=== PATIENT | female | born 2005 | race Caucasian/White ===

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

== ENCOUNTER 2023-07-31 21:03 | Emergency (ER) | payer OTHER, SELFPAY ==
--- OUTSIDE RECORDS SUMMARY | 2023-07-31 21:11 | XMS REPORT | Continuity of Care Document ---
Author Name Unknown Address [address] [facility]. [address] [place] [address] [facility] thconnect Address [address] [facility] [address] [place] [address] Care Team Providers Care Fender Finisher Name Role Phone Aury Rich PA-C Primary Care Physician + LORE CASTILLO Attending Clinician Unavailable LORE CASTILLO Attending Clinician Unavailable Doctor Unassigned, [place] Attending Clinician U navailable Aury Rich PA-C Attending Clinician [phone] HEMA GONZALEZ Attending Clinician Unavailable Pgy2 Attending Clinician Unavailable Hema Gonzalez MD Attending Clinician [phone] Nilo Angel MD Attending Clinician [phone] NILO ANGEL Attending Clinician Unavailable AURY RICH Attending Clinician Unavailab PACHECO Álvarez Attending Clinician Unavail able Terry Renee MD Attending Clinician [phone] TERRY RENEE Attending Clinician Unavailable OSCAR CHAVEZ Attending Clinician UnaArchana Valente Attending Clinician + ARCHANA MICHAELS Attending Clinician Unavail able Joyce Workman Attending Clinician [phone] JOYCE GALLARDO Attending Clinician UnavailRaymond Devi DO Attending Clinician Hubert Caldwell Attending Clinician [phone] HUBERT BETANCOURT Attending Clinician Unavail able NILO ANGEL Admitting Clinician Unavailable AURY RICH Admitting Clinician Unavailab le Payers Payer Name Policy Type Policy Number Effective Date Expirati on Date Source [place] [employer] [id number] 2022 00:00:00 Problems Condition Name Condition Details Condition Category Status Onset Date Resolution Date Last Treatment Date Treating Clinician Comments Source Boil of buttock Boil of buttock Disease Active 19 00:00: 00 [facility] Nexplanon removal Nexplanon removal Disease Active 02-24 00:00: 00 [facility] Heart murmur Heart murmur Disease Active 09-02 00:00: 00 [facility] Asthma Asthma Disease Active 09-02 00:00: 00 [facility] Defiant behavior Defiant behavior Disease Active 09-02 00:00: 00 [facility] Seasonal allergies Seasonal allergies Disease Active 09-02 00:00: 00 [facility] Allergic rhinitis Allergic rhinitis Disease Active 09-02 00:00: 00 [facility] Bipolar affective disorder Bipolar affective disorder Disease Active 608 00:00: 00 [facility] Other mixed anxiety disorders Other mixed anxiety disorders Disease Active 2016-02 0-14 00:00: 00 [facility] ADHD (attention deficit hyperactiv ity disorder) ADHD (attention deficit hyperactiv ity disorder) Disease Active 214 00:00: 00 [facility] Sleep apnea Sleep apnea Disease Active [facility] Allergies, Adverse Reactions, Alerts Allergy Name Allergy Type Status Severity Reaction(s) Onset Date Inactive Date Treating Clinician Comments Source NO KNOWN ALLERGIE S Drug Class Active [facility] Social History Social Habit Start Date Stop Date Quantity Comments [facility] Alcohol intake 2022-11-22 00:00:00 2022-11-22 00:00:00 Current non-drinker of alcohol (finding) [facility] Exposure to SARS-CoV-2 (event) 2022-04-26 00:00:00 2022-05-06 13:52:00 Not sure [facility] Tobacco use and exposure 2022-05-06 00:00:00 2022-05-06 00:00:00 User of smokeless tobacco [facility] History of Social function 2022-03-30 00:00:00 2022-03-30 00:00:00 [facility] Sex Assigned At 2005 00:00:00 2005 00:00:00 [facility] Smoking Status Start Date Stop Date Source Never smoked tobacco [facility] Medications Ordered Medication Name Filled Medication Name Start Date Stop Date Current Medication? Ordering Clinician Indication Dosage Frequency Signature (SIG) Comments Components Source CETIRIZINE 10 mg tablet 10-25 00:00: 00 Yes [id number] 10mg TAKE ONE (1) TABLET BY MOUTH AT BEDTIME. [facility] mometasone 50 mcg/actuati on nasal spray 03-30 00:00: 00 Yes 1{spray } Use 1 [place] in each nostril in the morning and 1 [place] in the evening. [facility] cetirizine 10 mg tablet 03-30 00:00: 00 10-25 00:00 :00 No [id number] 10mg Take 1 tablet by mouth at bedtime. [facility] multivit-mi n/ferrous fumarate (MULTI VITAMIN ORAL) 03-15 10:17: 40 Yes Take by mouth. [facility] clindamycin 300 mg capsule 03-15 00:00: 00 03-26 05:59 :00 No [id number] 300mg Take 1 capsule by mouth 4 (four) times daily for 10 days. [facility] sulfamethox azole-trime thoprim (BACTRIM DS) 800-160 mg per tablet 03-15 00:00: 00 03-26 05:59 :00 No [id number] 1{tbl} Take 1 tablet by mouth in the morning and 1 tablet in the evening. Do all this for 10 days. [facility] benzoyl peroxide 5 % gel 1-10 00:00: 00 03-30 00:00 :00 No [id number] Apply to area(s) daily. [facility] clindamycin 1 % gel 1-10 00:00: 00 03-30 00:00 :00 No [id number] Apply to area(s) daily. [facility] amoxicillin -clavulanat e (AUGMENTIN) 875-125 mg per tablet 1-06 00:00: 00 03-09 05:59 :00 No [id number] 1{tbl} Take 1 tablet by mouth in the morning and 1 tablet in the evening. Do all this for 10 days. [facility] clindamycin -benzoyl peroxide (BENZACLIN) gel - 00:00: 00 03-02 00:00 :00 No [id number] Apply to area(s) at bedtime. [facility] polymyxin B sulf-trimet hoprim 10,000 unit- 1 mg/mL ophthalmic drops 1-04 00:00: 00 03-30 00:00 :00 No INSTILL ONE (1) DROP IN AFFECTED EYE EVERY SIX HOURS FOR 7 DAYS. [facility] busPIRone 5 mg tablet 1-03 00:00: 00 03-30 00:00 :00 No [facility] CETIRIZINE 10 mg tablet 2-14 00:00: 00 03-30 00:00 :00 No [id number] TAKE ONE (1) TABLET(S) BY MOUTH ONCE A DAY AT BEDTIME. [facility] Nitrofurant oin&Nit. Macrocryst (MACROBID) 100 mg capsule 1-19 00:00: 00 03-15 00:00 :00 No [id number] 100mg Take 1 capsule by mouth 2 (two) times daily. [facility] multivit-mi n/ferrous fumarate (MULTI VITAMIN ORAL) 2020-02 2-21 15:38: 09 Yes Take by mouth. [facility] LATUDA 60 mg Tab 2020-02 0- 00:00: 00 Yes 1{tbl} Take 1 tablet by mouth daily. [facility] cetirizine 10 mg tablet 09-29 00:00: 00 Yes [id number] 10mg Take 1 tablet by mouth at bedtime. [facility] mometasone 50 mcg/actuati on nasal spray 09-29 00:00: 00 03-30 00:00 :00 No [id number] 1{spray } Use 1 [place] in each nostril 2 (two) times daily. [facility] Immunizations Ordered Immunization Name Filled Immunization Name Date Status Comments Source Influenza Virus Vaccine Quad .5 mL IM 6+ MO 2020-01-30 00:00:00 Completed [facility] Meningococcal Polysaccharide (groups A, C, Y and W-135) conjugate vaccine (MCV4P) 2020-01-30 00:00:00 Completed [facility] Meningococcal B, OMV 2020-01-30 00:00:00 Completed [facility] Influenza Virus Vaccine Quad .5 mL IM 6+ MO 2020-01-30 00:00:00 Completed [facility] Meningococcal Polysaccharide (groups A, C, Y and W-135) conjugate vaccine (MCV4P) 2020-01-30 00:00:00 Completed [facility] Meningococcal B, OMV 2020-01-30 00:00:00 Completed [facility] Influenza Virus Vaccine Quad .5 mL IM 6+ MO 2020-01-30 00:00:00 Completed [facility] Meningococcal Polysaccharide (groups A, C, Y and W-135) conjugate vaccine (MCV4P) 2020-01-30 00:00:00 Completed [facility] Meningococcal B, OMV 2020-01-30 00:00:00 Completed [facility] Influenza Virus Vaccine Quad .5 mL IM 6+ MO 2020-01-30 00:00:00 Completed [facility] Meningococcal Polysaccharide (groups A, C, Y and W-135) conjugate vaccine (MCV4P) 2020-01-30 00:00:00 Completed [facility] Meningococcal B, OMV 2020-01-30 00:00:00 Completed [facility] Influenza Virus Vaccine Quad .5 mL IM 6+ MO 2020-01-30 00:00:00 Completed [facility] Meningococcal Polysaccharide (groups A, C, Y and W-135) conjugate vaccine (MCV4P) 2020-01-30 00:00:00 Completed [facility] Meningococcal B, OMV 2020-01-30 00:00:00 Completed [facility] Influenza Virus Vaccine Quad .5 mL IM 6+ MO 2020-01-30 00:00:00 Completed [facility] Meningococcal Polysaccharide (groups A, C, Y and W-135) conjugate vaccine (MCV4P) 2020-01-30 00:00:00 Completed [facility] Meningococcal B, OMV 2020-01-30 00:00:00 Completed [facility] Influenza Virus Vaccine Quad .5 mL IM 6+ MO 2020-01-30 00:00:00 Completed [facility] Meningococcal Polysaccharide (groups A, C, Y and W-135) conjugate vaccine (MCV4P) 2020-01-30 00:00:00 Completed [facility] Meningococcal B, OMV 2020-01-30 00:00:00 Completed [facility] Influenza Virus Vaccine Quad .5 mL IM 6+ MO 2020-01-30 00:00:00 Completed [facility] Meningococcal Polysaccharide (groups A, C, Y and W-135) conjugate vaccine (MCV4P) 2020-01-30 00:00:00 Completed [facility] Meningococcal B, OMV 2020-01-30 00:00:00 Completed [facility] Influenza Virus Vaccine Quad .5 mL IM 6+ MO 2020-01-30 00:00:00 Completed [facility] Meningococcal Polysaccharide (groups A, C, Y and W-135) conjugate vaccine (MCV4P) 2020-01-30 00:00:00 Completed [facility] Meningococcal B, OMV 2020-01-30 00:00:00 Completed [facility] Influenza Virus Vaccine Quad .5 mL IM 6+ MO 2020-01-30 00:00:00 Completed [facility] Meningococcal Polysaccharide (groups A, C, Y and W-135) conjugate vaccine (MCV4P) 2020-01-30 00:00:00 Completed [facility] Meningococcal B, OMV 2020-01-30 00:00:00 Completed [facility] Influenza Virus Vaccine Quad .5 mL IM 6+ MO 2020-01-30 00:00:00 Completed [facility] Meningococcal Polysaccharide (groups A, C, Y and W-135) conjugate vaccine (MCV4P) 2020-01-30 00:00:00 Completed [facility] Meningococcal B, OMV 2020-01-30 00:00:00 Completed [facility] Influenza Virus Vaccine Quad .5 mL IM 6+ MO 2020-01-30 00:00:00 Completed [facility] Meningococcal Polysaccharide (groups A, C, Y and W-135) conjugate vaccine (MCV4P) 2020-01-30 00:00:00 Completed [facility] Meningococcal B, OMV 2020-01-30 00:00:00 Completed [facility] Influenza Virus Vaccine Quad .5 mL IM 6+ MO 2020-01-30 00:00:00 Completed [facility] Meningococcal Polysaccharide (groups A, C, Y and W-135) conjugate vaccine (MCV4P) 2020-01-30 00:00:00 Completed [facility] Meningococcal B, OMV 2020-01-30 00:00:00 Completed [facility] Influenza Virus Vaccine Quad .5 mL IM 6+ MO (FLUZONE/FLULAVAL/FL UARIX) 2020-01-30 00:00:00 Completed [facility] Meningococcal Polysaccharide (groups A, C, Y and W-135) conjugate vaccine (MCV4P) 2020-01-30 00:00:00 Completed [facility] Meningococcal B, OMV 2020-01-30 00:00:00 Completed [facility] Influenza Virus Vaccine Quad .5 mL IM 6+ MO 2020-01-30 00:00:00 Completed [facility] Meningococcal Polysaccharide (groups A, C, Y and W-135) conjugate vaccine (MCV4P) 2020-01-30 00:00:00 Completed [facility] Meningococcal B, OMV 2020-01-30 00:00:00 Completed [facility] Influenza Virus Vaccine Quad .5 mL IM 6+ MO 2020-01-30 00:00:00 Completed [facility] Meningococcal Polysaccharide (groups A, C, Y and W-135) conjugate vaccine (MCV4P) 2020-01-30 00:00:00 Completed [facility] Meningococcal B, OMV 2020-01-30 00:00:00 Completed [facility] Influenza Virus Vaccine Quad .5 mL IM 6+ MO 2020-01-30 00:00:00 Completed [facility] Meningococcal Polysaccharide (groups A, C, Y and W-135) conjugate vaccine (MCV4P) 2020-01-30 00:00:00 Completed [facility] Meningococcal B, OMV 2020-01-30 00:00:00 Completed [facility] Influenza Virus Vaccine Quad .5 mL IM 6+ MO 2020-01-30 00:00:00 Completed [facility] Meningococcal Polysaccharide (groups A, C, Y and W-135) conjugate vaccine (MCV4P) 2020-01-30 00:00:00 Completed [facility] Meningococcal B, OMV 2020-01-30 00:00:00 Completed [facility] Influenza Virus Vaccine Quad .5 mL IM 6+ MO 2020-01-30 00:00:00 Completed [facility] Meningococcal Polysaccharide (groups A, C, Y and W-135) conjugate vaccine (MCV4P) 2020-01-30 00:00:00 Completed [facility] Meningococcal B, OMV 2020-01-30 00:00:00 Completed [facility] Influenza Virus Vaccine Quad .5 mL IM 6+ MO 2020-01-30 00:00:00 Completed [facility] Meningococcal Polysaccharide (groups A, C, Y and W-135) conjugate vaccine (MCV4P) 2020-01-30 00:00:00 Completed [facility] Meningococcal B, OMV 2020-01-30 00:00:00 Completed [facility] Influenza Virus Vaccine Quad .5 mL IM 6+ MO 2020-01-30 00:00:00 Completed [facility] Meningococcal Polysaccharide (groups A, C, Y and W-135) conjugate vaccine (MCV4P) 2020-01-30 00:00:00 Completed [facility] Meningococcal B, OMV 2020-01-30 00:00:00 Completed [facility] Influenza Virus Vaccine Quad .5 mL IM 6+ MO 2020-01-30 00:00:00 Completed [facility] Meningococcal Polysaccharide (groups A, C, Y and W-135) conjugate vaccine (MCV4P) 2020-01-30 00:00:00 Completed [facility] Meningococcal B, OMV 2020-01-30 00:00:00 Completed [facility] Influenza Virus Vaccine Quad .5 mL IM 6+ MO 2020-01-30 00:00:00 Completed [facility] Meningococcal Polysaccharide (groups A, C, Y and W-135) conjugate vaccine (MCV4P) 2020-01-30 00:00:00 Completed [facility] Meningococcal B, OMV 2020-01-30 00:00:00 Completed [facility] Influenza Virus Vaccine Quad .5 mL IM 6+ MO 2020-01-30 00:00:00 Completed [facility] Meningococcal Polysaccharide (groups A, C, Y and W-135) conjugate vaccine (MCV4P) 2020-01-30 00:00:00 Completed [facility] Meningococcal B, OMV 2020-01-30 00:00:00 Completed [facility] Influenza Virus Vaccine Quad IM 3+ YRS 2018-12-21 00:00:00 Completed [facility] Influenza Virus Vaccine 2018-12-21 00:00:00 Completed [facility] Influenza Virus Vaccine Quad IM 3+ YRS 2018-12-21 00:00:00 Completed [facility] Influenza Virus Vaccine 2018-12-21 00:00:00 Completed [facility] Influenza Virus Vaccine Quad IM 3+ YRS 2018-12-21 00:00:00 Completed [facility] Influenza Virus Vaccine 2018-12-21 00:00:00 Completed [facility] Influenza Virus Vaccine Quad IM 3+ YRS 2018-12-21 00:00:00 Completed [facility] Influenza Virus Vaccine 2018-12-21 00:00:00 Completed [facility] Influenza Virus Vaccine Quad IM 3+ YRS 2018-12-21 00:00:00 Completed [facility] Influenza Virus Vaccine 2018-12-21 00:00:00 Completed [facility] Influenza Virus Vaccine Quad IM 3+ YRS 2018-12-21 00:00:00 Completed [facility] Influenza Virus Vaccine 2018-12-21 00:00:00 Completed [facility] Influenza Virus Vaccine Quad IM 3+ YRS 2018-12-21 00:00:00 Completed [facility] Influenza Virus Vaccine 2018-12-21 00:00:00 Completed [facility] Influenza Virus Vaccine Quad IM 3+ YRS 2018-12-21 00:00:00 Completed [facility] Influenza Virus Vaccine 2018-12-21 00:00:00 Completed [facility] Influenza Virus Vaccine Quad IM 3+ YRS 2018-12-21 00:00:00 Completed [facility] Influenza Virus Vaccine 2018-12-21 00:00:00 Completed [facility] Influenza Virus Vaccine Quad IM 3+ YRS 2018-12-21 00:00:00 Completed [facility] Influenza Virus Vaccine 2018-12-21 00:00:00 Completed [facility] Influenza Virus Vaccine Quad IM 3+ YRS 2018-12-21 00:00:00 Completed [facility] Influenza Virus Vaccine 2018-12-21 00:00:00 Completed [facility] Influenza Virus Vaccine Quad IM 3+ YRS 2018-12-21 00:00:00 Completed [facility] Influenza Virus Vaccine 2018-12-21 00:00:00 Completed [facility] Influenza Virus Vaccine Quad IM 3+ YRS 2018-12-21 00:00:00 Completed [facility] Influenza Virus Vaccine 2018-12-21 00:00:00 Completed [facility] Influenza Virus Vaccine Quad IM 3+ YRS 2018-12-21 00:00:00 Completed [facility] Influenza Virus Vaccine 2018-12-21 00:00:00 Completed [facility] Influenza Virus Vaccine Quad IM 3+ YRS 2018-12-21 00:00:00 Completed [facility] Influenza Virus Vaccine 2018-12-21 00:00:00 Completed [facility] Influenza Virus Vaccine Quad IM 3+ YRS 2018-12-21 00:00:00 Completed [facility] Influenza Virus Vaccine 2018-12-21 00:00:00 Completed [facility] Influenza Virus Vaccine Quad IM 3+ YRS 2018-12-21 00:00:00 Completed [facility] Influenza Virus Vaccine 2018-12-21 00:00:00 Completed [facility] Influenza Virus Vaccine Quad IM 3+ YRS 2018-12-21 00:00:00 Completed [facility] Influenza Virus Vaccine 2018-12-21 00:00:00 Completed [facility] Influenza Virus Vaccine Quad IM 3+ YRS 2018-12-21 00:00:00 Completed [facility] Influenza Virus Vaccine 2018-12-21 00:00:00 Completed [facility] Influenza Virus Vaccine Quad IM 3+ YRS 2018-12-21 00:00:00 Completed [facility] Influenza Virus Vaccine 2018-12-21 00:00:00 Completed [facility] Influenza Virus Vaccine Quad IM 3+ YRS 2018-12-21 00:00:00 Completed [facility] Influenza Virus Vaccine 2018-12-21 00:00:00 Completed [facility] Influenza Virus Vaccine Quad IM 3+ YRS 2018-12-21 00:00:00 Completed [facility] Influenza Virus Vaccine 2018-12-21 00:00:00 Completed [facility] Influenza Virus Vaccine Quad IM 3+ YRS 2018-12-21 00:00:00 Completed [facility] Influenza Virus Vaccine 2018-12-21 00:00:00 Completed [facility] Influenza Virus Vaccine Quad IM 3+ YRS 2018-12-21 00:00:00 Completed [facility] Influenza Virus Vaccine 2018-12-21 00:00:00 Completed [facility] Influenza Virus Vaccine Quad IM 3+ YRS 2017-12-13 00:00:00 Completed [facility] Influenza Virus Vaccine 2017-12-13 00:00:00 Completed [facility] Influenza Virus Vaccine Quad IM 3+ YRS 2017-12-13 00:00:00 Completed [facility] Influenza Virus Vaccine 2017-12-13 00:00:00 Completed [facility] Influenza Virus Vaccine Quad IM 3+ YRS 2017-12-13 00:00:00 Completed [facility] Influenza Virus Vaccine 2017-12-13 00:00:00 Completed [facility] Influenza Virus Vaccine Quad IM 3+ YRS 2017-12-13 00:00:00 Completed [facility] Influenza Virus Vaccine 2017-12-13 00:00:00 Completed [facility] Influenza Virus Vaccine Quad IM 3+ YRS 2017-12-13 00:00:00 Completed [facility] Influenza Virus Vaccine 2017-12-13 00:00:00 Completed [facility] Influenza Virus Vaccine Quad IM 3+ YRS 2017-12-13 00:00:00 Completed [facility] Influenza Virus Vaccine 2017-12-13 00:00:00 Completed [facility] Influenza Virus Vaccine Quad IM 3+ YRS 2017-12-13 00:00:00 Completed [facility] Influenza Virus Vaccine 2017-12-13 00:00:00 Completed [facility] Influenza Virus Vaccine Quad IM 3+ YRS 2017-12-13 00:00:00 Completed [facility] Influenza Virus Vaccine 2017-12-13 00:00:00 Completed [facility] Influenza Virus Vaccine Quad IM 3+ YRS 2017-12-13 00:00:00 Completed [facility] Influenza Virus Vaccine 2017-12-13 00:00:00 Completed [facility] Influenza Virus Vaccine Quad IM 3+ YRS 2017-12-13 00:00:00 Completed [facility] Influenza Virus Vaccine 2017-12-13 00:00:00 Completed [facility] Influenza Virus Vaccine Quad IM 3+ YRS 2017-12-13 00:00:00 Completed [facility] Influenza Virus Vaccine 2017-12-13 00:00:00 Completed [facility] Influenza Virus Vaccine Quad IM 3+ YRS 2017-12-13 00:00:00 Completed [facility] Influenza Virus Vaccine 2017-12-13 00:00:00 Completed [facility] Influenza Virus Vaccine Quad IM 3+ YRS 2017-12-13 00:00:00 Completed [facility] Influenza Virus Vaccine 2017-12-13 00:00:00 Completed [facility] Influenza Virus Vaccine Quad IM 3+ YRS 2017-12-13 00:00:00 Completed [facility] Influenza Virus Vaccine 2017-12-13 00:00:00 Completed [facility] Influenza Virus Vaccine Quad IM 3+ YRS 2017-12-13 00:00:00 Completed [facility] Influenza Virus Vaccine 2017-12-13 00:00:00 Completed [facility] Influenza Virus Vaccine Quad IM 3+ YRS 2017-12-13 00:00:00 Completed [facility] Influenza Virus Vaccine 2017-12-13 00:00:00 Completed [facility] Influenza Virus Vaccine Quad IM 3+ YRS 2017-12-13 00:00:00 Completed [facility] Influenza Virus Vaccine 2017-12-13 00:00:00 Completed [facility] Influenza Virus Vaccine Quad IM 3+ YRS 2017-12-13 00:00:00 Completed [facility] Influenza Virus Vaccine 2017-12-13 00:00:00 Completed [facility] Influenza Virus Vaccine Quad IM 3+ YRS 2017-12-13 00:00:00 Completed [facility] Influenza Virus Vaccine 2017-12-13 00:00:00 Completed [facility] Influenza Virus Vaccine Quad IM 3+ YRS 2017-12-13 00:00:00 Completed [facility] Influenza Virus Vaccine 2017-12-13 00:00:00 Completed [facility] Influenza Virus Vaccine Quad IM 3+ YRS 2017-12-13 00:00:00 Completed [facility] Influenza Virus Vaccine 2017-12-13 00:00:00 Completed [facility] Influenza Virus Vaccine Quad IM 3+ YRS 2017-12-13 00:00:00 Completed [facility] Influenza Virus Vaccine 2017-12-13 00:00:00 Completed [facility] Influenza Virus Vaccine Quad IM 3+ YRS 2017-12-13 00:00:00 Completed [facility] Influenza Virus Vaccine 2017-12-13 00:00:00 Completed [facility] Influenza Virus Vaccine Quad IM 3+ YRS 2017-12-13 00:00:00 Completed [facility] Influenza Virus Vaccine 2017-12-13 00:00:00 Completed [facility] Influenza Virus Vaccine Quad IM 3+ YRS 2016-11-11 00:00:00 Completed [facility] Influenza Virus Vaccine Quad IM 3+ YRS 2016-11-11 00:00:00 Completed [facility] Influenza Virus Vaccine Quad IM 3+ YRS 2016-11-11 00:00:00 Completed [facility] Influenza Virus Vaccine Quad IM 3+ YRS 2016-11-11 00:00:00 Completed [facility] Influenza Virus Vaccine Quad IM 3+ YRS 2016-11-11 00:00:00 Completed [facility] Influenza Virus Vaccine Quad IM 3+ YRS 2016-11-11 00:00:00 Completed [facility] Influenza Virus Vaccine Quad IM 3+ YRS 2016-11-11 00:00:00 Completed [facility] Influenza Virus Vaccine Quad IM 3+ YRS 2016-11-11 00:00:00 Completed [facility] Influenza Virus Vaccine Quad IM 3+ YRS 2016-11-11 00:00:00 Completed [facility] Influenza Virus Vaccine Quad IM 3+ YRS 2016-11-11 00:00:00 Completed [facility] Influenza Virus Vaccine Quad IM 3+ YRS 2016-11-11 00:00:00 Completed [facility] Influenza Virus Vaccine Quad IM 3+ YRS 2016-11-11 00:00:00 Completed [facility] Influenza Virus Vaccine Quad IM 3+ YRS 2016-11-11 00:00:00 Completed [facility] Influenza Virus Vaccine Quad IM 3+ YRS 2016-11-11 00:00:00 Completed [facility] Influenza Virus Vaccine Quad IM 3+ YRS 2016-11-11 00:00:00 Completed [facility] Influenza Virus Vaccine Quad IM 3+ YRS 2016-11-11 00:00:00 Completed [facility] Influenza Virus Vaccine Quad IM 3+ YRS 2016-11-11 00:00:00 Completed [facility] Influenza Virus Vaccine Quad IM 3+ YRS 2016-11-11 00:00:00 Completed [facility] Influenza Virus Vaccine Quad IM 3+ YRS 2016-11-11 00:00:00 Completed [facility] Influenza Virus Vaccine Quad IM 3+ YRS 2016-11-11 00:00:00 Completed [facility] Influenza Virus Vaccine Quad IM 3+ YRS 2016-11-11 00:00:00 Completed [facility] Influenza Virus Vaccine Quad IM 3+ YRS 2016-11-11 00:00:00 Completed [facility] Influenza Virus Vaccine Quad IM 3+ YRS 2016-11-11 00:00:00 Completed [facility] Influenza Virus Vaccine Quad IM 3+ YRS 2016-11-11 00:00:00 Completed [facility] HPV9 2016-02-25 00:00:00 Completed [facility] HPV9 2016-02-25 00:00:00 Completed [facility] HPV9 2016-02-25 00:00:00 Completed [facility] HPV9 2016-02-25 00:00:00 Completed [facility] HPV9 2016-02-25 00:00:00 Completed [facility] HPV9 2016-02-25 00:00:00 Completed [facility] HPV9 2016-02-25 00:00:00 Completed [facility] HPV9 2016-02-25 00:00:00 Completed [facility] HPV9 2016-02-25 00:00:00 Completed [facility] HPV9 2016-02-25 00:00:00 Completed [facility] HPV9 2016-02-25 00:00:00 Completed [facility] HPV9 2016-02-25 00:00:00 Completed [facility] HPV9 2015-09-17 00:00:00 Completed [facility] HPV9 2015-09-17 00:00:00 Completed [facility] HPV9 2015-09-17 00:00:00 Completed [facility] HPV9 2015-09-17 00:00:00 Completed [facility] HPV9 2015-09-17 00:00:00 Completed [facility] HPV9 2015-09-17 00:00:00 Completed [facility] HPV9 2015-09-17 00:00:00 Completed [facility] HPV9 2015-09-17 00:00:00 Completed [facility] HPV9 2015-09-17 00:00:00 Completed [facility] HPV9 2015-09-17 00:00:00 Completed [facility] HPV9 2015-09-17 00:00:00 Completed [facility] HPV9 2015-09-17 00:00:00 Completed [facility] HPV9 2015-07-07 00:00:00 Completed [facility] Meningococcal Polysaccharide (groups A, C, Y and W-135) conjugate vaccine (MCV4P) 2015-07-07 00:00:00 Completed [facility] TDAP 2015-07-07 00:00:00 Completed [facility] HPV9 2015-07-07 00:00:00 Completed [facility] Meningococcal Polysaccharide (groups A, C, Y and W-135) conjugate vaccine (MCV4P) 2015-07-07 00:00:00 Completed [facility] TDAP 2015-07-07 00:00:00 Completed [facility] HPV9 2015-07-07 00:00:00 Completed [facility] Meningococcal Polysaccharide (groups A, C, Y and W-135) conjugate vaccine (MCV4P) 2015-07-07 00:00:00 Completed [facility] TDAP 2015-07-07 00:00:00 Completed [facility] HPV9 2015-07-07 00:00:00 Completed [facility] Meningococcal Polysaccharide (groups A, C, Y and W-135) conjugate vaccine (MCV4P) 2015-07-07 00:00:00 Completed [facility] TDAP 2015-07-07 00:00:00 Completed [facility] HPV9 2015-07-07 00:00:00 Completed [facility] Meningococcal Polysaccharide (groups A, C, Y and W-135) conjugate vaccine (MCV4P) 2015-07-07 00:00:00 Completed [facility] TDAP 2015-07-07 00:00:00 Completed [facility] HPV9 2015-07-07 00:00:00 Completed [facility] Meningococcal Polysaccharide (groups A, C, Y and W-135) conjugate vaccine (MCV4P) 2015-07-07 00:00:00 Completed [facility] TDAP 2015-07-07 00:00:00 Completed [facility] HPV9 2015-07-07 00:00:00 Completed [facility] Meningococcal Polysaccharide (groups A, C, Y and W-135) conjugate vaccine (MCV4P) 2015-07-07 00:00:00 Completed [facility] TDAP 2015-07-07 00:00:00 Completed [facility] HPV9 2015-07-07 00:00:00 Completed [facility] Meningococcal Polysaccharide (groups A, C, Y and W-135) conjugate vaccine (MCV4P) 2015-07-07 00:00:00 Completed [facility] TDAP 2015-07-07 00:00:00 Completed [facility] HPV9 2015-07-07 00:00:00 Completed [facility] Meningococcal Polysaccharide (groups A, C, Y and W-135) conjugate vaccine (MCV4P) 2015-07-07 00:00:00 Completed [facility] TDAP 2015-07-07 00:00:00 Completed [facility] HPV9 2015-07-07 00:00:00 Completed [facility] Meningococcal Polysaccharide (groups A, C, Y and W-135) conjugate vaccine (MCV4P) 2015-07-07 00:00:00 Completed [facility] TDAP 2015-07-07 00:00:00 Completed [facility] HPV9 2015-07-07 00:00:00 Completed [facility] Meningococcal Polysaccharide (groups A, C, Y and W-135) conjugate vaccine (MCV4P) 2015-07-07 00:00:00 Completed [facility] TDAP 2015-07-07 00:00:00 Completed [facility] HPV9 2015-07-07 00:00:00 Completed [facility] Meningococcal Polysaccharide (groups A, C, Y and W-135) conjugate vaccine (MCV4P) 2015-07-07 00:00:00 Completed [facility] TDAP 2015-07-07 00:00:00 Completed [facility] Influenza Virus Vaccine - Whole 2010-11-23 00:00:00 Completed [facility] Influenza Virus Vaccine - Whole 2010-11-23 00:00:00 Completed [facility] Influenza Virus Vaccine - Whole 2010-11-23 00:00:00 Completed [facility] Influenza Virus Vaccine - Whole 2010-11-23 00:00:00 Completed [facility] Influenza Virus Vaccine - Whole 2010-11-23 00:00:00 Completed [facility] Influenza Virus Vaccine - Whole 2010-11-23 00:00:00 Completed [facility] Influenza Virus Vaccine - Whole 2010-11-23 00:00:00 Completed [facility] Influenza Virus Vaccine - Whole 2010-11-23 00:00:00 Completed [facility] Influenza Virus Vaccine - Whole 2010-11-23 00:00:00 Completed [facility] Influenza Virus Vaccine - Whole 2010-11-23 00:00:00 Completed [facility] Influenza Virus Vaccine - Whole 2010-11-23 00:00:00 Completed [facility] Influenza Virus Vaccine - Whole 2010-11-23 00:00:00 Completed [facility] DTaP, Unspecified Formulation 2007-10-12 00:00:00 Completed [facility] MMR 2007-10-12 00:00:00 Completed [facility] IPV 2007-10-12 00:00:00 Completed [facility] Varicella (varivax)(chicken pox) 2007-10-12 00:00:00 Completed [facility] DTaP, Unspecified Formulation 2007-10-12 00:00:00 Completed [facility] MMR 2007-10-12 00:00:00 Completed [facility] IPV 2007-10-12 00:00:00 Completed [facility] Varicella (varivax)(chicken pox) 2007-10-12 00:00:00 Completed [facility] DTaP, Unspecified Formulation 2007-10-12 00:00:00 Completed [facility] MMR 2007-10-12 00:00:00 Completed [facility] IPV 2007-10-12 00:00:00 Completed [facility] Varicella (varivax)(chicken pox) 2007-10-12 00:00:00 Completed [facility] DTaP, Unspecified Formulation 2007-10-12 00:00:00 Completed [facility] MMR 2007-10-12 00:00:00 Completed [facility] IPV 2007-10-12 00:00:00 Completed [facility] Varicella (varivax)(chicken pox) 2007-10-12 00:00:00 Completed [facility] DTaP, Unspecified Formulation 2007-10-12 00:00:00 Completed [facility] MMR 2007-10-12 00:00:00 Completed [facility] IPV 2007-10-12 00:00:00 Completed [facility] Varicella (varivax)(chicken pox) 2007-10-12 00:00:00 Completed [facility] DTaP, Unspecified Formulation 2007-10-12 00:00:00 Completed [facility] MMR 2007-10-12 00:00:00 Completed [facility] IPV 2007-10-12 00:00:00 Completed [facility] Varicella (varivax)(chicken pox) 2007-10-12 00:00:00 Completed [facility] DTaP, Unspecified Formulation 2007-10-12 00:00:00 Completed [facility] MMR 2007-10-12 00:00:00 Completed [facility] IPV 2007-10-12 00:00:00 Completed [facility] Varicella (varivax)(chicken pox) 2007-10-12 00:00:00 Completed [facility] DTaP, Unspecified Formulation 2007-10-12 00:00:00 Completed [facility] MMR 2007-10-12 00:00:00 Completed [facility] IPV 2007-10-12 00:00:00 Completed [facility] Varicella (varivax)(chicken pox) 2007-10-12 00:00:00 Completed [facility] DTaP, Unspecified Formulation 2007-10-12 00:00:00 Completed [facility] MMR 2007-10-12 00:00:00 Completed [facility] IPV 2007-10-12 00:00:00 Completed [facility] Varicella (varivax)(chicken pox) 2007-10-12 00:00:00 Completed [facility] DTaP, Unspecified Formulation 2007-10-12 00:00:00 Completed [facility] MMR 2007-10-12 00:00:00 Completed [facility] IPV 2007-10-12 00:00:00 Completed [facility] Varicella (varivax)(chicken pox) 2007-10-12 00:00:00 Completed [facility] DTaP, Unspecified Formulation 2007-10-12 00:00:00 Completed [facility] MMR 2007-10-12 00:00:00 Completed [facility] IPV 2007-10-12 00:00:00 Completed [facility] Varicella (varivax)(chicken pox) 2007-10-12 00:00:00 Completed [facility] DTaP, Unspecified Formulation 2007-10-12 00:00:00 Completed [facility] MMR 2007-10-12 00:00:00 Completed [facility] IPV 2007-10-12 00:00:00 Completed [facility] Varicella (varivax)(chicken pox) 2007-10-12 00:00:00 Completed [facility] HEPATITIS A 2006-01-25 00:00:00 Completed [facility] HEPATITIS A 2006-01-25 00:00:00 Completed [facility] HEPATITIS A 2006-01-25 00:00:00 Completed [facility] HEPATITIS A 2006-01-25 00:00:00 Completed [facility] HEPATITIS A 2006-01-25 00:00:00 Completed [facility] HEPATITIS A 2006-01-25 00:00:00 Completed [facility] HEPATITIS A 2006-01-25 00:00:00 Completed [facility] HEPATITIS A 2006-01-25 00:00:00 Completed [facility] HEPATITIS A 2006-01-25 00:00:00 Completed [facility] HEPATITIS A 2006-01-25 00:00:00 Completed [facility] HEPATITIS A 2006-01-25 00:00:00 Completed [facility] HEPATITIS A 2006-01-25 00:00:00 Completed [facility] HEPATITIS A 2005-05-04 00:00:00 Completed [facility] HEPATITIS A 2005-05-04 00:00:00 Completed [facility] HEPATITIS A 2005-05-04 00:00:00 Completed [facility] HEPATITIS A 2005-05-04 00:00:00 Completed [facility] HEPATITIS A 2005-05-04 00:00:00 Completed [facility] HEPATITIS A 2005-05-04 00:00:00 Completed [facility] HEPATITIS A 2005-05-04 00:00:00 Completed [facility] HEPATITIS A 2005-05-04 00:00:00 Completed [facility] HEPATITIS A 2005-05-04 00:00:00 Completed [facility] HEPATITIS A 2005-05-04 00:00:00 Completed [facility] HEPATITIS A 2005-05-04 00:00:00 Completed [facility] HEPATITIS A 2005-05-04 00:00:00 Completed [facility] DTaP, Unspecified Formulation 2004-09-22 00:00:00 Completed [facility] DTaP, Unspecified Formulation 2004-09-22 00:00:00 Completed [facility] DTaP, Unspecified Formulation 2004-09-22 00:00:00 Completed [facility] DTaP, Unspecified Formulation 2004-09-22 00:00:00 Completed [facility] DTaP, Unspecified Formulation 2004-09-22 00:00:00 Completed [facility] DTaP, Unspecified Formulation 2004-09-22 00:00:00 Completed [facility] DTaP, Unspecified Formulation 2004-09-22 00:00:00 Completed [facility] DTaP, Unspecified Formulation 2004-09-22 00:00:00 Completed [facility] DTaP, Unspecified Formulation 2004-09-22 00:00:00 Completed [facility] DTaP, Unspecified Formulation 2004-09-22 00:00:00 Completed [facility] DTaP, Unspecified Formulation 2004-09-22 00:00:00 Completed [facility] DTaP, Unspecified Formulation 2004-09-22 00:00:00 Completed [facility] HIB 4 Dose Schedule 2004-04-29 00:00:00 Completed [facility] MMR 2004-04-29 00:00:00 Completed [facility] Pneumococcal 7 Conjugate, PCV7 (Prevnar7) 2004-04-29 00:00:00 Completed [facility] Varicella (varivax)(chicken pox) 2004-04-29 00:00:00 Completed [facility] HIB 4 Dose Schedule 2004-04-29 00:00:00 Completed [facility] MMR 2004-04-29 00:00:00 Completed [facility] Pneumococcal 7 Conjugate, PCV7 (Prevnar7) 2004-04-29 00:00:00 Completed [facility] Varicella (varivax)(chicken pox) 2004-04-29 00:00:00 Completed [facility] HIB 4 Dose Schedule 2004-04-29 00:00:00 Completed [facility] MMR 2004-04-29 00:00:00 Completed [facility] Pneumococcal 7 Conjugate, PCV7 (Prevnar7) 2004-04-29 00:00:00 Completed [facility] Varicella (varivax)(chicken pox) 2004-04-29 00:00:00 Completed [facility] HIB 4 Dose Schedule 2004-04-29 00:00:00 Completed [facility] MMR 2004-04-29 00:00:00 Completed [facility] Pneumococcal 7 Conjugate, PCV7 (Prevnar7) 2004-04-29 00:00:00 Completed [facility] Varicella (varivax)(chicken pox) 2004-04-29 00:00:00 Completed [facility] HIB 4 Dose Schedule 2004-04-29 00:00:00 Completed [facility] MMR 2004-04-29 00:00:00 Completed [facility] Pneumococcal 7 Conjugate, PCV7 (Prevnar7) 2004-04-29 00:00:00 Completed [facility] Varicella (varivax)(chicken pox) 2004-04-29 00:00:00 Completed [facility] HIB 4 Dose Schedule 2004-04-29 00:00:00 Completed [facility] MMR 2004-04-29 00:00:00 Completed [facility] Pneumococcal 7 Conjugate, PCV7 (Prevnar7) 2004-04-29 00:00:00 Completed [facility] Varicella (varivax)(chicken pox) 2004-04-29 00:00:00 Completed [facility] HIB 4 Dose Schedule 2004-04-29 00:00:00 Completed [facility] MMR 2004-04-29 00:00:00 Completed [facility] Pneumococcal 7 Conjugate, PCV7 (Prevnar7) 2004-04-29 00:00:00 Completed [facility] Varicella (varivax)(chicken pox) 2004-04-29 00:00:00 [facility] [facility] 4 Dose Schedule 2004-04-29 00:00:00 Completed [facility] MMR 2004-04-29 00:00:00 Completed [facility] Pneumococcal 7 Conjugate, PCV7 (Prevnar7) 2004-04-29 00:00:00 Completed [facility] Varicella (varivax)(chicken pox) 2004-04-29 00:00:00 Completed [facility] HIB 4 Dose Schedule 2004-04-29 00:00:00 Completed [facility] MMR 2004-04-29 00:00:00 Completed [facility] Pneumococcal 7 Conjugate, PCV7 (Prevnar7) 2004-04-29 00:00:00 Completed [facility] Varicella (varivax)(chicken pox) 2004-04-29 00:00:00 Completed [facility] HIB 4 Dose Schedule 2004-04-29 00:00:00 Completed [facility] MMR 2004-04-29 00:00:00 Completed [facility] Pneumococcal 7 Conjugate, PCV7 (Prevnar7) 2004-04-29 00:00:00 Completed [facility] Varicella (varivax)(chicken pox) 2004-04-29 00:00:00 Completed [facility] HIB 4 Dose Schedule 2004-04-29 00:00:00 Completed [facility] MMR 2004-04-29 00:00:00 Completed [facility] Pneumococcal 7 Conjugate, PCV7 (Prevnar7) 2004-04-29 00:00:00 Completed [facility] Varicella (varivax)(chicken pox) 2004-04-29 00:00:00 Completed [facility] HIB 4 Dose Schedule 2004-04-29 00:00:00 Completed [facility] MMR 2004-04-29 00:00:00 Completed [facility] Pneumococcal 7 Conjugate, PCV7 (Prevnar7) 2004-04-29 00:00:00 Completed [facility] Varicella (varivax)(chicken pox) 2004-04-29 00:00:00 Completed [facility] Pediarix (dtap/hep B/ipv) 2004-02-05 00:00:00 Completed [facility] Flu Trivalent 2004-02-05 00:00:00 Completed [facility] HIB 4 Dose Schedule 2004-02-05 00:00:00 Completed [facility] Pneumococcal 7 Conjugate, PCV7 (Prevnar7) 2004-02-05 00:00:00 Completed [facility] Pediarix (dtap/hep B/ipv) 2004-02-05 00:00:00 Completed [facility] Flu Trivalent 2004-02-05 00:00:00 Completed [facility] HIB 4 Dose Schedule 2004-02-05 00:00:00 Completed [facility] Pneumococcal 7 Conjugate, PCV7 (Prevnar7) 2004-02-05 00:00:00 Completed [facility] Pediarix (dtap/hep B/ipv) 2004-02-05 00:00:00 Completed [facility] Flu Trivalent 2004-02-05 00:00:00 Completed [facility] HIB 4 Dose Schedule 2004-02-05 00:00:00 Completed [facility] Pneumococcal 7 Conjugate, PCV7 (Prevnar7) 2004-02-05 00:00:00 Completed [facility] Pediarix (dtap/hep B/ipv) 2004-02-05 00:00:00 Completed [facility] Flu Trivalent 2004-02-05 00:00:00 Completed [facility] HIB 4 Dose Schedule 2004-02-05 00:00:00 Completed [facility] Pneumococcal 7 Conjugate, PCV7 (Prevnar7) 2004-02-05 00:00:00 Completed [facility] Pediarix (dtap/hep B/ipv) 2004-02-05 00:00:00 Completed [facility] Flu Trivalent 2004-02-05 00:00:00 Completed [facility] HIB 4 Dose Schedule 2004-02-05 00:00:00 Completed [facility] Pneumococcal 7 Conjugate, PCV7 (Prevnar7) 2004-02-05 00:00:00 Completed [facility] Pediarix (dtap/hep B/ipv) 2004-02-05 00:00:00 Completed [facility] Flu Trivalent 2004-02-05 00:00:00 Completed [facility] HIB 4 Dose Schedule 2004-02-05 00:00:00 Completed [facility] Pneumococcal 7 Conjugate, PCV7 (Prevnar7) 2004-02-05 00:00:00 Completed [facility] Pediarix (dtap/hep B/ipv) 2004-02-05 00:00:00 Completed [facility] Flu Trivalent 2004-02-05 00:00:00 Completed [facility] HIB 4 Dose Schedule 2004-02-05 00:00:00 Completed [facility] Pneumococcal 7 Conjugate, PCV7 (Prevnar7) 2004-02-05 00:00:00 Completed [facility] Pediarix (dtap/hep B/ipv) 2004-02-05 00:00:00 Completed [facility] Flu Trivalent 2004-02-05 00:00:00 Completed [facility] HIB 4 Dose Schedule 2004-02-05 00:00:00 Completed [facility] Pneumococcal 7 Conjugate, PCV7 (Prevnar7) 2004-02-05 00:00:00 Completed [facility] Pediarix (dtap/hep B/ipv) 2004-02-05 00:00:00 Completed [facility] Flu Trivalent 2004-02-05 00:00:00 Completed [facility] HIB 4 Dose Schedule 2004-02-05 00:00:00 Completed [facility] Pneumococcal 7 Conjugate, PCV7 (Prevnar7) 2004-02-05 00:00:00 Completed [facility] Pediarix (dtap/hep B/ipv) 2004-02-05 00:00:00 Completed [facility] Flu Trivalent 2004-02-05 00:00:00 Completed [facility] HIB 4 Dose Schedule 2004-02-05 00:00:00 Completed [facility] Pneumococcal 7 Conjugate, PCV7 (Prevnar7) 2004-02-05 00:00:00 Completed [facility] Pediarix (dtap/hep B/ipv) 2004-02-05 00:00:00 Completed [facility] Flu Trivalent 2004-02-05 00:00:00 Completed [facility] HIB 4 Dose Schedule 2004-02-05 00:00:00 Completed [facility] Pneumococcal 7 Conjugate, PCV7 (Prevnar7) 2004-02-05 00:00:00 Completed [facility] Pediarix (dtap/hep B/ipv) 2004-02-05 00:00:00 Completed [facility] Flu Trivalent 2004-02-05 00:00:00 Completed [facility] HIB 4 Dose Schedule 2004-02-05 00:00:00 Completed [facility] Pneumococcal 7 Conjugate, PCV7 (Prevnar7) 2004-02-05 00:00:00 Completed [facility] Pediarix (dtap/hep B/ipv) 2003 00:00:00 Completed [facility] HIB 4 Dose Schedule 2003 00:00:00 Completed [facility] Pneumococcal 7 Conjugate, PCV7 (Prevnar7) 2003 00:00:00 Completed [facility] Pediarix (dtap/hep B/ipv) 2003 00:00:00 Completed [facility] HIB 4 Dose Schedule 2003 00:00:00 Completed [facility] Pneumococcal 7 Conjugate, PCV7 (Prevnar7) 2003 00:00:00 Completed [facility] Pediarix (dtap/hep B/ipv) 2003 00:00:00 Completed [facility] HIB 4 Dose Schedule 2003 00:00:00 Completed [facility] Pneumococcal 7 Conjugate, PCV7 (Prevnar7) 2003 00:00:00 Completed [facility] Pediarix (dtap/hep B/ipv) 2003 00:00:00 Completed [facility] HIB 4 Dose Schedule 2003 00:00:00 Completed [facility] Pneumococcal 7 Conjugate, PCV7 (Prevnar7) 2003 00:00:00 Completed [facility] Pediarix (dtap/hep B/ipv) 2003 00:00:00 Completed [facility] HIB 4 Dose Schedule 2003 00:00:00 Completed [facility] Pneumococcal 7 Conjugate, PCV7 (Prevnar7) 2003 00:00:00 Completed [facility] Pediarix (dtap/hep B/ipv) 2003 00:00:00 Completed [facility] HIB 4 Dose Schedule 2003 00:00:00 Completed [facility] Pneumococcal 7 Conjugate, PCV7 (Prevnar7) 2003 00:00:00 Completed [facility] Pediarix (dtap/hep B/ipv) 2003 00:00:00 Completed [facility] HIB 4 Dose Schedule 2003 00:00:00 Completed [facility] Pneumococcal 7 Conjugate, PCV7 (Prevnar7) 2003 00:00:00 Completed [facility] Pediarix (dtap/hep B/ipv) 2003 00:00:00 Completed [facility] HIB 4 Dose Schedule 2003 00:00:00 Completed [facility] Pneumococcal 7 Conjugate, PCV7 (Prevnar7) 2003 00:00:00 Completed [facility] Pediarix (dtap/hep B/ipv) 2003 00:00:00 Completed [facility] HIB 4 Dose Schedule 2003 00:00:00 Completed [facility] Pneumococcal 7 Conjugate, PCV7 (Prevnar7) 2003 00:00:00 Completed [facility] Pediarix (dtap/hep B/ipv) 2003 00:00:00 Completed [facility] HIB 4 Dose Schedule 2003 00:00:00 Completed [facility] Pneumococcal 7 Conjugate, PCV7 (Prevnar7) 2003 00:00:00 Completed [facility] Pediarix (dtap/hep B/ipv) 2003 00:00:00 Completed [facility] HIB 4 Dose Schedule 2003 00:00:00 Completed [facility] Pneumococcal 7 Conjugate, PCV7 (Prevnar7) 2003 00:00:00 Completed [facility] Pediarix (dtap/hep B/ipv) 2003 00:00:00 Completed [facility] HIB 4 Dose Schedule 2003 00:00:00 Completed [facility] Pneumococcal 7 Conjugate, PCV7 (Prevnar7) 2003 00:00:00 Completed [facility] DTaP, Unspecified Formulation 2003 00:00:00 Completed [facility] Hep B, Adol or Pedi Dosage 2003 00:00:00 Completed [facility] HIB 4 Dose Schedule 2003 00:00:00 Completed [facility] Pneumococcal 7 Conjugate, PCV7 (Prevnar7) 2003 00:00:00 Completed [facility] IPV 2003 00:00:00 Completed [facility] DTaP, Unspecified Formulation 2003 00:00:00 Completed [facility] Hep B, Adol or Pedi Dosage 2003 00:00:00 Completed [facility] HIB 4 Dose Schedule 2003 00:00:00 Completed [facility] Pneumococcal 7 Conjugate, PCV7 (Prevnar7) 2003 00:00:00 Completed [facility] IPV 2003 00:00:00 Completed [facility] DTaP, Unspecified Formulation 2003 00:00:00 Completed [facility] Hep B, Adol or Pedi Dosage 2003 00:00:00 Completed [facility] HIB 4 Dose Schedule 2003 00:00:00 Completed [facility] Pneumococcal 7 Conjugate, PCV7 (Prevnar7) 2003 00:00:00 Completed [facility] IPV 2003 00:00:00 Completed [facility] DTaP, Unspecified Formulation 2003 00:00:00 Completed [facility] Hep B, Adol or Pedi Dosage 2003 00:00:00 Completed [facility] HIB 4 Dose Schedule 2003 00:00:00 Completed [facility] Pneumococcal 7 Conjugate, PCV7 (Prevnar7) 2003 00:00:00 Completed [facility] IPV 2003 00:00:00 Completed [facility] DTaP, Unspecified Formulation 2003 00:00:00 Completed [facility] Hep B, Adol or Pedi Dosage 2003 00:00:00 Completed [facility] HIB 4 Dose Schedule 2003 00:00:00 Completed [facility] Pneumococcal 7 Conjugate, PCV7 (Prevnar7) 2003 00:00:00 Completed [facility] IPV 2003 00:00:00 Completed [facility] DTaP, Unspecified Formulation 2003 00:00:00 Completed [facility] Hep B, Adol or Pedi Dosage 2003 00:00:00 Completed [facility] HIB 4 Dose Schedule 2003 00:00:00 Completed [facility] Pneumococcal 7 Conjugate, PCV7 (Prevnar7) 2003 00:00:00 Completed [facility] IPV 2003 00:00:00 Completed [facility] DTaP, Unspecified Formulation 2003 00:00:00 Completed [facility] Hep B, Adol or Pedi Dosage 2003 00:00:00 Completed [facility] HIB 4 Dose Schedule 2003 00:00:00 Completed [facility] Pneumococcal 7 Conjugate, PCV7 (Prevnar7) 2003 00:00:00 Completed [facility] IPV 2003 00:00:00 Completed [facility] DTaP, Unspecified Formulation 2003 00:00:00 Completed [facility] Hep B, Adol or Pedi Dosage 2003 00:00:00 Completed [facility] HIB 4 Dose Schedule 2003 00:00:00 Completed [facility] Pneumococcal 7 Conjugate, PCV7 (Prevnar7) 2003 00:00:00 Completed [facility] IPV 2003 00:00:00 Completed [facility] DTaP, Unspecified Formulation 2003 00:00:00 Completed [facility] Hep B, Adol or Pedi Dosage 2003 00:00:00 Completed [facility] HIB 4 Dose Schedule 2003 00:00:00 Completed [facility] Pneumococcal 7 Conjugate, PCV7 (Prevnar7) 2003 00:00:00 Completed [facility] IPV 2003 00:00:00 Completed [facility] DTaP, Unspecified Formulation 2003 00:00:00 Completed [facility] Hep B, Adol or Pedi Dosage 2003 00:00:00 Completed [facility] HIB 4 Dose Schedule 2003 00:00:00 Completed [facility] Pneumococcal 7 Conjugate, PCV7 (Prevnar7) 2003 00:00:00 Completed [facility] IPV 2003 00:00:00 Completed [facility] DTaP, Unspecified Formulation 2003 00:00:00 Completed [facility] Hep B, Adol or Pedi Dosage 2003 00:00:00 Completed [facility] HIB 4 Dose Schedule 2003 00:00:00 Completed [facility] Pneumococcal 7 Conjugate, PCV7 (Prevnar7) 2003 00:00:00 Completed [facility] IPV 2003 00:00:00 Completed [facility] DTaP, Unspecified Formulation 2003 00:00:00 Completed [facility] Hep B, Adol or Pedi Dosage 2003 00:00:00 Completed [facility] HIB 4 Dose Schedule 2003 00:00:00 Completed [facility] Pneumococcal 7 Conjugate, PCV7 (Prevnar7) 2003 00:00:00 Completed [facility] IPV 2003 00:00:00 Completed [facility] Hep B, Adol or Pedi Dosage 2003 00:00:00 Completed [facility] Hep B, Adol or Pedi Dosage 2003 00:00:00 Completed [facility] Hep B, Adol or Pedi Dosage 2003 00:00:00 Completed [facility] Hep B, Adol or Pedi Dosage 2003 00:00:00 Completed [facility] Hep B, Adol or Pedi Dosage 2003 00:00:00 Completed [facility] Hep B, Adol or Pedi Dosage 2003 00:00:00 Completed [facility] Hep B, Adol or Pedi Dosage 2003 00:00:00 Completed [facility] Hep B, Adol or Pedi Dosage 2003 00:00:00 Completed [facility] Hep B, Adol or Pedi Dosage 2003 00:00:00 Completed [facility] Hep B, Adol or Pedi Dosage 2003 00:00:00 Completed [facility] Hep B, Adol or Pedi Dosage 2003 00:00:00 Completed [facility] Hep B, Adol or Pedi Dosage 2003 00:00:00 Completed [facility] Influenza Virus Vaccine Quad .5 mL IM 6+ MO (FLUZONE/FLULAVAL/FL UARIX) Unknown Completed [facility] Meningococcal Polysaccharide (groups A, C, Y and W-135) conjugate vaccine (MCV4P) Unknown Completed [facility] Meningococcal B, OMV Unknown Completed [facility] Influenza Virus Vaccine Quad IM 3+ YRS Unknown Completed [facility] Influenza Virus Vaccine Quad IM 3+ YRS Unknown Completed [facility] Influenza Virus Vaccine Quad IM 3+ YRS Unknown Completed [facility] Influenza Virus Vaccine Unknown Completed [facility] Influenza Virus Vaccine Unknown Completed [facility] DTaP, Unspecified Formulation Unknown Completed [facility] DTaP, Unspecified Formulation Unknown Completed [facility] DTaP, Unspecified Formulation Unknown Completed [facility] Pediarix (dtap/hep B/ipv) Unknown Completed [facility] Pediarix (dtap/hep B/ipv) Unknown Completed [facility] Flu Trivalent Unknown Completed [facility] Influenza Virus Vaccine - Whole Unknown Completed [facility] HEPATITIS A Unknown Completed [facility] HEPATITIS A Unknown Completed [facility] Hep B, Adol or Pedi Dosage Unknown Completed [facility] Hep B, Adol or Pedi Dosage Unknown Completed [facility] HIB 4 Dose Schedule Unknown Completed [facility] HIB 4 Dose Schedule Unknown Completed [facility] HIB 4 Dose Schedule Unknown Completed [facility] HIB 4 Dose Schedule Unknown Completed [facility] HPV9 Unknown Completed [facility] HPV9 Unknown Completed [facility] HPV9 Unknown Completed [facility] Meningococcal Polysaccharide (groups A, C, Y and W-135) conjugate vaccine (MCV4P) Unknown Completed [facility] MMR Unknown Completed [facility] MMR Unknown Completed [facility] Pneumococcal 7 Conjugate, PCV7 (Prevnar7) Unknown Completed [facility] Pneumococcal 7 Conjugate, PCV7 (Prevnar7) Unknown Completed [facility] Pneumococcal 7 Conjugate, PCV7 (Prevnar7) Unknown Completed [facility] Pneumococcal 7 Conjugate, PCV7 (Prevnar7) Unknown Completed [facility] IPV Unknown Completed [facility] IPV Unknown Completed [facility] TDAP Unknown Completed [facility] Varicella (varivax)(chicken pox) Unknown Completed [facility] Varicella (varivax)(chicken pox) Unknown Completed [facility] Influenza Virus Vaccine Quad .5 mL IM 6+ MO (FLUZONE/FLULAVAL/FL UARIX) Unknown Completed [facility] Meningococcal Polysaccharide (groups A, C, Y and W-135) conjugate vaccine (MCV4P) Unknown Completed [facility] Meningococcal B, OMV Unknown Completed [facility] Influenza Virus Vaccine Quad IM 3+ YRS Unknown Completed [facility] Influenza Virus Vaccine Quad IM 3+ YRS Unknown Completed [facility] Influenza Virus Vaccine Quad IM 3+ YRS Unknown Completed [facility] Influenza Virus Vaccine Unknown Completed [facility] Influenza Virus Vaccine Unknown Completed [facility] DTaP, Unspecified Formulation Unknown Completed [facility] DTaP, Unspecified Formulation Unknown Completed [facility] DTaP, Unspecified Formulation Unknown Completed [facility] Pediarix (dtap/hep B/ipv) Unknown Completed [facility] Pediarix (dtap/hep B/ipv) Unknown Completed [facility] Flu Trivalent Unknown Completed [facility] Influenza Virus Vaccine - Whole Unknown Completed [facility] HEPATITIS A Unknown Completed [facility] HEPATITIS A Unknown Completed [facility] Hep B, Adol or Pedi Dosage Unknown Completed [facility] Hep B, Adol or Pedi Dosage Unknown Completed [facility] HIB 4 Dose Schedule Unknown Completed [facility] HIB 4 Dose Schedule Unknown Completed [facility] HIB 4 Dose Schedule Unknown Completed [facility] HIB 4 Dose Schedule Unknown Completed [facility] HPV9 Unknown Completed [facility] HPV9 Unknown Completed [facility] HPV9 Unknown Completed [facility] Meningococcal Polysaccharide (groups A, C, Y and W-135) conjugate vaccine (MCV4P) Unknown Completed [facility] MMR Unknown Completed [facility] MMR Unknown Completed [facility] Pneumococcal 7 Conjugate, PCV7 (Prevnar7) Unknown [facility] [facility] Pneumococcal 7 Conjugate, PCV7 (Prevnar7) Unknown Completed [facility] Pneumococcal 7 Conjugate, PCV7 (Prevnar7) Unknown Completed [facility] Pneumococcal 7 Conjugate, PCV7 (Prevnar7) Unknown Completed [facility] IPV Unknown Completed [facility] IPV Unknown Completed [facility] TDAP Unknown Completed [facility] Varicella (varivax)(chicken pox) Unknown Completed [facility] Varicella (varivax)(chicken pox) Unknown Completed [facility] Influenza Virus Vaccine Quad .5 mL IM 6+ MO (FLUZONE/FLULAVAL/FL UARIX) Unknown Completed [facility] Meningococcal Polysaccharide (groups A, C, Y and W-135) conjugate vaccine (MCV4P) Unknown Completed [facility] Meningococcal B, OMV Unknown Completed [facility] Influenza Virus Vaccine Quad IM 3+ YRS Unknown Completed [facility] Influenza Virus Vaccine Quad IM 3+ YRS Unknown Completed [facility] Influenza Virus Vaccine Quad IM 3+ YRS Unknown Completed [facility] Influenza Virus Vaccine Unknown Completed [facility] Influenza Virus Vaccine Unknown Completed [facility] DTaP, Unspecified Formulation Unknown Completed [facility] DTaP, Unspecified Formulation Unknown Completed [facility] DTaP, Unspecified Formulation Unknown Completed [facility] Pediarix (dtap/hep B/ipv) Unknown Completed [facility] Pediarix (dtap/hep B/ipv) Unknown Completed [facility] Flu Trivalent Unknown Completed [facility] Influenza Virus Vaccine - Whole Unknown Completed [facility] HEPATITIS A Unknown Completed [facility] HEPATITIS A Unknown Completed [facility] Hep B, Adol or Pedi Dosage Unknown Completed [facility] Hep B, Adol or Pedi Dosage Unknown Completed [facility] HIB 4 Dose Schedule Unknown Completed [facility] HIB 4 Dose Schedule Unknown Completed [facility] HIB 4 Dose Schedule Unknown Completed [facility] HIB 4 Dose Schedule Unknown Completed [facility] HPV9 Unknown Completed [facility] HPV9 Unknown Completed [facility] HPV9 Unknown Completed [facility] Meningococcal Polysaccharide (groups A, C, Y and W-135) conjugate vaccine (MCV4P) Unknown Completed [facility] MMR Unknown Completed [facility] MMR Unknown Completed [facility] Pneumococcal 7 Conjugate, PCV7 (Prevnar7) Unknown Completed [facility] Pneumococcal 7 Conjugate, PCV7 (Prevnar7) Unknown Completed [facility] Pneumococcal 7 Conjugate, PCV7 (Prevnar7) Unknown Completed [facility] Pneumococcal 7 Conjugate, PCV7 (Prevnar7) Unknown Completed [facility] IPV Unknown Completed [facility] IPV Unknown Completed [facility] TDAP Unknown Completed [facility] Varicella (varivax)(chicken pox) Unknown Completed [facility] Varicella (varivax)(chicken pox) Unknown Completed [facility] Vital Signs Vital Name Observation Time Observation Value Comments Cyndy ansari Systolic blood pressure 2022-11-22 20:57:00 118 mm[Hg] [facility] Diastolic blood pressure 2022-11-22 20:57:00 75 mm[Hg] [facility] Heart rate 2022-11-22 20:57:00 87 /min Un[facility] Body temperature 2022-11-22 20:57:00 36.78 April [facility] Respiratory rate 2022-11-22 20:57:00 18 /min [facility] Body height 2022-11-22 20:57:00 165.1 cm [facility] Body weight 2022-11-22 20:57:00 84.006 kg [facility] BMI 2022-11-22 20:57:00 30.82 kg/m2 [facility] Systolic blood pressure 2022-09-17 14:42:00 109 mm[Hg] [facility] Diastolic blood pressure 2022-09-17 14:42:00 73 mm[Hg] [facility] Heart rate 2022-09-17 14:42:00 83 /min Unive [facility] Body temperature 2022-09-17 14:42:00 35.89 April [facility] Respiratory rate 2022-09-17 14:42:00 16 /min [facility] Body height 2022-09-17 14:42:00 167.6 cm [facility] Body weight 2022-09-17 14:42:00 85.821 kg [facility] BMI 2022-09-17 14:42:00 30.54 kg/m2 [facility] Systolic blood pressure 2022-05-06 19:10:00 119 mm[Hg] [facility] Diastolic blood pressure 2022-05-06 19:10:00 72 mm[Hg] [facility] Heart rate 2022-05-06 19:10:00 89 /min Unive [facility] Body height 2022-05-06 19:10:00 167.6 cm [facility] Body weight 2022-05-06 19:10:00 84.324 kg [facility] BMI 2022-05-06 19:10:00 30.01 kg/m2 [facility] Oxygen saturation in Arterial blood by Pulse oximetry 2022-05-06 19:10:00 98 /min [facility] Systolic blood pressure 2022-03-30 20:15:00 121 mm[Hg] [facility] Diastolic blood pressure 2022-03-30 20:15:00 81 mm[Hg] [facility] Heart rate 2022-03-30 20:15:00 93 /min Unive [facility] Body temperature 2022-03-30 20:15:00 37 April [facility] Respiratory rate 2022-03-30 20:15:00 16 /min [facility] Body weight 2022-03-30 20:15:00 82.237 kg [facility] Systolic blood pressure 2022-03-15 16:16:00 113 mm[Hg] [facility] Diastolic blood pressure 2022-03-15 16:16:00 72 mm[Hg] [facility] Heart rate 2022-03-15 16:16:00 111 /min [facility] Body temperature 2022-03-15 16:16:00 36.22 April [facility] Respiratory rate 2022-03-15 16:16:00 16 /min [facility] Body weight 2022-03-15 16:16:00 83.28 kg [facility] Systolic blood pressure 2022-02-26 19:22:00 111 mm[Hg] [facility] Diastolic blood pressure 2022-02-26 19:22:00 72 mm[Hg] [facility] Heart rate 2022-02-26 19:22:00 96 /min [facility] Body temperature 2022-02-26 19:22:00 36.56 April [facility] Body height 2022-02-26 19:22:00 170.2 cm [facility] Body weight 2022-02-26 19:22:00 83.462 kg [facility] BMI 2022-02-26 19:22:00 28.82 kg/m2 [facility] Body mass index (BMI) [Percentile] Per age and sex 2022-02-26 19:22:00 92.24 % [facility] Oxygen saturation in Arterial blood by Pulse oximetry 2022-02-26 19:22:00 98 /min [facility] Procedures Procedure Date / Time Performed Performing Clinician Source PATIENT QUESTIONNAIRE 2022-11-22 05:01:00 Doctor Unassigned, [employer] [facility] POCT URINALYSIS W/O SPECIFIC GRAVITY 2022-11-22 00:00:00 Lore Castillo [facility] GC & CHLAMYDIA AMPLIFIED ASSAY 2022-09-17 15:16:00 Lisa Jean [facility] GALV ONLY - VAGINAL PATHOGENS BY NUCLEIC ACID TESTING 2022-09-17 15:16:00 Lisa Jean [facility] POCT TEST 2022-09-17 15:01:00 Lisa Jean [facility] URINALYSIS 2022-09-17 15:01:00 Mesfin Jean [facility] URINE CULTURE 2022-09-17 15:01:00 [facility] CONSENT/REFUSAL FOR DIAGNOSIS AND TREATMENT 2022-05-12 15:55:21 Doctor Unassigned, [employer] [facility] ASSIGNMENT OF BENEFITS 2022-05-12 15:55:04 Docto r Unassigned, [employer] [facility] PATIENT FINANCIAL POLICY 2022-05-06 18:53:51 Doctor Unassigned, [employer] [facility] US HEAD NECK 2022-03-16 17:37:22 [facility] 2022-03-15 16:53:00 Aury Rich [facility] ASSIGNMENT OF BENEFITS 2022-02-26 19:15:42 Docto r Unassigned, [employer] [facility] Encounters Start Date/Time End Date/Time Encounter Type Admission Type Attending Clinicians Care Facility Care Department Encounter ID Source 2022-12-31 14:42:00 2022-12-31 14:42:00 Outpatient [facility] [id number] Greyson Maloney 2022-11-22 15:30:00 2022-11-22 16:19:28 Outpatient LORE JORDAN LORE CASTILLO [facility] [id number] [facility] 2022-11-22 15:30:00 2022-11-22 16:19:28 Office Visit Lore Castillo [facility] 1..840.114 350.1.13.10 4.2.7.2.686 [id number] [facility] 2022-11-22 00:00:00 2022-11-22 00:00:00 Orders Only Doctor Unassigned, [employer] [facility] 1..840.114 350.1.13.10 4.2.7.2.686 [id number] [facility] 2022-11-08 15:30:00 2022-11-08 15:30:00 Outpatient LORE JORDAN LORE CASTILLO [facility] [id number] [facility] 2022-10-25 00:00:00 2022-10-25 00:00:00 Aury Boyd [facility] 1..840.114 350.1.13.10 4.2.7.2.686 [id number] [facility] 2022-10-19 14:13:42 2022-10-19 14:13:42 Outpatient [facility] [id number] Greyson Maloney 2022-10-13 09:23:21 2022-10-13 09:23:21 Outpatient [facility] [id number] Greyson Maloney 2022-09-21 14:01:31 2022-09-21 14:01:31 Outpatient [facility] [id number] Greyson Saleh Haider 2022-09-17 09:30:00 2022-09-17 10:23:34 Outpatient R HEMA GONZALEZ [facility] [id number] [facility] 2022-09-17 09:30:00 2022-09-17 10:23:34 Office Visit Pgy2 Hema Gonzalez [facility] 1.2.840.114 350.1.13.10 4.2.7.2.686 [id number] [facility] 2022-08-26 13:10:30 2022-08-26 13:10:30 Outpatient [facility] [id number] Greyson Maloney 2022-05-25 00:00:00 2022-05-25 00:00:00 Telephone [facility] 1.2.840.114 350.1.13.10 4.2.7.2.686 [id number] [facility] 2022-05-12 10:56:07 2022-05-12 23:59:00 Outpatient R ROD [facility] [id number] [facility] 2022-05-12 10:56:07 2022-05-12 23:59:00 [facility] 1.2.840.114 350.1.13.10 4.2.7.2.686 [id number] [facility] 2022-05-06 14:00:00 2022-05-06 14:15:00 [facility] 1.2.840.114 350.1.13.10 4.2.7.2.686 [id number] [facility] 2022-05-06 14:00:00 2022-05-06 14:00:00 Outpatient R [facility] [id number] [facility] 2022-05-06 00:00:00 2022-05-06 00:00:00 Orders Only Doctor Unassigned, [employer] [facility] 1.2.840.114 350.1.13.10 4.2.7.2.686 [id number] [facility] 2022-03-30 14:30:00 2022-03-30 15:01:59 Outpatient R AURY RICH [facility] [id number] [facility] 2022-03-30 14:30:00 2022-03-30 15:01:59 Office Visit Aury Rich [facility] 1.2.840.114 350.1.13.10 4.2.7.2.686 [id number] [facility] 2022-03-29 09:45:00 2022-03-29 09:45:00 Outpatient R PACHECO BALL [facility] [id number] [facility] 2022 00:00:00 2022 00:00:00 Telephone Aury Rich [facility] 1.2.840.114 350.1.13.10 4.2.7.2.686 [id number] [facility] 2022-03-16 10:57:16 2022-03-16 23:59:00 Outpatient R AURY RICH [facility] [id number] [facility] 2022-03-16 10:57:16 2022-03-16 23:59:00 Hospital Encounter Aury Rich [facility] 1.2.840.114 350.1.13.10 4.2.7.2.686 [id number] [facility] 2022-03-15 10:30:00 2022-03-15 11:27:38 Outpatient R AURY RICH [facility] [id number] [facility] 2022-03-15 10:30:00 2022-03-15 11:27:38 Office Visit Aury Rich [facility] 1.2.840.114 350.1.13.10 4.2.7.2.686 [id number] [facility] 2022-03-01 00:00:00 2022-03-01 00:00:00 Telephone Terry Renee [facility] 1.2.840.114 350.1.13.10 4.2.7.2.686 [id number] [facility] 2022-02-26 13:20:00 2022-02-26 13:59:40 Outpatient R TERRY RENEE [facility] [id number] [facility] 2022-02-26 13:20:00 2022-02-26 13:59:40 Office Visit VíctorTerry gonzalez [facility] 1.2.840.114 350.1.13.10 4.2.7.2.686 [id number] [facility] 2022-02-26 00:00:00 2022-02-26 00:00:00 Orders Only Doctor Unassigned, [employer] [facility] 1.2.840.114 350.1.13.10 4.2.7.2.686 [id number] [facility] 2022-02-22 09:00:00 2022-02-22 09:00:00 Outpatient OSCAR LESLIE [facility] [id number] [facility] 2021-10-13 00:00:00 2021-10-13 00:00:00 RefAury Orona [facility] 1.2.840.114 350.1.13.10 4.2.7.2.686 [id number] [facility] 2021-04-06 00:00:00 2021-04-06 00:00:00 Aury Boyd [facility] 1.2.840.114 350.1.13.10 4.2.7.2.686 [id number] [facility] 2021-03-16 00:00:00 2021-03-16 00:00:00 Telephone Archana Michaels [facility] [employer] [employer] [facility] 1.0.114 350.1.13.10 4.2.7.2.686 [id number] [facility] 2021-03-11 13:00:00 2021-03-11 13:34:00 Office Visit Archana Michaels [facility] [employer] [facility] .84.114 350.1.13.10 4.2.7.2.686 [id number] [facility] 2021-03-11 13:00:00 2021-03-11 13:34:00 Outpatient R ARCHANA MICHAELS [facility] [id number] [facility] 2021-03-11 13:00:00 2021-03-11 13:00:00 Outpatient R ARCHANA MICHAELS [facility] [id number] [facility] 2021-03-11 13:00:00 2021-03-11 13:00:00 Outpatient R ARCHANA MICHAELS [facility] [id number] [facility] 2021-02-24 13:30:00 2021-02-24 14:32:53 Outpatient R ARCHANA MICHAELS [facility] [id number] [facility] 2021-02-24 13:30:00 2021-02-24 14:32:53 Office Visit Archana [facility]els [facility] .84.114 350.1.13.10 4.2.7.2.686 [id number] [facility] 2021-02-24 13:30:00 2021-02-24 13:30:00 Outpatient R ARCHANA MICHAELS [facility] [id number] [facility] 2021-02-24 00:00:00 2021-02-24 00:00:00 Orders Only Doctor Unassigned, [employer] [facility] 1..840.114 350.1.13.10 4.2.7.2.686 [id number] [facility] 2021-02-10 15:15:00 2021-02-10 15:57:55 Office Visit Joyce Gallardo [facility] [employer] [facility] 1..840.114 350.1.13.10 4.2.7.2.686 [id number] [facility] 2021-02-10 15:15:00 2021-02-10 15:57:55 Outpatient R JOYCE GALLARDO [facility] [id number] [facility] 2021-02-10 15:15:00 2021-02-10 15:15:00 Outpatient R JOYCE GALLARDO [facility] [id number] [facility] 2021-02-10 15:15:00 2021-02-10 15:15:00 Outpatient R JOYCE GALLARDO [facility] [id number] [facility] 2020-12-24 08:15:00 2020-12-24 08:58:54 Office Visit Joyce Gallardo [facility] [employer] 1..840.114 350.1.13.10 4.2.7.2.686 [id number] [facility] 2020-12-24 08:00:00 2020-12-24 08:58:54 Outpatient R JOYCE GALLARDO [facility] [id number] [facility] 2020-12-24 08:00:00 2020-12-24 08:00:00 Outpatient R JOYCE GALLARDO [facility] [id number] [facility] 2020-12-24 00:00:00 2020-12-24 00:00:00 Orders Only Doctor Unassigned, [employer] [facility] 1.2.840.114 350.1.13.10 4.2.7.2.686 [id number] [facility] 2020-11-24 00:00:00 2020-11-24 00:00:00 Aury Boyd [facility] 1.2.840.114 350.1.13.10 4.2.7.2.686 [id number] [facility] 2020-11-04 00:00:00 2020-11-04 00:00:00 Telephone Aury Rich [facility] 1.2.840.114 350.1.13.10 4.2.7.2.686 [id number] [facility] 2020-10-21 00:00:00 2020-10-21 00:00:00 Telephone Aury Rich [facility] 1.2.840.114 350.1.13.10 4.2.7.2.686 [id number] [facility] 2020-10-15 00:00:00 2020-10-15 00:00:00 Aury Boyd [facility] 1.2.840.114 350.1.13.10 4.2.7.2.686 [id number] [facility] 2020-10-03 00:00:00 2020-10-03 00:00:00 Telephone Aury Rich [facility] 1.2.840.114 350.1.13.10 4.2.7.2.686 [id number] [facility] 2020-09-29 15:30:00 2020-09-29 15:30:00 Outpatient R AURY RICH [facility] [id number] [facility] 2020-09-29 15:05:29 2020-09-29 15:19:40 Office Visit Aury Rich [facility] 1.2.840.114 350.1.13.10 4.2.7.2.686 [id number] [facility] 2020-06-24 09:42:32 2020-06-24 10:34:40 Office Visit Aury Rich [facility] 1.2.840.114 350.1.13.10 4.2.7.2.686 [id number] [facility] 2020-06-24 09:50:00 2020-06-24 09:50:00 Outpatient AURY MATOS [facility] [id number] [facility] 2020-06-24 00:00:00 2020-06-24 00:00:00 Letter (Out) Aury Rich [facility] 1.2.840.114 350.1.13.10 4.2.7.2.686 [id number] [facility] 2020-05-13 00:00:00 2020-05-13 00:00:00 Patient Outreach Raymond Nick [facility] 1.2.840.114 350.1.13.10 4.2.7.2.686 [id number] [facility] 2020-02-26 08:12:57 2020-02-26 08:56:52 Office Visit Terry Renee [facility] 1.2.840.114 350.1.13.10 4.2.7.2.686 [id number] [facility] 2020-02-26 08:20:00 2020-02-26 08:20:00 Outpatient R TERRY RENEE [facility] [id number] [facility] 2020-01-30 15:32:25 2020-01-30 16:13:42 Office Visit Betancourt Hubert [facility] 1.2.840.114 350.1.13.10 4.2.7.2.686 [id number] [facility] 2020-01-30 15:40:00 2020-01-30 15:40:00 Outpatient R BETANCOURT HUBERT [facility] [id number] [facility] 2020-01-30 00:00:00 2020-01-30 00:00:00 Orders Only Doctor Unassigned, [employer] [facility] 1.2.840.114 350.1.13.10 4.2.7.2.686 [id number] [facility] 2019-07-21 00:00:00 2019-07-21 00:00:00 Orders Only Doctor Unassigned, [employer] [facility] 1.2.840.114 350.1.13.10 4.2.7.2.686 [id number] [facility] 2019-07-19 00:00:00 2019-07-19 00:00:00 [facility] 1.2.840.114 350.1.13.10 4.2.7.2.686 [id number] [facility] 2019-05-24 00:00:00 2019-05-24 00:00:00 Refill Víctor [facility] 1.2.840.114 350.1.13.10 4.2.7.2.686 [id number] [facility] 2019-04-13 00:00:00 2019-04-13 00:00:00 [facility] 1.2.840.114 350.1.13.10 4.2.7.2.686 [id number] [facility] 2019-03-13 00:00:00 2019-03-13 00:00:[address] Terry Field [facility] 1.2.840.114 350.1.13.10 4.2.7.2.686 [id number] [facility] 2018-11-08 00:00:00 2018-11-08 00:00:00 Telephone ViloniaMinnie Aury [facility] 1.2.840.114 350.1.13.10 4.2.7.2.686 [id number] [facility] Results Test Description Test Time Test Comments Results Result Co mments Source VITAMIN D, 25 [id number] 05:46:47* Test Item Value Reference Range Interpretation Comme [facility] VITAMIN D, 25 OH (test code = 4958) 31 NG/ML SEE BELOW EFFECTIVE 10/2022, PLEASE NOTE NEW METHODOLOGY IS ELECTROCHEMILUMINESCENCE BINDING ASSAY. NOTE: 25-HYDROXYVITAMIN D ASSAY INCLUDES 25-HYDROXYVITAMIN D2 AND D3. INTERPRETIVE RANGES PEDIATRIC (<17 YEARS) . . . . . . . . . . . NG/ML 20-100ADULT: INSUFFICIENT . . . . . . . . . . . . . . NG/ML <20 SUBOPTIMAL . . . . . . . . . . . . . . . NG/ML 20-29 OPTIMAL . . . . . . . . . . . . . . . . . NG/ML 30-100 LIPID [id number] 05:42:47* Test Item Value Reference Range Interpretation Comme nts CHOLESTEROL (test code = 2210) 131 MG/DL <200 TRIGLYCERIDES (test code = 2232) 70 MG/DL <150 HDL CHOLESTEROL (test code = 2220) 39 MG/DL >39 L CALC LDL CHOL (test code = 2237) 77 MG/DL <100 NOTE: CALCULATED LDL IS BASED ON ABHAY-JONES METHOD WHICHINCLUDES ADJUSTABLE TRIGLYCERIDE:VLDL CHOLESTEROL RATIO.THIS FACTOR VARIES BY MEASURED TRIGLYCERIDE AND NON-HDLCHOLESTEROL CONCENTRATIONS WITH INCREASED CALCULATED LDL SEENIN HIGHER TRIGLYCERIDE OR LOWER NON-HDL SPECIMENS. FOR MOREINFORMATION, SEE CLIENT ANNOUNCEMENT AT [email or web address] RATIO LDL/HDL (test code = 2237) 1.97 RATIO <3.22 COMPREHENSIVE METABOLIC [id number] 05:42:47* Test Item Value Reference Range Interpretation Comme nts GLUCOSE (test code = 2216) 82 MG/DL 70-99 BUN (test code = 2207) 13 MG/DL 6-20 CREATININE (test code = 2213) 0.85 MG/DL 0.50-1.10 eGFR (2020 CKD-EPI) (test code = ) 101 ML/MIN/1.73 >60 CALC BUN/CREAT (test code = 2234) 15 RATIO 6-28 SODIUM (test code = 2230) 139 MEQ/L 133-146 POTASSIUM (test code = 2227) 3.9 MEQ/L 3.5-5.4 CHLORIDE (test code = 2214) 105 MEQ/L 95-107 CARBON DIOXIDE (test code = 2205) 26 MEQ/L 19-31 CALCIUM (test code = 2208) 9.4 MG/DL 8.5-10.5 PROTEIN, TOTAL (test code = 2228) 6.7 G/DL 6.1-8.3 ALBUMIN (test code = 2200) 4.6 G/DL 3.5-5.2 CALC GLOBULIN (test code = 2240) 2.1 G/DL 2.1-3.7 CALC A/G RATIO (test code = 2233) 2.2 RATIO 1.0-2.6 BILIRUBIN, TOTAL (test code = 2206) 0.6 MG/DL <=1.2 ALKALINE PHOSPHATASE (test code = 2203) 75 U/L 41-120 AST (test code = 2217) 16 U/L 9-40 ALT (test code = 2219) 14 U/L 5-40 CBC W/AUTO DIFF WITH [id number] 04:51:12* Test Item Value Reference Range Interpretation Comme nts WBC (test code = 1001) 11.2 K/UL 3.5-11.0 H RBC (test code = 1002) 4.52 M/UL 3.80-5.40 HEMOGLOBIN (test code = 1003) 14.1 G/DL 11.5-15.5 HEMATOCRIT (test code = 1004) 41.4 % 34.0-45.0 MCV (test code = 1005) 91.6 fL 80.0-99.0 MCH (test code = 1006) 31.2 PG 25.0-33.0 MCHC (test code = 1007) 34.1 G/DL 31.0-36.0 RDW (test code = 1038) 13.0 % 11.5-15.0 NEUTROPHILS (test code = 1008) 64.9 % LYMPHOCYTES (test code = 1010) 25.2 % MONOCYTES (test code = 1011) 7.0 % EOSINOPHILS (test code = 1012) 1.9 % BASOPHILS (test code = 1013) 0.6 % IMMATURE GRANULOCYTES (test code = 1036) 0.4 % NUCLEATED RBCS (test code = 1065) 0.0 /100 WBC'S See_Comment [Automated [employer] ge] The system which generated this result transmitted reference range: 0.0. The reference range was not used to interpret this result as normal/abnormal. PLATELET COUNT (test code = 1015) 306 K/UL 130-400 ABSOLUTE NEUTROPHILS (test code = 1066) 7.29 K/UL 1.50-7.50 ABSOLUTE LYMPHOCYTES (test code = 1067) 2.82 K/UL 1.00-4.00 ABSOLUTE MONOCYTES (test code = 1068) 0.78 K/UL 0.20-1.00 ABSOLUTE EOSINOPHILS (test code = 1040) 0.21 K/UL 0.00-0.50 ABSOLUTE BASOPHILS (test code = 1069) 0.07 K/UL 0.00-0.20 ABS IMMATURE GRANULOCYTES (test code = 1020) 0.04 K/UL 0.00-0.10 ABS NUCLEATED RBCS (test code = 35369) 0.00 K/UL 0.00-0.11 HEMOGLOBIN [id number] 03:02:32* Test Item Value Reference Range Interpretation Comme nts HEMOGLOBIN A1c (test code = 66750) 5.1 % 4.2-5.6 POCT URINALYSIS W/O SPECIFIC [id number] 21:00:00* Test Item Value Reference Range Interpretation Comme nts POCT PH U (test code = 3254) 7 mg/dl 5-8 POCT U LEUK EST (test code = 3263) Negative Negative - Negative POCT U NIT (test code = 3262) Negtive Negative - Negati ve POCT U PROT (test code = 3259) Negative Negative - Negat hannah POCT U GLU (test code = 3256) Normal Negative - Negati ve POCT U KETONE (test code = 3258) Negative Negative - Neg ative POCT U BLD (test code = 3257) Negative Negative - Negati ve [facility]CIFIC [id number] 21:00:00* Test Item Value Reference Range Interpretation Comme nts POCT PH U (test code = 3254) 7 mg/dl 5-8 POCT U LEUK EST (test code = 3263) Negative Negative - Negative POCT U NIT (test code = 3262) Negtive Negative - Negati ve POCT U PROT (test code = 3259) Negative Negative - Negat hannah POCT U GLU (test code = 3256) Normal Negative - Negati ve POCT U KETONE (test code = 3258) Negative Negative - Neg ative POCT U BLD (test code = 3257) Negative Negative - Negati ve [facility] (TU,T4,FTI,TSH)2022-10-14 05:52:53* Test Item Value Reference Range Interpretation Comme nts T-UPTAKE (test code = 2817) 33.1 % 24.3-39.0 THYROX. BIND. CAPAC. (test code = 59817) 1.0 0.8-1.3 T4 (THYROXINE) (test code = 2819) 9.5 UG/DL 4.5-10.5 CORRECTED T4 (FTI) (test code = 2820) 9.5 UG/DL 4.2-11.6 TSH, THIRD GENERATION (test code = 2821) 0.449 UIU/ML 0.400-4.100 UNLESS OTHERWISE INDICATED, ALL TESTING PERFORMED AT [facility] [address] [place] [id number] [employer]: KETTY AKERS M.D. CLIA NUMBER [id number] [facility] [place]. [id number] COMPREHENSIVE METABOLIC [id number] 03:01:46* Test Item Value Reference Range Interpretation Comme nts GLUCOSE (test code = 2217) 95 MG/DL 70-99 BUN (test code = 2208) 13 MG/DL 6-20 CREATININE (test code = 2214) 0.89 MG/DL 0.50-1.10 eGFR (2020 CKD-EPI) (test code = 18062) 96 ML/MIN/1.73 >60 CALC BUN/CREAT (test code = 2234) 15 RATIO 6-28 SODIUM (test code = 2230) 143 MEQ/L 133-146 POTASSIUM (test code = 2227) 5.0 MEQ/L 3.5-5.4 CHLORIDE (test code = 2214) 107 MEQ/L 95-107 CARBON DIOXIDE (test code = 2205) 26 MEQ/L 19-31 CALCIUM (test code = 2208) 9.7 MG/DL 8.5-10.5 PROTEIN, TOTAL (test code = 2228) 7.0 G/DL 6.1-8.3 ALBUMIN (test code = 2200) 4.5 G/DL 3.5-5.2 CALC GLOBULIN (test code = 2239) 2.5 G/DL 2.1-3.7 CALC A/G RATIO (test code = 2233) 1.8 RATIO 1.0-2.6 BILIRUBIN, TOTAL (test code = 2206) 0.2 MG/DL See_Comment [Automated [employer]] The system which generated this result transmitted reference range: <=1.2. The reference range was not used to interpret this result as normal/abnormal. ALKALINE PHOSPHATASE (test code = 2203) 80 U/L 41-120 AST (test code = 2217) 15 U/L 9-40 ALT (test code = 2218) 16 U/L 5-40 HEPATIC FUNCTION [id number] 03:01:46* Test Item Value Reference Range Interpretation Comme nts PROTEIN, TOTAL (test code = 2228) 7.0 G/DL 6.1-8.3 ALBUMIN (test code = 2200) 4.5 G/DL 3.5-5.2 BILIRUBIN, TOTAL (test code = 2206) 0.2 MG/DL See_Comment [Automated [employer]] The system which generated this result transmitted reference range: <=1.2. The reference range was not used to interpret this result as normal/abnormal. BILIRUBIN, DIRECT (test code = 2021) 0.1 MG/DL 0.0-0.3 ALKALINE PHOSPHATASE (test code = 2203) 80 U/L 41-120 AST (test code = 8) 15 U/L 9-40 ALT (test code = 2219) 16 U/L 5-40 HEMOGLOBIN [id number] 02:43:44* Test Item Value Reference Range Interpretation Comme nts HEMOGLOBIN A1c (test code = 58934) 5.1 % 4.2-5.6 CBC W/AUTO DIFF WITH [id number] 01:58:08* Test Item Value Reference Range Interpretation Comme nts WBC (test code = 1001) 8.8 K/UL 3.5-11.0 RBC (test code = 1002) 4.79 M/UL 3.80-5.40 HEMOGLOBIN (test code = 1003) 14.3 G/DL 11.5-15.5 HEMATOCRIT (test code = 1004) 43.3 % 34.0-45.0 MCV (test code = 1005) 90.4 fL 80.0-99.0 MCH (test code = 1006) 29.9 PG 25.0-33.0 MCHC (test code = 1007) 33.0 G/DL 31.0-36.0 RDW (test code = 1038) 13.2 % 11.5-15.0 NEUTROPHILS (test code = 1008) 61.2 % LYMPHOCYTES (test code = 1010) 26.7 % MONOCYTES (test code = 1011) 7.4 % EOSINOPHILS (test code = 1012) 3.4 % BASOPHILS (test code = 1013) 1.0 % IMMATURE GRANULOCYTES (test code = 1036) 0.3 % NUCLEATED RBCS (test code = 1065) 0.0 /100 WBC'S See_Comment [Automated messa ge] The system which generated this result transmitted reference range: 0.0. The reference range was not used to interpret this result as normal/abnormal. PLATELET COUNT (test code = 1015) 347 K/UL 130-400 ABSOLUTE NEUTROPHILS (test code = 1066) 5.35 K/UL 1.50-7.50 ABSOLUTE LYMPHOCYTES (test code = 1067) 2.34 K/UL 1.00-4.00 ABSOLUTE MONOCYTES (test code = 1068) 0.65 K/UL 0.20-1.00 ABSOLUTE EOSINOPHILS (test code = 1040) 0.30 K/UL 0.00-0.50 ABSOLUTE BASOPHILS (test code = 1069) 0.09 K/UL 0.00-0.20 ABS IMMATURE GRANULOCYTES (test code = 1020) 0.03 K/UL 0.00-0.10 ABS NUCLEATED RBCS (test code = 88258) 0.00 K/UL 0.00-0.11 POCT [id number] 15:02:00* Test Item Value Reference Range Interpretation Comme nts POCT PREG (test code = 1605) Negative On board controls acceptable with C Line (test code = 3574) Yes POCT PREG LOT # (test code = 3575) POCT PREG TEST DATE ( test code = 3576) Lab Interpretation (test cod e = 55609-5) [facility] [id number] 15:02:00* Test Item Value Reference Range Interpretation Comme nts POCT PREG (test code = 1605) Negative On board controls acceptable with C Line (test code = 3574) Yes POCT PREG LOT # (test code = 3575) POCT PREG TEST DATE ( test code = 3576) Lab Interpretation (test cod e = 63823-9) [facility] [id number] 15:02:00* Test Item Value Reference Range Interpretation Comme nts POCT PREG (test code = 1605) Negative On board controls acceptable with C Line (test code = 3574) Yes POCT PREG LOT # (test code = 3575) POCT PREG TEST DATE ( test code = 3576) Lab Interpretation (test cod e = 85641-8) [facility] MOLECULAR [id number] 17:01:07* Test Item Value Reference Range Interpretation Comme nts POCT Molecular Strep (test c ode = 36724-6) Negative Negative Lab Interpretation (test cod e = 54410-6) [facility] MOLECULAR [id number] 17:01:07* Test Item Value Reference Range Interpretation Comme nts POCT Molecular Strep (test c ode = 25506-5) Negative Negative Lab Interpretation (test cod e = 76908-5) [facility] MOLECULAR [id number] 17:01:07* Test Item Value Reference Range Interpretation Comme nts POCT Molecular Strep (test c ode = 93467-1) Negative Negative Lab Interpretation (test cod e = 97062-8) Normal [facility]
[2023-07-31 22:16] LABS: Specific Gravity 1.022 (1.005-1.030)
[2023-07-31 22:17] LABS: Absolute Basophils 0.1 K/uL (0-0.5); Absolute Eosinophils 0.3 K/uL (0-0.5); Absolute Lymphocytes (CBC) 2.8 K/uL (0.7-4.9); Absolute Monocytes 0.7 K/uL (0.1-1.3); Absolute Neutrophil 5.9 K/uL (1.8-8.0); Basophils % 0.8 % (0-1.3); Eosinophils % 2.8 % (0-4.4); Hematocrit 39.1 % (36.0-45.0); Hemoglobin 13.3 g/dL (12.0-15.0); Lymphocytes % 29.3 % (15.3-44.8); MCH 30.5 pg (27.0-35.0); MCHC 34.1 g/dL (32.0-36.0); MCV 89.4 fL (80-100); MPV 9.5 fL (7.6-11.3); Monocytes % 6.8 % (3.3-12.3); Neutrophils % 60.3 % (41.7-73.7); Platelets 300 thou/uL (152-406); RBC Red Blood Cell Count 4.38 M/uL (3.86-4.86); Red Cell Distribution Width 14.2 % (12.1-15.2)
[2023-07-31 22:19] LABS: Specific Gravity 1.022 (1.005-1.030); Sqamous Epithelial None Seen /HPF (None Seen); Urine Bacteria None Seen /HPF (<20); Urine Bilirubin NEGATIVE (Negative); Urine Blood Negative (Negative); Urine Clarity Extremely Turbid (Clear); Urine Color Light-Yellow (Yellow); Urine Culture Reflex Order NOT NEEDED; Urine Glucose NEGATIVE (Negative); Urine Ketones NEGATIVE (Negative); Urine Microscopic Reflex YN ORDER UMIC; Urine Nitrite NEGATIVE (Negative); Urine Protein NEGATIVE (Negative); Urine RBC None Seen /HPF (None Seen); Urine Urobilinogen Normal (Normal); Urine WBC None Seen /HPF (<5); Urine pH 7.5 (5.0-7.0)
[2023-07-31 22:36] LABS: ALT/SGPT 19 U/L (13-56); AST/SGOT 12 U/L (15-37); Albumin 3.8 g/dL (3.4-5.0); Albumin/Globulin Ratio 1.3 (1.1-1.8); Alkaline Phosphatase 59 U/L (45-117); Anion Gap 6.6 mEq/L (5.0-15.0); BUN Blood Urea Nitrogen 17 mg/dL (7-18); Bicarbonate 26 mEq/L (21-32); Bilirubin Total 0.7 mg/dL (0.2-1.0); Glomerular Filtration Rate 111 ml/min (=/>90); Glucose Level 76 mg/dL (74-106); Lipase 19 U/L (13-75); Potassium 3.6 mEq/L (3.5-5.1); Protein, Total 6.8 g/dL (6.4-8.2); Sodium Level 141 mEq/L (136-145)
[2023-07-31 22:43] LABS: Troponin High Sensitivity < 3.0 pg/mL (<58.9)
--- NOTE | 2023-07-31 23:39 | EDPHYS ---
Physician Documentation [facility] Name: Pau Werner Age: 18 yrs Sex: Female : 2005 Arrival Date: 07/31/2023 Time: 21:03 Bed 16 Private MD: ED Physician Sunil Gray HPI: 07/30 21:11 This 18 yrs old Female presents to ER via Unassigned with complaints of Abdominal Pain. 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 Denies n/v/d, fever. Denies alleviating or aggravating factors. . Historical: - Allergies: 21:27 No Known Allergies; jb4 - PMHx: 21:27 ADD/ADHD; affective disorder; Anxiety; Bipolar disorder; Depression; Sinus Tachycardia; jb4 VSD as a child; - PSHx: :27 Tonsillectomy; jb4 - Immunization history:: Adult Immunizations up to date. - Infectious Disease History:: Denies. - Social history:: Smoking status: Reported history of juuling and/or vaping. Patient uses alcohol, occasionally. street drugs, marijuana. ROS: 21:14 Constitutional: As per HPI kb Exam: 21:27 Constitutional: This is a well developed, well nourished patient who is awake, alert, kb and in no acute distress. Head/Face: Normocephalic, atraumatic. ENT: Moist Mucous membranes Cardiovascular: Regular rate Respiratory: Respirations even and unlabored. No increased work of breathing. Talking in full sentences Skin: Warm, dry with normal turgor. Normal color. MS/ Extremity: Pulses equal, no cyanosis. Neurovascular intact. Full, normal range of motion. Neuro: Awake and alert, GCS 15, oriented to person, place, time, and situation. Moves all extremities. Normal gait. 21:27 Abdomen/GI: Inspection: abdomen appears normal, Bowel sounds: normal, Palpation: soft, in all quadrants, mild abdominal tenderness, in the left upper quadrant, 21:55 ECG was reviewed by the Attending Physician. kb Vital Signs: 21:25 BP 139 / 98; Pulse 83; Resp 16; Temp 98.7(O); Pulse Ox 100% on R/A; Weight 76.66 kg jb4 (R); Height 5 ft. 5 in. ; Pain 7/10; 21:25 Body Mass Index 28.12 (76.66 kg, 165.1 cm) jb4 21:25 Pain Scale: Adult jb4 MDM: 21:08 Patient medically screened. kb 23:29 Differential diagnosis: gastritis, gastroesophageal reflux disease, abnormal ekg, PE. kb Data reviewed: vital signs, nurses notes. 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 23:38 Test considered but Not performed: CT: ct considered but d-dimer negative. kb 07/30 21:15 Order name: CBC with Diff; Complete Time: 22:22 kb 07/30 21:15 Order name: CMP; Complete Time: 22:45 kb 07/30 21:15 Order name: Lipase; Complete Time: 22:45 kb 07/30 21:15 Order name: Test, Urine; Complete Time: 22:22 kb 07/30 21:15 Order name: Urinalysis w/ reflexes; Complete Time: 22:22 kb 07/30 21:15 Order name: D-Dimer; Complete Time: 22:45 kb 07/30 21:15 Order name: Troponin HS; Complete Time: 22:45 kb 07/30 21:15 Order name: XRAY Chest (1 view) kb 07/30 21:15 Order name: IV Saline Lock; Complete Time: 22:01 kb 07/30 21:15 Order name: Labs collected and sent; Complete Time: 22:01 kb 07/30 21:15 Order name: Cardiac monitoring; Complete Time: 22:01 kb 07/30 21:15 Order name: EKG - Nurse/Tech; Complete Time: 22:01 kb 07/30 21:15 Order name: O2 Per Protocol; Complete Time: 22:01 kb 07/30 21:15 Order name: O2 Sat Monitoring; Complete Time: 22:01 kb EC:55 Rate is 62 beats/min. Rhythm is regular. QRS [place] is Normal. HI interval is shortened kb at 110 msec. QRS interval is normal at 108 msec. QT interval is normal at 418 msec. Administered Medications: 23:40 Drug: Ketorolac IVP 15 mg IVP once Route: IVP; Site: left antecubital; jb4 07/31 00:03 Follow up: Response: No adverse reaction; Marked relief of symptoms jb4 Disposition: 00:33 Co-signature as Attending Physician, Sunil Gray MD I reviewed the patient's care rn provided by the Advanced Practice Provider and agree with the diagnosis and treatment plan. Disposition Summary: 07/31/23 23:38 Discharge Ordered Notes: Location: Home kb Condition: Stable kb Diagnosis - Upper abdominal pain, unspecified kb - Dyspnea kb Followup: kb - With: Emergency Department - When: As needed - Reason: Worsening of condition Followup: kb - With: Private Physician - When: 2 - 3 days - Reason: Recheck today's complaints, Continuance of care, Re-evaluation by your physician Discharge Instructions: - Discharge Summary Sheet kb - Shortness of Breath, Adult, Lace-yt-Uhof kb - Abdominal Pain, Adult, Dedq-hx-Hnbc kb Forms: - Medication Reconciliation Form kb - Antibiotic Education kb - Prescription Opioid Use kb - Patient Portal Instructions kb - Leadership Thank You Letter kb Signatures: Dispatcher [employer] EDChristine Melendrez, TWAN-C GLASS BLOCK BENDER-Koltonb Sunil Gray MD MD rn Bryson, James, RN RN jb4 Corrections: (The following items were deleted from the chart) 07/30 21:16 21:16 CBC+H.LAB.BRZ ordered. EDAK EDMS 21:16 21:16 COMPREHENSIVE METABOLIC PANEL+C.LAB.BRZ ordered. EDAK EDMS 21:16 21:16 LIPASE+C.LAB.BRZ ordered. EDAK EDMS 21:16 21:16 Test, Urine+UC.LAB.BRZ ordered. EDAK EDMS 21:16 21:16 Urinalysis+U.LAB.BRZ ordered. EDAK EDMS 21:16 21:16 D-DIMER+COAG.LAB.BRZ ordered. EDAK EDMS 21:16 21:16 Troponin High Sensitivity+C.LAB.BRZ ordered. EDAK EDMS 21:16 21:16 Chest Single View+RAD.RAD.BRZ ordered. EDMS EDMS
--- NOTE | 2023-07-31 23:39 | ER ---
Nurse's Notes [facility] Name: Pau Werner Age: 18 yrs Sex: Female : 2005 Arrival Date: 07/31/2023 Time: 21:03 Bed 16 Private MD: Diagnosis: Upper abdominal pain, unspecified;Dyspnea Presentation: 07/30 21:25 Chief complaint: Patient states: I am having SOB that started 45 minutes ago. I am also jb4 having mid to left sided abdominal pain. Coronavirus screen: At this time, the client does not indicate any symptoms associated with coronavirus-19. Ebola Screen: No symptoms or risks identified at this time. Initial Sepsis Screen: Does the patient meet any 2 criteria? No. Patient's initial sepsis screen is negative. Does the patient have a suspected source of infection? No. Patient's initial sepsis screen is negative. Risk Assessment: Do you want to hurt yourself or someone else? Patient reports no desire to harm self or others. Onset of symptoms was July 31, 2023. Transition of care: patient was not received from another setting of care. 21:25 Method Of Arrival: Ambulatory jb4 21:25 Acuity: MIKEY 3 jb4 Triage Assessment: 21:27 General: Appears in no apparent distress. uncomfortable, Behavior is calm, cooperative, jb4 appropriate for age. Pain: Complains of pain in epigastric area, umbilical area, left upper quadrant and left lower quadrant Pain does not radiate. Pain currently is 7 out of 10 on a pain scale. EENT: No signs and/or symptoms were reported regarding the EENT system. Neuro: Level of Consciousness is awake, alert, obeys commands, Oriented to person, place, time, situation. Cardiovascular: Patient's skin is warm and dry. Respiratory: Airway is patent Respiratory effort is even, unlabored, Respiratory pattern is regular, symmetrical. GI: Abdomen is flat, non-distended. : No signs and/or symptoms were reported regarding the genitourinary system. Derm: No signs and/or symptoms reported regarding the dermatologic system. Musculoskeletal: Circulation, motion, and sensation intact. Range of motion: intact in all extremities. Historical: - Allergies: 21:27 No Known Allergies; jb4 - PMHx: 21:27 ADD/ADHD; affective disorder; Anxiety; Bipolar disorder; Depression; Sinus Tachycardia; jb4 VSD as a child; - PSHx: 21:27 Tonsillectomy; jb4 - Immunization history:: Adult Immunizations up to date. - Infectious Disease History:: Denies. - Social history:: Smoking status: Reported history of juuling and/or vaping. Patient uses alcohol, occasionally. street drugs, marijuana. Screenin:28 [facility] ED Fall Risk Assessment (Adult) History of falling in the last 3 months, jb4 including since admission No falls in past 3 months (0 pts) Confusion or Disorientation No (0 pts) Intoxicated or Sedated No (0 pts) Impaired Gait No (0 pts) Mobility Assist Device Used No (0 pt) Altered Elimination No (0 pt) Score/Fall Risk Level 0 - 2 = Low Risk Oriented to surroundings, Maintained a safe environment. Abuse screen: Denies threats or abuse. Nutritional screening: No deficits noted. Tuberculosis screening: No symptoms or risk factors identified. Assessment: 21:28 Reassessment: see triage note. jb4 23:00 Reassessment: Patient appears in no apparent distress at this time. Patient and/or jb4 family updated on plan of care and expected duration. Pain level reassessed. Patient is alert, oriented x 3, equal unlabored respirations, skin warm/dry/pink. 07/31 00:00 Reassessment: Patient appears in no apparent distress at this time. Patient and/or jb4 family updated on plan of care and expected duration. Pain level reassessed. Patient is alert, oriented x 3, equal unlabored respirations, skin warm/dry/pink. Vital Signs: 07/30 21:25 BP 139 / 98; Pulse 83; Resp 16; Temp 98.7(O); Pulse Ox 100% on R/A; Weight 76.66 kg jb4 (R); Height 5 ft. 5 in. ; Pain 7/10; 21:25 Body Mass Index 28.12 (76.66 kg, 165.1 cm) jb4 21:25 Pain Scale: Adult jb4 ED Course: 21:08 Patient arrived in ED. gm2 21:08 Christine Castillo FNP-C [facility] kb 21:08 Sunil Gray MD is Attending Physician. kb 21:27 Triage completed. jb4 21:27 Arm band placed on right wrist. jb4 21:28 Patient has correct armband on for positive identification. Bed in low position. Call jb4 light in reach. Side rails up X 1. Provided Education on: plan of care, smoking cessation.. 22:00 Inserted saline lock: 18 gauge in left antecubital area, using aseptic technique. Blood jb4 collected. 22:01 Dimitri Escoto, RN is Primary Nurse. jb4 22:01 CBC with Diff Sent. jb4 22:01 CMP Sent. jb4 22:01 Lipase Sent. jb4 22:01 Test, Urine Sent. jb4 22:02 Urinalysis w/ reflexes Sent. jb4 22:02 Troponin HS Sent. jb4 22:02 D-Dimer Sent. jb4 22:45 XRAY Chest (1 view) In Process Unspecified. EDLA 07/31 00:00 No provider procedures requiring assistance completed. Patient did not have IV access jb4 during this emergency room visit. Administered Medications: 07/30 23:40 Drug: Ketorolac IVP 15 mg IVP once Route: IVP; Site: left antecubital; jb4 07/31 00:03 Follow up: Response: No adverse reaction; Marked relief of symptoms jb4 Medication: 07/30 21:28 VIS not applicable for this client. jb4 Outcome: 23:38 Discharge ordered by . tima 07/31 00:00 Discharged to home ambulatory, with family, jb4 Condition: stable Discharge instructions given to patient, Instructed on discharge instructions, follow up and referral plans. Demonstrated understanding of instructions, follow-up care, 00:08 Patient left the ED. jb4 Signatures: Dispatcher [employer] EDLA Christine Castillo, BOAT BUFFER [employer]-C BOAT BUFFER [employer]-Dimitri Arreola, RN RN jb4 Julisa Preciado 2
[2023-07-31] MEDS ORDERED: KETOROLAC 30 MG/ML INJ ONE (23:40)
[2023-08-01 00:40] VITALS: BP 139/98; TEMP 98.7; O2SAT 100
--- NOTE | 2023-08-01 12:03 | EKG ---
Test Date: 2023-07-31 Test Time: 21:47:41 Clip Wrapper: JUSTO MEASUREMENT RESULTS: Intervals: Rate: 62 RI: 110 QRSD: 108 QT: 412 QTc: 418 [place]: P: 50 RI: 110 QRS: 55 T: 56 INTERPRETIVE STATEMENTS: Sinus rhythm with sinus arrhythmia with short RI Otherwise normal ECG Compared to ECG 12/14/2022 01:41:40 No significant changes Electronically Signed On 08-01-23 12:02:23 CDT by Marco Antonio San
--- NOTE | 2023-08-01 13:40 | RAD REPORT ---
EXAM DESCRIPTION: XR Chest, 1 View CLINICAL HISTORY: CHEST PAIN TECHNIQUE: Frontal view of the chest. COMPARISON: No relevant prior studies available. FINDINGS: Lungs: Unremarkable. No consolidation. Pleural space: Unremarkable. No pneumothorax. Heart: Unremarkable. No cardiomegaly. Mediastinum: Unremarkable. Normal mediastinal contour. Bones/joints: Unremarkable. No acute fracture. IMPRESSION: No acute disease. Electronically signed by: Robert Kebede MD 07/31/2023 11:30 PM CDT RP Due to temporary technical issues with the PACS/Fluency reporting system, reports are being signed by the in house radiologist without review as a courtesy to ensure prompt reporting. The interpreting r adiologist is fully responsible for the content of the report.
== END 2023-08-01 00:08 | disposition home or self-care (01) ==
LOC: ER 21:03
DX: R10.10 Upper abdominal pain, unspecified (principal); R06.00 Dyspnea, unspecified
CPT/HCPCS: 36415; 71045; 80053; 81001; 81025; 83690; 84484; 85025; 85379; 93005; 96374; 99284

== ENCOUNTER 2023-10-25 20:30 | Emergency (ER) | payer OTHER ==
--- OUTSIDE RECORDS SUMMARY | 2023-10-25 20:35 | XMS REPORT | Continuity of Care Document ---
Author Name Unknown Address [address] [facility]. [address] [place] [address] [facility] thconnect Address [address] [facility] [address] [place] [address] Care Team Providers Care Varnisher Plasticoater Name Role Phone Pcp, Patient Does Not Have A Primary Care Physic ryan Ifeoma MCCARTHY Attending Clinician Unavailable Ifeoma Matson Attending Clinician [phone] LORE CASTILLO Attending Clinician Unavailable LORE CASTILLO Attending Clinician Unavailable Doctor Unassigned, [place] Attending Clinician U Aury Ambriz PA-C Attending Clinician [phone] HEMA GONZALEZ Attending Clinician Unavailable Pgy2 Attending Clinician Unavailable Hema Gonzalez MD Attending Clinician [phone] Nilo Angel MD Attending Clinician [phone] NILO ANGEL Attending Clinician Unavailable AURY RICH Attending Clinician Unavailab PACHECO Álvarez Attending Clinician Unavail able Terry Renee MD Attending Clinician [phone] TERRY RENEE Attending Clinician Unavailable OSCAR CHAVEZ Attending Clinician UnaArchana Valente Attending Clinician + ARCHANA MICHAELS Attending Clinician Unavail able Joyce Workman Attending Clinician [phone] JOYCE GALLARDO Attending Clinician UnavailRaymond Devi DO Attending Clinician Hubert Caldwell Attending Clinician [phone] HUBERT BETANCOURT Attending Clinician Unavail able NILO ANGEL Admitting Clinician Unavailable AURY RICH Admitting Clinician Unavailab le Payers Payer Name Policy Type Policy Number Effective Date Expirati on Date Source [place] [employer] [id number] 2022 00:00:00 Problems Condition Name Condition Details Condition Category Status Onset Date Resolution Date Last Treatment Date Treating Clinician Comments Source Boil of buttock Boil of buttock Disease Active 03-11 00:00: 00 [facility] Nexplanon removal Nexplanon removal Disease Active 02-24 00:00: 00 [facility] Heart murmur Heart murmur Disease Active 09-02 00:00: 00 [facility] Asthma Asthma Disease Active 09-02 00:00: 00 [facility] Defiant behavior Defiant behavior Disease Active 09-02 00:00: 00 [facility] Seasonal allergies Seasonal allergies Disease Active 09-02 00:00: 00 [facility] Allergic rhinitis Allergic rhinitis Disease Active 09-02 00:00: 00 [facility] Bipolar affective disorder Bipolar affective disorder Disease Active 6 00:00: 00 [facility] Other mixed anxiety disorders Other mixed anxiety disorders Disease Active 2016-02 0-14 00:00: 00 [facility] ADHD (attention deficit hyperactiv ity disorder) ADHD (attention deficit hyperactiv ity disorder) Disease Active 214 00:00: 00 [facility] Sleep apnea Sleep apnea Disease Active [facility] Allergies, Adverse Reactions, Alerts Allergy Name Allergy Type Status Severity Reaction(s) Onset Date Inactive Date Treating Clinician Comments Source NO KNOWN ALLERGIE S Drug Class Active [facility] Social History Social Habit Start Date Stop Date Quantity Comments Source Gender identity [facility] Alcoholic beverage intake 2023-08-14 00:00:00 2023-08-14 00:00:00 Current non-drinker of alcohol (finding) [facility] Alcohol intake 2022-11-22 00:00:00 2022-11-22 00:00:00 Current non-drinker of alcohol (finding) [facility] Exposure to SARS-CoV-2 (event) 2022-04-26 00:00:00 2022-05-06 13:52:00 Not sure [facility] Tobacco use and exposure 2022-05-06 00:00:00 2022-05-06 00:00:00 User of smokeless tobacco [facility] History of Social function 2022-03-30 00:00:00 2022-03-30 00:00:00 [facility] Sex assigned at 2005 00:00:00 2005 00:00:00 [facility] Smoking Status Start Date Stop Date Source Never smoked tobacco [facility] Medications Ordered Medication Name Filled Medication Name Start Date Stop Date Current Medication? Ordering Clinician Indication Dosage Frequency Signature (SIG) Comments Components Source NaCl 0.9% (NS) bolus infusion 1,000 mL 08-13 07:30: 00 08-13 07:58 :00 No 1000mL at 999 mL/hr, 1,000 mL, IV Infusion, ONCE, 1 dose, On 08/14/23 at 0230, STAT [facility] dicyclomine (BENTYL) tablet 20 mg 08-13 07:30: 00 08-13 06:46 :00 No 20mg 20 mg, Oral, ONCE, 1 dose, On 08/14/23 at 0230, Routine [facility] dicyclomine 20 mg tablet 08-13 00:00: 00 Yes [id number] 20mg Take 1 tablet by mouth 4 (four) times daily. [facility] CETIRIZINE 10 mg tablet 904 00:00: 00 Yes [id number] 10mg TAKE ONE (1) TABLET BY MOUTH AT BEDTIME. [facility] mometasone 50 mcg/actuati on nasal spray 03-30 00:00: 00 Yes 1{spray } Use 1 [place] in each nostril in the morning and 1 [place] in the evening. [facility] cetirizine 10 mg tablet 03-30 00:00: 00 10-25 00:00 :00 No [id number] 10mg Take 1 tablet by mouth at bedtime. [facility] multivit-mi n/ferrous fumarate (MULTI VITAMIN ORAL) 03-15 10:17: 40 Yes Take by mouth. [facility] clindamycin 300 mg capsule 03-15 00:00: 00 03-26 05:59 :00 No [id number] 300mg Take 1 capsule by mouth 4 (four) times daily for 10 days. [facility] sulfamethox azole-trime thoprim (BACTRIM DS) 800-160 mg per tablet 03-15 00:00: 00 03-26 05:59 :00 No [id number] 1{tbl} Take 1 tablet by mouth in the morning and 1 tablet in the evening. Do all this for 10 days. [facility] benzoyl peroxide 5 % gel 03-02 00:00: 00 03-30 00:00 :00 No [id number] Apply to area(s) daily. [facility] clindamycin 1 % gel 03-02 00:00: 00 03-30 00:00 :00 No [id number] Apply to area(s) daily. [facility] amoxicillin -clavulanat e (AUGMENTIN) 875-125 mg per tablet 02-26 00:00: 00 03-09 05:59 :00 No [id number] 1{tbl} Take 1 tablet by mouth in the morning and 1 tablet in the evening. Do all this for 10 days. [facility] clindamycin -benzoyl peroxide (BENZACLIN) gel 02-26 00:00: 00 03-02 00:00 :00 No [id number] Apply to area(s) at bedtime. [facility] polymyxin B sulf-trimet hoprim 10,000 unit- 1 mg/mL ophthalmic drops 1-04 00:00: 00 03-30 00:00 :00 No INSTILL ONE (1) DROP IN AFFECTED EYE EVERY SIX HOURS FOR 7 DAYS. [facility] busPIRone 5 mg tablet 1-03 00:00: 00 03-30 00:00 :00 No [facility] CETIRIZINE 10 mg tablet 2-14 00:00: 00 03-30 00:00 :00 No [id number] TAKE ONE (1) TABLET(S) BY MOUTH ONCE A DAY AT BEDTIME. [facility] Nitrofurant oin&Nit. Macrocryst (MACROBID) 100 mg capsule 1- 00:00: 00 03-15 00:00 :00 No [id number] 100mg Take 1 capsule by mouth 2 (two) times daily. [facility] multivit-mi n/ferrous fumarate (MULTI VITAMIN ORAL) 2020-02 2- 15:38: 09 Yes Take by mouth. [facility] LATUDA 60 mg Tab 2020-02 0- 00:00: 00 Yes 1{tbl} Take 1 tablet by mouth daily. [facility] cetirizine 10 mg tablet 09-29 00:00: 00 Yes [id number] 10mg Take 1 tablet by mouth at bedtime. [facility] mometasone 50 mcg/actuati on nasal spray 09-29 00:00: 00 03-30 00:00 :00 No [id number] 1{spray } Use 1 [place] in each nostril 2 (two) times daily. [facility] Immunizations Ordered Immunization Name Filled Immunization Name Date Status Comments Source Influenza Virus Vaccine Quad .5 mL IM 6+ MO 2020-01-30 00:00:00 Completed [facility] Meningococcal Polysaccharide (groups A, C, Y and W-135) conjugate vaccine (MCV4P) 2020-01-30 00:00:00 Completed [facility] Meningococcal B, OMV 2020-01-30 00:00:00 Completed [facility] Influenza Virus Vaccine Quad .5 mL IM 6+ MO 2020-01-30 00:00:00 Completed [facility] Meningococcal Polysaccharide (groups A, C, Y and W-135) conjugate vaccine (MCV4P) 2020-01-30 00:00:00 Completed [facility] Meningococcal B, OMV 2020-01-30 00:00:00 Completed [facility] Influenza Virus Vaccine Quad .5 mL IM 6+ MO 2020-01-30 00:00:00 Completed [facility] Meningococcal Polysaccharide (groups A, C, Y and W-135) conjugate vaccine (MCV4P) 2020-01-30 00:00:00 Completed [facility] Meningococcal B, OMV 2020-01-30 00:00:00 Completed [facility] Influenza Virus Vaccine Quad .5 mL IM 6+ MO 2020-01-30 00:00:00 Completed [facility] Meningococcal Polysaccharide (groups A, C, Y and W-135) conjugate vaccine (MCV4P) 2020-01-30 00:00:00 Completed [facility] Meningococcal B, OMV 2020-01-30 00:00:00 Completed [facility] Influenza Virus Vaccine Quad .5 mL IM 6+ MO 2020-01-30 00:00:00 Completed [facility] Meningococcal Polysaccharide (groups A, C, Y and W-135) conjugate vaccine (MCV4P) 2020-01-30 00:00:00 Completed [facility] Meningococcal B, OMV 2020-01-30 00:00:00 Completed [facility] Influenza Virus Vaccine Quad .5 mL IM 6+ MO 2020-01-30 00:00:00 Completed [facility] Meningococcal Polysaccharide (groups A, C, Y and W-135) conjugate vaccine (MCV4P) 2020-01-30 00:00:00 Completed [facility] Meningococcal B, OMV 2020-01-30 00:00:00 Completed [facility] Influenza Virus Vaccine Quad .5 mL IM 6+ MO 2020-01-30 00:00:00 Completed [facility] Meningococcal Polysaccharide (groups A, C, Y and W-135) conjugate vaccine (MCV4P) 2020-01-30 00:00:00 Completed [facility] Meningococcal B, OMV 2020-01-30 00:00:00 Completed [facility] Influenza Virus Vaccine Quad .5 mL IM 6+ MO 2020-01-30 00:00:00 Completed [facility] Meningococcal Polysaccharide (groups A, C, Y and W-135) conjugate vaccine (MCV4P) 2020-01-30 00:00:00 Completed [facility] Meningococcal B, OMV 2020-01-30 00:00:00 Completed [facility] Influenza Virus Vaccine Quad .5 mL IM 6+ MO 2020-01-30 00:00:00 Completed [facility] Meningococcal Polysaccharide (groups A, C, Y and W-135) conjugate vaccine (MCV4P) 2020-01-30 00:00:00 Completed [facility] Meningococcal B, OMV 2020-01-30 00:00:00 Completed [facility] Influenza Virus Vaccine Quad .5 mL IM 6+ MO 2020-01-30 00:00:00 Completed [facility] Meningococcal Polysaccharide (groups A, C, Y and W-135) conjugate vaccine (MCV4P) 2020-01-30 00:00:00 Completed [facility] Meningococcal B, OMV 2020-01-30 00:00:00 Completed [facility] Influenza Virus Vaccine Quad .5 mL IM 6+ MO 2020-01-30 00:00:00 Completed [facility] Meningococcal Polysaccharide (groups A, C, Y and W-135) conjugate vaccine (MCV4P) 2020-01-30 00:00:00 Completed [facility] Meningococcal B, OMV 2020-01-30 00:00:00 Completed [facility] Influenza Virus Vaccine Quad .5 mL IM 6+ MO 2020-01-30 00:00:00 Completed [facility] Meningococcal Polysaccharide (groups A, C, Y and W-135) conjugate vaccine (MCV4P) 2020-01-30 00:00:00 Completed [facility] Meningococcal B, OMV 2020-01-30 00:00:00 Completed [facility] Influenza Virus Vaccine Quad .5 mL IM 6+ MO 2020-01-30 00:00:00 Completed [facility] Meningococcal Polysaccharide (groups A, C, Y and W-135) conjugate vaccine (MCV4P) 2020-01-30 00:00:00 Completed [facility] Meningococcal B, OMV 2020-01-30 00:00:00 Completed [facility] Influenza Virus Vaccine Quad .5 mL IM 6+ MO (FLUZONE/FLULAVAL/FL UARIX) 2020-01-30 00:00:00 Completed [facility] Meningococcal Polysaccharide (groups A, C, Y and W-135) conjugate vaccine (MCV4P) 2020-01-30 00:00:00 Completed [facility] Meningococcal B, OMV 2020-01-30 00:00:00 Completed [facility] Influenza Virus Vaccine Quad .5 mL IM 6+ MO 2020-01-30 00:00:00 Completed [facility] Meningococcal Polysaccharide (groups A, C, Y and W-135) conjugate vaccine (MCV4P) 2020-01-30 00:00:00 Completed [facility] Meningococcal B, OMV 2020-01-30 00:00:00 Completed [facility] Influenza Virus Vaccine Quad .5 mL IM 6+ MO 2020-01-30 00:00:00 Completed [facility] Meningococcal Polysaccharide (groups A, C, Y and W-135) conjugate vaccine (MCV4P) 2020-01-30 00:00:00 Completed [facility] Meningococcal B, OMV 2020-01-30 00:00:00 Completed [facility] Influenza Virus Vaccine Quad .5 mL IM 6+ MO 2020-01-30 00:00:00 Completed [facility] Meningococcal Polysaccharide (groups A, C, Y and W-135) conjugate vaccine (MCV4P) 2020-01-30 00:00:00 Completed [facility] Meningococcal B, OMV 2020-01-30 00:00:00 Completed [facility] Influenza Virus Vaccine Quad .5 mL IM 6+ MO 2020-01-30 00:00:00 Completed [facility] Meningococcal Polysaccharide (groups A, C, Y and W-135) conjugate vaccine (MCV4P) 2020-01-30 00:00:00 Completed [facility] Meningococcal B, OMV 2020-01-30 00:00:00 Completed [facility] Influenza Virus Vaccine Quad .5 mL IM 6+ MO 2020-01-30 00:00:00 Completed [facility] Meningococcal Polysaccharide (groups A, C, Y and W-135) conjugate vaccine (MCV4P) 2020-01-30 00:00:00 Completed [facility] Meningococcal B, OMV 2020-01-30 00:00:00 Completed [facility] Influenza Virus Vaccine Quad .5 mL IM 6+ MO 2020-01-30 00:00:00 Completed [facility] Meningococcal Polysaccharide (groups A, C, Y and W-135) conjugate vaccine (MCV4P) 2020-01-30 00:00:00 Completed [facility] Meningococcal B, OMV 2020-01-30 00:00:00 Completed [facility] Influenza Virus Vaccine Quad .5 mL IM 6+ MO 2020-01-30 00:00:00 Completed [facility] Meningococcal Polysaccharide (groups A, C, Y and W-135) conjugate vaccine (MCV4P) 2020-01-30 00:00:00 Completed [facility] Meningococcal B, OMV 2020-01-30 00:00:00 Completed [facility] Influenza Virus Vaccine Quad .5 mL IM 6+ MO 2020-01-30 00:00:00 Completed [facility] Meningococcal Polysaccharide (groups A, C, Y and W-135) conjugate vaccine (MCV4P) 2020-01-30 00:00:00 Completed [facility] Meningococcal B, OMV 2020-01-30 00:00:00 Completed [facility] Influenza Virus Vaccine Quad .5 mL IM 6+ MO 2020-01-30 00:00:00 Completed [facility] Meningococcal Polysaccharide (groups A, C, Y and W-135) conjugate vaccine (MCV4P) 2020-01-30 00:00:00 Completed [facility] Meningococcal B, OMV 2020-01-30 00:00:00 Completed [facility] Influenza Virus Vaccine Quad .5 mL IM 6+ MO 2020-01-30 00:00:00 Completed [facility] Meningococcal Polysaccharide (groups A, C, Y and W-135) conjugate vaccine (MCV4P) 2020-01-30 00:00:00 Completed [facility] Meningococcal B, OMV 2020-01-30 00:00:00 Completed [facility] Influenza Virus Vaccine Quad IM 3+ YRS 2018-12-21 00:00:00 Completed [facility] Influenza Virus Vaccine 2018-12-21 00:00:00 Completed [facility] Influenza Virus Vaccine Quad IM 3+ YRS 2018-12-21 00:00:00 Completed [facility] Influenza Virus Vaccine 2018-12-21 00:00:00 Completed [facility] Influenza Virus Vaccine Quad IM 3+ YRS 2018-12-21 00:00:00 Completed [facility] Influenza Virus Vaccine 2018-12-21 00:00:00 Completed [facility] Influenza Virus Vaccine Quad IM 3+ YRS 2018-12-21 00:00:00 Completed [facility] Influenza Virus Vaccine 2018-12-21 00:00:00 Completed [facility] Influenza Virus Vaccine Quad IM 3+ YRS 2018-12-21 00:00:00 Completed [facility] Influenza Virus Vaccine 2018-12-21 00:00:00 Completed [facility] Influenza Virus Vaccine Quad IM 3+ YRS 2018-12-21 00:00:00 Completed [facility] Influenza Virus Vaccine 2018-12-21 00:00:00 Completed [facility] Influenza Virus Vaccine Quad IM 3+ YRS 2018-12-21 00:00:00 Completed [facility] Influenza Virus Vaccine 2018-12-21 00:00:00 Completed [facility] Influenza Virus Vaccine Quad IM 3+ YRS 2018-12-21 00:00:00 Completed [facility] Influenza Virus Vaccine 2018-12-21 00:00:00 Completed [facility] Influenza Virus Vaccine Quad IM 3+ YRS 2018-12-21 00:00:00 Completed [facility] Influenza Virus Vaccine 2018-12-21 00:00:00 Completed [facility] Influenza Virus Vaccine Quad IM 3+ YRS 2018-12-21 00:00:00 Completed [facility] Influenza Virus Vaccine 2018-12-21 00:00:00 Completed [facility] Influenza Virus Vaccine Quad IM 3+ YRS 2018-12-21 00:00:00 Completed [facility] Influenza Virus Vaccine 2018-12-21 00:00:00 Completed [facility] Influenza Virus Vaccine Quad IM 3+ YRS 2018-12-21 00:00:00 Completed [facility] Influenza Virus Vaccine 2018-12-21 00:00:00 Completed [facility] Influenza Virus Vaccine Quad IM 3+ YRS 2018-12-21 00:00:00 Completed [facility] Influenza Virus Vaccine 2018-12-21 00:00:00 Completed [facility] Influenza Virus Vaccine Quad IM 3+ YRS 2018-12-21 00:00:00 Completed [facility] Influenza Virus Vaccine 2018-12-21 00:00:00 Completed [facility] Influenza Virus Vaccine Quad IM 3+ YRS 2018-12-21 00:00:00 Completed [facility] Influenza Virus Vaccine 2018-12-21 00:00:00 Completed [facility] Influenza Virus Vaccine Quad IM 3+ YRS 2018-12-21 00:00:00 Completed [facility] Influenza Virus Vaccine 2018-12-21 00:00:00 Completed [facility] Influenza Virus Vaccine Quad IM 3+ YRS 2018-12-21 00:00:00 Completed [facility] Influenza Virus Vaccine 2018-12-21 00:00:00 Completed [facility] Influenza Virus Vaccine Quad IM 3+ YRS 2018-12-21 00:00:00 Completed [facility] Influenza Virus Vaccine 2018-12-21 00:00:00 Completed [facility] Influenza Virus Vaccine Quad IM 3+ YRS 2018-12-21 00:00:00 Completed [facility] Influenza Virus Vaccine 2018-12-21 00:00:00 Completed [facility] Influenza Virus Vaccine Quad IM 3+ YRS 2018-12-21 00:00:00 Completed [facility] Influenza Virus Vaccine 2018-12-21 00:00:00 Completed [facility] Influenza Virus Vaccine Quad IM 3+ YRS 2018-12-21 00:00:00 Completed [facility] Influenza Virus Vaccine 2018-12-21 00:00:00 Completed [facility] Influenza Virus Vaccine Quad IM 3+ YRS 2018-12-21 00:00:00 Completed [facility] Influenza Virus Vaccine 2018-12-21 00:00:00 Completed [facility] Influenza Virus Vaccine Quad IM 3+ YRS 2018-12-21 00:00:00 Completed [facility] Influenza Virus Vaccine 2018-12-21 00:00:00 Completed [facility] Influenza Virus Vaccine Quad IM 3+ YRS 2018-12-21 00:00:00 Completed [facility] Influenza Virus Vaccine 2018-12-21 00:00:00 Completed [facility] Influenza Virus Vaccine Quad IM 3+ YRS 2017-12-13 00:00:00 Completed [facility] Influenza Virus Vaccine 2017-12-13 00:00:00 Completed [facility] Influenza Virus Vaccine Quad IM 3+ YRS 2017-12-13 00:00:00 Completed [facility] Influenza Virus Vaccine 2017-12-13 00:00:00 Completed [facility] Influenza Virus Vaccine Quad IM 3+ YRS 2017-12-13 00:00:00 Completed [facility] Influenza Virus Vaccine 2017-12-13 00:00:00 Completed [facility] Influenza Virus Vaccine Quad IM 3+ YRS 2017-12-13 00:00:00 Completed [facility] Influenza Virus Vaccine 2017-12-13 00:00:00 Completed [facility] Influenza Virus Vaccine Quad IM 3+ YRS 2017-12-13 00:00:00 Completed [facility] Influenza Virus Vaccine 2017-12-13 00:00:00 Completed [facility] Influenza Virus Vaccine Quad IM 3+ YRS 2017-12-13 00:00:00 Completed [facility] Influenza Virus Vaccine 2017-12-13 00:00:00 Completed [facility] Influenza Virus Vaccine Quad IM 3+ YRS 2017-12-13 00:00:00 Completed [facility] Influenza Virus Vaccine 2017-12-13 00:00:00 Completed [facility] Influenza Virus Vaccine Quad IM 3+ YRS 2017-12-13 00:00:00 Completed [facility] Influenza Virus Vaccine 2017-12-13 00:00:00 Completed [facility] Influenza Virus Vaccine Quad IM 3+ YRS 2017-12-13 00:00:00 Completed [facility] Influenza Virus Vaccine 2017-12-13 00:00:00 Completed [facility] Influenza Virus Vaccine Quad IM 3+ YRS 2017-12-13 00:00:00 Completed [facility] Influenza Virus Vaccine 2017-12-13 00:00:00 Completed [facility] Influenza Virus Vaccine Quad IM 3+ YRS 2017-12-13 00:00:00 Completed [facility] Influenza Virus Vaccine 2017-12-13 00:00:00 Completed [facility] Influenza Virus Vaccine Quad IM 3+ YRS 2017-12-13 00:00:00 Completed [facility] Influenza Virus Vaccine 2017-12-13 00:00:00 Completed [facility] Influenza Virus Vaccine Quad IM 3+ YRS 2017-12-13 00:00:00 Completed [facility] Influenza Virus Vaccine 2017-12-13 00:00:00 Completed [facility] Influenza Virus Vaccine Quad IM 3+ YRS 2017-12-13 00:00:00 Completed [facility] Influenza Virus Vaccine 2017-12-13 00:00:00 Completed [facility] Influenza Virus Vaccine Quad IM 3+ YRS 2017-12-13 00:00:00 Completed [facility] Influenza Virus Vaccine 2017-12-13 00:00:00 Completed [facility] Influenza Virus Vaccine Quad IM 3+ YRS 2017-12-13 00:00:00 Completed [facility] Influenza Virus Vaccine 2017-12-13 00:00:00 Completed [facility] Influenza Virus Vaccine Quad IM 3+ YRS 2017-12-13 00:00:00 Completed [facility] Influenza Virus Vaccine 2017-12-13 00:00:00 Completed [facility] Influenza Virus Vaccine Quad IM 3+ YRS 2017-12-13 00:00:00 Completed [facility] Influenza Virus Vaccine 2017-12-13 00:00:00 Completed [facility] Influenza Virus Vaccine Quad IM 3+ YRS 2017-12-13 00:00:00 Completed [facility] Influenza Virus Vaccine 2017-12-13 00:00:00 Completed [facility] Influenza Virus Vaccine Quad IM 3+ YRS 2017-12-13 00:00:00 Completed [facility] Influenza Virus Vaccine 2017-12-13 00:00:00 Completed [facility] Influenza Virus Vaccine Quad IM 3+ YRS 2017-12-13 00:00:00 Completed [facility] Influenza Virus Vaccine 2017-12-13 00:00:00 Completed [facility] Influenza Virus Vaccine Quad IM 3+ YRS 2017-12-13 00:00:00 Completed [facility] Influenza Virus Vaccine 2017-12-13 00:00:00 Completed [facility] Influenza Virus Vaccine Quad IM 3+ YRS 2017-12-13 00:00:00 Completed [facility] Influenza Virus Vaccine 2017-12-13 00:00:00 Completed [facility] Influenza Virus Vaccine Quad IM 3+ YRS 2017-12-13 00:00:00 Completed [facility] Influenza Virus Vaccine 2017-12-13 00:00:00 Completed [facility] Influenza Virus Vaccine Quad IM 3+ YRS 2016-11-11 00:00:00 Completed [facility] Influenza Virus Vaccine Quad IM 3+ YRS 2016-11-11 00:00:00 Completed [facility] Influenza Virus Vaccine Quad IM 3+ YRS 2016-11-11 00:00:00 Completed [facility] Influenza Virus Vaccine Quad IM 3+ YRS 2016-11-11 00:00:00 Completed [facility] Influenza Virus Vaccine Quad IM 3+ YRS 2016-11-11 00:00:00 Completed [facility] Influenza Virus Vaccine Quad IM 3+ YRS 2016-11-11 00:00:00 Completed [facility] Influenza Virus Vaccine Quad IM 3+ YRS 2016-11-11 00:00:00 Completed [facility] Influenza Virus Vaccine Quad IM 3+ YRS 2016-11-11 00:00:00 Completed [facility] Influenza Virus Vaccine Quad IM 3+ YRS 2016-11-11 00:00:00 Completed [facility] Influenza Virus Vaccine Quad IM 3+ YRS 2016-11-11 00:00:00 Completed [facility] Influenza Virus Vaccine Quad IM 3+ YRS 2016-11-11 00:00:00 Completed [facility] Influenza Virus Vaccine Quad IM 3+ YRS 2016-11-11 00:00:00 Completed [facility] Influenza Virus Vaccine Quad IM 3+ YRS 2016-11-11 00:00:00 Completed [facility] Influenza Virus Vaccine Quad IM 3+ YRS 2016-11-11 00:00:00 Completed [facility] Influenza Virus Vaccine Quad IM 3+ YRS 2016-11-11 00:00:00 Completed [facility] Influenza Virus Vaccine Quad IM 3+ YRS 2016-11-11 00:00:00 Completed [facility] Influenza Virus Vaccine Quad IM 3+ YRS 2016-11-11 00:00:00 Completed [facility] Influenza Virus Vaccine Quad IM 3+ YRS 2016-11-11 00:00:00 Completed [facility] Influenza Virus Vaccine Quad IM 3+ YRS 2016-11-11 00:00:00 Completed [facility] Influenza Virus Vaccine Quad IM 3+ YRS 2016-11-11 00:00:00 Completed [facility] Influenza Virus Vaccine Quad IM 3+ YRS 2016-11-11 00:00:00 Completed [facility] Influenza Virus Vaccine Quad IM 3+ YRS 2016-11-11 00:00:00 Completed [facility] Influenza Virus Vaccine Quad IM 3+ YRS 2016-11-11 00:00:00 Completed [facility] Influenza Virus Vaccine Quad IM 3+ YRS 2016-11-11 00:00:00 Completed [facility] HPV9 2016-02-25 00:00:00 Completed [facility] HPV9 2016-02-25 00:00:00 Completed [facility] HPV9 2016-02-25 00:00:00 Completed [facility] HPV9 2016-02-25 00:00:00 Completed [facility] HPV9 2016-02-25 00:00:00 Completed [facility] HPV9 2016-02-25 00:00:00 Completed [facility] HPV9 2016-02-25 00:00:00 Completed [facility] HPV9 2016-02-25 00:00:00 Completed [facility] HPV9 2016-02-25 00:00:00 Completed [facility] HPV9 2016-02-25 00:00:00 Completed [facility] HPV9 2016-02-25 00:00:00 Completed [facility] HPV9 2016-02-25 00:00:00 Completed [facility] HPV9 2015-09-17 00:00:00 Completed [facility] HPV9 2015-09-17 00:00:00 Completed [facility] HPV9 2015-09-17 00:00:00 Completed [facility] HPV9 2015-09-17 00:00:00 Completed [facility] HPV9 2015-09-17 00:00:00 Completed [facility] HPV9 2015-09-17 00:00:00 Completed [facility] HPV9 2015-09-17 00:00:00 Completed [facility] HPV9 2015-09-17 00:00:00 Completed [facility] HPV9 2015-09-17 00:00:00 Completed [facility] HPV9 2015-09-17 00:00:00 Completed [facility] HPV9 2015-09-17 00:00:00 Completed [facility] HPV9 2015-09-17 00:00:00 Completed [facility] 2015-07-07 00:00:00 Completed [facility] Meningococcal Polysaccharide (groups A, C, Y and W-135) conjugate vaccine (MCV4P) 2015-07-07 00:00:00 Completed [facility] TDAP 2015-07-07 00:00:00 Completed [facility] HPV9 2015-07-07 00:00:00 Completed [facility] Meningococcal Polysaccharide (groups A, C, Y and W-135) conjugate vaccine (MCV4P) 2015-07-07 00:00:00 Completed [facility] TDAP 2015-07-07 00:00:00 Completed [facility] HPV9 2015-07-07 00:00:00 Completed [facility] Meningococcal Polysaccharide (groups A, C, Y and W-135) conjugate vaccine (MCV4P) 2015-07-07 00:00:00 Completed [facility] TDAP 2015-07-07 00:00:00 Completed [facility] HPV9 2015-07-07 00:00:00 Completed [facility] Meningococcal Polysaccharide (groups A, C, Y and W-135) conjugate vaccine (MCV4P) 2015-07-07 00:00:00 Completed [facility] TDAP 2015-07-07 00:00:00 Completed [facility] HPV9 2015-07-07 00:00:00 Completed [facility] Meningococcal Polysaccharide (groups A, C, Y and W-135) conjugate vaccine (MCV4P) 2015-07-07 00:00:00 Completed [facility] TDAP 2015-07-07 00:00:00 Completed [facility] HPV9 2015-07-07 00:00:00 Completed [facility] Meningococcal Polysaccharide (groups A, C, Y and W-135) conjugate vaccine (MCV4P) 2015-07-07 00:00:00 Completed [facility] TDAP 2015-07-07 00:00:00 Completed [facility] HPV9 2015-07-07 00:00:00 Completed [facility] Meningococcal Polysaccharide (groups A, C, Y and W-135) conjugate vaccine (MCV4P) 2015-07-07 00:00:00 Completed [facility] TDAP 2015-07-07 00:00:00 Completed [facility] HPV9 2015-07-07 00:00:00 Completed [facility] Meningococcal Polysaccharide (groups A, C, Y and W-135) conjugate vaccine (MCV4P) 2015-07-07 00:00:00 Completed [facility] TDAP 2015-07-07 00:00:00 Completed [facility] HPV9 2015-07-07 00:00:00 Completed [facility] Meningococcal Polysaccharide (groups A, C, Y and W-135) conjugate vaccine (MCV4P) 2015-07-07 00:00:00 Completed [facility] TDAP 2015-07-07 00:00:00 Completed [facility] HPV9 2015-07-07 00:00:00 Completed [facility] Meningococcal Polysaccharide (groups A, C, Y and W-135) conjugate vaccine (MCV4P) 2015-07-07 00:00:00 Completed [facility] TDAP 2015-07-07 00:00:00 Completed [facility] HPV9 2015-07-07 00:00:00 Completed [facility] Meningococcal Polysaccharide (groups A, C, Y and W-135) conjugate vaccine (MCV4P) 2015-07-07 00:00:00 Completed [facility] TDAP 2015-07-07 00:00:00 Completed [facility] HPV9 2015-07-07 00:00:00 Completed [facility] Meningococcal Polysaccharide (groups A, C, Y and W-135) conjugate vaccine (MCV4P) 2015-07-07 00:00:00 Completed [facility] TDAP 2015-07-07 00:00:00 Completed [facility] Influenza Virus Vaccine - Whole 2010-11-23 00:00:00 Completed [facility] Influenza Virus Vaccine - Whole 2010-11-23 00:00:00 Completed [facility] Influenza Virus Vaccine - Whole 2010-11-23 00:00:00 Completed [facility] Influenza Virus Vaccine - Whole 2010-11-23 00:00:00 Completed [facility] Influenza Virus Vaccine - Whole 2010-11-23 00:00:00 Completed [facility] Influenza Virus Vaccine - Whole 2010-11-23 00:00:00 Completed [facility] Influenza Virus Vaccine - Whole 2010-11-23 00:00:00 Completed [facility] Influenza Virus Vaccine - Whole 2010-11-23 00:00:00 Completed [facility] Influenza Virus Vaccine - Whole 2010-11-23 00:00:00 Completed [facility] Influenza Virus Vaccine - Whole 2010-11-23 00:00:00 Completed [facility] Influenza Virus Vaccine - Whole 2010-11-23 00:00:00 Completed [facility] Influenza Virus Vaccine - Whole 2010-11-23 00:00:00 Completed [facility] DTaP, Unspecified Formulation 2007-10-12 00:00:00 Completed [facility] MMR 2007-10-12 00:00:00 Completed [facility] IPV 2007-10-12 00:00:00 Completed [facility] Varicella (varivax)(chicken pox) 2007-10-12 00:00:00 Completed [facility] DTaP, Unspecified Formulation 2007-10-12 00:00:00 Completed [facility] MMR 2007-10-12 00:00:00 Completed [facility] IPV 2007-10-12 00:00:00 Completed [facility] Varicella (varivax)(chicken pox) 2007-10-12 00:00:00 Completed [facility] DTaP, Unspecified Formulation 2007-10-12 00:00:00 Completed [facility] MMR 2007-10-12 00:00:00 Completed [facility] IPV 2007-10-12 00:00:00 Completed [facility] Varicella (varivax)(chicken pox) 2007-10-12 00:00:00 Completed [facility] DTaP, Unspecified Formulation 2007-10-12 00:00:00 Completed [facility] MMR 2007-10-12 00:00:00 Completed [facility] IPV 2007-10-12 00:00:00 Completed [facility] Varicella (varivax)(chicken pox) 2007-10-12 00:00:00 Completed [facility] DTaP, Unspecified Formulation 2007-10-12 00:00:00 Completed [facility] MMR 2007-10-12 00:00:00 Completed [facility] IPV 2007-10-12 00:00:00 Completed [facility] Varicella (varivax)(chicken pox) 2007-10-12 00:00:00 Completed [facility] DTaP, Unspecified Formulation 2007-10-12 00:00:00 Completed [facility] MMR 2007-10-12 00:00:00 Completed [facility] IPV 2007-10-12 00:00:00 Completed [facility] Varicella (varivax)(chicken pox) 2007-10-12 00:00:00 Completed [facility] DTaP, Unspecified Formulation 2007-10-12 00:00:00 Completed [facility] MMR 2007-10-12 00:00:00 Completed [facility] IPV 2007-10-12 00:00:00 Completed [facility] Varicella (varivax)(chicken pox) 2007-10-12 00:00:00 Completed [facility] DTaP, Unspecified Formulation 2007-10-12 00:00:00 Completed [facility] MMR 2007-10-12 00:00:00 Completed [facility] IPV 2007-10-12 00:00:00 Completed [facility] Varicella (varivax)(chicken pox) 2007-10-12 00:00:00 Completed [facility] DTaP, Unspecified Formulation 2007-10-12 00:00:00 Completed [facility] MMR 2007-10-12 00:00:00 Completed [facility] IPV 2007-10-12 00:00:00 Completed [facility] Varicella (varivax)(chicken pox) 2007-10-12 00:00:00 Completed [facility] DTaP, Unspecified Formulation 2007-10-12 00:00:00 Completed [facility] MMR 2007-10-12 00:00:00 Completed [facility] IPV 2007-10-12 00:00:00 Completed [facility] Varicella (varivax)(chicken pox) 2007-10-12 00:00:00 Completed [facility] DTaP, Unspecified Formulation 2007-10-12 00:00:00 Completed [facility] MMR 2007-10-12 00:00:00 Completed [facility] IPV 2007-10-12 00:00:00 Completed [facility] Varicella (varivax)(chicken pox) 2007-10-12 00:00:00 Completed [facility] DTaP, Unspecified Formulation 2007-10-12 00:00:00 Completed [facility] MMR 2007-10-12 00:00:00 Completed [facility] IPV 2007-10-12 00:00:00 Completed [facility] Varicella (varivax)(chicken pox) 2007-10-12 00:00:00 Completed [facility] HEPATITIS A 2006-01-25 00:00:00 Completed [facility] HEPATITIS A 2006-01-25 00:00:00 Completed [facility] HEPATITIS A 2006-01-25 00:00:00 Completed [facility] HEPATITIS A 2006-01-25 00:00:00 Completed [facility] HEPATITIS A 2006-01-25 00:00:00 Completed [facility] HEPATITIS A 2006-01-25 00:00:00 Completed [facility] HEPATITIS A 2006-01-25 00:00:00 Completed [facility] HEPATITIS A 2006-01-25 00:00:00 Completed [facility] HEPATITIS A 2006-01-25 00:00:00 Completed [facility] HEPATITIS A 2006-01-25 00:00:00 Completed [facility] HEPATITIS A 2006-01-25 00:00:00 Completed [facility] HEPATITIS A 2006-01-25 00:00:00 Completed [facility] HEPATITIS A 2005-05-04 00:00:00 Completed [facility] HEPATITIS A 2005-05-04 00:00:00 Completed [facility] HEPATITIS A 2005-05-04 00:00:00 Completed [facility] HEPATITIS A 2005-05-04 00:00:00 Completed [facility] HEPATITIS A 2005-05-04 00:00:00 Completed [facility] HEPATITIS A 2005-05-04 00:00:00 Completed [facility] HEPATITIS A 2005-05-04 00:00:00 Completed [facility] HEPATITIS A 2005-05-04 00:00:00 Completed [facility] HEPATITIS A 2005-05-04 00:00:00 Completed [facility] HEPATITIS A 2005-05-04 00:00:00 Completed [facility] HEPATITIS A 2005-05-04 00:00:00 Completed [facility] HEPATITIS A 2005-05-04 00:00:00 Completed [facility] DTaP, Unspecified Formulation 2004-09-22 00:00:00 Completed [facility] DTaP, Unspecified Formulation 2004-09-22 00:00:00 Completed [facility] DTaP, Unspecified Formulation 2004-09-22 00:00:00 Completed [facility] DTaP, Unspecified Formulation 2004-09-22 00:00:00 Completed [facility] DTaP, Unspecified Formulation 2004-09-22 00:00:00 Completed [facility] DTaP, Unspecified Formulation 2004-09-22 00:00:00 Completed [facility] DTaP, Unspecified Formulation 2004-09-22 00:00:00 Completed [facility] DTaP, Unspecified Formulation 2004-09-22 00:00:00 Completed [facility] DTaP, Unspecified Formulation 2004-09-22 00:00:00 Completed [facility] DTaP, Unspecified Formulation 2004-09-22 00:00:00 Completed [facility] DTaP, Unspecified Formulation 2004-09-22 00:00:00 Completed [facility] DTaP, Unspecified Formulation 2004-09-22 00:00:00 Completed [facility] HIB 4 Dose Schedule 2004-04-29 00:00:00 Completed [facility] MMR 2004-04-29 00:00:00 Completed [facility] Pneumococcal 7 Conjugate, PCV7 (Prevnar7) 2004-04-29 00:00:00 Completed [facility] Varicella (varivax)(chicken pox) 2004-04-29 00:00:00 Completed [facility] HIB 4 Dose Schedule 2004-04-29 00:00:00 Completed [facility] MMR 2004-04-29 00:00:00 Completed [facility] Pneumococcal 7 Conjugate, PCV7 (Prevnar7) 2004-04-29 00:00:00 Completed [facility] Varicella (varivax)(chicken pox) 2004-04-29 00:00:00 Completed [facility] HIB 4 Dose Schedule 2004-04-29 00:00:00 Completed [facility] MMR 2004-04-29 00:00:00 Completed [facility] Pneumococcal 7 Conjugate, PCV7 (Prevnar7) 2004-04-29 00:00:00 Completed [facility] Varicella (varivax)(chicken pox) 2004-04-29 00:00:00 Completed [facility] HIB 4 Dose Schedule 2004-04-29 00:00:00 Completed [facility] MMR 2004-04-29 00:00:00 Completed [facility] Pneumococcal 7 Conjugate, PCV7 (Prevnar7) 2004-04-29 00:00:00 Completed [facility] Varicella (varivax)(chicken pox) 2004-04-29 00:00:00 Completed [facility] HIB 4 Dose Schedule 2004-04-29 00:00:00 Completed [facility] MMR 2004-04-29 00:00:00 Completed [facility] Pneumococcal 7 Conjugate, PCV7 (Prevnar7) 2004-04-29 00:00:00 Completed [facility] Varicella (varivax)(chicken pox) 2004-04-29 00:00:00 Completed [facility] HIB 4 Dose Schedule 2004-04-29 00:00:00 Completed [facility] MMR 2004-04-29 00:00:00 Completed [facility] Pneumococcal 7 Conjugate, PCV7 (Prevnar7) 2004-04-29 00:00:00 Completed [facility] Varicella (varivax)(chicken pox) 2004-04-29 00:00:00 Completed [facility] HIB 4 Dose Schedule 2004-04-29 00:00:00 Completed [facility] MMR 2004-04-29 00:00:00 Completed [facility] Pneumococcal 7 Conjugate, PCV7 (Prevnar7) 2004-04-29 00:00:00 Completed [facility] Varicella (varivax)(chicken pox) 2004-04-29 00:00:00 Completed [facility] HIB 4 Dose Schedule 2004-04-29 00:00:00 Completed [facility] MMR 2004-04-29 00:00:00 Completed [facility] Pneumococcal 7 Conjugate, PCV7 (Prevnar7) 2004-04-29 00:00:00 Completed [facility] Varicella (varivax)(chicken pox) 2004-04-29 00:00:00 Completed [facility] HIB 4 Dose Schedule 2004-04-29 00:00:00 Completed [facility] MMR 2004-04-29 00:00:00 Completed [facility] Pneumococcal 7 Conjugate, PCV7 (Prevnar7) 2004-04-29 00:00:00 Completed [facility] Varicella (varivax)(chicken pox) 2004-04-29 00:00:00 Completed [facility] HIB 4 Dose Schedule 2004-04-29 00:00:00 Completed [facility] MMR 2004-04-29 00:00:00 Completed [facility] Pneumococcal 7 Conjugate, PCV7 (Prevnar7) 2004-04-29 00:00:00 Completed [facility] Varicella (varivax)(chicken pox) 2004-04-29 00:00:00 Completed [facility] HIB 4 Dose Schedule 2004-04-29 00:00:00 Completed [facility] MMR 2004-04-29 00:00:00 Completed [facility] Pneumococcal 7 Conjugate, PCV7 (Prevnar7) 2004-04-29 00:00:00 Completed [facility] Varicella (varivax)(chicken pox) 2004-04-29 00:00:00 Completed [facility] HIB 4 Dose Schedule 2004-04-29 00:00:00 Completed [facility] MMR 2004-04-29 00:00:00 Completed [facility] Pneumococcal 7 Conjugate, PCV7 (Prevnar7) 2004-04-29 00:00:00 Completed [facility] Varicella (varivax)(chicken pox) 2004-04-29 00:00:00 Completed [facility] Pediarix (dtap/hep B/ipv) 2004-02-05 00:00:00 Completed [facility] Flu Trivalent 2004-02-05 00:00:00 Completed [facility] HIB 4 Dose Schedule 2004-02-05 00:00:00 Completed [facility] Pneumococcal 7 Conjugate, PCV7 (Prevnar7) 2004-02-05 00:00:00 Completed [facility] Pediarix (dtap/hep B/ipv) 2004-02-05 00:00:00 Completed [facility] Flu Trivalent 2004-02-05 00:00:00 Completed [facility] HIB 4 Dose Schedule 2004-02-05 00:00:00 Completed [facility] Pneumococcal 7 Conjugate, PCV7 (Prevnar7) 2004-02-05 00:00:00 Completed [facility] Pediarix (dtap/hep B/ipv) 2004-02-05 00:00:00 Completed [facility] Flu Trivalent 2004-02-05 00:00:00 Completed [facility] HIB 4 Dose Schedule 2004-02-05 00:00:00 Completed [facility] Pneumococcal 7 Conjugate, PCV7 (Prevnar7) 2004-02-05 00:00:00 Completed [facility] Pediarix (dtap/hep B/ipv) 2004-02-05 00:00:00 Completed [facility] Flu Trivalent 2004-02-05 00:00:00 Completed [facility] HIB 4 Dose Schedule 2004-02-05 00:00:00 Completed [facility] Pneumococcal 7 Conjugate, PCV7 (Prevnar7) 2004-02-05 00:00:00 Completed [facility] Pediarix (dtap/hep B/ipv) 2004-02-05 00:00:00 Completed [facility] Flu Trivalent 2004-02-05 00:00:00 Completed [facility] HIB 4 Dose Schedule 2004-02-05 00:00:00 Completed [facility] Pneumococcal 7 Conjugate, PCV7 (Prevnar7) 2004-02-05 00:00:00 Completed [facility] Pediarix (dtap/hep B/ipv) 2004-02-05 00:00:00 Completed [facility] Flu Trivalent 2004-02-05 00:00:00 Completed [facility] HIB 4 Dose Schedule 2004-02-05 00:00:00 Completed [facility] Pneumococcal 7 Conjugate, PCV7 (Prevnar7) 2004-02-05 00:00:00 Completed [facility] Pediarix (dtap/hep B/ipv) 2004-02-05 00:00:00 Completed [facility] Flu Trivalent 2004-02-05 00:00:00 Completed [facility] HIB 4 Dose Schedule 2004-02-05 00:00:00 Completed [facility] Pneumococcal 7 Conjugate, PCV7 (Prevnar7) 2004-02-05 00:00:00 Completed [facility] Pediarix (dtap/hep B/ipv) 2004-02-05 00:00:00 Completed [facility] Flu Trivalent 2004-02-05 00:00:00 Completed [facility] HIB 4 Dose Schedule 2004-02-05 00:00:00 Completed [facility] Pneumococcal 7 Conjugate, PCV7 (Prevnar7) 2004-02-05 00:00:00 Completed [facility] Pediarix (dtap/hep B/ipv) 2004-02-05 00:00:00 Completed [facility] Flu Trivalent 2004-02-05 00:00:00 Completed [facility] HIB 4 Dose Schedule 2004-02-05 00:00:00 Completed [facility] Pneumococcal 7 Conjugate, PCV7 (Prevnar7) 2004-02-05 00:00:00 Completed [facility] Pediarix (dtap/hep B/ipv) 2004-02-05 00:00:00 Completed [facility] Flu Trivalent 2004-02-05 00:00:00 Completed [facility] HIB 4 Dose Schedule 2004-02-05 00:00:00 Completed [facility] Pneumococcal 7 Conjugate, PCV7 (Prevnar7) 2004-02-05 00:00:00 Completed [facility] Pediarix (dtap/hep B/ipv) 2004-02-05 00:00:00 Completed [facility] Flu Trivalent 2004-02-05 00:00:00 Completed [facility] HIB 4 Dose Schedule 2004-02-05 00:00:00 Completed [facility] Pneumococcal 7 Conjugate, PCV7 (Prevnar7) 2004-02-05 00:00:00 Completed [facility] Pediarix (dtap/hep B/ipv) 2004-02-05 00:00:00 Completed [facility] Flu Trivalent 2004-02-05 00:00:00 Completed [facility] HIB 4 Dose Schedule 2004-02-05 00:00:00 Completed [facility] Pneumococcal 7 Conjugate, PCV7 (Prevnar7) 2004-02-05 00:00:00 Completed [facility] Pediarix (dtap/hep B/ipv) 2003 00:00:00 Completed [facility] HIB 4 Dose Schedule 2003 00:00:00 Completed [facility] Pneumococcal 7 Conjugate, PCV7 (Prevnar7) 2003 00:00:00 Completed [facility] Pediarix (dtap/hep B/ipv) 2003 00:00:00 Completed [facility] HIB 4 Dose Schedule 2003 00:00:00 Completed [facility] Pneumococcal 7 Conjugate, PCV7 (Prevnar7) 2003 00:00:00 Completed [facility] Pediarix (dtap/hep B/ipv) 2003 00:00:00 Completed [facility] HIB 4 Dose Schedule 2003 00:00:00 Completed [facility] Pneumococcal 7 Conjugate, PCV7 (Prevnar7) 2003 00:00:00 Completed [facility] Pediarix (dtap/hep B/ipv) 2003 00:00:00 Completed [facility] HIB 4 Dose Schedule 2003 00:00:00 Completed [facility] Pneumococcal 7 Conjugate, PCV7 (Prevnar7) 2003 00:00:00 Completed [facility] Pediarix (dtap/hep B/ipv) 2003 00:00:00 Completed [facility] HIB 4 Dose Schedule 2003 00:00:00 Completed [facility] Pneumococcal 7 Conjugate, PCV7 (Prevnar7) 2003 00:00:00 Completed [facility] Pediarix (dtap/hep B/ipv) 2003 00:00:00 Completed [facility] HIB 4 Dose Schedule 2003 00:00:00 Completed [facility] Pneumococcal 7 Conjugate, PCV7 (Prevnar7) 2003 00:00:00 Completed [facility] Pediarix (dtap/hep B/ipv) 2003 00:00:00 Completed [facility] HIB 4 Dose Schedule 2003 00:00:00 Completed [facility] Pneumococcal 7 Conjugate, PCV7 (Prevnar7) 2003 00:00:00 Completed [facility] Pediarix (dtap/hep B/ipv) 2003 00:00:00 Completed [facility] HIB 4 Dose Schedule 2003 00:00:00 Completed [facility] Pneumococcal 7 Conjugate, PCV7 (Prevnar7) 2003 00:00:00 Completed [facility] Pediarix (dtap/hep B/ipv) 2003 00:00:00 Completed [facility] HIB 4 Dose Schedule 2003 00:00:00 Completed [facility] Pneumococcal 7 Conjugate, PCV7 (Prevnar7) 2003 00:00:00 Completed [facility] Pediarix (dtap/hep B/ipv) 2003 00:00:00 Completed [facility] HIB 4 Dose Schedule 2003 00:00:00 Completed [facility] Pneumococcal 7 Conjugate, PCV7 (Prevnar7) 2003 00:00:00 Completed [facility] Pediarix (dtap/hep B/ipv) 2003 00:00:00 Completed [facility] HIB 4 Dose Schedule 2003 00:00:00 Completed [facility] Pneumococcal 7 Conjugate, PCV7 (Prevnar7) 2003 00:00:00 Completed [facility] Pediarix (dtap/hep B/ipv) 2003 00:00:00 Completed [facility] HIB 4 Dose Schedule 2003 00:00:00 Completed [facility] Pneumococcal 7 Conjugate, PCV7 (Prevnar7) 2003 00:00:00 Completed [facility] DTaP, Unspecified Formulation 2003 00:00:00 Completed [facility] Hep B, Adol or Pedi Dosage 2003 00:00:00 Completed [facility] HIB 4 Dose Schedule 2003 00:00:00 Completed [facility] Pneumococcal 7 Conjugate, PCV7 (Prevnar7) 2003 00:00:00 Completed [facility] IPV 2003 00:00:00 Completed [facility] DTaP, Unspecified Formulation 2003 00:00:00 Completed [facility] Hep B, Adol or Pedi Dosage 2003 00:00:00 Completed [facility] HIB 4 Dose Schedule 2003 00:00:00 Completed [facility] Pneumococcal 7 Conjugate, PCV7 (Prevnar7) 2003 00:00:00 Completed [facility] IPV 2003 00:00:00 Completed [facility] DTaP, Unspecified Formulation 2003 00:00:00 Completed [facility] Hep B, Adol or Pedi Dosage 2003 00:00:00 Completed [facility] HIB 4 Dose Schedule 2003 00:00:00 Completed [facility] Pneumococcal 7 Conjugate, PCV7 (Prevnar7) 2003 00:00:00 Completed [facility] IPV 2003 00:00:00 Completed [facility] DTaP, Unspecified Formulation 2003 00:00:00 Completed [facility] Hep B, Adol or Pedi Dosage 2003 00:00:00 Completed [facility] HIB 4 Dose Schedule 2003 00:00:00 Completed [facility] Pneumococcal 7 Conjugate, PCV7 (Prevnar7) 2003 00:00:00 Completed [facility] IPV 2003 00:00:00 Completed [facility] DTaP, Unspecified Formulation 2003 00:00:00 Completed [facility] Hep B, Adol or Pedi Dosage 2003 00:00:00 Completed [facility] HIB 4 Dose Schedule 2003 00:00:00 Completed [facility] Pneumococcal 7 Conjugate, PCV7 (Prevnar7) 2003 00:00:00 Completed [facility] IPV 2003 00:00:00 Completed [facility] DTaP, Unspecified Formulation 2003 00:00:00 Completed [facility] Hep B, Adol or Pedi Dosage 2003 00:00:00 Completed [facility] HIB 4 Dose Schedule 2003 00:00:00 Completed [facility] Pneumococcal 7 Conjugate, PCV7 (Prevnar7) 2003 00:00:00 Completed [facility] IPV 2003 00:00:00 Completed [facility] DTaP, Unspecified Formulation 2003 00:00:00 Completed [facility] Hep B, Adol or Pedi Dosage 2003 00:00:00 Completed [facility] HIB 4 Dose Schedule 2003 00:00:00 Completed [facility] Pneumococcal 7 Conjugate, PCV7 (Prevnar7) 2003 00:00:00 Completed [facility] IPV 2003 00:00:00 Completed [facility] DTaP, Unspecified Formulation 2003 00:00:00 Completed [facility] Hep B, Adol or Pedi Dosage 2003 00:00:00 Completed [facility] HIB 4 Dose Schedule 2003 00:00:00 Completed [facility] Pneumococcal 7 Conjugate, PCV7 (Prevnar7) 2003 00:00:00 Completed [facility] IPV 2003 00:00:00 Completed [facility] DTaP, Unspecified Formulation 2003 00:00:00 Completed [facility] Hep B, Adol or Pedi Dosage 2003 00:00:00 Completed [facility] HIB 4 Dose Schedule 2003 00:00:00 Completed [facility] Pneumococcal 7 Conjugate, PCV7 (Prevnar7) 2003 00:00:00 Completed [facility] IPV 2003 00:00:00 Completed [facility] DTaP, Unspecified Formulation 2003 00:00:00 Completed [facility] Hep B, Adol or Pedi Dosage 2003 00:00:00 Completed [facility] HIB 4 Dose Schedule 2003 00:00:00 Completed [facility] Pneumococcal 7 Conjugate, PCV7 (Prevnar7) 2003 00:00:00 Completed [facility] IPV 2003 00:00:00 Completed [facility] DTaP, Unspecified Formulation 2003 00:00:00 Completed [facility] Hep B, Adol or Pedi Dosage 2003 00:00:00 Completed [facility] HIB 4 Dose Schedule 2003 00:00:00 Completed [facility] Pneumococcal 7 Conjugate, PCV7 (Prevnar7) 2003 00:00:00 Completed [facility] IPV 2003 00:00:00 Completed [facility] DTaP, Unspecified Formulation 2003 00:00:00 Completed [facility] Hep B, Adol or Pedi Dosage 2003 00:00:00 Completed [facility] HIB 4 Dose Schedule 2003 00:00:00 Completed [facility] Pneumococcal 7 Conjugate, PCV7 (Prevnar7) 2003 00:00:00 Completed [facility] IPV 2003 00:00:00 Completed [facility] Hep B, Adol or Pedi Dosage 2003 00:00:00 Completed [facility] Hep B, Adol or Pedi Dosage 2003 00:00:00 Completed [facility] Hep B, Adol or Pedi Dosage 2003 00:00:00 Completed [facility] Hep B, Adol or Pedi Dosage 2003 00:00:00 Completed [facility] Hep B, Adol or Pedi Dosage 2003 00:00:00 Completed [facility] Hep B, Adol or Pedi Dosage 2003 00:00:00 Completed [facility] Hep B, Adol or Pedi Dosage 2003 00:00:00 Completed [facility] Hep B, Adol or Pedi Dosage 2003 00:00:00 Completed [facility] Hep B, Adol or Pedi Dosage 2003 00:00:00 Completed [facility] Hep B, Adol or Pedi Dosage 2003 00:00:00 Completed [facility] Hep B, Adol or Pedi Dosage 2003 00:00:00 Completed [facility] Hep B, Adol or Pedi Dosage 2003 00:00:00 Completed [facility] DTaP, Unspecified Formulation Unknown Completed [facility] DTaP, Unspecified Formulation Unknown Completed [facility] Pediarix (dtap/hep B/ipv) Unknown Completed [facility] Pediarix (dtap/hep B/ipv) Unknown Completed [facility] Flu Trivalent Unknown Completed [facility] Influenza Virus Vaccine - Whole Unknown Completed [facility] HEPATITIS A Unknown Completed [facility] HEPATITIS A Unknown Completed [facility] Hep B, Adol or Pedi Dosage Unknown Completed [facility] Hep B, Adol or Pedi Dosage Unknown Completed [facility] HIB 4 Dose Schedule Unknown Completed [facility] HIB 4 Dose Schedule Unknown Completed [facility] HIB 4 Dose Schedule Unknown Completed [facility] HIB 4 Dose Schedule Unknown Completed [facility] HPV9 Unknown Completed [facility] HPV9 Unknown Completed [facility] HPV9 Unknown Completed [facility] Meningococcal Polysaccharide (groups A, C, Y and W-135) conjugate vaccine (MCV4P) Unknown Completed [facility] MMR Unknown Completed [facility] MMR Unknown Completed [facility] Pneumococcal 7 Conjugate, PCV7 (Prevnar7) Unknown Completed [facility] Pneumococcal 7 Conjugate, PCV7 (Prevnar7) Unknown Completed [facility] Pneumococcal 7 Conjugate, PCV7 (Prevnar7) Unknown Completed [facility] Pneumococcal 7 Conjugate, PCV7 (Prevnar7) Unknown Completed [facility] IPV Unknown Completed [facility] IPV Unknown Completed [facility] TDAP Unknown Completed [facility] Varicella (varivax)(chicken pox) Unknown Completed [facility] Varicella (varivax)(chicken pox) Unknown Completed [facility] Influenza Virus Vaccine Quad .5 mL IM 6+ MO (FLUZONE/FLULAVAL/FL UARIX) Unknown Completed [facility] Meningococcal Polysaccharide (groups A, C, Y and W-135) conjugate vaccine (MCV4P) Unknown Completed [facility] Meningococcal B, OMV Unknown Completed [facility] Influenza Virus Vaccine Quad IM 3+ YRS Unknown Completed [facility] Influenza Virus Vaccine Quad IM 3+ YRS Unknown Completed [facility] Influenza Virus Vaccine Quad IM 3+ YRS Unknown Completed [facility] Influenza Virus Vaccine Unknown Completed [facility] Influenza Virus Vaccine Unknown Completed [facility] DTaP, Unspecified Formulation Unknown Completed [facility] DTaP, Unspecified Formulation Unknown Completed [facility] DTaP, Unspecified Formulation Unknown Completed [facility] Pediarix (dtap/hep B/ipv) Unknown Completed [facility] Pediarix (dtap/hep B/ipv) Unknown Completed [facility] Flu Trivalent Unknown Completed [facility] Influenza Virus Vaccine - Whole Unknown Completed [facility] HEPATITIS A Unknown Completed [facility] HEPATITIS A Unknown Completed [facility] Hep B, Adol or Pedi Dosage Unknown Completed [facility] Hep B, Adol or Pedi Dosage Unknown Completed [facility] HIB 4 Dose Schedule Unknown Completed [facility] HIB 4 Dose Schedule Unknown Completed [facility] HIB 4 Dose Schedule Unknown Completed [facility] HIB 4 Dose Schedule Unknown Completed [facility] HPV9 Unknown Completed [facility] HPV9 Unknown Completed [facility] HPV9 Unknown Completed [facility] Meningococcal Polysaccharide (groups A, C, Y and W-135) conjugate vaccine (MCV4P) Unknown Completed [facility] MMR Unknown Completed [facility] MMR Unknown Completed [facility] Pneumococcal 7 Conjugate, PCV7 (Prevnar7) Unknown Completed [facility] Pneumococcal 7 Conjugate, PCV7 (Prevnar7) Unknown Completed [facility] Pneumococcal 7 Conjugate, PCV7 (Prevnar7) Unknown Completed [facility] Pneumococcal 7 Conjugate, PCV7 (Prevnar7) Unknown Completed [facility] IPV Unknown Completed [facility] IPV Unknown Completed [facility] TDAP Unknown Completed [facility] Varicella (varivax)(chicken pox) Unknown Completed [facility] Varicella (varivax)(chicken pox) Unknown Completed [facility] Influenza Virus Vaccine Quad .5 mL IM 6+ MO (FLUZONE/FLULAVAL/FL UARIX) Unknown Completed [facility] Meningococcal Polysaccharide (groups A, C, Y and W-135) conjugate vaccine (MCV4P) Unknown Completed [facility] Meningococcal B, OMV Unknown Completed [facility] Influenza Virus Vaccine Quad IM 3+ YRS Unknown Completed [facility] Influenza Virus Vaccine Quad IM 3+ YRS Unknown Completed [facility] Influenza Virus Vaccine Quad IM 3+ YRS Unknown Completed [facility] Influenza Virus Vaccine Unknown Completed [facility] Influenza Virus Vaccine Unknown Completed [facility] DTaP, Unspecified Formulation Unknown Completed [facility] DTaP, Unspecified Formulation Unknown Completed [facility] DTaP, Unspecified Formulation Unknown Completed [facility] Pediarix (dtap/hep B/ipv) Unknown Completed [facility] Pediarix (dtap/hep B/ipv) Unknown Completed [facility] Flu Trivalent Unknown Completed [facility] Influenza Virus Vaccine - Whole Unknown Completed [facility] HEPATITIS A Unknown Completed [facility] HEPATITIS A Unknown Completed [facility] Hep B, Adol or Pedi Dosage Unknown Completed [facility] Hep B, Adol or Pedi Dosage Unknown Completed [facility] HIB 4 Dose Schedule Unknown Completed [facility] HIB 4 Dose Schedule Unknown Completed [facility] HIB 4 Dose Schedule Unknown Completed [facility] HIB 4 Dose Schedule Unknown Completed [facility] HPV9 Unknown Completed [facility] HPV9 Unknown Completed [facility] HPV9 Unknown Completed [facility] Meningococcal Polysaccharide (groups A, C, Y and W-135) conjugate vaccine (MCV4P) Unknown Completed [facility] MMR Unknown Completed [facility] MMR Unknown Completed [facility] Pneumococcal 7 Conjugate, PCV7 (Prevnar7) Unknown Completed [facility] Pneumococcal 7 Conjugate, PCV7 (Prevnar7) Unknown Completed [facility] Pneumococcal 7 Conjugate, PCV7 (Prevnar7) Unknown Completed [facility] Pneumococcal 7 Conjugate, PCV7 (Prevnar7) Unknown Completed [facility] IPV Unknown Completed [facility] IPV Unknown Completed [facility] TDAP Unknown Completed [facility] Varicella (varivax)(chicken pox) Unknown Completed [facility] Varicella (varivax)(chicken pox) Unknown Completed [facility] Influenza Virus Vaccine Quad .5 mL IM 6+ MO (FLUZONE/FLULAVAL/FL UARIX) Unknown Completed [facility] Meningococcal Polysaccharide (groups A, C, Y and W-135) conjugate vaccine (MCV4P) Unknown Completed [facility] Meningococcal B, OMV Unknown Completed [facility] Influenza Virus Vaccine Quad IM 3+ YRS Unknown Completed [facility] Influenza Virus Vaccine Quad IM 3+ YRS Unknown Completed [facility] Influenza Virus Vaccine Quad IM 3+ YRS Unknown Completed [facility] Influenza Virus Vaccine Unknown Completed [facility] Influenza Virus Vaccine Unknown Completed [facility] DTaP, Unspecified Formulation Unknown Completed [facility] DTaP, Unspecified Formulation Unknown Completed [facility] DTaP, Unspecified Formulation Unknown Completed [facility] Pediarix (dtap/hep B/ipv) Unknown Completed [facility] Pediarix (dtap/hep B/ipv) Unknown Completed [facility] Flu Trivalent Unknown Completed [facility] Influenza Virus Vaccine - Whole Unknown Completed [facility] HEPATITIS A Unknown Completed [facility] HEPATITIS A Unknown Completed [facility] Hep B, Adol or Pedi Dosage Unknown Completed [facility] Hep B, Adol or Pedi Dosage Unknown Completed [facility] HIB 4 Dose Schedule Unknown Completed [facility] HIB 4 Dose Schedule Unknown Completed [facility] HIB 4 Dose Schedule Unknown Completed [facility] HIB 4 Dose Schedule Unknown Completed [facility] HPV9 Unknown Completed [facility] HPV9 Unknown Completed [facility] HPV9 Unknown Completed [facility] Meningococcal Polysaccharide (groups A, C, Y and W-135) conjugate vaccine (MCV4P) Unknown Completed [facility] MMR Unknown Completed [facility] MMR Unknown Completed [facility] Pneumococcal 7 Conjugate, PCV7 (Prevnar7) Unknown Completed [facility] Pneumococcal 7 Conjugate, PCV7 (Prevnar7) Unknown Completed [facility] Pneumococcal 7 Conjugate, PCV7 (Prevnar7) Unknown Completed [facility] Pneumococcal 7 Conjugate, PCV7 (Prevnar7) Unknown Completed [facility] IPV Unknown Completed [facility] IPV Unknown Completed [facility] TDAP Unknown Completed [facility] Varicella (varivax)(chicken pox) Unknown Completed [facility] Varicella (varivax)(chicken pox) Unknown Completed [facility] Influenza Virus Vaccine Quad .5 mL IM 6+ MO (FLUZONE/FLULAVAL/FL UARIX) Unknown Completed [facility] Meningococcal Polysaccharide (groups A, C, Y and W-135) conjugate vaccine (MCV4P) Unknown Completed [facility] Meningococcal B, OMV Unknown Completed [facility] Influenza Virus Vaccine Quad IM 3+ YRS Unknown Completed [facility] Influenza Virus Vaccine Quad IM 3+ YRS Unknown Completed [facility] Influenza Virus Vaccine Quad IM 3+ YRS Unknown Completed [facility] Influenza Virus Vaccine Unknown Completed [facility] Influenza Virus Vaccine Unknown Completed [facility] DTaP, Unspecified Formulation Unknown Completed [facility] Vital Signs Vital Name Observation Time Observation Value Comments S ource Systolic blood pressure 2023-08-14 08:00:00 108 mm[Hg] [facility] Diastolic blood pressure 2023-08-14 08:00:00 61 mm[Hg] [facility] Heart rate 2023-08-14 08:00:00 58 /min [facility] Body temperature 2023-08-14 08:00:00 36.67 April [facility] Respiratory rate 2023-08-14 08:00:00 18 /min [facility] Oxygen saturation in Arterial blood by Pulse oximetry 2023-08-14 08:00:00 98 /min [facility] Body height 2023-08-14 05:41:00 165.1 cm [facility] Body weight 2023-08-14 05:41:00 73.936 kg [facility] BMI 2023-08-14 05:41:00 27.12 kg/m2 [facility] Systolic blood pressure 2022-11-22 20:57:00 118 mm[Hg] [facility] Diastolic blood pressure 2022-11-22 20:57:00 75 mm[Hg] [facility] Heart rate 2022-11-22 20:57:00 87 /min [facility] Body temperature 2022-11-22 20:57:00 36.78 April [facility] Respiratory rate 2022-11-22 20:57:00 18 /min [facility] Body height 2022-11-22 20:57:00 165.1 cm [facility] Body weight 2022-11-22 20:57:00 84.006 kg [facility] BMI 2022-11-22 20:57:00 30.82 kg/m2 [facility] Systolic blood pressure 2022-09-17 14:42:00 109 mm[Hg] [facility] Diastolic blood pressure 2022-09-17 14:42:00 73 mm[Hg] [facility] Heart rate 2022-09-17 14:42:00 83 /min [facility] Body temperature 2022-09-17 14:42:00 35.89 April [facility] Respiratory rate 2022-09-17 14:42:00 16 /min [facility] Body height 2022-09-17 14:42:00 167.6 cm [facility] Body weight 2022-09-17 14:42:00 85.821 kg [facility] BMI 2022-09-17 14:42:00 30.54 kg/m2 [facility] Systolic blood pressure 2022-05-06 19:10:00 119 mm[Hg] [facility] Diastolic blood pressure 2022-05-06 19:10:00 72 mm[Hg] [facility] Heart rate 2022-05-06 19:10:00 89 /min [facility] Body height 2022-05-06 19:10:00 167.6 cm [facility] Body weight 2022-05-06 19:10:00 84.324 kg [facility] BMI 2022-05-06 19:10:00 30.01 kg/m2 [facility] Oxygen saturation in Arterial blood by Pulse oximetry 2022-05-06 19:10:00 98 /min [facility] Systolic blood pressure 2022-03-30 20:15:00 121 mm[Hg] [facility] Diastolic blood pressure 2022-03-30 20:15:00 81 mm[Hg] [facility] Heart rate 2022-03-30 20:15:00 93 /min [facility] Body temperature 2022-03-30 20:15:00 37 April [facility] Respiratory rate 2022-03-30 20:15:00 16 /min [facility] Body weight 2022-03-30 20:15:00 82.237 kg [facility] Systolic blood pressure 2022-03-15 16:16:00 113 mm[Hg] [facility] Diastolic blood pressure 2022-03-15 16:16:00 72 mm[Hg] [facility] Heart rate 2022-03-15 16:16:00 111 /min [facility] Body temperature 2022-03-15 16:16:00 36.22 April [facility] Respiratory rate 2022-03-15 16:16:00 16 /min [facility] Body weight 2022-03-15 16:16:00 83.28 kg [facility] Systolic blood pressure 2022-02-26 19:22:00 111 mm[Hg] [facility] Diastolic blood pressure 2022-02-26 19:22:00 72 mm[Hg] [facility] Heart rate 2022-02-26 19:22:00 96 /min [facility] Body temperature 2022-02-26 19:22:00 36.56 April [facility] Body height 2022-02-26 19:22:00 170.2 cm [facility] Body weight 2022-02-26 19:22:00 83.462 kg [facility] BMI 2022-02-26 19:22:00 28.82 kg/m2 [facility] Body mass index (BMI) [Percentile] Per age and sex 2022-02-26 19:22:00 92.24 % [facility] Oxygen saturation in Arterial blood by Pulse oximetry 2022-02-26 19:22:00 98 /min [facility] Procedures Procedure Date / Time Performed Performing Clinician Source POCT TEST 2023-08-14 06:11:00 Ifeoma Mccarthy [facility] LIPASE 2023-08-14 06:08:[address] [facility] MAGNESIUM 2023-08-14 06:08:[address] [facility] COMP. METABOLIC PANEL (01511) 2023-08-14 06:08:00 Ifeoma Mccarthy [facility] CBC WITH DIFF 2023-08-14 06:08:00 Ifeoma Mccarthy [facility] URINALYSIS 2023-08-14 06:08:00 Ifeoma Mccarthy [facility] PATIENT QUESTIONNAIRE 2022-11-22 05:01:00 Doctor Unassigned, [place] [facility] POCT URINALYSIS W/O SPECIFIC GRAVITY 2022-11-22 00:00:00 Lore Castillo [facility] GC & CHLAMYDIA AMPLIFIED ASSAY 2022-09-17 15:16:00 Lisa Jean [facility] GALV ONLY - VAGINAL PATHOGENS BY NUCLEIC ACID TESTING 2022-09-17 15:16:00 Lisa Jean [facility] POCT TEST 2022-09-17 15:01:00 Lisa Jean [facility] URINALYSIS 2022-09-17 15:01:00 Mesfin Jean [facility] URINE CULTURE 2022-09-17 15:01:00 Mesfin Jean [facility] CONSENT/REFUSAL FOR DIAGNOSIS AND TREATMENT 2022-05-12 15:55:21 Doctor Unassigned, [place] [facility] ASSIGNMENT OF BENEFITS 2022-05-12 15:55:04 Fredy r Unassigned, [place] [facility] PATIENT FINANCIAL POLICY 2022-05-06 18:53:51 Doctor Unassigned, [place] [facility] US HEAD NECK 2022-03-16 17:37:22 [facility] MOLECULAR STREP 2022-03-15 16:53:00 Aury Rich [facility] ASSIGNMENT OF BENEFITS 2022-02-26 19:15:42 Fredy macias Unassigned, [place] [facility] Encounters Start Date/Time End Date/Time Encounter Type Admission Type Attending [facility] Emergency Department Facility Care Department Encounter ID Source 2023-08-14 00:43:00 2023-08-14 03:21:00 Emergency X Ifeoma MCCARTHY [facility] ERT [id number] [facility] 2023-08-14 00:43:00 2023-08-14 03:21:00 Emergency Ifeoma Mccarthyge [facility] 1..840.114 350.1.13.10 4.2.7.2.686 [id number] [facility] 2022-12-31 14:42:00 2022-12-31 14:42:00 Outpatient [facility] ROSIE [id number] Greyson Maloney 2022-11-22 15:30:00 2022-11-22 16:19:28 Outpatient R LORE CASTILLO ELISHA [facility] [id number] [facility] 2022-11-22 15:30:00 2022-11-22 16:19:28 Office Visit Lore Castillo [facility] 1..840.114 350.1.13.10 4.2.7.2.686 [id number] [facility] 2022-11-22 00:00:00 2022-11-22 00:00:00 Orders Only Doctor Unassigned, [place] [facility] .0.114 350.1.13.10 4.2.7.2.686 [id number] [facility] 2022-11-08 15:30:00 2022-11-08 15:30:00 Outpatient LORE JORDAN ELISHA [facility] [id number] [facility] 2022-10-25 00:00:00 2022-10-25 00:00:00 RefAury Orona [facility] 1.0.114 350.1.13.10 4.2.7.2.686 [id number] [facility] 2022-10-19 14:13:42 2022-10-19 14:13:42 Outpatient S[facility] [id number] Greyson Maloney 2022-10-13 09:23:21 2022-10-13 09:23:21 Outpatient [facility] [id number] Greyson Maloney 2022-09-21 14:01:31 2022-09-21 14:01:31 Outpatient [facility] [id number] Greyson Maloney 2022-09-17 09:30:00 2022-09-17 10:23:34 Outpatient R JOHNATHAN GONZALEZKHAN [facility] [id number] [facility] 2022-09-17 09:30:00 2022-09-17 10:23:34 Office Visit Pgy2 Johnathan Gonzalezkhan [facility] 1.0.114 350.1.13.10 4.2.7.2.686 [id number] [facility] 2022-08-26 13:10:30 2022-08-26 13:10:30 Outpatient SFA [facility]FA [id number] Greyson Maloney 2022-05-25 00:00:00 2022-05-25 00:00:00 Telephone Nilo Angel [facility] 1.2840.114 350.1.13.10 4.2.7.2.686 [id number] [facility] 2022-05-12 10:56:07 2022-05-12 23:59:00 Outpatient R NILO ANGEL [facility] [id number] [facility] 2022-05-12 10:56:07 2022-05-12 23:59:00 Hospital Encounter Nilo Angel [facility] 1.2840.114 350.1.13.10 4.2.7.2.686 [id number] [facility] 2022-05-06 14:00:00 2022-05-06 14:15:00 Office Visit Fredajuana [facility] 1.2840.114 350.1.13.10 4.2.7.2.686 [id number] [facility] 2022-05-06 14:00:00 2022-05-06 14:00:00 Outpatient R NILO ANGEL [facility] [id number] [facility] 2022-05-06 00:00:00 2022-05-06 00:00:00 Orders Only Doctor Unassigned, [place] [facility] 1.2840.114 350.1.13.10 4.2.7.2.686 [id number] [facility] 2022-03-30 14:30:00 2022-03-30 15:01:59 Outpatient R AURY RICH [facility] [id number] [facility] 2022-03-30 14:30:00 2022-03-30 15:01:59 Office Visit Aury Rich [facility] 1.2840.114 350.1.13.10 4.2.7.2.686 [id number] [facility] 2022-03-29 09:45:00 2022-03-29 09:45:00 Outpatient Manoj KNAPPER PACHECO [facility] [id number] [facility] 2022 00:00:00 2022 00:00:00 Telephone Aury Rich [facility] 1.2.840.114 350.1.13.10 4.2.7.2.686 [id number] [facility] 2022-03-16 10:57:16 2022-03-16 23:59:00 Outpatient R AURY RICH [facility] [id number] [facility] 2022-03-16 10:57:16 2022-03-16 23:59:00 Hospital Encounter Aury Rich [facility] 1.2.840.114 350.1.13.10 4.2.7.2.686 [id number] [facility] 2022-03-15 10:30:00 2022-03-15 11:27:38 Outpatient AURY MATOS [facility] [id number] [facility] 2022-03-15 10:30:00 2022-03-15 11:27:38 Office Visit Aury Rich [facility] 1.2.840.114 350.1.13.10 4.2.7.2.686 [id number] [facility] 2022-03-01 00:00:00 2022-03-01 00:00:00 Telephone Terry Renee [facility] 1.2.840.114 350.1.13.10 4.2.7.2.686 [id number] [facility] 2022-02-26 13:20:00 2022-02-26 13:59:40 Outpatient R TERRY RENEE [facility] [id number] [facility] 2022-02-26 13:20:00 2022-02-26 13:59:40 Office Visit Terry Renee [facility] 1.2.840.114 350.1.13.10 4.2.7.2.686 [id number] [facility] 2022-02-26 00:00:00 2022-02-26 00:00:00 Orders Only Doctor Unassigned, [place] [facility] 1.2.840.114 350.1.13.10 4.2.7.2.686 [id number] [facility] 2022-02-22 09:00:00 2022-02-22 09:00:00 Outpatient OSCAR LESLIE [facility] [id number] [facility] 2021-10-13 00:00:00 2021-10-13 00:00:00 Aury Boyd [facility] 1.2.840.114 350.1.13.10 4.2.7.2.686 [id number] [facility] 2021-04-06 00:00:00 2021-04-06 00:00:00 Aury Boyd [facility] 1.2840.114 350.1.13.10 4.2.7.2.686 [id number] [facility] 2021-03-16 00:00:00 2021-03-16 00:00:00 Telephone Archana Michaels [facility] EMERGENCY CARE TECH [facility] MATERNAL & CHILD [facility] 1..840.114 350.1.13.10 4.2.7.2.686 [id number] [facility] 2021-03-11 13:00:00 2021-03-11 13:34:00 Office Visit Archana Michaels [facility] EMERGENCY CARE TECH [facility] 1.2.840.114 350.1.13.10 4.2.7.2.686 [id number] [facility] 2021-03-11 13:00:00 2021-03-11 13:34:00 Outpatient R PAVELSACHIN ARCHANA [facility] [id number] [facility] 2021-03-11 13:00:00 2021-03-11 13:00:00 Outpatient R FREDDYJENIFERSACHIN ARCHANA [facility] [id number] [facility] 2021-03-11 13:00:00 2021-03-11 13:00:00 Outpatient R FREDDYJENIFERSACHINARCHANA [facility] [id number] [facility] 2021-02-24 13:30:00 2021-02-24 14:32:53 Outpatient R FREDDYJENIFERSACHIN ARCHANA [facility] [id number] [facility] 2021-02-24 13:30:00 2021-02-24 14:32:53 Office Visit Archana Michaels [facility] EMERGENCY CARE TECH [facility] 1.840.114 350.1.13.10 4.2.7.2.686 [id number] [facility] 2021-02-24 13:30:00 2021-02-24 13:30:00 Outpatient R PAVELSACHINARCHANA [facility] [id number] [facility] 2021-02-24 00:00:00 2021-02-24 00:00:00 Orders Only Doctor Unassigned, [place] [facility] 1..114 350.1.13.10 4.2.7.2.686 [id number] [facility] 2021-02-10 15:15:00 2021-02-10 15:57:55 Office Visit Joyce Gallardo [facility] EMERGENCY CARE TECH [facility] & [facility]ILD [facility] 1.840.114 350.1.13.10 4.2.7.2.686 [id number] [facility] 2021-02-10 15:15:00 2021-02-10 15:57:55 Outpatient JOYCE CURTIS [facility] [id number] [facility] 2021-02-10 15:15:00 2021-02-10 15:15:00 Outpatient R JOYCE GALLARDO [facility] [id number] [facility] 2021-02-10 15:15:00 2021-02-10 15:15:00 Outpatient JOYCE CURTIS [facility] [id number] [facility] 2020-12-24 08:15:00 2020-12-24 08:58:54 Office Visit Joyce Gallardo [facility] EMERGENCY CARE TECH [facility] 1.840.114 350.1.13.10 4.2.7.2.686 [id number] [facility] 2020-12-24 08:00:00 2020-12-24 08:58:54 Outpatient R JOYCE GALLARDO [facility] [id number] [facility] 2020-12-24 08:00:00 2020-12-24 08:00:00 Outpatient JOYCE CURTIS [facility] [id number] [facility] 2020-12-24 00:00:00 2020-12-24 00:00:00 Orders Only Doctor Unassigned, [place] [facility] .840.114 350.1.13.10 4.2.7.2.686 [id number] [facility] 2020-11-24 00:00:00 2020-11-24 00:00:00 Refill Aury Rich [facility] 1.0.114 350.1.13.10 4.2.7.2.686 [id number] [facility] 2020-11-04 00:00:00 2020-11-04 00:00:00 Aury Luque [facility] 1.2.840.114 350.1.13.10 4.2.7.2.686 [id number] [facility] 2020-10-21 00:00:00 2020-10-21 00:00:00 Telephone Aury Rich [facility] 1.2.840.114 350.1.13.10 4.2.7.2.686 [id number] [facility] 2020-10-15 00:00:00 2020-10-15 00:00:00 Refill Aury Rich [facility] [place] [facility] 1.2.840.114 350.1.13.10 4.2.7.2.686 [id number] [facility] 2020-10-03 00:00:00 2020-10-03 00:00:00 Telephone Aury Rich [facility] 1.2.840.114 350.1.13.10 4.2.7.2.686 [id number] [facility] 2020-09-29 15:30:00 2020-09-29 15:30:00 Outpatient R AURY RICH [facility] [id number] [facility] 2020-09-29 15:05:29 2020-09-29 15:19:40 Office Visit Aury Rich [facility] 1.2.840.114 350.1.13.10 4.2.7.2.686 [id number] [facility] 2020-06-24 09:42:32 2020-06-24 10:34:40 Office Visit Aury Rich [facility] 1.2.840.114 350.1.13.10 4.2.7.2.686 [id number] [facility] 2020-06-24 09:50:00 2020-06-24 09:50:00 Outpatient AUYR MATOS [facility] [id number] [facility] 2020-06-24 00:00:00 2020-06-24 00:00:00 Letter (Out) Aury Rich [facility] 1.2840.114 350.1.13.10 4.2.7.2.686 [id number] [facility] 2020-05-13 00:00:00 2020-05-13 00:00:00 Patient Outreach Sandoval Raymondandres Sterling [facility] PRIMARY CARE PAVILLION 1.0.114 350.1.13.10 4.2.7.2.686 [id number] [facility] 2020-02-26 08:12:57 2020-02-26 08:56:52 Office Visit Terry Renee [facility] 1.2.114 350.1.13.10 4.2.7.2.686 [id number] [facility] 2020-02-26 08:20:00 2020-02-26 08:20:00 Outpatient R TERRY RENEE [facility] [id number] [facility] 2020-01-30 15:32:25 2020-01-30 16:13:42 Office Visit Betancourt Hubert [facility] 1.20.114 350.1.13.10 4.2.7.2.686 [id number] [facility] 2020-01-30 15:40:00 2020-01-30 15:40:[address] [facility] [id number] [facility] 2020-01-30 00:00:00 2020-01-30 00:00:00 Orders Only Doctor Unassigned, [place] [facility] 1.840.114 350.1.13.10 4.2.7.2.686 [id number] [facility] 2019-07-21 00:00:00 2019-07-21 00:00:00 Orders Only Doctor Unassigned, [place] [facility] 1.2.840.114 350.1.13.10 4.2.7.2.686 [id number] [facility] 2019-07-19 00:00:00 2019-07-19 00:00:00 Telephone Terry Renee [facility] 1.2.840.114 350.1.13.10 4.2.7.2.686 [id number] [facility] 2019-05-24 00:00:00 2019-05-24 00:00:00 Refill Víctor [facility] 1.2.840.114 350.1.13.10 4.2.7.2.686 [id number] [facility] 2019-04-13 00:00:00 2019-04-13 00:00:00 Refill Víctor [facility] 1.2.840.114 350.1.13.10 4.2.7.2.686 [id number] [facility] 2019-03-13 00:00:00 2019-03-13 00:00:00 Refill Víctor [facility] 1.2.840.114 350.1.13.10 4.2.7.2.686 [id number] [facility] 2018-11-08 00:00:00 2018-11-08 00:00:00 Telephone Aury Rich [facility] 1.2.840.114 350.1.13.10 4.2.7.2.686 [id number] [facility] Results Test Description Test Time Test Comments Results Result Co mments Source [facility]:44:53* Test Item Value Reference Range Interpretation Comme nts MAGNESIUM (test code = 2748859295) 2.0 mg/dL 1.7-2.4 Lab Interpretation (test cod e = 56162-3) Normal [facility] 06:44:33* Test Item Value Reference Range Interpretation Comme nts LIPASE (test code = 1545362407) 78 U/L 0-220 Lab Interpretation (test cod e = 11397-4) Normal [facility] with [id number] 06:29:15* Test Item Value Reference Range Interpretation Comme nts WBC (test code = 6690-2) 9.06 4.30-11.10 RBC (test code = 789-8) 4.41 3.93-5.25 HGB (test code = 718-7) 13.5 g/dL 11.6-15.0 HCT (test code = 4544-3) 40.3 % 35.7-45.2 MCV (test code = 787-2) 91.4 fL 80.6-95.5 MCH (test code = 785-6) 30.6 pg 25.9-32.8 MCHC (test code = 786-4) 33.5 g/dL 31.6-35.1 RDW-SD (test code = 48693-1) 44.4 fL 39.0-49.9 RDW-CV (test code = 788-0) 13.2 % 12.0-15.5 PLT (test code = 777-3) 283 166-358 MPV (test code = 73187-3) 11.2 fL 9.5-12.9 NRBC/100 WBC (test code = 9322117829) 0.0 0.0-10.0 NRBC x10^3 (test code = 7784902473) See_Comment [Automated messa ge] The system which generated this result transmitted reference range: 10*3/?L. The reference range was not used to interpret this result as normal/abnormal. GRAN MAT (NEUT) % (test code = 770-8) 47.7 % IMM GRAN % (test code = 0665380485) 0.20 % LYMPH % (test code = 736-9) 39.3 % MONO % (test code = 5905-5) 8.3 % EOS % (test code = 713-8) 3.8 % BASO % (test code = 706-2) 0.7 % GRAN MAT x10^3(ANC) (test code = 8640635924) 4.33 10*3/uL 1.88-7.09 IMM GRAN x10^3 (test code = 6619303755) 0.00-0.06 LYMPH x10^3 (test code = 731-0) 3.56 10*3/uL 1.32-3.29 H MONO x10^3 (test code = 742-7) 0.75 10*3/uL 0.33-0.92 EOS x10^3 (test code = 711-2) 0.34 10*3/uL 0.03-0.39 BASO x10^3 (test code = 704-7) 0.06 10*3/uL 0.01-0.07 Lab Interpretation (test code = 65280-9) Abnormal [facility] [id number] 06:11:00* Test Item Value Reference Range Interpretation Comme [facility] POCT PREG (test code = 1605) Negative On board controls acceptable with C Line (test code = 3574) Yes POCT PREG LOT # (test code = 3575 165634 POCT PREG TEST DATE ( test code = 3576) 2024-06-24 Lab Interpretation (test cod e = 95309-8) Normal [facility] [id number] 06:11:55* Test Item Value Reference Range Interpretation Comme [facility] VITAMIN B-12 (test code = 2840) 745 PG/ML 200-950 UNLESS OTHERWISE INDICATED, ALL TESTING PERFORMED AT [facility] [address] [place] [address] PROPERTY DAMAGE CLAIMS ADJUSTOR: KETTY AKERS M.D. CLIA NUMBER [id number] [facility] [place]. [id number] VITAMIN D, 25 [id number] 05:46:47* Test Item Value Reference Range Interpretation Comme [facility] VITAMIN D, 25 [place] (test code [...] . . . . NG/ML 30-100 LIPID [id number] 05:42:47* Test Item Value Reference Range Interpretation [...] SPECIMENS. FOR MOREINFORMATION, SEE CLIENT ANNOUNCEMENT AT [email or web address] RISK RATIO LDL/HDL (test code = 2238) 1.97 RATIO <3.22 COMPREHENSIVE METABOLIC [id number] 05:42:47* Test Item Value Reference Range Interpretation Comme nts GLUCOSE (test code = 2217) 82 MG/DL 70-99 BUN (test code = 220) 13 MG/DL 6-20 CREATININE (test code = 2214) 0.85 MG/DL 0.50-1.10 eGFR (2020 CKD-EPI) (test code = 07888) 101 ML/MIN/1.73 >60 CALC BUN/CREAT (test code = 2235) 15 RATIO 6-28 SODIUM (test code = 223) 139 MEQ/L 133-146 POTASSIUM (test code = 2228) 3.9 MEQ/L 3.5-5.4 CHLORIDE (test code = 2215) 105 MEQ/L 95-107 CARBON DIOXIDE (test code = 2206) 26 MEQ/L 19-31 CALCIUM (test code = 2208) 9.4 MG/DL 8.5-10.5 PROTEIN, TOTAL (test code = 222) 6.7 G/DL 6.1-8.3 ALBUMIN (test code = 220) 4.6 G/DL 3.5-5.2 CALC GLOBULIN (test code = 2240) 2.1 G/DL 2.1-3.7 CALC A/G RATIO (test code = 2233) 2.2 RATIO 1.0-2.6 BILIRUBIN, TOTAL (test code = 2206) 0.6 MG/DL <=1.2 ALKALINE PHOSPHATASE (test code = 2203) 75 U/L 41-120 AST (test code = 2218) 16 U/L 9-40 ALT (test code = 2219) 14 U/L 5-40 CBC W/AUTO DIFF WITH [id number] 04:51:12* Test Item Value Reference Range Interpretation [...] 0.00-0.10 ABS NUCLEATED RBCS (test code = 42229) 0.00 K/UL 0.00-0.11 HEMOGLOBIN [id number] 03:02:32* Test Item Value Reference Range Interpretation Comme nts HEMOGLOBIN A1c (test code = 66154) 5.1 % 4.2-5.6 POCT URINALYSIS W/O SPECIFIC [id number] 21:00:00* Test Item Value Reference Range Interpretation [...] = 3257) Negative Negative - [facility] SPECIFIC [id number] 21:00:00* Test Item Value Reference Range Interpretation [...] = 3257) Negative Negative - [facility]ati ve [facility] (TU,T4,FTI,TSH)2022-10-14 05:52:53* Test Item Value Reference Range Interpretation Comme nts T-UPTAKE (test code = 2817) 33.1 % 24.3-39.0 THYROX. BIND. CAPAC. (test code = 33099) 1.0 0.8-1.3 T4 (THYROXINE) (test code = 2819) 9.5 UG/DL 4.5-10.5 CORRECTED T4 (FTI) (test code = 2820) 9.5 UG/DL 4.2-11.6 TSH, THIRD GENERATION (test code = 2821) 0.449 UIU/ML 0.400-4.100 UNLESS OTHERWISE INDICATED, ALL TESTING PERFORMED AT [facility] [address] [place] [address] PROPERTY DAMAGE CLAIMS ADJUSTOR: KETTY AKERS M.D. CLIA NUMBER [id number] [facility] [place]. [id number] COMPREHENSIVE METABOLIC [id number] 03:01:46* Test Item Value Reference Range Interpretation Comme nts GLUCOSE (test code = 221) 95 MG/DL 70-99 BUN (test code = 2207) 13 MG/DL 6-20 CREATININE (test code = 2214) 0.89 MG/DL 0.50-1.10 eGFR (2020 CKD-EPI) (test code = 48692) 96 ML/MIN/1.73 >60 CALC BUN/CREAT (test code = 223) 15 RATIO 6-28 SODIUM (test code = 223) 143 MEQ/L 133-146 POTASSIUM (test code = 2228) 5.0 MEQ/L 3.5-5.4 CHLORIDE (test code = 2215) 107 MEQ/L 95-107 CARBON DIOXIDE (test code = 2206) 26 MEQ/L 19-31 CALCIUM (test code = 2209) 9.7 MG/DL 8.5-10.5 PROTEIN, TOTAL (test code = 2228) 7.0 G/DL 6.1-8.3 ALBUMIN (test code = 2200) 4.5 G/DL 3.5-5.2 CALC GLOBULIN (test code = 2240) 2.5 G/DL 2.1-3.7 CALC A/G RATIO (test code = 223) 1.8 RATIO 1.0-2.6 BILIRUBIN, TOTAL (test code = 2206) 0.2 MG/DL See_Comment [Automated HouseCall] The system which generated this result transmitted reference range: <=1.2. The reference range was not used to interpret this result as normal/abnormal. ALKALINE PHOSPHATASE (test code = 4) 80 U/L 41-120 AST (test code = 8) 15 U/L 9-40 ALT (test code = 9) 16 U/L 5-40 HEPATIC FUNCTION [id number] 03:01:46* Test Item Value Reference Range Interpretation Comme nts PROTEIN, TOTAL (test code = 2228) 7.0 G/DL 6.1-8.3 ALBUMIN (test code = 2200) 4.5 G/DL 3.5-5.2 BILIRUBIN, TOTAL (test code = 2206) 0.2 MG/DL See_Comment [Automated [place] [employer]] The system which generated this result transmitted reference range: <=1.2. The reference range was not used to interpret this result as normal/abnormal. BILIRUBIN, DIRECT (test code = 2021) 0.1 MG/DL 0.0-0.3 ALKALINE PHOSPHATASE (test code = 2203) 80 U/L 41-120 AST (test code = 8) 15 U/L 9-40 ALT (test code = 9) 16 U/L 5-40 HEMOGLOBIN [id number] 02:43:44* Test Item Value Reference Range Interpretation Comme nts HEMOGLOBIN A1c (test code = 51320) 5.1 % 4.2-5.6 CBC W/AUTO DIFF WITH [id number] 01:58:08* Test Item Value Reference Range Interpretation [...] 0.00-0.10 ABS NUCLEATED RBCS (test code = 36127) 0.00 K/UL 0.00-0.11 POCT [id number] 15:02:00* Test Item Value Reference Range Interpretation Comme nts POCT PREG (test code = 1605) Negative On board controls acceptable with C Line (test code = 3574) Yes POCT PREG LOT # (test code = 3575) POCT PREG TEST DATE ( test code = 357) Lab Interpretation (test cod e = 28448-7) [id number] 15:02:00* Test Item Value Reference Range Interpretation Comme nts POCT PREG (test code = 1605) Negative On board controls acceptable with C Line (test code = 3574) Yes POCT PREG LOT # (test code = 3575) POCT PREG TEST DATE ( test code = 357) Lab Interpretation (test cod e = 16712-9) Normal [facility] [id number] 15:02:00* Test Item Value Reference Range Interpretation Comme nts POCT PREG (test code = 1605) Negative On board controls acceptable with C Line (test code = 3574) Yes POCT PREG LOT # (test code = 3575) POCT PREG TEST DATE ( test code = 3576) Lab Interpretation (test cod e = 31803-7) Normal [facility] MOLECULAR [id number] 17:01:07* Test Item Value Reference Range Interpretation Comme nts POCT Molecular Strep (test c ode = 90100-1) Negative Negative Lab Interpretation (test cod e = 12498-6) Normal [facility] MOLECULAR [id number] 17:01:07* Test Item Value Reference Range Interpretation Comme nts POCT Molecular Strep (test c ode = 50158-0) Negative Negative Lab Interpretation (test cod e = 79164-9) Normal [facility] MOLECULAR [id number] 17:01:07* Test Item Value Reference Range Interpretation Comme nts POCT Molecular Strep (test c ode = 07393-9) Negative Negative Lab Interpretation (test cod e = 95459-6) Normal [facility] Notes Date/Time Note Provider Source 2023-08-14 03:20:40 Pt given printed and verbal discharge instructions regarding abdominal pain, constipation. Encouraged hydration, Prescriptions provided:Gaye Discussed ibuprofen and to take with food to avoid GI distress. Pt verbalized understanding of instructions, pt awake alert oriented, resp reg unlabored, skin w/d, color appropriate for race, moves all ext well,pt encouraged to follow up with pcp. Advised to seek medical attention for new/prolonged/worsening of symptoms, Symptoms improved No adverse reaction to meds given in ER noted upon discharge PIV d'cd, dressing to site, catheter in tact. Awake, alert oriented, resp reg unlabored, skin w/d, pt leaving amb with steady gait, in no apparent distress, accompanied by friend. Adelaida May RN [facility] 2023-08-14 00:36:43 Pt arrives ambulatory to ED reporting generalized abdominal pain x 2weeks. She says that she has also had SOB and constipation. She was seen at [facility] and they told her that thy could not find anything. She also reports starting her period 2x this month. Ella Gallardo RN [facility]
[2023-10-25] MEDS ORDERED: HYDROCODONE/APAP 7.5/325 MG TAB ONE (22:04)
[2023-10-25] MEDS ORDERED: LIDOCAINE 1% MPF 5 ML VIAL ONE (22:04)
--- NOTE | 2023-10-25 22:06 | RAD REPORT ---
EXAM DESCRIPTION: RAD - Forearm Right - 10/25/2023 10:01 pm CLINICAL HISTORY: PAIN COMPARISON: <Comparisons> FINDINGS: No fracture, dislocation or radiopaque foreign body. No soft tissue gas.
--- NOTE | 2023-10-25 23:34 | ER ---
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 Coronavirus screen: Vaccine status: Patient reports being unvaccinated. Ebola Screen: No symptoms or risks identified at this time. Initial Sepsis Screen: Does the patient meet any 2 criteria? No. Patient's initial sepsis screen is negative. Does the patient have a suspected source of infection? No. Patient's initial sepsis screen is negative. Risk Assessment: Do you want to hurt yourself or someone else? Patient reports no desire to harm self or others. Onset of symptoms was October 25, 2023 at 20:25. 20:49 Method Of Arrival: Ambulatory [facility] 20:49 Acuity: MIKEY 4 [facility] Triage Assessment: 20:53 General: Appears uncomfortable, well developed, well nourished, Behavior is me1 cooperative, appropriate for age, anxious, Reports laceration to right wrist. Pain: Complains of pain in palmar aspect of right wrist. Neuro: Level of Consciousness is awake, alert, obeys commands, Oriented to person, place, time, situation, Appropriate for age. Cardiovascular: Patient's skin is warm and dry. Respiratory: Airway is patent Respiratory effort is even, unlabored, Respiratory pattern is regular, symmetrical. GI: No signs and/or symptoms were reported involving the gastrointestinal system. : No signs and/or symptoms were reported regarding the genitourinary system. Derm: No signs and/or symptoms reported regarding the dermatologic system. Musculoskeletal: No signs and/or symptoms reported regarding the musculoskeletal system. Injury Description: Laceration sustained to palmar aspect of right wrist. 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 - Infectious Disease History:: Denies. - Social history:: Smoking status: Reported history of juuling and/or vaping. Screenin/04 00:25 [facility] ED Fall Risk Assessment (Adult) History of falling in the last 3 months, jb4 including since admission No falls in past 3 months (0 pts) Confusion or Disorientation No (0 pts) Intoxicated or Sedated No (0 pts) Impaired Gait No (0 pts) Mobility Assist Device Used No (0 pt) Altered Elimination No (0 pt) Score/Fall Risk Level 0 - 2 = Low Risk Oriented to surroundings, Maintained a safe environment. Abuse screen: Denies threats or abuse. Nutritional screening: No deficits noted. Tuberculosis screening: No symptoms or risk factors identified. Assessment: 00:08 Reassessment: Patient appears in no apparent distress at this time. Patient and/or jb4 family updated on plan of care and expected duration. Pain level reassessed. Patient is alert, oriented x 3, equal unlabored respirations, skin warm/dry/pink. Vital Signs: 10/24 20:49 BP 124 / 79; Pulse 86; Resp 16; Temp 98.4; Pulse Ox 99% ; Weight 71.21 kg; Height 5 ft. me1 5 in. ; Pain 9/10; 20:49 Body Mass Index 26.13 (71.21 kg, 165.1 cm) me1 20:49 Pain Scale: Adult mo1 ED Course: 20:31 Patient arrived in ED. mr 20:52 Christine Castillo FNP-C is PHCP. kb 20:52 Jeff Rojas MD is Attending Physician. kb 20:52 Triage completed. me1 20:52 Arm band placed on. me1 20:54 Christine Castillo FNP-C is PHCP. kb 20:54 Jeff Rojas MD is Attending Physician. kb 22:03 Forearm Right XRAY In Process Unspecified. EDMS 10/25 00:25 Patient has correct armband on for positive identification. Call light in reach. Side jb4 rails up X 1. Provided Education on: discharge instructions.. 00:25 No provider procedures requiring assistance completed. Patient did not have IV access jb4 during this emergency room visit. Administered Medications: 10/24 22:10 Drug: Hydrocodone-Acetaminophen PO (7.5 mg-325 mg) 1 tabs PO once Route: PO; tm6 10/25 00:08 Drug: Lidocaine Infiltration (1 %) 1 vials 5 ml Infiltration once; to bedside {Note: jb4 admitted by ER provider.} Volume: 5 ml; Route: Infiltration; Medication: 00:25 VIS not applicable for this client. jb4 Outcome: 10/24 23:34 Discharge ordered by MD. alfred 10/25 00:25 Discharged to home ambulatory, jb4 Condition: stable Discharge instructions given to patient, Instructed on discharge instructions, follow up and referral plans. wound care, Demonstrated understanding of instructions, follow-up care, 00:27 Patient left the ED. jb4 Signatures: Dispatcher [employer] EDChristine Melendrez, COLLET MAKER-C COLLET MAKER-Ckb Brittany Langston, Reg Dimitri Ferrer RN RN jb4 Ghada Nicholson RN RN mo1 Mike Baird RN RN tm6
--- NOTE | 2023-10-25 23:34 | EDPHYS ---
Physician Documentation [facility] Name: Pau Werner Age: 18 yrs Sex: Female : 2005 Arrival Date: 10/25/2023 Time: 20:30 Bed 11 Private MD: ED Physician Jeff Rojas HPI: 10/24 23:31 This 18 yrs old Female presents to ER via Ambulatory with complaints of Fall Injury, kb Laceration To Arm. 23:32 Pt is a 18 year old female who presents for laceration to right wrist. States she was kb in an RV, started to fall and reached her hand out to catch herself but accidentally put hand through the mirror on a door. Denies any other injuries. 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 - Infectious Disease History:: Denies. - Social history:: Smoking status: Reported history of juuling and/or vaping. ROS: 23:30 Constitutional: As per HPI kb Exam: 23:30 Constitutional: This is a well developed, well nourished patient who is awake, alert, kb and in no acute distress. Head/Face: Normocephalic, atraumatic. ENT: Moist Mucous membranes Cardiovascular: Regular rate Respiratory: Respirations even and unlabored. No increased work of breathing. Talking in full sentences MS/ Extremity: Pulses equal, no cyanosis. Neurovascular intact. Full, normal range of motion. Neuro: Awake and alert, GCS 15, oriented to person, place, time, and situation. Moves all extremities. Normal gait. 23:30 Skin: injury, laceration(s), the wound is approximately 3 cm(s), of the palmar aspect of right wrist, that can be described as clean, no foreign body, linear, without bleeding, Vital Signs: 20:49 BP 124 / 79; Pulse 86; Resp 16; Temp 98.4; Pulse Ox 99% ; Weight 71.21 kg; Height 5 ft. me1 5 in. ; Pain 9/10; 20:49 Body Mass Index 26.13 (71.21 kg, 165.1 cm) me1 20:49 Pain Scale: Adult me1 Laceration: 23:33 Wound Repair of 3cm ( 1.2in ) subcutaneous laceration to palmar aspect of right wrist. kb Linear shaped.. Distal neuro/vascular/tendon intact. Anesthesia: Wound infiltrated with 3 mls of 1% lidocaine. Wound prep: Extensive cleansing with hibiclenz by me, Wound irrigation with saline by me, Wound explored moderately. Skin closed with 5 5-0 Prolene using simple sutures and sterile technique. Patient tolerated well. MDM: 20:52 Patient medically screened. kb 23:30 Data reviewed: vital signs, nurses notes. Counseling: I had a detailed discussion with kb the patient and/or guardian regarding the historical points, exam findings, and any diagnostic results supporting the discharge/admit diagnosis, radiology results, the need for outpatient follow up, a family practitioner, to return to the emergency department if symptoms worsen or persist or if there are any questions or concerns that arise at home. ED course: Cap refill less than 2 secs, Full ROM of all fingers.. 23:31 Differential diagnosis: superficial laceration, tendon injury, vascular injury. kb 10/24 21:29 Order name: Forearm Right XRAY; Complete Time: 22:10 kb 10/24 21:29 Order name: Dressing - Wound; Complete Time: 00:08 kb 10/24 21:29 Order name: Gloves, Sterile; Complete Time: 22:10 kb 10/24 21:29 Order name: Prolene, Sutures; Complete Time: 22:10 kb 10/24 21:29 Order name: Setup Suture Tray; Complete Time: 22:10 kb Administered Medications: 22:10 Drug: Hydrocodone-Acetaminophen PO (7.5 mg-325 mg) 1 tabs PO once Route: PO; tm6 10/25 00:08 Drug: Lidocaine Infiltration (1 %) 1 vials 5 ml Infiltration once; to bedside {Note: jb4 admitted by ER provider.} Volume: 5 ml; Route: Infiltration; Disposition: 04:57 Co-signature as Attending Physician, Jeff Rojas MD I agree with the assessment and marion plan of care. Disposition Summary: 10/25/23 23:34 Discharge Ordered Notes: Location: Home kb Condition: Stable kb Diagnosis - Laceration without foreign body of right wrist kb Followup: kb - With: Emergency Department - When: As needed - Reason: Worsening of condition Followup: kb - With: Private Physician - When: 2 - 3 days - Reason: Recheck today's complaints, Continuance of care, Re-evaluation by your physician Discharge Instructions: - Discharge Summary Sheet kb - Laceration Care, Adult, [id number] kb Forms: - Medication Reconciliation Form kb - Antibiotic Education kb - Prescription Opioid Use kb - Patient Portal Instructions kb - Leadership Thank You Letter kb - Work release form jb4 Signatures: Dispatcher [employer] EDChristine Melendrez, BRASS BUFFER-C BRASS BUFFER-Jeff Alfredo MD MD cha Bryson, James, RN RN jb4 Ghada Nicholson, RN RN me1 Mike Baird, RN RN tm6
[2023-10-26 00:32] VITALS: BP 124/79; TEMP 98.4; O2SAT 99
== END 2023-10-26 00:27 | disposition home or self-care (01) ==
LOC: ER 20:30
DX: S61.511A Laceration without foreign body of right wrist, initial encounter (principal); W18.30XA Fall on same level, unspecified, initial encounter
CPT/HCPCS: 73090; 99283; 12032; J2001

== ENCOUNTER 2024-04-16 11:45 | Emergency (ER) | payer OTHER ==
--- OUTSIDE RECORDS SUMMARY | 2024-04-16 11:52 | XMS REPORT | Continuity of Care Document ---
Author Name Unknown Address [address] [facility] [place] [address] [facility] Address [address] [facility] [address] [place] [address] Care Team Providers Care Service Developer Name Role Phone Pcp, Patient Does Not Have A Primary Care Physic ryan Archana Frank Attending Clinician + Ifeoma MCCARTHY Attending Clinician Unavailable Ifeoma Matson Attending Clinician [phone] LORE CASTILLO Attending Clinician Unavailable LORE CASTILLO Attending Clinician Unavailable Doctor Unassigned, [place] Attending Clinician U Aury Ambriz PA-C Attending Clinician [phone] HEMA GONZALEZ Attending Clinician Unavailable Pgy2 Attending Clinician Unavailable Hema Gonzalez MD Attending Clinician [phone] Nilo Angel MD Attending Clinician [phone] NILO ANGEL Attending Clinician Unavailable AURY RICH Attending Clinician Unavailab PACHECO Álvarez Attending Clinician Unavail able Terry Renee MD Attending Clinician [phone] TERRY RENEE Attending Clinician Unavailable OSCAR CHAVEZ Attending Clinician UnaArchana Valente Attending Clinician + ARCHANA MICHAELS Attending Clinician Unavail able Joyce Workman Attending Clinician [phone] JOYCE GALLARDO Attending Clinician UnavailRaymond Devi DO Attending Clinician [phone] Hubert Caldwell Attending Clinician [phone]- [phone] HUBERT BETANCOURT Attending Clinician Unavail able NILO ANGEL Admitting Clinician Unavailable AURY RICH Admitting Clinician Unavailab le Payers Payer Name Policy Type Policy Number Effective Date Expirati on Date Source [place] [employer] [id number] 2022 00:00:00 Problems Condition Name Condition Details Condition Category Status Onset Date Resolution Date Last Treatment Date Treating Clinician Comments Source Boil of buttock Boil of buttock Disease Active 03-11 00:00: 00 [facility] Nexplanon removal Nexplanon removal Disease Active 02-24 00:00: 00 [facility] Heart murmur Heart murmur Disease Active 09-02 00:00: 00 [facility] Asthma Asthma Disease Active 09-02 00:00: 00 [facility] Defiant behavior Defiant behavior Disease Active 09-02 00:00: 00 [facility] Seasonal allergies Seasonal allergies Disease Active 09-02 00:00: 00 [facility] Allergic rhinitis Allergic rhinitis Disease Active 09-02 00:00: 00 [facility] Bipolar affective disorder Bipolar affective disorder Disease Active 07-29 00:00: 00 [facility] Other mixed anxiety disorders Other mixed anxiety disorders Disease Active 2016-02 0 00:00: 00 [facility] ADHD (attention deficit hyperactiv ity disorder) ADHD (attention deficit hyperactiv ity disorder) Disease Active 04-06 00:00: 00 [facility] Sleep apnea Sleep apnea Disease Active [facility] Allergies, Adverse Reactions, Alerts Allergy Name Allergy Type Status Severity Reaction(s) Onset Date Inactive Date Treating Clinician Comments Source NO KNOWN ALLERGIE S Drug Class Active [facility] Social History Social Habit Start Date Stop Date Quantity Comments Source Gender [facility] Alcoholic beverage intake 2023-08-14 00:00:00 2023-08-14 00:00:00 Current non-drinker of alcohol (finding) [facility] Alcohol intake 2022-11-22 00:00:00 2022-11-22 00:00:00 Current non-drinker of alcohol (finding) [facility] Exposure to SARS-CoV-2 (event) 2022-04-26 00:00:00 2022-05-06 13:52:00 Not sure [facility] Tobacco use and exposure 2022-05-06 00:00:00 2022-05-06 00:00:00 User of smokeless tobacco [facility] History of Social function 2022-03-30 00:00:00 2022-03-30 00:00:00 [facility] Sex assigned at 2005 00:00:00 2005 00:00:00 [facility] Smoking Status Start Date Stop Date Source Never smoked tobacco [facility] Medications Ordered Medication Name Filled Medication Name Start Date Stop Date Current Medication? Ordering Clinician Indication Dosage Frequency Signature (SIG) Comments Components Source NaCl 0.9% (NS) bolus infusion 1,000 mL 08-13 07:30: 00 08-13 07:58 :00 No 1000mL at 999 mL/hr, 1,000 mL, IV Infusion, ONCE, 1 dose, On 08/14/23 at 0230, STAT [facility] dicyclomine (BENTYL) tablet 20 mg 08-13 07:30: 00 08-13 06:46 :00 No 20mg 20 mg, Oral, ONCE, 1 dose, On 08/14/23 at 0230, Routine [facility] dicyclomine 20 mg tablet 08-13 00:00: 00 Yes [id number] 20mg Take 1 tablet by mouth 4 (four) times daily. [facility] CETIRIZINE 10 mg tablet 10-25 00:00: 00 Yes [id number] 10mg TAKE ONE (1) TABLET BY MOUTH AT BEDTIME. [facility] mometasone 50 mcg/actuati on nasal spray 03-30 00:00: 00 Yes 1{spray } Use 1 [place] in each nostril in the morning and 1 [place] in the evening. [facility] cetirizine 10 mg tablet 03-30 00:00: 00 10-25 00:00 :00 No [id number] 10mg Take 1 tablet by mouth at bedtime. [facility] multivit-mi n/ferrous fumarate (MULTI VITAMIN ORAL) 03-15 10:17: 40 Yes Take by mouth. [facility] clindamycin 300 mg capsule 03-15 00:00: 00 03-26 05:59 :00 No [id number] 300mg Take 1 capsule by mouth 4 (four) times daily for 10 days. [facility] sulfamethox azole-trime thoprim (BACTRIM DS) 800-160 mg per tablet 03-15 00:00: 00 03-26 05:59 :00 No [id number] 1{tbl} Take 1 tablet by mouth in the morning and 1 tablet in the evening. Do all this for 10 days. [facility] benzoyl peroxide 5 % gel 03-02 00:00: 00 03-30 00:00 :00 No [id number] Apply to area(s) daily. [facility] clindamycin 1 % gel 03-02 00:00: 00 03-30 00:00 :00 No [id number] Apply to area(s) daily. [facility] amoxicillin -clavulanat e (AUGMENTIN) 875-125 mg per tablet 02-26 00:00: 00 03-09 05:59 :00 No [id number] 1{tbl} Take 1 tablet by mouth in the morning and 1 tablet in the evening. Do all this for 10 days. [facility] clindamycin -benzoyl peroxide (BENZACLIN) gel 2023-0 1-06 00:00: 00 03-02 00:00 :00 No [id number] Apply to area(s) at bedtime. [facility] polymyxin B sulf-trimet hoprim 10,000 unit- 1 mg/mL ophthalmic drops 1-04 00:00: 00 03-30 00:00 :00 No INSTILL ONE (1) DROP IN AFFECTED EYE EVERY SIX HOURS FOR 7 DAYS. [facility] busPIRone 5 mg tablet 1- 00:00: 00 03-30 00:00 :00 No [facility] CETIRIZINE 10 mg tablet 2-14 00:00: 00 03-30 00:00 :00 No [id number] TAKE ONE (1) TABLET(S) BY MOUTH ONCE A DAY AT BEDTIME. [facility] Nitrofurant oin&Nit. Macrocryst (MACROBID) 100 mg capsule - 00:00: 00 03-15 00:00 :00 No [id number] 100mg Take 1 capsule by mouth 2 (two) times daily. [facility] multivit-mi n/ferrous fumarate (MULTI VITAMIN ORAL) 2020-02 2 15:38: 09 Yes Take by mouth. [facility] LATUDA 60 mg Tab 2020-02 0- 00:00: 00 Yes 1{tbl} Take 1 tablet by mouth daily. [facility] cetirizine 10 mg tablet 09-29 00:00: 00 Yes [id number] 10mg Take 1 tablet by mouth at bedtime. [facility] mometasone 50 mcg/actuati on nasal spray 09-29 00:00: 00 03-30 00:00 :00 No [id number] 1{spray } Use 1 [place] in each nostril 2 (two) times daily. [facility] Immunizations Ordered Immunization Name Filled Immunization Name Date Status Comments Source Influenza Virus Vaccine Quad .5 mL IM 6+ MO (FLUZONE/FLULAVAL/FLU ARIX) 2023-08-14 00:43:00 Completed [facility] Meningococcal Polysaccharide (groups A, C, Y and W-135) conjugate vaccine (MCV4P) 2023-08-14 00:43:00 Completed [facility] Meningococcal B, OMV 2023-08-14 00:43:00 Completed [facility] Influenza Virus Vaccine 2023-08-14 00:43:00 Completed [facility] DTaP, Unspecified Formulation 2023-08-14 00:43:00 Completed [facility] Pediarix (dtap/hep B/ipv) 2023-08-14 00:43:00 Completed [facility] Flu Trivalent 2023-08-14 00:43:00 Completed [facility] Influenza Virus Vaccine - Whole 2023-08-14 00:43:00 Completed [facility] HEPATITIS A 2023-08-14 00:43:00 Completed [facility] Hep B, Adol or Pedi Dosage 2023-08-14 00:43:00 Completed [facility] HIB 4 Dose Schedule 2023-08-14 00:43:00 Completed [facility] HPV9 2023-08-14 00:43:00 Completed [facility] MMR 2023-08-14 00:43:00 Completed [facility] Pneumococcal 7 Conjugate, PCV7 (Prevnar7) 2023-08-14 00:43:00 Completed [facility] IPV 2023-08-14 00:43:00 Completed [facility] TDAP 2023-08-14 00:43:00 Completed [facility] Varicella (varivax)(chicken pox) 2023-08-14 00:43:00 Completed [facility] Influenza Virus Vaccine Quad .5 mL IM 6+ MO (FLUZONE/FLULAVAL/FLU ARIX) 2022-11-22 15:30:00 Completed [facility] Meningococcal Polysaccharide (groups A, C, Y and W-135) conjugate vaccine (MCV4P) 2022-11-22 15:30:00 Completed [facility] Meningococcal B, OMV 2022-11-22 15:30:00 Completed [facility] Influenza Virus Vaccine 2022-11-22 15:30:00 Completed [facility] DTaP, Unspecified Formulation 2022-11-22 15:30:00 Completed [facility] Pediarix (dtap/hep B/ipv) 2022-11-22 15:30:00 Completed [facility] Flu Trivalent 2022-11-22 15:30:00 Completed [facility] Influenza Virus Vaccine - Whole 2022-11-22 15:30:00 Completed [facility] HEPATITIS A 2022-11-22 15:30:00 Completed [facility] Hep B, Adol or Pedi Dosage 2022-11-22 15:30:00 Completed [facility] HIB 4 Dose Schedule 2022-11-22 15:30:00 Completed [facility] HPV9 2022-11-22 15:30:00 Completed [facility] MMR 2022-11-22 15:30:00 Completed [facility] Pneumococcal 7 Conjugate, PCV7 (Prevnar7) 2022-11-22 15:30:00 Completed [facility] IPV 2022-11-22 15:30:00 Completed [facility] TDAP 2022-11-22 15:30:00 Completed [facility] Varicella (varivax)(chicken pox) 2022-11-22 15:30:00 Completed [facility] Influenza Virus Vaccine Quad .5 mL IM 6+ MO (FLUZONE/FLULAVAL/FLU ARIX) 2022-11-22 00:00:00 Completed [facility] Meningococcal Polysaccharide (groups A, C, Y and W-135) conjugate vaccine (MCV4P) 2022-11-22 00:00:00 Completed [facility] Meningococcal B, OMV 2022-11-22 00:00:00 Completed [facility] Influenza Virus Vaccine 2022-11-22 00:00:00 Completed [facility] DTaP, Unspecified Formulation 2022-11-22 00:00:00 Completed [facility] Pediarix (dtap/hep B/ipv) 2022-11-22 00:00:00 Completed [facility] Flu Trivalent 2022-11-22 00:00:00 Completed [facility] Influenza Virus Vaccine - Whole 2022-11-22 00:00:00 Completed [facility] HEPATITIS A 2022-11-22 00:00:00 Completed [facility] Hep B, Adol or Pedi Dosage 2022-11-22 00:00:00 Completed [facility] HIB 4 Dose Schedule 2022-11-22 00:00:00 Completed [facility] HPV9 2022-11-22 00:00:00 Completed [facility] MMR 2022-11-22 00:00:00 Completed [facility] Pneumococcal 7 Conjugate, PCV7 (Prevnar7) 2022-11-22 00:00:00 Completed [facility] IPV 2022-11-22 00:00:00 Completed [facility] TDAP 2022-11-22 00:00:00 Completed [facility] Varicella (varivax)(chicken pox) 2022-11-22 00:00:00 Completed [facility] Influenza Virus Vaccine Quad .5 mL IM 6+ MO 2020-01-30 00:00:00 Completed [facility] Meningococcal Polysaccharide (groups A, C, Y and W-135) conjugate vaccine (MCV4P) 2020-01-30 00:00:00 Completed [facility] Meningococcal B, OMV 2020-01-30 00:00:00 Completed [facility] Influenza Virus Vaccine Quad .5 mL IM 6+ MO 2020-01-30 00:00:00 Completed [facility] Meningococcal Polysaccharide (groups A, C, Y and W-135) conjugate vaccine (MCV4P) 2020-01-30 00:00:00 Completed [facility] Meningococcal B, OMV 2020-01-30 00:00:00 Completed [facility] Influenza Virus Vaccine Quad .5 mL IM 6+ MO 2020-01-30 00:00:00 Completed [facility] Meningococcal Polysaccharide (groups A, C, Y and W-135) conjugate vaccine (MCV4P) 2020-01-30 00:00:00 Completed [facility] Meningococcal B, OMV 2020-01-30 00:00:00 Completed [facility] Influenza Virus Vaccine Quad .5 mL IM 6+ MO 2020-01-30 00:00:00 Completed [facility] Meningococcal Polysaccharide (groups A, C, Y and W-135) conjugate vaccine (MCV4P) 2020-01-30 00:00:00 Completed [facility] Meningococcal B, OMV 2020-01-30 00:00:00 Completed [facility] Influenza Virus Vaccine Quad .5 mL IM 6+ MO 2020-01-30 00:00:00 Completed [facility] Meningococcal Polysaccharide (groups A, C, Y and W-135) conjugate vaccine (MCV4P) 2020-01-30 00:00:00 Completed [facility] Meningococcal B, OMV 2020-01-30 00:00:00 Completed [facility] Influenza Virus Vaccine Quad .5 mL IM 6+ MO 2020-01-30 00:00:00 Completed [facility] Meningococcal Polysaccharide (groups A, C, Y and W-135) conjugate vaccine (MCV4P) 2020-01-30 00:00:00 Completed [facility] Meningococcal B, OMV 2020-01-30 00:00:00 Completed [facility] Influenza Virus Vaccine Quad .5 mL IM 6+ MO 2020-01-30 00:00:00 Completed [facility] Meningococcal Polysaccharide (groups A, C, Y and W-135) conjugate vaccine (MCV4P) 2020-01-30 00:00:00 Completed [facility] Meningococcal B, OMV 2020-01-30 00:00:00 Completed [facility] Influenza Virus Vaccine Quad .5 mL IM 6+ MO 2020-01-30 00:00:00 Completed [facility] Meningococcal Polysaccharide (groups A, C, Y and W-135) conjugate vaccine (MCV4P) 2020-01-30 00:00:00 Completed [facility] Meningococcal B, OMV 2020-01-30 00:00:00 Completed [facility] Influenza Virus Vaccine Quad .5 mL IM 6+ MO (FLUZONE/FLULAVAL/FLU ARIX) 2020-01-30 00:00:00 Completed [facility] Meningococcal Polysaccharide (groups A, C, Y and W-135) conjugate vaccine (MCV4P) 2020-01-30 00:00:00 Completed [facility] Meningococcal B, OMV 2020-01-30 00:00:00 Completed [facility] Influenza Virus Vaccine Quad .5 mL IM 6+ MO 2020-01-30 00:00:00 Completed [facility] Meningococcal Polysaccharide (groups A, C, Y and W-135) conjugate vaccine (MCV4P) 2020-01-30 00:00:00 Completed [facility] Meningococcal B, OMV 2020-01-30 00:00:00 Completed [facility] Influenza Virus Vaccine Quad .5 mL IM 6+ MO 2020-01-30 00:00:00 Completed [facility] Meningococcal Polysaccharide (groups A, C, Y and W-135) conjugate vaccine (MCV4P) 2020-01-30 00:00:00 Completed [facility] Meningococcal B, OMV 2020-01-30 00:00:00 Completed [facility] Influenza Virus Vaccine Quad .5 mL IM 6+ MO 2020-01-30 00:00:00 Completed [facility] Meningococcal Polysaccharide (groups A, C, Y and W-135) conjugate vaccine (MCV4P) 2020-01-30 00:00:00 Completed [facility] Meningococcal B, OMV 2020-01-30 00:00:00 Completed [facility] Influenza Virus Vaccine Quad .5 mL IM 6+ MO 2020-01-30 00:00:00 Completed [facility] Meningococcal Polysaccharide (groups A, C, Y and W-135) conjugate vaccine (MCV4P) 2020-01-30 00:00:00 Completed [facility] Meningococcal B, OMV 2020-01-30 00:00:00 Completed [facility] Influenza Virus Vaccine Quad .5 mL IM 6+ MO 2020-01-30 00:00:00 Completed [facility] Meningococcal Polysaccharide (groups A, C, Y and W-135) conjugate vaccine (MCV4P) 2020-01-30 00:00:00 Completed [facility] Meningococcal B, OMV 2020-01-30 00:00:00 Completed [facility] Influenza Virus Vaccine Quad .5 mL IM 6+ MO 2020-01-30 00:00:00 Completed [facility] Meningococcal Polysaccharide (groups A, C, Y and W-135) conjugate vaccine (MCV4P) 2020-01-30 00:00:00 Completed [facility] Meningococcal B, OMV 2020-01-30 00:00:00 Completed [facility] Influenza Virus Vaccine Quad .5 mL IM 6+ MO 2020-01-30 00:00:00 Completed [facility] Meningococcal Polysaccharide (groups A, C, Y and W-135) conjugate vaccine (MCV4P) 2020-01-30 00:00:00 Completed [facility] Meningococcal B, OMV 2020-01-30 00:00:00 Completed [facility] Influenza Virus Vaccine Quad IM 3+ YRS 2018-12-21 00:00:00 Completed [facility] Influenza Virus Vaccine 2018-12-21 00:00:00 Completed [facility] Influenza Virus Vaccine Quad IM 3+ YRS 2018-12-21 00:00:00 Completed [facility] Influenza Virus Vaccine 2018-12-21 00:00:00 Completed [facility] Influenza Virus Vaccine Quad IM 3+ YRS 2018-12-21 00:00:00 Completed [facility] Influenza Virus Vaccine 2018-12-21 00:00:00 Completed [facility] Influenza Virus Vaccine Quad IM 3+ YRS 2018-12-21 00:00:00 Completed [facility] Influenza Virus Vaccine 2018-12-21 00:00:00 Completed [facility] Influenza Virus Vaccine Quad IM 3+ YRS 2018-12-21 00:00:00 Completed [facility] Influenza Virus Vaccine 2018-12-21 00:00:00 Completed [facility] Influenza Virus Vaccine Quad IM 3+ YRS 2018-12-21 00:00:00 Completed [facility] Influenza Virus Vaccine 2018-12-21 00:00:00 Completed [facility] Influenza Virus Vaccine Quad IM 3+ YRS 2018-12-21 00:00:00 Completed [facility] Influenza Virus Vaccine 2018-12-21 00:00:00 Completed [facility] Influenza Virus Vaccine Quad IM 3+ YRS 2018-12-21 00:00:00 Completed [facility] Influenza Virus Vaccine 2018-12-21 00:00:00 Completed [facility] Influenza Virus Vaccine Quad IM 3+ YRS 2018-12-21 00:00:00 Completed [facility] Influenza Virus Vaccine 2018-12-21 00:00:00 Completed [facility] Influenza Virus Vaccine Quad IM 3+ YRS 2018-12-21 00:00:00 Completed Influenza Virus Vaccine Quad IM 3+ YRS 2018-12-21 00:00:00 Completed [facility] Influenza Virus Vaccine 2018-12-21 00:00:00 Completed [facility] Influenza Virus Vaccine Quad IM 3+ YRS 2018-12-21 00:00:00 Completed [facility] Influenza Virus Vaccine 2018-12-21 00:00:00 Completed [facility] Influenza Virus Vaccine Quad IM 3+ YRS 2018-12-21 00:00:00 Completed [facility] Influenza Virus Vaccine 2018-12-21 00:00:00 Completed [facility] Influenza Virus Vaccine Quad IM 3+ YRS 2018-12-21 00:00:00 Completed [facility] Influenza Virus Vaccine 2018-12-21 00:00:00 Completed [facility] Influenza Virus Vaccine Quad IM 3+ YRS 2018-12-21 00:00:00 Completed [facility] Influenza Virus Vaccine 2018-12-21 00:00:00 Completed [facility] Influenza Virus Vaccine Quad IM 3+ YRS 2018-12-21 00:00:00 Completed [facility] Influenza Virus Vaccine 2018-12-21 00:00:00 Completed [facility] Influenza Virus Vaccine Quad IM 3+ YRS 2018-12-21 00:00:00 Completed [facility] Influenza Virus Vaccine 2018-12-21 00:00:00 Completed [facility] Influenza Virus Vaccine Quad IM 3+ YRS 2017-12-13 00:00:00 Completed [facility] Influenza Virus Vaccine 2017-12-13 00:00:00 Completed [facility] Influenza Virus Vaccine Quad IM 3+ YRS 2017-12-13 00:00:00 Completed [facility] Influenza Virus Vaccine 2017-12-13 00:00:00 Completed [facility] Influenza Virus Vaccine Quad IM 3+ YRS 2017-12-13 00:00:00 Completed [facility] Influenza Virus Vaccine 2017-12-13 00:00:00 Completed [facility] Influenza Virus Vaccine Quad IM 3+ YRS 2017-12-13 00:00:00 Completed [facility] Influenza Virus Vaccine 2017-12-13 00:00:00 Completed [facility] Influenza Virus Vaccine Quad IM 3+ YRS 2017-12-13 00:00:00 Completed [facility] Influenza Virus Vaccine 2017-12-13 00:00:00 Completed [facility] Influenza Virus Vaccine Quad IM 3+ YRS 2017-12-13 00:00:00 Completed [facility] Influenza Virus Vaccine 2017-12-13 00:00:00 Completed [facility] Influenza Virus Vaccine Quad IM 3+ YRS 2017-12-13 00:00:00 Completed [facility] Influenza Virus Vaccine 2017-12-13 00:00:00 Completed [facility] Influenza Virus Vaccine Quad IM 3+ YRS 2017-12-13 00:00:00 Completed [facility] Influenza Virus Vaccine 2017-12-13 00:00:00 Completed [facility] Influenza Virus Vaccine Quad IM 3+ YRS 2017-12-13 00:00:00 Completed [facility] Influenza Virus Vaccine 2017-12-13 00:00:00 Completed [facility] Influenza Virus Vaccine Quad IM 3+ YRS 2017-12-13 00:00:00 Completed Influenza Virus Vaccine 2017-12-13 00:00:00 Completed Influenza Virus Vaccine Quad IM 3+ YRS 2017-12-13 00:00:00 Completed [facility] Influenza Virus Vaccine 2017-12-13 00:00:00 Completed [facility] Influenza Virus Vaccine Quad IM 3+ YRS 2017-12-13 00:00:00 Completed [facility] Influenza Virus Vaccine 2017-12-13 00:00:00 Completed [facility] Influenza Virus Vaccine Quad IM 3+ YRS 2017-12-13 00:00:00 Completed [facility] Influenza Virus Vaccine 2017-12-13 00:00:00 Completed [facility] Influenza Virus Vaccine Quad IM 3+ YRS 2017-12-13 00:00:00 Completed [facility] Influenza Virus Vaccine 2017-12-13 00:00:00 Completed [facility] Influenza Virus Vaccine Quad IM 3+ YRS 2017-12-13 00:00:00 Completed [facility] Influenza Virus Vaccine 2017-12-13 00:00:00 Completed [facility] Influenza Virus Vaccine Quad IM 3+ YRS 2017-12-13 00:00:00 Completed [facility] Influenza Virus Vaccine 2017-12-13 00:00:00 Completed [facility] Influenza Virus Vaccine Quad IM 3+ YRS 2017-12-13 00:00:00 Completed [facility] Influenza Virus Vaccine 2017-12-13 00:00:00 Completed [facility] Influenza Virus Vaccine Quad IM 3+ YRS 2016-11-11 00:00:00 Completed [facility] Influenza Virus Vaccine Quad IM 3+ YRS 2016-11-11 00:00:00 Completed [facility] Influenza Virus Vaccine Quad IM 3+ YRS 2016-11-11 00:00:00 Completed [facility] Influenza Virus Vaccine Quad IM 3+ YRS 2016-11-11 00:00:00 Completed [facility] Influenza Virus Vaccine Quad IM 3+ YRS 2016-11-11 00:00:00 Completed [facility] Influenza Virus Vaccine Quad IM 3+ YRS 2016-11-11 00:00:00 Completed [facility] Influenza Virus Vaccine Quad IM 3+ YRS 2016-11-11 00:00:00 Completed [facility] Influenza Virus Vaccine Quad IM 3+ YRS 2016-11-11 00:00:00 Completed [facility] Influenza Virus Vaccine Quad IM 3+ YRS 2016-11-11 00:00:00 Completed [facility] Influenza Virus Vaccine Quad IM 3+ YRS 2016-11-11 00:00:00 Completed Influenza Virus Vaccine Quad IM 3+ YRS 2016-11-11 00:00:00 Completed [facility] Influenza Virus Vaccine Quad IM 3+ YRS 2016-11-11 00:00:00 Completed [facility] Influenza Virus Vaccine Quad IM 3+ YRS 2016-11-11 00:00:00 Completed [facility] Influenza Virus Vaccine Quad IM 3+ YRS 2016-11-11 00:00:00 Completed [facility] Influenza Virus Vaccine Quad IM 3+ YRS 2016-11-11 00:00:00 Completed [facility] Influenza Virus Vaccine Quad IM 3+ YRS 2016-11-11 00:00:00 Completed [facility] Influenza Virus Vaccine Quad IM 3+ YRS 2016-11-11 00:00:00 Completed [facility] HPV9 2016-02-25 00:00:00 Completed [facility] HPV9 2016-02-25 00:00:00 Completed [facility] HPV9 2016-02-25 00:00:00 Completed [facility] HPV9 2016-02-25 00:00:00 Completed [facility] HPV9 2016-02-25 00:00:00 Completed [facility] HPV9 2016-02-25 00:00:00 Completed [facility] HPV9 2016-02-25 00:00:00 Completed [facility] HPV9 2016-02-25 00:00:00 Completed HPV9 2015-09-17 00:00:00 Completed [facility] HPV9 2015-09-17 00:00:00 Completed [facility] HPV9 2015-09-17 00:00:00 Completed [facility] HPV9 2015-09-17 00:00:00 Completed [facility] HPV9 2015-09-17 00:00:00 Completed [facility] HPV9 2015-09-17 00:00:00 Completed [facility] HPV9 2015-09-17 00:00:00 Completed [facility] HPV9 2015-09-17 00:00:00 Completed HPV9 2015-07-07 00:00:00 Completed [facility] Meningococcal Polysaccharide (groups A, C, Y and W-135) conjugate vaccine (MCV4P) 2015-07-07 00:00:00 Completed [facility] TDAP 2015-07-07 00:00:00 Completed [facility] HPV9 2015-07-07 00:00:00 Completed [facility] Meningococcal Polysaccharide (groups A, C, Y and W-135) conjugate vaccine (MCV4P) 2015-07-07 00:00:00 Completed [facility] TDAP 2015-07-07 00:00:00 Completed [facility] HPV9 2015-07-07 00:00:00 Completed [facility] Meningococcal Polysaccharide (groups A, C, Y and W-135) conjugate vaccine (MCV4P) 2015-07-07 00:00:00 Completed [facility] TDAP 2015-07-07 00:00:00 Completed [facility] HPV9 2015-07-07 00:00:00 Completed [facility] Meningococcal Polysaccharide (groups A, C, Y and W-135) conjugate vaccine (MCV4P) 2015-07-07 00:00:00 Completed [facility] TDAP 2015-07-07 00:00:00 Completed [facility] HPV9 2015-07-07 00:00:00 Completed [facility] Meningococcal Polysaccharide (groups A, C, Y and W-135) conjugate vaccine (MCV4P) 2015-07-07 00:00:00 Completed [facility] TDAP 2015-07-07 00:00:00 Completed [facility] HPV9 2015-07-07 00:00:00 Completed [facility] Meningococcal Polysaccharide (groups A, C, Y and W-135) conjugate vaccine (MCV4P) 2015-07-07 00:00:00 Completed [facility] TDAP 2015-07-07 00:00:00 Completed [facility] HPV9 2015-07-07 00:00:00 Completed [facility] Meningococcal Polysaccharide (groups A, C, Y and W-135) conjugate vaccine (MCV4P) 2015-07-07 00:00:00 Completed [facility] TDAP 2015-07-07 00:00:00 Completed [facility] Meningococcal Polysaccharide (groups A, C, Y and W-135) conjugate vaccine (MCV4P) 2015-07-07 00:00:00 Completed Influenza Virus Vaccine - Whole 2010-11-23 00:00:00 Completed [facility] Influenza Virus Vaccine - Whole 2010-11-23 00:00:00 Completed [facility] Influenza Virus Vaccine - Whole 2010-11-23 00:00:00 Completed [facility] Influenza Virus Vaccine - Whole 2010-11-23 00:00:00 Completed [facility] Influenza Virus Vaccine - Whole 2010-11-23 00:00:00 Completed [facility] Influenza Virus Vaccine - Whole 2010-11-23 00:00:00 Completed [facility] Influenza Virus Vaccine - Whole 2010-11-23 00:00:00 Completed [facility] DTaP, Unspecified Formulation 2007-10-12 00:00:00 Completed [facility] MMR 2007-10-12 00:00:00 Completed [facility] IPV 2007-10-12 00:00:00 Completed [facility] Varicella (varivax)(chicken pox) 2007-10-12 00:00:00 Completed [facility] DTaP, Unspecified Formulation 2007-10-12 00:00:00 Completed [facility] MMR 2007-10-12 00:00:00 Completed [facility] IPV 2007-10-12 00:00:00 Completed [facility] Varicella (varivax)(chicken pox) 2007-10-12 00:00:00 Completed [facility] DTaP, Unspecified Formulation 2007-10-12 00:00:00 Completed [facility] MMR 2007-10-12 00:00:00 Completed [facility] IPV 2007-10-12 00:00:00 Completed [facility] Varicella (varivax)(chicken pox) 2007-10-12 00:00:00 Completed [facility] DTaP, Unspecified Formulation 2007-10-12 00:00:00 Completed [facility] MMR 2007-10-12 00:00:00 Completed [facility] IPV 2007-10-12 00:00:00 Completed [facility] Varicella (varivax)(chicken pox) 2007-10-12 00:00:00 Completed [facility] DTaP, Unspecified Formulation 2007-10-12 00:00:00 Completed [facility] MMR 2007-10-12 00:00:00 Completed [facility] IPV 2007-10-12 00:00:00 Completed [facility] Varicella (varivax)(chicken pox) 2007-10-12 00:00:00 Completed [facility] DTaP, Unspecified Formulation 2007-10-12 00:00:00 Completed [facility] MMR 2007-10-12 00:00:00 Completed [facility] IPV 2007-10-12 00:00:00 Completed [facility] Varicella (varivax)(chicken pox) 2007-10-12 00:00:00 Completed [facility] DTaP, Unspecified Formulation 2007-10-12 00:00:00 Completed [facility] MMR 2007-10-12 00:00:00 Completed [facility] IPV 2007-10-12 00:00:00 Completed [facility] Varicella (varivax)(chicken pox) 2007-10-12 00:00:00 Completed [facility] DTaP, Unspecified Formulation 2007-10-12 00:00:00 Completed MMR 2007-10-12 00:00:00 Completed Varicella (varivax)(chicken pox) 2007-10-12 00:00:00 Completed HEPATITIS A 2006-01-25 00:00:00 Completed [facility] HEPATITIS A 2006-01-25 00:00:00 Completed [facility] HEPATITIS A 2006-01-25 00:00:00 Completed [facility] HEPATITIS A 2006-01-25 00:00:00 Completed [facility] HEPATITIS A 2006-01-25 00:00:00 Completed [facility] HEPATITIS A 2006-01-25 00:00:00 Completed [facility] HEPATITIS A 2006-01-25 00:00:00 Completed [facility] HEPATITIS A 2006-01-25 00:00:00 Completed HEPATITIS A 2005-05-04 00:00:00 Completed [facility] HEPATITIS A 2005-05-04 00:00:00 Completed [facility] HEPATITIS A 2005-05-04 00:00:00 Completed [facility] HEPATITIS A 2005-05-04 00:00:00 Completed [facility] HEPATITIS A 2005-05-04 00:00:00 Completed [facility] HEPATITIS A 2005-05-04 00:00:00 Completed [facility] HEPATITIS A 2005-05-04 00:00:00 Completed [facility] DTaP, Unspecified Formulation 2004-09-22 00:00:00 Completed [facility] DTaP, Unspecified Formulation 2004-09-22 00:00:00 Completed [facility] DTaP, Unspecified Formulation 2004-09-22 00:00:00 Completed [facility] DTaP, Unspecified Formulation 2004-09-22 00:00:00 Completed [facility] DTaP, Unspecified Formulation 2004-09-22 00:00:00 Completed [facility] DTaP, Unspecified Formulation 2004-09-22 00:00:00 Completed [facility] DTaP, Unspecified Formulation 2004-09-22 00:00:00 Completed [facility] DTaP, Unspecified Formulation 2004-09-22 00:00:00 Completed [facility] HIB 4 Dose Schedule 2004-04-29 00:00:00 Completed [facility] MMR 2004-04-29 00:00:00 Completed [facility] Pneumococcal 7 Conjugate, PCV7 (Prevnar7) 2004-04-29 00:00:00 Completed [facility] Varicella (varivax)(chicken pox) 2004-04-29 00:00:00 Completed [facility] HIB 4 Dose Schedule 2004-04-29 00:00:00 Completed [facility] MMR 2004-04-29 00:00:00 Completed [facility] Pneumococcal 7 Conjugate, PCV7 (Prevnar7) 2004-04-29 00:00:00 Completed [facility] Varicella (varivax)(chicken pox) 2004-04-29 00:00:00 Completed [facility] HIB 4 Dose Schedule 2004-04-29 00:00:00 Completed [facility] MMR 2004-04-29 00:00:00 Completed [facility] Pneumococcal 7 Conjugate, PCV7 (Prevnar7) 2004-04-29 00:00:00 Completed [facility] Varicella (varivax)(chicken pox) 2004-04-29 00:00:00 Completed [facility] HIB 4 Dose Schedule 2004-04-29 00:00:00 Completed [facility] MMR 2004-04-29 00:00:00 Completed [facility] Pneumococcal 7 Conjugate, PCV7 (Prevnar7) 2004-04-29 00:00:00 Completed [facility] Varicella (varivax)(chicken pox) 2004-04-29 00:00:00 Completed [facility] HIB 4 Dose Schedule 2004-04-29 00:00:00 Completed [facility] MMR 2004-04-29 00:00:00 Completed [facility] Pneumococcal 7 Conjugate, PCV7 (Prevnar7) 2004-04-29 00:00:00 Completed [facility] Varicella (varivax)(chicken pox) 2004-04-29 00:00:00 Completed [facility] HIB 4 Dose Schedule 2004-04-29 00:00:00 Completed [facility] MMR 2004-04-29 00:00:00 Completed [facility] Pneumococcal 7 Conjugate, PCV7 (Prevnar7) 2004-04-29 00:00:00 Completed [facility] Varicella (varivax)(chicken pox) 2004-04-29 00:00:00 Completed [facility] HIB 4 Dose Schedule 2004-04-29 00:00:00 Completed [facility] MMR 2004-04-29 00:00:00 Completed [facility] Pneumococcal 7 Conjugate, PCV7 (Prevnar7) 2004-04-29 00:00:00 Completed [facility] Varicella (varivax)(chicken pox) 2004-04-29 00:00:00 Completed [facility] Pneumococcal 7 Conjugate, PCV7 (Prevnar7) 2004-04-29 00:00:00 Completed Pediarix (dtap/hep B/ipv) 2004-02-05 00:00:00 Completed [facility] Flu Trivalent 2004-02-05 00:00:00 Completed [facility] HIB 4 Dose Schedule 2004-02-05 00:00:00 Completed [facility] Pneumococcal 7 Conjugate, PCV7 (Prevnar7) 2004-02-05 00:00:00 Completed [facility] Pediarix (dtap/hep B/ipv) 2004-02-05 00:00:00 Completed [facility] Flu Trivalent 2004-02-05 00:00:00 Completed [facility] HIB 4 Dose Schedule 2004-02-05 00:00:00 Completed [facility] Pneumococcal 7 Conjugate, PCV7 (Prevnar7) 2004-02-05 00:00:00 Completed [facility] Pediarix (dtap/hep B/ipv) 2004-02-05 00:00:00 Completed [facility] Flu Trivalent 2004-02-05 00:00:00 Completed [facility] HIB 4 Dose Schedule 2004-02-05 00:00:00 Completed [facility] Pneumococcal 7 Conjugate, PCV7 (Prevnar7) 2004-02-05 00:00:00 Completed [facility] Pediarix (dtap/hep B/ipv) 2004-02-05 00:00:00 Completed [facility] Flu Trivalent 2004-02-05 00:00:00 Completed [facility] HIB 4 Dose Schedule 2004-02-05 00:00:00 Completed [facility] Pneumococcal 7 Conjugate, PCV7 (Prevnar7) 2004-02-05 00:00:00 Completed [facility] Pediarix (dtap/hep B/ipv) 2004-02-05 00:00:00 Completed [facility] Flu Trivalent 2004-02-05 00:00:00 Completed [facility] HIB 4 Dose Schedule 2004-02-05 00:00:00 Completed [facility] Pneumococcal 7 Conjugate, PCV7 (Prevnar7) 2004-02-05 00:00:00 Completed [facility] Pediarix (dtap/hep B/ipv) 2004-02-05 00:00:00 Completed [facility] Flu Trivalent 2004-02-05 00:00:00 Completed [facility] HIB 4 Dose Schedule 2004-02-05 00:00:00 Completed [facility] Pneumococcal 7 Conjugate, PCV7 (Prevnar7) 2004-02-05 00:00:00 Completed [facility] Pediarix (dtap/hep B/ipv) 2004-02-05 00:00:00 Completed [facility] Flu Trivalent 2004-02-05 00:00:00 Completed [facility] HIB 4 Dose Schedule 2004-02-05 00:00:00 Completed [facility] Pneumococcal 7 Conjugate, PCV7 (Prevnar7) 2004-02-05 00:00:00 Completed [facility] Influenza, split virus, trivalent, PF (AFLURIA/FLUARIX/FLUL AVAL/FLUZONE) 2004-02-05 00:00:00 Completed HIB 4 Dose Schedule 2004-02-05 00:00:00 Completed Pneumococcal 7 Conjugate, PCV7 (Prevnar7) 2004-02-05 00:00:00 Completed Pediarix (dtap/hep B/ipv) 2003 00:00:00 Completed [facility] HIB 4 Dose Schedule 2003 00:00:00 Completed [facility] Pneumococcal 7 Conjugate, PCV7 (Prevnar7) 2003 00:00:00 Completed [facility] Pediarix (dtap/hep B/ipv) 2003 00:00:00 Completed [facility] HIB 4 Dose Schedule 2003 00:00:00 Completed [facility] Pneumococcal 7 Conjugate, PCV7 (Prevnar7) 2003 00:00:00 Completed [facility] Pediarix (dtap/hep B/ipv) 2003 00:00:00 Completed [facility] HIB 4 Dose Schedule 2003 00:00:00 Completed [facility] Pneumococcal 7 Conjugate, PCV7 (Prevnar7) 2003 00:00:00 Completed [facility] Pediarix (dtap/hep B/ipv) 2003 00:00:00 Completed [facility] HIB 4 Dose Schedule 2003 00:00:00 Completed [facility] Pneumococcal 7 Conjugate, PCV7 (Prevnar7) 2003 00:00:00 Completed [facility] Pediarix (dtap/hep B/ipv) 2003 00:00:00 Completed [facility] HIB 4 Dose Schedule 2003 00:00:00 Completed [facility] Pneumococcal 7 Conjugate, PCV7 (Prevnar7) 2003 00:00:00 Completed [facility] Pediarix (dtap/hep B/ipv) 2003 00:00:00 Completed [facility] HIB 4 Dose Schedule 2003 00:00:00 Completed [facility] Pneumococcal 7 Conjugate, PCV7 (Prevnar7) 2003 00:00:00 Completed [facility] Pediarix (dtap/hep B/ipv) 2003 00:00:00 Completed [facility] HIB 4 Dose Schedule 2003 00:00:00 Completed [facility] Pneumococcal 7 Conjugate, PCV7 (Prevnar7) 2003 00:00:00 Completed [facility] Pediarix (dtap/hep B/ipv) 2003 00:00:00 Completed HIB 4 Dose Schedule 2003 00:00:00 Completed DTaP, Unspecified Formulation 2003 00:00:00 Completed [facility] Hep B, Adol or Pedi Dosage 2003 00:00:00 Completed [facility] HIB 4 Dose Schedule 2003 00:00:00 Completed [facility] Pneumococcal 7 Conjugate, PCV7 (Prevnar7) 2003 00:00:00 Completed [facility] IPV 2003 00:00:00 Completed [facility] DTaP, Unspecified Formulation 2003 00:00:00 Completed [facility] Hep B, Adol or Pedi Dosage 2003 00:00:00 Completed [facility] HIB 4 Dose Schedule 2003 00:00:00 Completed [facility] Pneumococcal 7 Conjugate, PCV7 (Prevnar7) 2003 00:00:00 Completed [facility] IPV 2003 00:00:00 Completed [facility] DTaP, Unspecified Formulation 2003 00:00:00 Completed [facility] Hep B, Adol or Pedi Dosage 2003 00:00:00 Completed [facility] HIB 4 Dose Schedule 2003 00:00:00 Completed [facility] Pneumococcal 7 Conjugate, PCV7 (Prevnar7) 2003 00:00:00 Completed [facility] IPV 2003 00:00:00 Completed [facility] DTaP, Unspecified Formulation 2003 00:00:00 Completed [facility] Hep B, Adol or Pedi Dosage 2003 00:00:00 Completed [facility] HIB 4 Dose Schedule 2003 00:00:00 Completed [facility] Pneumococcal 7 Conjugate, PCV7 (Prevnar7) 2003 00:00:00 Completed [facility] IPV 2003 00:00:00 Completed [facility] DTaP, Unspecified Formulation 2003 00:00:00 Completed [facility] Hep B, Adol or Pedi Dosage 2003 00:00:00 Completed [facility] HIB 4 Dose Schedule 2003 00:00:00 Completed [facility] Pneumococcal 7 Conjugate, PCV7 (Prevnar7) 2003 00:00:00 Completed [facility] IPV 2003 00:00:00 Completed [facility] DTaP, Unspecified Formulation 2003 00:00:00 Completed [facility] Hep B, Adol or Pedi Dosage 2003 00:00:00 Completed [facility] HIB 4 Dose Schedule 2003 00:00:00 Completed [facility] Pneumococcal 7 Conjugate, PCV7 (Prevnar7) 2003 00:00:00 Completed [facility] IPV 2003 00:00:00 Completed [facility] DTaP, Unspecified Formulation 2003 00:00:00 Completed [facility] Hep B, Adol or Pedi Dosage 2003 00:00:00 Completed [facility] HIB 4 Dose Schedule 2003 00:00:00 Completed [facility] Pneumococcal 7 Conjugate, PCV7 (Prevnar7) 2003 00:00:00 Completed [facility] IPV 2003 00:00:00 Completed [facility] DTaP, Unspecified Formulation 2003 00:00:00 Completed Hep B, Adol or Pedi Dosage 2003 00:00:00 Completed HIB 4 Dose Schedule 2003 00:00:00 Completed Pneumococcal 7 Conjugate, PCV7 (Prevnar7) 2003 00:00:00 Completed IPV 2003 00:00:00 Completed Hep B, Adol or Pedi Dosage 2003 00:00:00 Completed [facility] Hep B, Adol or Pedi Dosage 2003 00:00:00 Completed [facility] Hep B, Adol or Pedi Dosage 2003 00:00:00 Completed [facility] Hep B, Adol or Pedi Dosage 2003 00:00:00 Completed [facility] Hep B, Adol or Pedi Dosage 2003 00:00:00 Completed [facility] Hep B, Adol or Pedi Dosage 2003 00:00:00 Completed [facility] Hep B, Adol or Pedi Dosage 2003 00:00:00 Completed [facility] Vital Signs Vital Name Observation Time Observation Value Comments S ource Systolic blood pressure 2023-08-14 08:00:00 108 mm[Hg] [facility] Diastolic blood pressure 2023-08-14 08:00:00 61 mm[Hg] [facility] Heart rate 2023-08-14 08:00:00 58 /min [facility] Body temperature 2023-08-14 08:00:00 36.67 April [facility] Respiratory rate 2023-08-14 08:00:00 18 /min [facility] Oxygen saturation in Arterial blood by Pulse oximetry 2023-08-14 08:00:00 98 /min [facility] Body height 2023-08-14 05:41:00 165.1 cm [facility] Body weight 2023-08-14 05:41:00 73.936 kg [facility] BMI 2023-08-14 05:41:00 27.12 kg/m2 [facility] Systolic blood pressure 2022-11-22 20:57:00 118 mm[Hg] [facility] Diastolic blood pressure 2022-11-22 20:57:00 75 mm[Hg] [facility] Heart rate 2022-11-22 20:57:00 87 /min [facility] Body temperature 2022-11-22 20:57:00 36.78 April [facility] Respiratory rate 2022-11-22 20:57:00 18 /min [facility] Body height 2022-11-22 20:57:00 165.1 cm [facility] Body weight 2022-11-22 20:57:00 84.006 kg [facility] BMI 2022-11-22 20:57:00 30.82 kg/m2 [facility] Systolic blood pressure 2022-09-17 14:42:00 109 mm[Hg] [facility] Diastolic blood pressure 2022-09-17 14:42:00 73 mm[Hg] [facility] Heart rate 2022-09-17 14:42:00 83 /min [facility] Body temperature 2022-09-17 14:42:00 35.89 April [facility] Respiratory rate 2022-09-17 14:42:00 16 /min [facility] Body height 2022-09-17 14:42:00 167.6 cm [facility] Body weight 2022-09-17 14:42:00 85.821 kg [facility] BMI 2022-09-17 14:42:00 30.54 kg/m2 [facility] Systolic blood pressure 2022-05-06 19:10:00 119 mm[Hg] [facility] Diastolic blood pressure 2022-05-06 19:10:00 72 mm[Hg] [facility] Heart rate 2022-05-06 19:10:00 89 /min [facility] Body height 2022-05-06 19:10:00 167.6 cm [facility] Body weight 2022-05-06 19:10:00 84.324 kg [facility] BMI 2022-05-06 19:10:00 30.01 kg/m2 [facility] Oxygen saturation in Arterial blood by Pulse oximetry 2022-05-06 19:10:00 98 /min [facility] Systolic blood pressure 2022-03-30 20:15:00 121 mm[Hg] [facility] Diastolic blood pressure 2022-03-30 20:15:00 81 mm[Hg] [facility] Heart rate 2022-03-30 20:15:00 93 /min [facility] Body temperature 2022-03-30 20:15:00 37 April [facility] Respiratory rate 2022-03-30 20:15:00 16 /min [facility] Body weight 2022-03-30 20:15:00 82.237 kg [facility] Systolic blood pressure 2022-03-15 16:16:00 113 mm[Hg] [facility] Diastolic blood pressure 2022-03-15 16:16:00 72 mm[Hg] [facility] Heart rate 2022-03-15 16:16:00 111 /min [facility] Body temperature 2022-03-15 16:16:00 36.22 April [facility] Respiratory rate 2022-03-15 16:16:00 16 /min [facility] Body weight 2022-03-15 16:16:00 83.28 kg [facility] Systolic blood pressure 2022-02-26 19:22:00 111 mm[Hg] [facility] Diastolic blood pressure 2022-02-26 19:22:00 72 mm[Hg] [facility] Heart rate 2022-02-26 19:22:00 96 /min [facility] Body temperature 2022-02-26 19:22:00 36.56 April [facility] Body height 2022-02-26 19:22:00 170.2 cm [facility] Body weight 2022-02-26 19:22:00 83.462 kg [facility] BMI 2022-02-26 19:22:00 28.82 kg/m2 [facility] Body mass index (BMI) [Percentile] Per age and sex 2022-02-26 19:22:00 92.24 % [facility] Oxygen saturation in Arterial blood by Pulse oximetry 2022-02-26 19:22:00 98 /min [facility] Procedures Procedure Date / Time Performed Performing Clinician Source POCT TEST 2023-08-14 06:11:00 Ifeoma Mccarthy [facility] LIPASE 2023-08-14 06:08:00 Ifeoma Mccarthy [facility] MAGNESIUM 2023-08-14 06:08:[address] [facility] COMP. METABOLIC PANEL ([id number]) 2023-08-14 06:08:00 Ifeoma Mccarthy [facility] CBC WITH DIFF 2023-08-14 06:08:00 Ifeoma Mccarthy [facility] URINALYSIS 2023-08-14 06:08:[address] [facility] PATIENT QUESTIONNAIRE 2022-11-22 05:01:00 Doctor Unassigned, [place] [facility] POCT URINALYSIS W/O SPECIFIC GRAVITY 2022-11-22 00:00:00 Lore Castillo [facility] GC & CHLAMYDIA AMPLIFIED ASSAY 2022-09-17 15:16:00 Lisa Jean Conrado [facility] GALV ONLY - VAGINAL PATHOGENS BY NUCLEIC ACID TESTING 2022-09-17 15:16:00 Lisa Jean Conrado [facility] POCT TEST 2022-09-17 15:01:00 Lisa Jean [facility] URINALYSIS 2022-09-17 15:01:00 Mesfin Jean [facility] URINE CULTURE 2022-09-17 15:01:00 Mesfin Jean Estephaniewoo [facility] CONSENT/REFUSAL FOR DIAGNOSIS AND TREATMENT 2022-05-12 15:55:21 Doctor Unassigned, [place] [facility] ASSIGNMENT OF BENEFITS 2022-05-12 15:55:04 Docto r Unassigned, [place] [facility] PATIENT FINANCIAL POLICY 2022-05-06 18:53:51 Doctor Unassigned, [place] [facility] US HEAD NECK 2022-03-16 17:37:22 [facility] 2022-03-15 16:53:00 Aury Rich [facility] ASSIGNMENT OF BENEFITS 2022-02-26 19:15:42 Docbernard r Unassigned, [place] [facility] Encounters Start Date/Time End Date/Time Encounter Type Admission Type Attending [facility] Care Department Encounter ID Source 2024-02-24 00:00:00 2024-02-24 08:12:29 Telephone Archana Michaels [facility] STRATEGIC PLANNING DIRECTOR [facility] 1..840.114 350.1.13.10 4.2.7.2.686 [id number] [facility] 2023-08-14 00:43:00 2023-08-14 03:21:00 Emergency X Ifeoma MCCARTHY [facility] ERT [id number] [facility] 2023-08-14 00:43:00 2023-08-14 03:21:00 Emergency Ifeoma Mccarthy [facility] ..840.114 350.1.13.10 4.2.7.2.686 [id number] [facility] 2022-12-31 14:42:00 2022-12-31 14:42:00 Outpatient SFA [facility] [id number] Greyson Maloney 2022-11-22 15:30:00 2022-11-22 16:19:28 [facility] [id number] [facility] 2022-11-22 15:30:00 2022-11-22 16:19:28 Office Visit Lore Castillo [facility] 1.840.114 350.1.13.10 4.2.7.2.686 [id number] [facility] 2022-11-22 00:00:00 2022-11-22 00:00:00 Orders Only Doctor Unassigned, [place] [facility] 1.840.114 350.1.13.10 4.2.7.2.686 [id number] [facility] 2022-11-08 15:30:00 2022-11-08 15:30:00 Outpatient R LORE CASTILLO LORE CASTILLO [facility] [id number] [facility] 2022-10-25 00:00:00 2022-10-25 00:00:00 Aury Boyd [facility] 1.840.114 350.1.13.10 4.2.7.2.686 [id number] [facility] 2022-10-19 14:13:42 2022-10-19 14:13:42 Outpatient SFA [facility] 0829 Greyson Maloney 2022-10-13 09:23:21 2022-10-13 09:23:21 Outpatient [facility] [id number] Greyson Saleh Haider 2022-09-21 14:01:31 2022-09-21 14:01:31 Outpatient [facility] [id number] Greyson Maloney 2022-09-17 09:30:00 2022-09-17 10:23:34 Outpatient R HEMA GONZALEZ [facility] [id number] [facility] 2022-09-17 09:30:00 2022-09-17 10:23:34 Office Visit Pgy2 Hema Gonzalez [facility] 1.840.114 350.1.13.10 4.2.7.2.686 [id number] [facility] 2022-08-26 13:10:30 2022-08-26 13:10:30 Outpatient [facility] [id number] Greyson Maloney 2022-05-25 00:00:00 2022-05-25 00:00:00 Telephone [facility] 1.840.114 350.1.13.10 4.2.7.2.686 [id number] [facility] 2022-05-12 10:56:07 2022-05-12 23:59:00 Outpatient R [facility] [id number] [facility] 2022-05-12 10:56:07 2022-05-12 23:59:00 Hospital Encounter [facility] 1.840.114 350.1.13.10 4.2.7.2.686 [id number] [facility] 2022-05-06 14:00:00 2022-05-06 14:15:00 Office Visit [facility] 1.2840.114 350.1.13.10 4.2.7.2.686 [id number] [facility] 2022-05-06 14:00:00 2022-05-06 14:00:00 Outpatient R [facility] [id number] [facility] 2022-05-06 00:00:00 2022-05-06 00:00:00 Orders Only Doctor Unassigned, [place] [facility] 1..840.114 350.1.13.10 4.2.7.2.686 [id number] [facility] 2022-03-30 14:30:00 2022-03-30 15:01:59 Outpatient R AURY RICH [facility] [id number] [facility] 2022-03-30 14:30:00 2022-03-30 15:01:59 Office Visit Aury Rich [facility] 1..840.114 350.1.13.10 4.2.7.2.686 [id number] [facility] 2022-03-29 09:45:00 2022-03-29 09:45:00 Outpatient PACHECO MAZARIEGOS [facility] [id number] [facility] 2022 00:00:00 2022 00:00:00 Telephone Aury Rich [facility] 1..840.114 350.1.13.10 4.2.7.2.686 [id number] [facility] 2022-03-16 10:57:16 2022-03-16 23:59:00 Outpatient R AURY RICH [facility] [id number] [facility] 2022-03-16 10:57:16 2022-03-16 23:59:00 Hospital Encounter Aury Rich [facility] 1..840.114 350.1.13.10 4.2.7.2.686 [id number] [facility] 2022-03-15 10:30:00 2022-03-15 11:27:38 Outpatient AURY MATOS [facility] [id number] [facility] 2022-03-15 10:30:00 2022-03-15 11:27:38 Office Visit Aury Rich [facility] 1.2.840.114 350.1.13.10 4.2.7.2.686 [id number] [facility] 2022-03-01 00:00:00 2022-03-01 00:00:00 Terry Pastrana [facility] 1.2.840.114 350.1.13.10 4.2.7.2.686 [id number] [facility] 2022-02-26 13:20:00 2022-02-26 13:59:40 Outpatient TERRY PLAZA [facility] [id number] [facility] 2022-02-26 13:20:00 2022-02-26 13:59:40 Office Visit Terry Renee [facility] 1.2.840.114 350.1.13.10 4.2.7.2.686 [id number] [facility] 2022-02-26 00:00:00 2022-02-26 00:00:00 Orders Only Doctor Unassigned, [place] [facility] 1.2.840.114 350.1.13.10 4.2.7.2.686 [id number] [facility] 2022-02-22 09:00:00 2022-02-22 09:00:00 Outpatient OSCAR LESLIE [facility] [id number] [facility] 2021-10-13 00:00:00 2021-10-13 00:00:00 Refill Aury Rich [facility] 1.2.840.114 350.1.13.10 4.2.7.2.686 [id number] [facility] 2021-04-06 00:00:00 2021-04-06 00:00:00 Aury Boyd [facility] 1..114 350.1.13.10 4.2.7.2.686 [id number] [facility] 2021-03-16 00:00:00 2021-03-16 00:00:00 Telephone Archana Michaels [facility] STRATEGIC PLANNING DIRECTOR [facility] 1.0.114 350.1.13.10 4.2.7.2.686 [id number] [facility] 2021-03-11 13:00:00 2021-03-11 13:34:00 Office Visit Archana Michaels [facility] STRATEGIC PLANNING DIRECTOR [facility] 1.0.114 350.1.13.10 4.2.7.2.686 [id number] [facility] 2021-03-11 13:00:00 2021-03-11 13:34:00 Outpatient R ARCHANA MICHAELS [facility] [id number] [facility] 2021-03-11 13:00:00 2021-03-11 13:00:00 Outpatient R ARCHANA MICHAELS [facility] [id number] [facility] 2021-03-11 13:00:00 2021-03-11 13:00:00 Outpatient R ARCHANA MICHAELS [facility] [id number] [facility] 2021-02-24 13:30:00 2021-02-24 14:32:53 Outpatient R ARCHANA MICHAELS [facility] [id number] [facility] 2021-02-24 13:30:00 2021-02-24 14:32:53 Office Visit Archana Michaels [facility] STRATEGIC PLANNING DIRECTOR [facility] 1.0.114 350.1.13.10 4.2.7.2.686 [id number] [facility] 2021-02-24 13:30:00 2021-02-24 13:30:00 Outpatient R FREDDYJENIFERSACHINARCHANA [facility] [id number] [facility] 2021-02-24 00:00:00 2021-02-24 00:00:00 Orders Only Doctor Unassigned, [place] [facility] 1..840.114 350.1.13.10 4.2.7.2.686 [id number] [facility] 2021-02-10 15:15:00 2021-02-10 15:57:55 Office Visit Joyce Gallardo [facility] STRATEGIC PLANNING DIRECTOR [facility] 1..840.114 350.1.13.10 4.2.7.2.686 [id number] [facility] 2021-02-10 15:15:00 2021-02-10 15:57:55 Outpatient R JOYCE GALLARDO [facility] [id number] [facility] 2021-02-10 15:15:00 2021-02-10 15:15:00 Outpatient R JOYCE GALLARDO [facility] [id number] [facility] 2021-02-10 15:15:00 2021-02-10 15:15:00 Outpatient R JOYCE GALLARDO [facility] [id number] [facility] 2020-12-24 08:15:00 2020-12-24 08:58:54 Office Visit Joyce Gallardo [facility] STRATEGIC PLANNING DIRECTOR [facility] 1..840.114 350.1.13.10 4.2.7.2.686 [id number] [facility] 2020-12-24 08:00:00 2020-12-24 08:58:54 Outpatient R JOYCE GALLARDO [facility] [id number] [facility] 2020-12-24 08:00:00 2020-12-24 08:00:00 Outpatient R JOYCE GALLARDO [facility] [id number] [facility] 2020-12-24 00:00:00 2020-12-24 00:00:00 Orders Only Doctor Unassigned, [place] [facility] 1.2.840.114 350.1.13.10 4.2.7.2.686 [id number] [facility] 2020-11-24 00:00:00 2020-11-24 00:00:00 Aury Boyd [facility] Pediatric [facility] 1.2.840.114 350.1.13.10 4.2.7.2.686 [id number] [facility] 2020-11-04 00:00:00 2020-11-04 00:00:00 Telephone Aury Rich [facility] 1.2.840.114 350.1.13.10 4.2.7.2.686 [id number] [facility] 2020-10-21 00:00:00 2020-10-21 00:00:00 Telephone Aury Rich [facility] 1.2.840.114 350.1.13.10 4.2.7.2.686 [id number] [facility] 2020-10-15 00:00:00 2020-10-15 00:00:00 Aury Boyd [facility] 1.2.840.114 350.1.13.10 4.2.7.2.686 [id number] [facility] 2020-10-03 00:00:00 2020-10-03 00:00:00 Telephone Aury Rich [facility] 1.2.840.114 350.1.13.10 4.2.7.2.686 [id number] [facility] 2020-09-29 15:30:00 2020-09-29 15:30:00 Outpatient AURY MATOS [facility] [id number] [facility] 2020-09-29 15:05:29 2020-09-29 15:19:40 Office Visit Aury Rich [facility] 1.2.840.114 350.1.13.10 4.2.7.2.686 [id number] [facility] 2020-06-24 09:42:32 2020-06-24 10:34:40 Office Visit Aury Rich [facility] 1.2.840.114 350.1.13.10 4.2.7.2.686 [id number] [facility] 2020-06-24 09:50:00 2020-06-24 09:50:00 Outpatient AURY MATOS [facility] [id number] [facility] 2020-06-24 00:00:00 2020-06-24 00:00:00 Letter (Out) Aury Rich [facility] 1.2.840.114 350.1.13.10 4.2.7.2.686 [id number] [facility] 2020-05-13 00:00:00 2020-05-13 00:00:00 Patient Outreach Raymond Nick [facility] 1.2.840.114 350.1.13.10 4.2.7.2.686 [id number] [facility] 2020-02-26 08:12:57 2020-02-26 08:56:52 Office Visit Terry Renee [facility] 1.2.840.114 350.1.13.10 4.2.7.2.686 [id number] [facility] 2020-02-26 08:20:00 2020-02-26 08:20:00 Outpatient R TERRY REENE [facility] [id number] [facility] 2020-01-30 15:32:25 2020-01-30 16:13:42 Office Visit Serafin, Hubert [facility] 1.2.840.114 350.1.13.10 4.2.7.2.686 [id number] [facility] 2020-01-30 15:40:00 2020-01-30 15:40:00 Outpatient R SERAFIN, [facility] [id number] [facility] 2020-01-30 00:00:00 2020-01-30 00:00:00 Orders Only Doctor Unassigned, [place] [facility] 1.2.840.114 350.1.13.10 4.2.7.2.686 [id number] [facility] 2019-07-21 00:00:00 2019-07-21 00:00:00 Orders Only Doctor Unassigned, [place] [facility] 1.2.840.114 350.1.13.10 4.2.7.2.686 [id number] [facility] 2019-07-19 00:00:00 2019-07-19 00:00:00 Telephone Terry Renee [facility] 1.2.840.114 350.1.13.10 4.2.7.2.686 [id number] [facility] 2019-05-24 00:00:00 2019-05-24 00:00:00 Refill Terry Renee [facility] 1.2.840.114 350.1.13.10 4.2.7.2.686 [id number] [facility] 2019-04-13 00:00:00 2019-04-13 00:00:00 Refill Terry Renee [facility] 1.2.840.114 350.1.13.10 4.2.7.2.686 [id number] [facility] 2019-03-13 00:00:00 2019-03-13 00:00:00 Terry Field [facility] 1.2.840.114 350.1.13.10 4.2.7.2.686 [id number] [facility] 2018-11-08 00:00:00 2018-11-08 00:00:00 Telephone Aury Rich [facility] 1.2.840.114 350.1.13.10 4.2.7.2.686 [id number] [facility] Results Test Description Test Time Test Comments Results Result Co mments Source [facility] 06:44:53* Test Item Value Reference Range Interpretation Comme nts MAGNESIUM (test code = 9247877551) 2.0 mg/dL 1.7-2.4 Lab Interpretation (test cod e = 28896-1) Normal [facility] 06:44:33* Test Item Value Reference Range Interpretation Comme nts LIPASE (test code = 0351827344) 78 U/L 0-220 Lab Interpretation (test cod e = 69718-8) Normal [facility] with [id number] 06:29:15* Test Item Value Reference Range Interpretation [...] 33.5 g/dL 31.6-35.1 RDW-SD (test code = 70182-8) 44.4 fL 39.0-49.9 RDW-CV (test code = 788-0) 13.2 % 12.0-15.5 PLT (test code = 777-3) 283 166-358 MPV (test code = 47880-2) 11.2 fL 9.5-12.9 NRBC/100 WBC (test code = 5578311032) 0.0 0.0-10.0 NRBC x10^3 (test code = 2980856122) See_Comment [Automated messa ge] The system which generated this result transmitted reference range: 10*3/?L. The reference range was not used to interpret this result as normal/abnormal. GRAN MAT (NEUT) % (test code = 770-8) 47.7 % IMM GRAN % (test code = 8938693561) 0.20 % LYMPH % (test code = 736-9) 39.3 % MONO % (test code = 5905-5) 8.3 % EOS % (test code = 713-8) 3.8 % BASO % (test code = 706-2) 0.7 % GRAN MAT x10^3(ANC) (test code = 7619983377) 4.33 10*3/uL 1.88-7.09 IMM GRAN x10^3 (test code = 7351817445) 0.00-0.06 LYMPH x10^3 (test code = 731-0) 3.56 10*3/uL 1.32-3.29 H MONO x10^3 (test code = 742-7) 0.75 10*3/uL 0.33-0.92 EOS x10^3 (test code = 711-2) 0.34 10*3/uL 0.03-0.39 BASO x10^3 (test code = 704-7) 0.06 10*3/uL 0.01-0.07 Lab Interpretation (test code = 02987-4) Abnormal [facility] [id number] 06:11:00* Test Item Value Reference Range Interpretation Comme nts POCT PREG (test code = 1605) Negative On board controls acceptable with C Line (test code = 3574) Yes POCT PREG LOT # (test code = 3575) [id number] POCT PREG TEST DATE ( test code = 3576) 2024-06-24 Lab Interpretation (test cod e = 13766-7) Normal [facility] [id number] 06:11:55* Test Item Value Reference Range Interpretation Comme [facility] VITAMIN B-12 (test code = 2840) 745 PG/ML 200-950 UNLESS OTHERWISE INDICATED, ALL TESTING PERFORMED AT [facility] [address] [place] [address] AUTO POLISHER: KETTY AKERS M.D. [place] NUMBER [id number] [facility] [place]. [id number] VITAMIN D, 25 [id number] 05:46:47* Test Item Value Reference Range Interpretation Comme [facility] VITAMIN D, 25 OH (test code [...] . . . . . NG/ML 30-100 COMPREHENSIVE METABOLIC [id number] 05:42:47* Test Item Value Reference Range Interpretation Comme [facility] GLUCOSE (test code = 2217) 82 MG/DL 70-99 BUN (test code = 2208) 13 MG/DL 6-20 CREATININE (test code = 2214) 0.85 MG/DL 0.50-1.10 eGFR (2020 CKD-EPI) (test code = 34277) 101 ML/MIN/1.73 >60 CALC BUN/CREAT (test code = 2235) 15 RATIO 6-28 SODIUM (test code = 2231) 139 MEQ/L 133-146 POTASSIUM (test code = 2228) 3.9 MEQ/L 3.5-5.4 CHLORIDE (test code = 2215) 105 MEQ/L 95-107 CARBON DIOXIDE (test code = 2206) 26 MEQ/L 19-31 CALCIUM (test code = 2209) 9.4 MG/DL 8.5-10.5 PROTEIN, TOTAL (test code = 2228) 6.7 G/DL 6.1-8.3 ALBUMIN (test code = 2200) 4.6 G/DL 3.5-5.2 CALC GLOBULIN (test code = 0) 2.1 G/DL 2.1-3.7 CALC A/G RATIO (test code = 2233) 2.2 RATIO 1.0-2.6 BILIRUBIN, TOTAL (test code = 2206) 0.6 MG/DL <=1.2 ALKALINE PHOSPHATASE (test code = 2203) 75 U/L 41-120 AST (test code = 2217) 16 U/L 9-40 ALT (test code = 2218) 14 U/L 5-40 LIPID [id number] 05:42:47* Test Item Value Reference Range Interpretation Comme nts CHOLESTEROL (test code = 2209) 131 MG/DL <200 TRIGLYCERIDES (test code = 2231) 70 MG/DL <150 HDL CHOLESTEROL (test code = 2219) 39 MG/DL >39 L CALC LDL CHOL (test code = 2236) 77 MG/DL <100 NOTE: CALCULATED LDL IS BASED ON ABHAY-JONES METHOD WHICHINCLUDES ADJUSTABLE TRIGLYCERIDE:VLDL CHOLESTEROL RATIO.THIS FACTOR VARIES BY MEASURED TRIGLYCERIDE AND NON-HDLCHOLESTEROL CONCENTRATIONS WITH INCREASED CALCULATED LDL SEENIN HIGHER TRIGLYCERIDE OR LOWER NON-HDL SPECIMENS. FOR MOREINFORMATION, SEE CLIENT ANNOUNCEMENT AT [email or web address] RISK RATIO LDL/HDL (test code = 2237) 1.97 RATIO <3.22 CBC W/AUTO DIFF WITH [id number] 04:51:12* Test Item Value Reference Range Interpretation [...] 0.00-0.10 ABS NUCLEATED RBCS (test code = 33668) 0.00 K/UL 0.00-0.11 HEMOGLOBIN [id number] 03:02:32* Test Item Value Reference Range Interpretation Comme nts HEMOGLOBIN A1c (test code = 25800) 5.1 % 4.2-5.6 POCT URINALYSIS W/O SPECIFIC [id number] 21:00:00* Test Item Value Reference Range Interpretation [...] = 3257) Negative Negative - Negati ve [facility]/O SPECIFIC [id number] 21:00:00* Test Item Value Reference Range Interpretation [...] = 3257) Negative Negative - Negati ve [facility] Tyler[facility] PROFILE (TU,T4,FTI,TSH)2022-10-14 05:52:53* Test Item Value Reference Range Interpretation Comme nts T-UPTAKE (test code = 2817) 33.1 % 24.3-39.0 THYROX. BIND. CAPAC. (test code = 72125) 1.0 0.8-1.3 T4 (THYROXINE) (test code = 2819) 9.5 UG/DL 4.5-10.5 CORRECTED T4 (FTI) (test code = 2820) 9.5 UG/DL 4.2-11.6 TSH, THIRD GENERATION (test code = 2821) 0.449 UIU/ML 0.400-4.100 UNLESS OTHERWISE INDICATED, ALL TESTING PERFORMED AT [facility] [address] [place] [address] AUTO POLISHER: KETTY AKERS M.D. CLIA NUMBER [id number] [facility]. [id number] COMPREHENSIVE METABOLIC [id number] 03:01:46* Test Item Value Reference Range Interpretation Comme nts GLUCOSE (test code = 2217) 95 MG/DL 70-99 BUN (test code = 2208) 13 MG/DL 6-20 CREATININE (test code = 2214) 0.89 MG/DL 0.50-1.10 eGFR (2020 CKD-EPI) (test code = 92653) 96 ML/MIN/1.73 >60 CALC BUN/CREAT (test code [...] code = 2206) 0.2 MG/DL See_Comment [Automated [employer] [facility]] The system which generated this result transmitted reference range: <=1.2. The reference range was not used to interpret this result as normal/abnormal. ALKALINE PHOSPHATASE (test code = 2203) 80 U/L 41-120 AST (test code = 2217) 15 U/L 9-40 ALT (test code = 2218) 16 U/L 5-40 HEPATIC FUNCTION [id number] 03:01:46* Test Item Value Reference Range Interpretation Comme nts PROTEIN, TOTAL (test code = 2228) 7.0 G/DL 6.1-8.3 ALBUMIN (test code = 2200) 4.5 G/DL 3.5-5.2 BILIRUBIN, TOTAL (test code = 2206) 0.2 MG/DL See_Comment [Automated HOSTEXa ge] The system which generated this result transmitted reference range: <=1.2. The reference range was not used to interpret this result as normal/abnormal. BILIRUBIN, DIRECT (test code = 2021) 0.1 MG/DL 0.0-0.3 ALKALINE PHOSPHATASE (test code = 2203) 80 U/L 41-120 AST (test code = 2217) 15 U/L 9-40 ALT (test code = 2218) 16 U/L 5-40 HEMOGLOBIN [id number] 02:43:44* Test Item Value Reference Range Interpretation Comme nts HEMOGLOBIN A1c (test code = 78322) 5.1 % 4.2-5.6 CBC W/AUTO DIFF WITH [id number] 01:58:08* Test Item Value Reference Range Interpretation [...] = 1065) 0.0 /100 WBC'S See_Comment [Automated HOSTEXa ge] The system which generated this result [...] 0.00-0.10 ABS NUCLEATED RBCS (test code = 09069) 0.00 K/UL 0.00-0.11 POCT [id number] 15:02:00* Test Item Value Reference Range Interpretation Comme nts POCT PREG (test code = 1605) Negative On board controls acceptable with C Line (test code = 3574) Yes POCT PREG LOT # (test code = 3575) POCT PREG TEST DATE ( test code = 3576) Lab Interpretation (test cod e = 74618-5) [facility] [id number] 15:02:00* Test Item Value Reference Range Interpretation Comme nts POCT PREG (test code = 1605) Negative On board controls acceptable with C Line (test code = 3574) Yes POCT PREG LOT # (test code = 3575) POCT PREG TEST DATE ( test code = 3576) Lab Interpretation (test cod e = 57971-7) [facility] [id number] 15:02:00* Test Item Value Reference Range Interpretation Comme nts POCT PREG (test code = 1605) Negative On board controls acceptable with C Line (test code = 3574) Yes POCT PREG LOT # (test code = 3575) POCT PREG TEST DATE ( test code = 3576) Lab Interpretation (test cod e = 80736-3) [facility] MOLECULAR [id number] 17:01:07* Test Item Value Reference Range Interpretation Comme nts POCT Molecular Strep (test c ode = 87520-7) Negative Negative Lab Interpretation (test cod e = 97357-1) [facility] MOLECULAR [id number] 17:01:07* Test Item Value Reference Range Interpretation Comme nts POCT Molecular Strep (test c ode = 36366-1) Negative Negative Lab Interpretation (test cod e = 66795-5) [facility] MOLECULAR [id number] 17:01:07* Test Item Value Reference Range Interpretation Comme nts POCT Molecular Strep (test c ode = 94273-3) Negative Negative Lab Interpretation (test cod e = [id number]) Normal [facility] Notes Date/Time Note Provider Source 2024-02-24 08:10:17 Called pt, advised inserted 02/24/2021. Advised will need to be replaced this month. Verbalized understanding. Marianela Genao RN 02/24/24 8:10 AM ARCHITECT Marianela Genao RN [facility] 2024-02-24 07:51:50 Pau Jaimes is a 18 year old female is calling needing to know is it time to replace nexplanon ARCHITECT Bonnie Jimenes [facility] 2023-08-14 03:20:40 Pt given printed and verbal [...] distress, accompanied by friend. Adelaida May RN [facility] 2023-08-14 00:36:43 Pt arrives ambulatory to ED reporting generalized abdominal pain x 2weeks. She says that she has also had SOB and constipation. She was seen at [facility] and they told her that thy could not find anything. She also reports starting her period 2x this month. Ella Gallardo RN [facility]
[2024-04-16] MEDS ORDERED: KETOROLAC 30 MG/ML INJ ONE (12:25)
[2024-04-16] MEDS ORDERED: NA CHLORIDE 0.9% 1,000 ML ONE (12:26)
[2024-04-16 12:43] LABS: Sqamous Epithelial <5 /HPF (None Seen); Urine Bacteria None Seen /HPF (<20); Urine Bilirubin NEGATIVE (Negative); Urine Blood Negative (Negative); Urine Clarity Extremely Turbid (Clear); Urine Color Yellow (Yellow); Urine Culture Reflex Order NOT NEEDED; Urine Glucose NEGATIVE (Negative); Urine Ketones NEGATIVE (Negative); Urine Microscopic Reflex YN ORDER UMIC; Urine Mucus Slight /HPF (None Seen); Urine Nitrite NEGATIVE (Negative); Urine Protein NEGATIVE (Negative); Urine RBC <5 /HPF (None Seen); Urine Urobilinogen Normal (Normal); Urine WBC <5 /HPF (<5); Urine pH 7.5 (5.0-7.0)
[2024-04-16 12:54] LABS: Absolute Eosinophils 0.3 K/uL (0-0.5); Absolute Lymphocytes (CBC) 1.8 K/uL (0.7-4.9); Absolute Monocytes 0.5 K/uL (0.1-1.3); Absolute Neutrophil 4.9 K/uL (1.8-8.0); Basophils % 0.6 % (0-1.3); Eosinophils % 3.5 % (0-4.4); Hematocrit 42.5 % (36.0-45.0); Hemoglobin 14.2 g/dL (12.0-15.0); Lymphocytes % 24.2 % (15.3-44.8); MCH 30.1 pg (27.0-35.0); MCHC 33.3 g/dL (32.0-36.0); MCV 90.4 fL (80-100); MPV 9.5 fL (7.6-11.3); Monocytes % 6.8 % (3.3-12.3); Neutrophils % 64.9 % (41.7-73.7); Platelets 283 thou/uL (152-406); Red Cell Distribution Width 14.2 % (12.1-15.2)
[2024-04-16 13:04] LABS: ALT/SGPT 18 U/L (13-56); Albumin 3.6 g/dL (3.4-5.0); Albumin/Globulin Ratio 1.1 (1.1-1.8); Alkaline Phosphatase 57 U/L (45-117); Anion Gap 6.9 mEq/L (5.0-15.0); BUN Blood Urea Nitrogen 15 mg/dL (7-18); Bicarbonate 30 mEq/L (21-32); Bilirubin Total 0.6 mg/dL (0.2-1.0); Globulin 3.2 g/dL (2.3-3.5); Glomerular Filtration Rate 126 ml/min (=/>90); Glucose Level 76 mg/dL (74-106); Lipase 26 U/L (13-75); Potassium 3.9 mEq/L (3.5-5.1); Protein, Total 6.8 g/dL (6.4-8.2); Sodium Level 141 mEq/L (136-145)
[2024-04-16 13:10] LABS: AST/SGOT < 10 U/L (15-37)
--- NOTE | 2024-04-16 13:41 | ER ---
Nurse's Notes [facility] Name: Pau Werner Age: 19 yrs Sex: Female : 2005 Arrival Date: 04/16/2024 Time: 11:45 Bed 18 Private MD: Diagnosis: Acute suppurative otitis media;Lower abdominal pain, unspecified Presentation: 04/16 11:54 Chief complaint: Patient states: "my right ear hurts and there is pus and blood coming aa5 out of it". Pt also reports abd cramping. Coronavirus screen: At this time, the client does not indicate any symptoms associated with coronavirus-19. Ebola Screen: Patient denies travel to an Ebola-affected area in the 21 days before illness onset. Initial Sepsis Screen: Does the patient meet any 2 criteria? HR > 90 bpm. Does the patient have a suspected source of infection? No. Patient's initial sepsis screen is negative. Risk Assessment: Do you want to hurt yourself or someone else? Patient reports no desire to harm self or others. Onset of symptoms was March 2024. 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 - Infectious Disease History:: Denies. - Social history:: Smoking status: Patient reports the use of cigarette tobacco products. Screenin:41 [facility] ED Fall Risk Assessment (Adult) History of falling in the last 3 months, me1 including since admission No falls in past 3 months (0 pts) Confusion or Disorientation No (0 pts) Intoxicated or Sedated No (0 pts) Impaired Gait No (0 pts) Mobility Assist Device Used No (0 pt) Altered Elimination No (0 pt) Score/Fall Risk Level 0 - 2 = Low Risk Maintained a safe environment, Provided non-skid footwear, Hourly rounding (assess needs \\T\\ fall precautionary measures) done. Abuse screen: Denies threats or abuse. Nutritional screening: No deficits noted. Tuberculosis screening: No symptoms or risk factors identified. Assessment: 12:41 General: Appears in no apparent distress. well groomed, well developed, well nourished, me1 Behavior is calm, cooperative, appropriate for age, Reports "my right ear hurts and there is pus and blood coming out of it". Pt also reports abd cramping. Pain: Complains of pain in right ear, right lower quadrant and left lower quadrant Pain does not radiate. Pain currently is 4 out of 10 on a pain scale. Quality of pain is described as aching, crampy, Pain began about a week ago Is continuous. Neuro: Level of Consciousness is awake, alert, obeys commands, Oriented to person, place, time, situation, Appropriate for age. Cardiovascular: Patient's skin is warm and dry. Respiratory: Airway is patent Respiratory effort is even, unlabored, Respiratory pattern is regular, symmetrical. GI: Abdomen is flat, Bowel sounds present X 4 quads. Abd is soft X 4 quads. : No signs and/or symptoms were reported regarding the genitourinary system. EENT: Reports pain in right ear. Derm: Skin is intact, is healthy with good turgor, Skin is pink, warm \\T\\ dry. Musculoskeletal: No signs and/or symptoms reported regarding the musculoskeletal system. Vital Signs: 11:54 BP 124 / 97; Pulse 111; Resp 20 S; Temp 97.4(TE); Pulse Ox 100% on R/A; Weight 65.77 kg aa5 (R); Height 5 ft. 6 in. (R); Pain 3/10; 13:00 BP 108 / 59; Pulse 79; Resp 16; Pulse Ox 100% ; me1 13:56 Pain 0/10; me1 13:56 BP 98 / 51; Pulse 86; Resp 17; Temp 98.1; Pulse Ox 100% ; me1 11:54 Body Mass Index 23.40 (65.77 kg, 167.64 cm) aa5 11:54 Pain Scale: Adult aa5 13:56 Pain Scale: Adult me1 ED Course: 11:49 Patient arrived in ED. cj3 11:50 Mario Garsia DO is Attending Physician. ms3 11:54 Arm band placed on Patient placed in an exam room, on a stretcher. aa5 11:55 Triage completed. aa5 12:21 Ghada Nicholson, GURPREET is Primary Nurse. me1 12:24 Test, Urine Sent. me1 12:24 Urinalysis w/ reflexes Sent. me1 12:38 CBC with Diff Sent. me1 12:39 CMP Sent. me1 12:39 Lipase Sent. me1 12:39 Initial lab(s) drawn, by me, sent to lab. Urine collected: clean catch specimen, clear. me1 Inserted saline lock: 22 gauge in right antecubital area, using aseptic technique. 12:41 Patient has correct armband on for positive identification. Bed in low position. Call me1 light in reach. Side rails up X 1. Provided Education on: POC. Verbalized understanding.. Client placed on continuous cardiac and pulse oximetry monitoring. NIBP monitoring applied. Pulse ox on. NIBP on. 12:41 No provider procedures requiring assistance completed. me1 13:40 Rell Ortega DO is Referral Physician. ms3 14:10 IV discontinued, intact, bleeding controlled, No redness/swelling at site. Pressure me1 dressing applied. Administered Medications: 12:39 Drug: TORadol - Ketorolac IVP 15 mg IVP once Route: IVP; Site: right antecubital; me1 13:56 Follow up: Pain 0/10 Adult; Response: No adverse reaction; Pain is decreased me1 12:39 Drug: NS 0.9% IV 1000 ml IV at 1 bolus Per protocol; to be given as a bolus over 60 me1 minutes Route: IV; Rate: 1 bolus; Site: right antecubital; 13:53 Follow up: Response: No adverse reaction; IV Status: Completed infusion; IV Intake: me1 1000ml Medication: 12:41 VIS not applicable for this client. me1 Intake: 13:53 IV: 1000ml; Total: 1000ml. me1 Outcome: 13:41 Discharge ordered by . ms3 14:10 Discharged to home ambulatory, with significant other, me1 14:10 Condition: stable 14:10 Discharge instructions given to patient, significant other, Instructed on discharge instructions, follow up and referral plans. medication usage, Demonstrated understanding of instructions, follow-up care, medications, Prescriptions given X 2, 14:11 Patient left the ED. me1 Signatures: Brittanie Huerta, RN RN aa5 Mario Garsia DO DO ms3 Ghada Nicholson RN RN me1 Charlene Dickens cj3 Corrections: (The following items were deleted from the chart) 11:56 11:54 BP 124 / 97; Pulse 111bpm; Resp 20bpm; Spontaneous; Pulse Ox 100% RA; Temp 97.4F aa5 Temporal; Pain 310, Adult; aa5 12:41 11:54 Chief complaint: Patient states: "my right ear hurts and there is pus and blood me1 coming out of it". Pt also reports abd cramping. aa5
--- NOTE | 2024-04-16 13:41 | EDPHYS ---
Physician Documentation [facility] Name: Pau Werner Age: 19 yrs Sex: Female : 2005 Arrival Date: 04/16/2024 Time: 11:45 Bed 18 Private MD: ED Physician Mario Garsia HPI: 04/16 11:59 This 19 yrs old Female presents to ER via Ambulatory with complaints of Abdominal Pain, ms3 Ear Pain. 11:59 19-year-old female with past medical history of ADD/ADHD, affective disorder, anxiety, ms3 bipolar, depression, sinus tachycardia presents to the emergency department for right ear pain with drainage has been ongoing for 5 days. Patient notes she has also had lower abdominal pain today. Patient notes she ended her period 2 days ago and the cramping has continued. Patient denies dysuria, urinary frequency, hematuria. She rates her pain a 3/10.. 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 - Infectious Disease History:: Denies. - Social history:: Smoking status: Patient reports the use of cigarette tobacco products. ROS: 11:59 Constitutional: Negative for fever, and chills. Cardiovascular: Negative for chest ms3 pain, and palpitations. Respiratory: Negative for shortness of breath, cough, wheezing, and pleuritic chest pain, Abdomen/GI: Negative for abdominal pain, nausea, vomiting, diarrhea, and constipation, MS/Extremity: Negative for injury and deformity, Skin: Negative for injury, rash, and discoloration, 11:59 ENT: Positive for ear pain, Exam: 11:59 Constitutional: This is a well developed, well nourished patient who is awake, alert, ms3 and in no acute distress. Chest/axilla: Normal chest wall appearance and motion. Nontender with no deformity. Cardiovascular: Regular rate and rhythm with a normal S1 and S2. No gallops, murmurs, or rubs. Normal PMI, no JVD. No pulse deficits. Respiratory: Lungs have equal breath sounds bilaterally, clear to auscultation and percussion. No rales, rhonchi or wheezes noted. No increased work of breathing, no retractions or nasal flaring. Abdomen/GI: Soft, non-tender, with normal bowel sounds. No distension or tympany. No guarding or rebound. No evidence of tenderness throughout. Skin: Warm, dry with normal turgor. Normal color with no rashes, no lesions, and no evidence of cellulitis. MS/ Extremity: Pulses equal, no cyanosis. Neurovascular intact. Full, normal range of motion. 11:59 ENT: External ear(s): are unremarkable, Ear canal(s): cerumen impaction, occluding the left ear canal, TM's: dullness, on the right, erythema, on the right, Vital Signs: 11:54 BP 124 / 97; Pulse 111; Resp 20 S; Temp 97.4(TE); Pulse Ox 100% on R/A; Weight 65.77 kg aa5 (R); Height 5 ft. 6 in. (R); Pain 3/10; 13:00 BP 108 / 59; Pulse 79; Resp 16; Pulse Ox 100% ; me1 13:56 Pain 0/10; me1 13:56 BP 98 / 51; Pulse 86; Resp 17; Temp 98.1; Pulse Ox 100% ; me1 11:54 Body Mass Index 23.40 (65.77 kg, 167.64 cm) aa5 11:54 Pain Scale: Adult aa5 13:56 Pain Scale: Adult me1 MDM: 11:59 Medical Screening Exam initiated ms3 11:59 Differential diagnosis: otitis media, Urinary tract infection versus . ms3 18:33 Data reviewed: vital signs, nurses notes, lab test result(s), and as a result, I will ms3 discharge patient. I considered the following discharge prescriptions or medication management in the emergency department Medications were administered in the Emergency Department. See MAR. Counseling: I had a detailed discussion with the patient and/or guardian regarding the historical points, exam findings, and any diagnostic results supporting the discharge/admit diagnosis, lab results, the need for outpatient follow up, to return to the emergency department if symptoms worsen or persist or if there are any questions or concerns that arise at home. Special discussion: Based on the patient's Hx, exam, and Dx evaluation, there is no indication for emergent surgery or inpatient Tx. It is understood by the patient/guardian that if the Sx's persist or worsen they need to return immediately for re-evaluation. ED course: Discussed labs with patient. Labs are reassuring. Patient to follow-up with primary care physician in 2 to 3 days. All questions were answered. Return precautions discussed include worsening symptoms, or any other concerns. On reevaluation patient is alert and oriented x 4, no apparent distress, nontoxic-appearing, ambulatory emerged primary, speaking full sentences, abdominal exam benign.. 04/16 11:59 Order name: CBC with Diff; Complete Time: 12:56 ms3 04/16 11:59 Order name: CMP; Complete Time: 13:31 ms3 04/16 11:59 Order name: Lipase; Complete Time: 13:31 ms3 04/16 11:59 Order name: Test, Urine; Complete Time: 12:56 ms3 04/16 11:59 Order name: Urinalysis w/ reflexes; Complete Time: 12:56 ms3 04/16 11:59 Order name: IV Saline Lock; Complete Time: 12:38 ms3 04/16 11:59 Order name: Labs collected and sent; Complete Time: 12:38 ms3 Administered Medications: 12:39 Drug: TORadol - Ketorolac IVP 15 mg IVP once Route: IVP; Site: right antecubital; me1 13:56 Follow up: Pain 0/10 Adult; Response: No adverse reaction; Pain is decreased me1 12:39 Drug: NS 0.9% IV 1000 ml IV at 1 bolus Per protocol; to be given as a bolus over 60 me1 minutes Route: IV; Rate: 1 bolus; Site: right antecubital; 13:53 Follow up: Response: No adverse reaction; IV Status: Completed infusion; IV Intake: me1 1000ml Disposition Summary: 04/16/24 13:41 Discharge Ordered Notes: Location: Home ms3 Condition: Stable ms3 Diagnosis - Acute suppurative otitis media ms3 - Lower abdominal pain, unspecified ms3 Followup: ms3 - With: Rell Ortega, DO - When: 2 - 3 days - Reason: Recheck today's complaints Discharge Instructions: - Discharge Summary Sheet ms3 - Abdominal Pain, Adult ms3 Forms: - Medication Reconciliation Form ms3 - Antibiotic Education ms3 - Prescription Opioid Use ms3 - Patient Portal Instructions ms3 - Leadership Thank You Letter ms3 - Work release form me1 Prescriptions: - Augmentin 875-125 mg Oral Tablet - take 1 tablet ORAL route every 12 hours for 10 days; 20 tablet; Refills: 0, ms3 Product Selection Permitted - Ibuprofen 600 mg Oral Tablet - take 1 tablet ORAL route every 6 hours As needed take with food; 30 tablet; ms3 Refills: 0, Product Selection Permitted Signatures: Dispatcher [employer] EDMS Brittanie Huerta, RN RN aa5 Mario Garsia DO DO ms3 Ghada Nicholson, GURPREET RN me1 Corrections: (The following items were deleted from the chart) 12:00 12:00 CBC+H.LAB.BRZ ordered. EDMS EDMS 12:00 12:00 COMPREHENSIVE METABOLIC PANEL+C.LAB.BRZ ordered. EDMS EDMS 12:00 12:00 LIPASE+C.LAB.BRZ ordered. EDMS EDMS 12:00 12:00 Test, Urine+UC.LAB.BRZ ordered. EDMS EDMS 12:00 12:00 Urinalysis+U.LAB.BRZ ordered. EDMS EDMS
[2024-04-16 14:15] VITALS: O2SAT 100
[2024-04-16 14:19] VITALS: BP 98/51; TEMP 98.1
== END 2024-04-16 14:11 | disposition home or self-care (01) ==
LOC: ER 11:45
DX: H66.001 Acute suppurative otitis media without spontaneous rupture of ear drum, right ear (principal); R10.30 Lower abdominal pain, unspecified; Z72.0 Tobacco use
CPT/HCPCS: 96361; 85025; 81001; 36415; 81025; 83690; 80053; 96374; 99284; J7030

== ENCOUNTER 2024-10-07 20:30 | Emergency (ER) | payer OTHER, SELFPAY ==
--- OUTSIDE RECORDS SUMMARY | 2024-10-07 20:38 | XMS REPORT | Continuity of Care Document ---
Author Name Unknown Address [address] [facility] [address] [place] [address] [facility] Address [address] [facility] [address] [place] [address] Care Team Providers Care Propagator Name Role Phone Pcp, Patient Does Not Have A Primary Care Physic ryan ADA SLADE Attending Clinician UnavailAda Bourgeois CNM Attending Clinician [phone] Herbert Cedillo Attending Clinician [phone] HERBERT LYN Attending Clinician Unavailable ALIZA CRUZ Attending Clinician Unavailable ALIZA CRUZ Attending Clinician Unavailable Aury Rich PA-C Attending Clinician [phone] ARCHANA MICHAELS Attending Clinician Unavail able Archana Frank Attending Clinician + Ifeoma MCCARTHY Attending Clinician Unavailable Ifeoma Matson Attending Clinician [phone] LORE CASTILLO Attending Clinician Unavailable LORE CASTILLO Attending Clinician Unavailable Doctor Unassigned, [place] Attending Clinician U navailable Aury Rich PA-C Attending Clinician [phone] HEMA GONZALEZ Attending Clinician Unavailable Pgy2 Attending Clinician Unavailable Hema Gonzalez MD Attending Clinician [phone] Nilo Angel MD Attending Clinician [phone] NILO ANGEL Attending Clinician Unavailable AURY RICH Attending Clinician Unavailab PACHECO Álvarez Attending Clinician Unavail able Terry Renee MD Attending Clinician [phone] TERRY RENEE Attending Clinician Unavailable OSCAR CHAVEZ Attending Clinician Archana Díaz Attending Clinician + Joyce Workman Attending Clinician [phone] JOYCE GALLARDO Attending Clinician UnavailRaymond Devi DO Attending Clinician [phone] Hubert Caldwell Attending Clinician + [phone] HUBERT BETANCOURT Attending Clinician Unavail able NILO ANGEL Admitting Clinician Unavailable AURY RICH Admitting Clinician Unavailab le Payers Payer Name Policy Type Policy Number Effective Date Expirati on Date Source Problems Condition Name Condition Details Condition Category Status Onset Date Resolution Date Last Treatment Date Treating Clinician Comments Source related nausea, antepartum related nausea, antepartum Disease Active 10-03 00:00: 00 [facility] Recurrent acute serous otitis media of right ear Recurrent acute serous otitis media of right ear Disease Active 10-03 00:00: 00 [facility] Heart murmur Heart murmur Disease Active 09-02 00:00: 00 [facility] History of asthma History of asthma Disease Active 09-02 00:00: 00 [facility] Asthma Asthma Disease Active 09-02 00:00: 00 [facility] Bipolar disease during Bipolar disease during Disease Active 07-29 00:00: 00 [facility] Anxiety during Anxiety during Disease Active 2016-02 00:00: 00 [facility] Other mixed anxiety disorders Other mixed anxiety disorders Disease Active 2016-02 00:00: 00 [facility] ADHD (attention deficit hyperactiv ity disorder) ADHD (attention deficit hyperactiv ity disorder) Disease Active 2013-0 2-14 00:00: 00 [facility] Well woman exam Well woman exam Disease Resolve d 0 4-16 00:00: 00 2024-10-03 00:00:00 2024-10-03 09:19:02 [facility] Defiant behavior Defiant behavior Disease Resolve d 0 7-13 00:00: 00 2024-10-03 00:00:00 2024-10-03 09:40:34 [facility] Seasonal allergies Seasonal allergies Disease Resolve d 09-02 00:00: 00 2024-10-03 00:00:00 2024-10-03 09:18:59 [facility] Allergic rhinitis Allergic rhinitis Disease Resolve d 09-02 00:00: 00 2024-10-03 00:00:00 2024-10-03 09:18:53 [facility] Sleep apnea Sleep apnea Disease Resolve d 2024-10-03 00:00:00 2024-10-03 09:39:53 [facility] Nexplanon removal Nexplanon removal Disease Resolve d 1-04 00:00: 00 2024-08-27 00:00:00 2024-08-27 10:22:01 [facility] Weight loss Weight loss Disease Resolve d 4-16 00:00: 00 2024-06-08 00:00:00 2024-06-08 14:56:18 [facility] Boil of buttock Boil of buttock Disease Resolve d 1-19 00:00: 00 2024-06-08 00:00:00 2024-06-08 14:56:22 [facility] Allergies, Adverse Reactions, Alerts Allergy Name Allergy Type Status Severity Reaction(s) Onset Date Inactive Date Treating Clinician Comments Source NO KNOWN ALLERGIE S Drug Class Active [facility] Social History Social Habit Start Date Stop Date Quantity Comments Source ASSERTION 2024-09-11 00:00:00 [facility] History of tobacco use Cigarette Smoker [facility] History of Social function 2024-10-03 00:00:00 2024-10-03 00:00:00 [facility] Tobacco use and exposure 2024-10-03 00:00:00 2024-10-03 00:00:00 Former smokeless tobacco user [facility] Alcoholic beverage intake 2024-10-03 00:00:00 2024-10-03 00:00:00 Ex-drinker (finding) [facility] Tobacco Comment 2024-10-03 00:00:00 2024-10-03 00:00:00 Daily vaping -stopped 3 days ago [facility] Alcohol intake 2022-11-22 00:00:00 2022-11-22 00:00:00 Current non-drinker of alcohol (finding) [facility] Exposure to SARS-CoV-2 (event) 2022-04-26 00:00:00 2022-05-06 13:52:00 Not sure [facility] Sex assigned at 2003 00:00:00 2005 00:00:00 [facility] Smoking Status Start Date Stop Date Source Ex-smoker 2024-10-03 00:00:00 2024-10-03 [facility]:00[facility]00 [facility] Never smoked tobacco [facility] Medications Ordered Medication Name Filled Medication Name Start Date Stop Date Current Medication? Ordering Clinician Indication Dosage Frequency Signature (SIG) Comments Components Source cephALEXin 500 mg capsule 10-03 00:00: 00 10-14 04:59 :00 Yes [id number] 500mg Take 1 capsule by mouth 4 times daily for [address] [facility] norethindro ne 0.35 mg tablet 18 00:00: 00 08-27 00:00 :00 No [id number] 1{tbl} Take 1 tablet by mouth in the morning. [facility] NaCl 0.9% (NS) bolus infusion 1,000 mL 08-13 07:30: 00 08-13 07:58 :00 No 1000mL at 999 mL/hr, 1,000 mL, IV Infusion, ONCE, 1 dose, On 08/14/23 at 0230, STAT [facility] dicyclomine (BENTYL) tablet 20 mg 08-13 07:30: 00 08-13 06:46 :00 No 20mg 20 mg, Oral, ONCE, 1 dose, On 08/14/23 at 0230, Routine [facility] dicyclomine 20 mg tablet 08-13 00:00: 00 06-06 00:00 :00 No [id number] 20mg Take 1 tablet by mouth 4 (four) times daily. [facility] CETIRIZINE 10 mg tablet 10-25 00:00: 00 06-06 00:00 :00 No [id number] 10mg TAKE ONE (1) TABLET BY MOUTH AT BEDTIME. [facility] mometasone 50 mcg/actuati on nasal spray 03-30 00:00: 00 06-06 00:00 :00 No 1{spray } Use 1 Kunkle in each nostril in the morning and 1 [address] in the evening. [facility] cetirizine 10 mg tablet 03-30 00:00: 00 10-25 00:00 :00 No [id number] 10mg Take 1 tablet by mouth at bedtime. [facility] multivit-mi n/ferrous fumarate (MULTI VITAMIN ORAL) 03-15 10:17: 40 06-06 00:00 :00 No Take by mouth. [facility] clindamycin 300 mg capsule 03-15 00:00: 00 03-26 05:59 :00 No [id number] 300mg Take 1 capsule by mouth 4 (four) times daily for [address] [facility] sulfamethox azole-trime thoprim (BACTRIM DS) 800-160 mg per tablet 03-15 00:00: 00 03-26 05:59 :00 No [id number] 1{tbl} Take 1 tablet by mouth in the morning and 1 tablet in the evening. Do all this for [address] [facility] benzoyl peroxide 5 % gel 1-10 00:00: 00 03-30 00:00 :00 No [id number] Apply to area(s) daily. [facility] clindamycin 1 % gel 1-10 00:00: 00 03-30 00:00 :00 No [id number] Apply to area(s) daily. [facility] amoxicillin -clavulanat e (AUGMENTIN) 875-125 mg per tablet 1-06 00:00: 00 03-09 05:59 :00 No [id number] 1{tbl} Take 1 tablet by mouth in the morning and 1 tablet in the evening. Do all this for [address] [facility] clindamycin -benzoyl peroxide (BENZACLIN) gel - 00:00: 00 03-02 00:00 :00 No [id number] Apply to area(s) at bedtime. [facility] polymyxin B sulf-trimet hoprim 10,000 unit- 1 mg/mL ophthalmic drops 1-04 00:00: 00 03-30 00:00 :00 No INSTILL ONE (1) DROP IN AFFECTED EYE EVERY SIX HOURS FOR [address] [facility] busPIRone 5 mg tablet 1-03 00:00: 00 03-30 00:00 :[address] [facility] CETIRIZINE 10 mg tablet 2-14 00:00: 00 03-30 00:00 :00 No [id number] TAKE ONE (1) TABLET(S) BY MOUTH ONCE A DAY AT BEDTIME. [facility] Nitrofurant oin&Nit. Macrocryst (MACROBID) 100 mg capsule 1-19 00:00: 00 03-15 00:00 :00 No [id number] 100mg Take 1 capsule by mouth 2 (two) times daily. [facility] multivit-mi n/ferrous fumarate (MULTI VITAMIN ORAL) 2020-02 2- 15:38: 09 Yes Take by mouth. [facility] LATUDA 60 mg Tab 2020-02 0-27 00:00: 00 06-06 00:00 :00 No 1{tbl} Take 1 tablet by mouth daily. [facility] cetirizine 10 mg tablet 09-29 00:00: 00 Yes [id number] 10mg Take 1 tablet by mouth at bedtime. [facility] mometasone 50 mcg/actuati on nasal spray 09-29 00:00: 00 03-30 00:00 :00 No [id number] 1{spray } Use 1 Kunkle in each nostril 2 (two) times daily. [facility] Immunizations Ordered Immunization Name Filled Immunization Name Date Status Comments Source Influenza Virus Vaccine Quad .5 mL IM 6+ MO (FLUZONE/FLULAVAL/FLU ARIX) 2023-08-14 00:43:00 Completed [facility] Meningococcal Polysaccharide (groups A, C, Y and W-135) conjugate vaccine (MCV4P) 2023-08-14 00:43:00 Completed [facility] Meningococcal B, OMV 2023-08-14 00:43:00 Completed [facility] Influenza Virus Vaccine 2023-08-14 00:43:00 Completed [facility] DTaP, Unspecified Formulation 2023-08-14 00:43:00 Completed [facility] Pediarix (dtap/hep B/ipv) 2023-08-14 00:43:00 Completed [facility] Flu Trivalent 2023-08-14 00:43:00 Completed [facility] Influenza Virus Vaccine - Whole 2023-08-14 00:43:00 Completed [facility] HEPATITIS A 2023-08-14 00:43:00 Completed [facility] Hep B, Adol or Pedi Dosage 2023-08-14 00:43:00 Completed [facility] HIB 4 Dose Schedule 2023-08-14 00:43:00 Completed [facility] HPV9 2023-08-14 00:43:00 Completed [facility] MMR 2023-08-14 00:43:00 Completed [facility] Pneumococcal 7 Conjugate, PCV7 (Prevnar7) 2023-08-14 00:43:00 Completed [facility] IPV 2023-08-14 00:43:00 Completed [facility] TDAP 2023-08-14 00:43:00 Completed [facility] Varicella (varivax)(chicken pox) 2023-08-14 00:43:00 Completed [facility] Influenza Virus Vaccine Quad .5 mL IM 6+ MO (FLUZONE/FLULAVAL/FLU ARIX) 2022-11-22 15:30:00 Completed [facility] Meningococcal Polysaccharide (groups A, C, Y and W-135) conjugate vaccine (MCV4P) 2022-11-22 15:30:00 Completed [facility] Meningococcal B, OMV 2022-11-22 15:30:00 Completed [facility] Influenza Virus Vaccine 2022-11-22 15:30:00 Completed [facility] DTaP, Unspecified Formulation 2022-11-22 15:30:00 Completed [facility] Pediarix (dtap/hep B/ipv) 2022-11-22 15:30:00 Completed [facility] Flu Trivalent 2022-11-22 15:30:00 Completed [facility] Influenza Virus Vaccine - Whole 2022-11-22 15:30:00 Completed [facility] HEPATITIS A 2022-11-22 15:30:00 Completed [facility] Hep B, Adol or Pedi Dosage 2022-11-22 15:30:00 Completed [facility] HIB 4 Dose Schedule 2022-11-22 15:30:00 Completed [facility] HPV9 2022-11-22 15:30:00 Completed [facility] MMR 2022-11-22 15:30:00 Completed [facility] Pneumococcal 7 Conjugate, PCV7 (Prevnar7) 2022-11-22 15:30:00 Completed [facility] IPV 2022-11-22 15:30:00 Completed [facility] TDAP 2022-11-22 15:30:00 Completed [facility] Varicella (varivax)(chicken pox) 2022-11-22 15:30:00 Completed [facility] Influenza Virus Vaccine Quad .5 mL IM 6+ MO (FLUZONE/FLULAVAL/FLU ARIX) 2022-11-22 00:00:00 Completed [facility] Meningococcal Polysaccharide (groups A, C, Y and W-135) conjugate vaccine (MCV4P) 2022-11-22 00:00:00 Completed [facility] Meningococcal B, OMV 2022-11-22 00:00:00 Completed [facility] Influenza Virus Vaccine 2022-11-22 00:00:00 Completed [facility] DTaP, Unspecified Formulation 2022-11-22 00:00:00 Completed [facility] Pediarix (dtap/hep B/ipv) 2022-11-22 00:00:00 Completed [facility] Flu Trivalent 2022-11-22 00:00:00 Completed [facility] Influenza Virus Vaccine - Whole 2022-11-22 00:00:00 Completed [facility] HEPATITIS A 2022-11-22 00:00:00 Completed [facility] Hep B, Adol or Pedi Dosage 2022-11-22 00:00:00 Completed [facility] HIB 4 Dose Schedule 2022-11-22 00:00:00 Completed [facility] HPV9 2022-11-22 00:00:00 Completed [facility] MMR 2022-11-22 00:00:00 Completed [facility] Pneumococcal 7 Conjugate, PCV7 (Prevnar7) 2022-11-22 00:00:00 Completed [facility] IPV 2022-11-22 00:00:00 Completed [facility] TDAP 2022-11-22 00:00:00 Completed [facility] Varicella (varivax)(chicken pox) 2022-11-22 00:00:00 Completed [facility] Influenza Virus Vaccine Quad .5 mL IM 6+ MO 2020-01-30 00:00:00 Completed [facility] Meningococcal Polysaccharide (groups A, C, Y and W-135) conjugate vaccine (MCV4P) 2020-01-30 00:00:00 Completed [facility] Meningococcal B, OMV 2020-01-30 00:00:00 Completed [facility] Influenza Virus Vaccine Quad .5 mL IM 6+ MO 2020-01-30 00:00:00 Completed [facility] Meningococcal Polysaccharide (groups A, C, Y and W-135) conjugate vaccine (MCV4P) 2020-01-30 00:00:00 Completed [facility] Meningococcal B, OMV 2020-01-30 00:00:00 Completed [facility] Influenza Virus Vaccine Quad .5 mL IM 6+ MO 2020-01-30 00:00:00 Completed [facility] Meningococcal Polysaccharide (groups A, C, Y and W-135) conjugate vaccine (MCV4P) 2020-01-30 00:00:00 Completed [facility] Meningococcal B, OMV 2020-01-30 00:00:00 Completed [facility] Influenza Virus Vaccine Quad .5 mL IM 6+ MO 2020-01-30 00:00:00 Completed [facility] Meningococcal Polysaccharide (groups A, C, Y and W-135) conjugate vaccine (MCV4P) 2020-01-30 00:00:00 Completed [facility] Meningococcal B, OMV 2020-01-30 00:00:00 Completed [facility] Influenza Virus Vaccine Quad .5 mL IM 6+ MO 2020-01-30 00:00:00 Completed [facility] Meningococcal Polysaccharide (groups A, C, Y and W-135) conjugate vaccine (MCV4P) 2020-01-30 00:00:00 Completed [facility] Meningococcal B, OMV 2020-01-30 00:00:00 Completed [facility] Influenza Virus Vaccine Quad .5 mL IM 6+ MO 2020-01-30 00:00:00 Completed [facility] Meningococcal Polysaccharide (groups A, C, Y and W-135) conjugate vaccine (MCV4P) 2020-01-30 00:00:00 Completed [facility] Meningococcal B, OMV 2020-01-30 00:00:00 Completed [facility] Influenza Virus Vaccine Quad .5 mL IM 6+ MO 2020-01-30 00:00:00 Completed [facility] Meningococcal Polysaccharide (groups A, C, Y and W-135) conjugate vaccine (MCV4P) 2020-01-30 00:00:00 Completed [facility] Meningococcal B, OMV 2020-01-30 00:00:00 Completed [facility] Influenza Virus Vaccine Quad .5 mL IM 6+ MO 2020-01-30 00:00:00 Completed [facility] Meningococcal Polysaccharide (groups A, C, Y and W-135) conjugate vaccine (MCV4P) 2020-01-30 00:00:00 Completed [facility] Meningococcal B, OMV 2020-01-30 00:00:00 Completed [facility] Influenza Virus Vaccine Quad .5 mL IM 6+ MO (FLUZONE/FLULAVAL/FLU ARIX) 2020-01-30 00:00:00 Completed [facility] Meningococcal Polysaccharide (groups A, C, Y and W-135) conjugate vaccine (MCV4P) 2020-01-30 00:00:00 Completed [facility] Meningococcal B, OMV 2020-01-30 00:00:00 Completed [facility] Influenza Virus Vaccine Quad .5 mL IM 6+ MO 2020-01-30 00:00:00 Completed [facility] Meningococcal Polysaccharide (groups A, C, Y and W-135) conjugate vaccine (MCV4P) 2020-01-30 00:00:00 Completed [facility] Meningococcal B, OMV 2020-01-30 00:00:00 Completed [facility] Influenza Virus Vaccine Quad .5 mL IM 6+ MO 2020-01-30 00:00:00 Completed [facility] Meningococcal Polysaccharide (groups A, C, Y and W-135) conjugate vaccine (MCV4P) 2020-01-30 00:00:00 Completed [facility] Meningococcal B, OMV 2020-01-30 00:00:00 Completed [facility] Influenza Virus Vaccine Quad .5 mL IM 6+ MO 2020-01-30 00:00:00 Completed [facility] Meningococcal Polysaccharide (groups A, C, Y and W-135) conjugate vaccine (MCV4P) 2020-01-30 00:00:00 Completed [facility] Meningococcal B, OMV 2020-01-30 00:00:00 Completed [facility] Influenza Virus Vaccine Quad .5 mL IM 6+ MO 2020-01-30 00:00:00 Completed [facility] Meningococcal Polysaccharide (groups A, C, Y and W-135) conjugate vaccine (MCV4P) 2020-01-30 00:00:00 Completed [facility] Meningococcal B, OMV 2020-01-30 00:00:00 Completed [facility] Influenza Virus Vaccine Quad .5 mL IM 6+ MO 2020-01-30 00:00:00 Completed [facility] Meningococcal Polysaccharide (groups A, C, Y and W-135) conjugate vaccine (MCV4P) 2020-01-30 00:00:00 Completed [facility] Meningococcal B, OMV 2020-01-30 00:00:00 Completed [facility] Influenza Virus Vaccine Quad .5 mL IM 6+ MO 2020-01-30 00:00:00 Completed [facility] Meningococcal Polysaccharide (groups A, C, Y and W-135) conjugate vaccine (MCV4P) 2020-01-30 00:00:00 Completed [facility] Meningococcal B, OMV 2020-01-30 00:00:00 Completed [facility] Influenza Virus Vaccine Quad .5 mL IM 6+ MO 2020-01-30 00:00:00 Completed [facility] Meningococcal Polysaccharide (groups A, C, Y and W-135) conjugate vaccine (MCV4P) 2020-01-30 00:00:00 Completed [facility] Meningococcal B, OMV 2020-01-30 00:00:00 Completed [facility] Influenza Virus Vaccine Quad IM 3+ YRS 2018-12-21 00:00:00 Completed [facility] Influenza Virus Vaccine 2018-12-21 00:00:00 Completed [facility] Influenza Virus Vaccine Quad IM 3+ YRS 2018-12-21 00:00:00 Completed [facility] Influenza Virus Vaccine 2018-12-21 00:00:00 Completed [facility] Influenza Virus Vaccine Quad IM 3+ YRS 2018-12-21 00:00:00 Completed [facility] Influenza Virus Vaccine 2018-12-21 00:00:00 Completed [facility] Influenza Virus Vaccine Quad IM 3+ YRS 2018-12-21 00:00:00 Completed [facility] Influenza Virus Vaccine 2018-12-21 00:00:00 Completed [facility] Influenza Virus Vaccine Quad IM 3+ YRS 2018-12-21 00:00:00 Completed [facility] Influenza Virus Vaccine 2018-12-21 00:00:00 Completed [facility] Influenza Virus Vaccine Quad IM 3+ YRS 2018-12-21 00:00:00 Completed [facility] Influenza Virus Vaccine 2018-12-21 00:00:00 Completed [facility] Influenza Virus Vaccine Quad IM 3+ YRS 2018-12-21 00:00:00 Completed [facility] Influenza Virus Vaccine 2018-12-21 00:00:00 Completed [facility] Influenza Virus Vaccine Quad IM 3+ YRS 2018-12-21 00:00:00 Completed [facility] Influenza Virus Vaccine 2018-12-21 00:00:00 Completed [facility] Influenza Virus Vaccine Quad IM 3+ YRS 2018-12-21 00:00:00 Completed [facility] Influenza Virus Vaccine 2018-12-21 00:00:00 Completed [facility] Influenza Virus Vaccine Quad IM 3+ YRS 2018-12-21 00:00:00 Completed Influenza Virus Vaccine Quad IM 3+ YRS 2018-12-21 00:00:00 Completed [facility] Influenza Virus Vaccine 2018-12-21 00:00:00 Completed [facility] Influenza Virus Vaccine Quad IM 3+ YRS 2018-12-21 00:00:00 Completed [facility] Influenza Virus Vaccine 2018-12-21 00:00:00 Completed [facility] Influenza Virus Vaccine Quad IM 3+ YRS 2018-12-21 00:00:00 Completed [facility] Influenza Virus Vaccine 2018-12-21 00:00:00 Completed [facility] Influenza Virus Vaccine Quad IM 3+ YRS 2018-12-21 00:00:00 Completed [facility] Influenza Virus Vaccine 2018-12-21 00:00:00 Completed [facility] Influenza Virus Vaccine Quad IM 3+ YRS 2018-12-21 00:00:00 Completed [facility] Influenza Virus Vaccine 2018-12-21 00:00:00 Completed [facility] Influenza Virus Vaccine Quad IM 3+ YRS 2018-12-21 00:00:00 Completed [facility] Influenza Virus Vaccine 2018-12-21 00:00:00 Completed [facility] Influenza Virus Vaccine Quad IM 3+ YRS 2018-12-21 00:00:00 Completed [facility] Influenza Virus Vaccine 2018-12-21 00:00:00 Completed [facility] Influenza Virus Vaccine Quad IM 3+ YRS 2017-12-13 00:00:00 Completed [facility] Influenza Virus Vaccine 2017-12-13 00:00:00 Completed [facility] Influenza Virus Vaccine Quad IM 3+ YRS 2017-12-13 00:00:00 Completed [facility] Influenza Virus Vaccine 2017-12-13 00:00:00 Completed [facility] Influenza Virus Vaccine Quad IM 3+ YRS 2017-12-13 00:00:00 Completed [facility] Influenza Virus Vaccine 2017-12-13 00:00:00 Completed [facility] Influenza Virus Vaccine Quad IM 3+ YRS 2017-12-13 00:00:00 Completed [facility] Influenza Virus Vaccine 2017-12-13 00:00:00 Completed [facility] Influenza Virus Vaccine Quad IM 3+ YRS 2017-12-13 00:00:00 Completed [facility] Influenza Virus Vaccine 2017-12-13 00:00:00 Completed [facility] Influenza Virus Vaccine Quad IM 3+ YRS 2017-12-13 00:00:00 Completed [facility] Influenza Virus Vaccine 2017-12-13 00:00:00 Completed [facility] Influenza Virus Vaccine Quad IM 3+ YRS 2017-12-13 00:00:00 Completed [facility] Influenza Virus Vaccine 2017-12-13 00:00:00 Completed [facility] Influenza Virus Vaccine Quad IM 3+ YRS 2017-12-13 00:00:00 Completed [facility] Influenza Virus Vaccine 2017-12-13 00:00:00 Completed [facility] Influenza Virus Vaccine Quad IM 3+ YRS 2017-12-13 00:00:00 Completed [facility] Influenza Virus Vaccine 2017-12-13 00:00:00 Completed [facility] Influenza Virus Vaccine Quad IM 3+ YRS 2017-12-13 00:00:00 Completed Influenza Virus Vaccine 2017-12-13 00:00:00 Completed Influenza Virus Vaccine Quad IM 3+ YRS 2017-12-13 00:00:00 Completed [facility] Influenza Virus Vaccine 2017-12-13 00:00:00 Completed [facility] Influenza Virus Vaccine Quad IM 3+ YRS 2017-12-13 00:00:00 Completed [facility] Influenza Virus Vaccine 2017-12-13 00:00:00 Completed [facility] Influenza Virus Vaccine Quad IM 3+ YRS 2017-12-13 00:00:00 Completed [facility] Influenza Virus Vaccine 2017-12-13 00:00:00 Completed [facility] Influenza Virus Vaccine Quad IM 3+ YRS 2017-12-13 00:00:00 Completed [facility] Influenza Virus Vaccine 2017-12-13 00:00:00 Completed [facility] Influenza Virus Vaccine Quad IM 3+ YRS 2017-12-13 00:00:00 Completed [facility] Influenza Virus Vaccine 2017-12-13 00:00:00 Completed [facility] Influenza Virus Vaccine Quad IM 3+ YRS 2017-12-13 00:00:00 Completed [facility] Influenza Virus Vaccine 2017-12-13 00:00:00 Completed [facility] Influenza Virus Vaccine Quad IM 3+ YRS 2017-12-13 00:00:00 Completed [facility] Influenza Virus Vaccine 2017-12-13 00:00:00 Completed [facility] Influenza Virus Vaccine Quad IM 3+ YRS 2016-11-11 00:00:00 Completed [facility] Influenza Virus Vaccine Quad IM 3+ YRS 2016-11-11 00:00:00 Completed [facility] Influenza Virus Vaccine Quad IM 3+ YRS 2016-11-11 00:00:00 Completed [facility] Influenza Virus Vaccine Quad IM 3+ YRS 2016-11-11 00:00:00 Completed [facility] Influenza Virus Vaccine Quad IM 3+ YRS 2016-11-11 00:00:00 Completed [facility] Influenza Virus Vaccine Quad IM 3+ YRS 2016-11-11 00:00:00 Completed [facility] Influenza Virus Vaccine Quad IM 3+ YRS 2016-11-11 00:00:00 Completed [facility] Influenza Virus Vaccine Quad IM 3+ YRS 2016-11-11 00:00:00 Completed [facility] Influenza Virus Vaccine Quad IM 3+ YRS 2016-11-11 00:00:00 Completed [facility] Influenza Virus Vaccine Quad IM 3+ YRS 2016-11-11 00:00:00 Completed Influenza Virus Vaccine Quad IM 3+ YRS 2016-11-11 00:00:00 Completed [facility] Influenza Virus Vaccine Quad IM 3+ YRS 2016-11-11 00:00:00 Completed [facility] Influenza Virus Vaccine Quad IM 3+ YRS 2016-11-11 00:00:00 Completed [facility] Influenza Virus Vaccine Quad IM 3+ YRS 2016-11-11 00:00:00 Completed [facility] Influenza Virus Vaccine Quad IM 3+ YRS 2016-11-11 00:00:00 Completed [facility] Influenza Virus Vaccine Quad IM 3+ YRS 2016-11-11 00:00:00 Completed [facility] Influenza Virus Vaccine Quad IM 3+ YRS 2016-11-11 00:00:00 Completed [facility] HPV9 2016-02-25 00:00:00 Completed [facility] HPV9 2016-02-25 00:00:00 Completed [facility] HPV9 2016-02-25 00:00:00 Completed [facility] HPV9 2016-02-25 00:00:00 Completed [facility] HPV9 2016-02-25 00:00:00 Completed [facility] HPV9 2016-02-25 00:00:00 Completed [facility] HPV9 2016-02-25 00:00:00 Completed [facility] HPV9 2016-02-25 00:00:00 Completed HPV9 2015-09-17 00:00:00 Completed [facility] HPV9 2015-09-17 00:00:00 Completed [facility] HPV9 2015-09-17 00:00:00 Completed [facility] HPV9 2015-09-17 00:00:00 Completed [facility] HPV9 2015-09-17 00:00:00 Completed [facility] HPV9 2015-09-17 00:00:00 Completed [facility] HPV9 2015-09-17 00:00:00 Completed [facility] HPV9 2015-09-17 00:00:00 Completed HPV9 2015-07-07 00:00:00 Completed [facility] Meningococcal Polysaccharide (groups A, C, Y and W-135) conjugate vaccine (MCV4P) 2015-07-07 00:00:00 Completed [facility] TDAP 2015-07-07 00:00:00 Completed [facility] HPV9 2015-07-07 00:00:00 Completed [facility] Meningococcal Polysaccharide (groups A, C, Y and W-135) conjugate vaccine (MCV4P) 2015-07-07 00:00:00 Completed [facility] TDAP 2015-07-07 00:00:00 Completed [facility] HPV9 2015-07-07 00:00:00 Completed [facility] Meningococcal Polysaccharide (groups A, C, Y and W-135) conjugate vaccine (MCV4P) 2015-07-07 00:00:00 Completed [facility] TDAP 2015-07-07 00:00:00 Completed [facility] HPV9 2015-07-07 00:00:00 Completed [facility] Meningococcal Polysaccharide (groups A, C, Y and W-135) conjugate vaccine (MCV4P) 2015-07-07 00:00:00 Completed [facility] TDAP 2015-07-07 00:00:00 Completed [facility] HPV9 2015-07-07 00:00:00 Completed [facility] Meningococcal Polysaccharide (groups A, C, Y and W-135) conjugate vaccine (MCV4P) 2015-07-07 00:00:00 Completed [facility] TDAP 2015-07-07 00:00:00 Completed [facility] HPV9 2015-07-07 00:00:00 Completed [facility] Meningococcal Polysaccharide (groups A, C, Y and W-135) conjugate vaccine (MCV4P) 2015-07-07 00:00:00 Completed [facility] TDAP 2015-07-07 00:00:00 Completed [facility] HPV9 2015-07-07 00:00:00 Completed [facility] Meningococcal Polysaccharide (groups A, C, Y and W-135) conjugate vaccine (MCV4P) 2015-07-07 00:00:00 Completed [facility] TDAP 2015-07-07 00:00:00 Completed [facility] Meningococcal Polysaccharide (groups A, C, Y and W-135) conjugate vaccine (MCV4P) 2015-07-07 00:00:00 Completed Influenza Virus Vaccine - Whole 2010-11-23 00:00:00 Completed [facility] Influenza Virus Vaccine - Whole 2010-11-23 00:00:00 Completed [facility] Influenza Virus Vaccine - Whole 2010-11-23 00:00:00 Completed [facility] Influenza Virus Vaccine - Whole 2010-11-23 00:00:00 Completed [facility] Influenza Virus Vaccine - Whole 2010-11-23 00:00:00 Completed [facility] Influenza Virus Vaccine - Whole 2010-11-23 00:00:00 Completed [facility] Influenza Virus Vaccine - Whole 2010-11-23 00:00:00 Completed [facility] DTaP, Unspecified Formulation 2007-10-12 00:00:00 Completed [facility] MMR 2007-10-12 00:00:00 Completed [facility] IPV 2007-10-12 00:00:00 Completed [facility] Varicella (varivax)(chicken pox) 2007-10-12 00:00:00 Completed [facility] DTaP, Unspecified Formulation 2007-10-12 00:00:00 Completed [facility] MMR 2007-10-12 00:00:00 Completed [facility] IPV 2007-10-12 00:00:00 Completed [facility] Varicella (varivax)(chicken pox) 2007-10-12 00:00:00 Completed [facility] DTaP, Unspecified Formulation 2007-10-12 00:00:00 Completed [facility] MMR 2007-10-12 00:00:00 Completed [facility] IPV 2007-10-12 00:00:00 Completed [facility] Varicella (varivax)(chicken pox) 2007-10-12 00:00:00 Completed [facility] DTaP, Unspecified Formulation 2007-10-12 00:00:00 Completed [facility] MMR 2007-10-12 00:00:00 Completed [facility] IPV 2007-10-12 00:00:00 Completed [facility] Varicella (varivax)(chicken pox) 2007-10-12 00:00:00 Completed [facility] DTaP, Unspecified Formulation 2007-10-12 00:00:00 Completed [facility] MMR 2007-10-12 00:00:00 Completed [facility] IPV 2007-10-12 00:00:00 Completed [facility] Varicella (varivax)(chicken pox) 2007-10-12 00:00:00 Completed [facility] DTaP, Unspecified Formulation 2007-10-12 00:00:00 Completed [facility] MMR 2007-10-12 00:00:00 Completed [facility] IPV 2007-10-12 00:00:00 Completed [facility] Varicella (varivax)(chicken pox) 2007-10-12 00:00:00 Completed [facility] DTaP, Unspecified Formulation 2007-10-12 00:00:00 Completed [facility] MMR 2007-10-12 00:00:00 Completed [facility] IPV 2007-10-12 00:00:00 Completed [facility] Varicella (varivax)(chicken pox) 2007-10-12 00:00:00 Completed [facility] DTaP, Unspecified Formulation 2007-10-12 00:00:00 Completed MMR 2007-10-12 00:00:00 Completed Varicella (varivax)(chicken pox) 2007-10-12 00:00:00 Completed HEPATITIS A 2006-01-25 00:00:00 Completed [facility] HEPATITIS A 2006-01-25 00:00:00 Completed [facility] HEPATITIS A 2006-01-25 00:00:00 Completed [facility] HEPATITIS A 2006-01-25 00:00:00 Completed [facility] HEPATITIS A 2006-01-25 00:00:00 Completed [facility] HEPATITIS A 2006-01-25 00:00:00 Completed [facility] HEPATITIS A 2006-01-25 00:00:00 Completed [facility] HEPATITIS A 2006-01-25 00:00:00 Completed HEPATITIS A 2005-05-04 00:00:00 Completed [facility] HEPATITIS A 2005-05-04 00:00:00 Completed [facility] HEPATITIS A 2005-05-04 00:00:00 Completed [facility] HEPATITIS A 2005-05-04 00:00:00 Completed [facility] HEPATITIS A 2005-05-04 00:00:00 Completed [facility] HEPATITIS A 2005-05-04 00:00:00 Completed [facility] HEPATITIS A 2005-05-04 00:00:00 Completed [facility] DTaP, Unspecified Formulation 2004-09-22 00:00:00 Completed [facility] DTaP, Unspecified Formulation 2004-09-22 00:00:00 Completed [facility] DTaP, Unspecified Formulation 2004-09-22 00:00:00 Completed [facility] DTaP, Unspecified Formulation 2004-09-22 00:00:00 Completed [facility] DTaP, Unspecified Formulation 2004-09-22 00:00:00 Completed [facility] DTaP, Unspecified Formulation 2004-09-22 00:00:00 Completed [facility] DTaP, Unspecified Formulation 2004-09-22 00:00:00 Completed [facility] DTaP, Unspecified Formulation 2004-09-22 00:00:00 Completed [facility] HIB 4 Dose Schedule 2004-04-29 00:00:00 Completed [facility] MMR 2004-04-29 00:00:00 Completed [facility] Pneumococcal 7 Conjugate, PCV7 (Prevnar7) 2004-04-29 00:00:00 Completed [facility] Varicella (varivax)(chicken pox) 2004-04-29 00:00:00 Completed [facility] HIB 4 Dose Schedule 2004-04-29 00:00:00 Completed [facility] MMR 2004-04-29 00:00:00 Completed [facility] Pneumococcal 7 Conjugate, PCV7 (Prevnar7) 2004-04-29 00:00:00 Completed [facility] Varicella (varivax)(chicken pox) 2004-04-29 00:00:00 Completed [facility] HIB 4 Dose Schedule 2004-04-29 00:00:00 Completed [facility] MMR 2004-04-29 00:00:00 Completed [facility] Pneumococcal 7 Conjugate, PCV7 (Prevnar7) 2004-04-29 00:00:00 Completed [facility] Varicella (varivax)(chicken pox) 2004-04-29 00:00:00 Completed [facility] HIB 4 Dose Schedule 2004-04-29 00:00:00 Completed [facility] MMR 2004-04-29 00:00:00 Completed [facility] Pneumococcal 7 Conjugate, PCV7 (Prevnar7) 2004-04-29 00:00:00 Completed [facility] Varicella (varivax)(chicken pox) 2004-04-29 00:00:00 Completed [facility] HIB 4 Dose Schedule 2004-04-29 00:00:00 Completed [facility] MMR 2004-04-29 00:00:00 Completed [facility] Pneumococcal 7 Conjugate, PCV7 (Prevnar7) 2004-04-29 00:00:00 Completed [facility] Varicella (varivax)(chicken pox) 2004-04-29 00:00:00 Completed [facility] HIB 4 Dose Schedule 2004-04-29 00:00:00 Completed [facility] MMR 2004-04-29 00:00:00 Completed [facility] Pneumococcal 7 Conjugate, PCV7 (Prevnar7) 2004-04-29 00:00:00 Completed [facility] Varicella (varivax)(chicken pox) 2004-04-29 00:00:00 Completed [facility] HIB 4 Dose Schedule 2004-04-29 00:00:00 Completed [facility] MMR 2004-04-29 00:00:00 Completed [facility] Pneumococcal 7 Conjugate, PCV7 (Prevnar7) 2004-04-29 00:00:00 Completed [facility] Varicella (varivax)(chicken pox) 2004-04-29 00:00:00 Completed [facility] Pneumococcal 7 Conjugate, PCV7 (Prevnar7) 2004-04-29 00:00:00 Completed Pediarix (dtap/hep B/ipv) 2004-02-05 00:00:00 Completed [facility] Flu Trivalent 2004-02-05 00:00:00 Completed [facility] HIB 4 Dose Schedule 2004-02-05 00:00:00 Completed [facility] Pneumococcal 7 Conjugate, PCV7 (Prevnar7) 2004-02-05 00:00:00 Completed [facility] Pediarix (dtap/hep B/ipv) 2004-02-05 00:00:00 Completed [facility] Flu Trivalent 2004-02-05 00:00:00 Completed [facility] HIB 4 Dose Schedule 2004-02-05 00:00:00 Completed [facility] Pneumococcal 7 Conjugate, PCV7 (Prevnar7) 2004-02-05 00:00:00 Completed [facility] Pediarix (dtap/hep B/ipv) 2004-02-05 00:00:00 Completed [facility] Flu Trivalent 2004-02-05 00:00:00 Completed [facility] HIB 4 Dose Schedule 2004-02-05 00:00:00 Completed [facility] Pneumococcal 7 Conjugate, PCV7 (Prevnar7) 2004-02-05 00:00:00 Completed [facility] Pediarix (dtap/hep B/ipv) 2004-02-05 00:00:00 Completed [facility] Flu Trivalent 2004-02-05 00:00:00 Completed [facility] HIB 4 Dose Schedule 2004-02-05 00:00:00 Completed [facility] Pneumococcal 7 Conjugate, PCV7 (Prevnar7) 2004-02-05 00:00:00 Completed [facility] Pediarix (dtap/hep B/ipv) 2004-02-05 00:00:00 Completed [facility] Flu Trivalent 2004-02-05 00:00:00 Completed [facility] HIB 4 Dose Schedule 2004-02-05 00:00:00 Completed [facility] Pneumococcal 7 Conjugate, PCV7 (Prevnar7) 2004-02-05 00:00:00 Completed [facility] Pediarix (dtap/hep B/ipv) 2004-02-05 00:00:00 Completed [facility] Flu Trivalent 2004-02-05 00:00:00 Completed [facility] HIB 4 Dose Schedule 2004-02-05 00:00:00 Completed [facility] Pneumococcal 7 Conjugate, PCV7 (Prevnar7) 2004-02-05 00:00:00 Completed [facility] Pediarix (dtap/hep B/ipv) 2004-02-05 00:00:00 Completed [facility] Flu Trivalent 2004-02-05 00:00:00 Completed [facility] HIB 4 Dose Schedule 2004-02-05 00:00:00 Completed [facility] Pneumococcal 7 Conjugate, PCV7 (Prevnar7) 2004-02-05 00:00:00 Completed [facility] Influenza, split virus, trivalent, PF (AFLURIA/FLUARIX/FLUL AVAL/FLUZONE) 2004-02-05 00:00:00 Completed HIB 4 Dose Schedule 2004-02-05 00:00:00 Completed Pneumococcal 7 Conjugate, PCV7 (Prevnar7) 2004-02-05 00:00:00 Completed Pediarix (dtap/hep B/ipv) 2003 00:00:00 Completed [facility] HIB 4 Dose Schedule 2003 00:00:00 Completed [facility] Pneumococcal 7 Conjugate, PCV7 (Prevnar7) 2003 00:00:00 Completed [facility] Pediarix (dtap/hep B/ipv) 2003 00:00:00 Completed [facility] HIB 4 Dose Schedule 2003 00:00:00 Completed [facility] Pneumococcal 7 Conjugate, PCV7 (Prevnar7) 2003 00:00:00 Completed [facility] Pediarix (dtap/hep B/ipv) 2003 00:00:00 Completed [facility] HIB 4 Dose Schedule 2003 00:00:00 Completed [facility] Pneumococcal 7 Conjugate, PCV7 (Prevnar7) 2003 00:00:00 Completed [facility] Pediarix (dtap/hep B/ipv) 2003 00:00:00 Completed [facility] HIB 4 Dose Schedule 2003 00:00:00 Completed [facility] Pneumococcal 7 Conjugate, PCV7 (Prevnar7) 2003 00:00:00 Completed [facility] Pediarix (dtap/hep B/ipv) 2003 00:00:00 Completed [facility] HIB 4 Dose Schedule 2003 00:00:00 Completed [facility] Pneumococcal 7 Conjugate, PCV7 (Prevnar7) 2003 00:00:00 Completed [facility] Pediarix (dtap/hep B/ipv) 2003 00:00:00 Completed [facility] HIB 4 Dose Schedule 2003 00:00:00 Completed [facility] Pneumococcal 7 Conjugate, PCV7 (Prevnar7) 2003 00:00:00 Completed [facility] Pediarix (dtap/hep B/ipv) 2003 00:00:00 Completed [facility] HIB 4 Dose Schedule 2003 00:00:00 Completed [facility] Pneumococcal 7 Conjugate, PCV7 (Prevnar7) 2003 00:00:00 Completed [facility] Pediarix (dtap/hep B/ipv) 2003 00:00:00 Completed HIB 4 Dose Schedule 2003 00:00:00 Completed DTaP, Unspecified Formulation 2003 00:00:00 Completed [facility] Hep B, Adol or Pedi Dosage 2003 00:00:00 Completed [facility] HIB 4 Dose Schedule 2003 00:00:00 Completed [facility] Pneumococcal 7 Conjugate, PCV7 (Prevnar7) 2003 00:00:00 Completed [facility] IPV 2003 00:00:00 Completed [facility] DTaP, Unspecified Formulation 2003 00:00:00 Completed [facility] Hep B, Adol or Pedi Dosage 2003 00:00:00 Completed [facility] HIB 4 Dose Schedule 2003 00:00:00 Completed [facility] Pneumococcal 7 Conjugate, PCV7 (Prevnar7) 2003 00:00:00 Completed [facility] IPV 2003 00:00:00 Completed [facility] DTaP, Unspecified Formulation 2003 00:00:00 Completed [facility] Hep B, Adol or Pedi Dosage 2003 00:00:00 Completed [facility] HIB 4 Dose Schedule 2003 00:00:00 Completed [facility] Pneumococcal 7 Conjugate, PCV7 (Prevnar7) 2003 00:00:00 Completed [facility] IPV 2003 00:00:00 Completed [facility] DTaP, Unspecified Formulation 2003 00:00:00 Completed [facility] Hep B, Adol or Pedi Dosage 2003 00:00:00 Completed [facility] HIB 4 Dose Schedule 2003 00:00:00 Completed [facility] Pneumococcal 7 Conjugate, PCV7 (Prevnar7) 2003 00:00:00 Completed [facility] IPV 2003 00:00:00 Completed [facility] DTaP, Unspecified Formulation 2003 00:00:00 Completed [facility] Hep B, Adol or Pedi Dosage 2003 00:00:00 Completed [facility] HIB 4 Dose Schedule 2003 00:00:00 Completed [facility] Pneumococcal 7 Conjugate, PCV7 (Prevnar7) 2003 00:00:00 Completed [facility] IPV 2003 00:00:00 Completed [facility] DTaP, Unspecified Formulation 2003 00:00:00 Completed [facility] Hep B, Adol or Pedi Dosage 2003 00:00:00 Completed [facility] HIB 4 Dose Schedule 2003 00:00:00 Completed [facility] Pneumococcal 7 Conjugate, PCV7 (Prevnar7) 2003 00:00:00 Completed [facility] IPV 2003 00:00:00 Completed [facility] DTaP, Unspecified Formulation 2003 00:00:00 Completed [facility] Hep B, Adol or Pedi Dosage 2003 00:00:00 Completed [facility] HIB 4 Dose Schedule 2003 00:00:00 Completed [facility] Pneumococcal 7 Conjugate, PCV7 (Prevnar7) 2003 00:00:00 Completed [facility] IPV 2003 00:00:00 Completed [facility] DTaP, Unspecified Formulation 2003 00:00:00 Completed Hep B, Adol or Pedi Dosage 2003 00:00:00 Completed HIB 4 Dose Schedule 2003 00:00:00 Completed Pneumococcal 7 Conjugate, PCV7 (Prevnar7) 2003 00:00:00 Completed IPV 2003 00:00:00 Completed Hep B, Adol or Pedi Dosage 2003 00:00:00 Completed [facility] Hep B, Adol or Pedi Dosage 2003 00:00:00 Completed [facility] Hep B, Adol or Pedi Dosage 2003 00:00:00 Completed [facility] Hep B, Adol or Pedi Dosage 2003 00:00:00 Completed [facility] Hep B, Adol or Pedi Dosage 2003 00:00:00 Completed [facility] Hep B, Adol or Pedi Dosage 2003 00:00:00 Completed [facility] Hep B, Adol or Pedi Dosage 2003 00:00:00 Completed [facility] Vital Signs Vital Name Observation Time Observation Value Comments S ource Systolic blood pressure 2024-10-03 14:14:00 112 mm[Hg] [facility] Diastolic blood pressure 2024-10-03 14:14:00 62 mm[Hg] [facility] Heart rate 2024-10-03 14:14:00 90 /min [facility] Body temperature 2024-10-03 14:14:00 36.56 April [facility] Respiratory rate 2024-10-03 14:14:00 17 /min [facility] Body height 2024-10-03 14:14:00 166.5 cm [facility] Body weight 2024-10-03 14:14:00 68.663 kg [facility] BMI 2024-10-03 14:14:00 24.77 kg/m2 [facility] Systolic blood pressure 2024-08-27 14:57:00 108 mm[Hg] [facility] Diastolic blood pressure 2024-08-27 14:57:00 68 mm[Hg] [facility] Heart rate 2024-08-27 14:57:00 94 /min [facility] Body temperature 2024-08-27 14:57:00 36.67 April [facility] Respiratory rate 2024-08-27 14:57:00 18 /min [facility] Body weight 2024-08-27 14:57:00 68.729 kg [facility] BMI 2024-08-27 14:57:00 25.21 kg/m2 [facility] Systolic blood pressure 2024-06-08 18:25:00 123 mm[Hg] [facility] Diastolic blood pressure 2024-06-08 18:25:00 85 mm[Hg] [facility] Heart rate 2024-06-08 18:25:00 105 /min [facility] Body temperature 2024-06-08 18:25:00 36.5 April [facility] Respiratory rate 2024-06-08 18:25:00 18 /min [facility] Body height 2024-06-08 18:25:00 165.1 cm [facility] Body weight 2024-06-08 18:25:00 67.132 kg [facility] BMI 2024-06-08 18:25:00 24.63 kg/m2 [facility] Systolic blood pressure 2024-06-06 17:45:00 126 mm[Hg] [facility] Diastolic blood pressure 2024-06-06 17:45:00 68 mm[Hg] [facility] Heart rate 2024-06-06 17:45:00 97 /min [facility] Body temperature 2024-06-06 17:45:00 36.17 April [facility] Respiratory rate 2024-06-06 17:45:00 18 /min [facility] Body height 2024-06-06 17:45:00 165.1 cm [facility] Body weight 2024-06-06 17:45:00 66.316 kg [facility] BMI 2024-06-06 17:45:00 24.33 kg/m2 [facility] Systolic blood pressure 2023-08-14 08:00:00 108 mm[Hg] [facility] Diastolic blood pressure 2023-08-14 08:00:00 61 mm[Hg] [facility] Heart rate 2023-08-14 08:00:00 58 /min [facility] Body temperature 2023-08-14 08:00:00 36.67 April [facility] Respiratory rate 2023-08-14 08:00:00 18 /min [facility] Oxygen saturation in Arterial blood by Pulse oximetry 2023-08-14 08:00:00 98 /min [facility] Body height 2023-08-14 05:41:00 165.1 cm [facility] Body weight 2023-08-14 05:41:00 73.936 kg [facility] BMI 2023-08-14 05:41:00 27.12 kg/m2 [facility] Systolic blood pressure 2022-11-22 20:57:00 118 mm[Hg] [facility] Diastolic blood pressure 2022-11-22 20:57:00 75 mm[Hg] [facility] Heart rate 2022-11-22 20:57:00 87 /min [facility] Body temperature 2022-11-22 20:57:00 36.78 April [facility] Respiratory rate 2022-11-22 20:57:00 18 /min [facility] Body height 2022-11-22 20:57:00 165.1 cm [facility] Body weight 2022-11-22 20:57:00 84.006 kg [facility] BMI 2022-11-22 20:57:00 30.82 kg/m2 [facility] Systolic blood pressure 2022-09-17 14:42:00 109 mm[Hg] [facility] Diastolic blood pressure 2022-09-17 14:42:00 73 mm[Hg] [facility] Heart rate 2022-09-17 14:42:00 83 /min [facility] Body temperature 2022-09-17 14:42:00 35.89 April [facility] Respiratory rate 2022-09-17 14:42:00 16 /min [facility] Body height 2022-09-17 14:42:00 167.6 cm [facility] Body weight 2022-09-17 14:42:00 85.821 kg [facility] BMI 2022-09-17 14:42:00 30.54 kg/m2 [facility] Systolic blood pressure 2022-05-06 19:10:00 119 mm[Hg] [facility] Diastolic blood pressure 2022-05-06 19:10:00 72 mm[Hg] [facility] Heart rate 2022-05-06 19:10:00 89 /min [facility] Body height 2022-05-06 19:10:00 167.6 cm [facility] Body weight 2022-05-06 19:10:00 84.324 kg [facility] BMI 2022-05-06 19:10:00 30.01 kg/m2 [facility] Oxygen saturation in Arterial blood by Pulse oximetry 2022-05-06 19:10:00 98 /min [facility] Systolic blood pressure 2022-03-30 20:15:00 121 mm[Hg] [facility] Diastolic blood pressure 2022-03-30 20:15:00 81 mm[Hg] [facility] Heart rate 2022-03-30 20:15:00 93 [facility] Body temperature 2022-03-30 20:15:00 37 April [facility] Respiratory rate 2022-03-30 20:15:00 16 /min [facility] Body weight 2022-03-30 20:15:00 82.237 kg [facility] Systolic blood pressure 2022-03-15 16:16:00 113 mm[Hg] [facility] Diastolic blood pressure 2022-03-15 16:16:00 72 mm[Hg] [facility] Heart rate 2022-03-15 16:16:00 111 /min [facility] Body temperature 2022-03-15 16:16:00 36.22 April [facility] Respiratory rate 2022-03-15 16:16:00 16 /min [facility] Body weight 2022-03-15 16:16:00 83.28 kg [facility] Systolic blood pressure 2022-02-26 19:22:00 111 mm[Hg] [facility] Diastolic blood pressure 2022-02-26 19:22:00 72 mm[Hg] [facility] Heart rate 2022-02-26 19:22:00 96 /min [facility] Body temperature 2022-02-26 19:22:00 36.56 April [facility] Body height 2022-02-26 19:22:00 170.2 cm [facility] Body weight 2022-02-26 19:22:00 83.462 kg [facility] BMI 2022-02-26 19:22:00 28.82 kg/m2 [facility] Body mass index (BMI) [Percentile] Per age and sex 2022-02-26 19:22:00 92.24 % [facility] Oxygen saturation in Arterial blood by Pulse oximetry 2022-02-26 19:22:00 98 /min [facility] Procedures Procedure Date / Time Performed Performing Clinician Source CBC WITH DIFF 2024-10-03 15:20:00 Ada Slade [facility] RUBELLA SCREEN IGG 2024-10-03 15:20:00 Tiffany Slade [facility] VZV ANTIBODY SCREEN 2024-10-03 15:20:00 Oanh Slade [facility] HEPATITIS B SURFACE ANTIGEN 2024-10-03 15:20:00 Ada Slade [facility] HCV ANTIBODY 2024-10-03 15:20:00 [facility] ABO GROUPING 2024-10-03 15:20:00 Ada Slade [facility] URINE CULTURE 2024-10-03 15:20:00 Ada Slade [facility] GC & CHLAMYDIA AMPLIFIED ASSAY 2024-10-03 15:20:00 Ada Slade [facility] HIV 1/2 AG-AB WITH REFLEX 2024-10-03 15:20:00 Ada Slade [facility] SYPHILIS IGG/IGM 2024-10-03 15:20:00 Ada Slade [facility] POCT URINALYSIS W/O SPECIFIC GRAVITY 2024-10-03 14:13:00 Ada Slade [facility] POCT TEST 2024-10-03 14:04:00 Oanh Slade [facility] FREE T4 2024-08-27 15:39[facility] 2024-08-27 15:39:00 [facility] CBC WITH DIFF 2024-08-27 15:39:00 [facility] POCT TEST 2024-08-27 14:59:00 [facility] POCT TEST 2023-08-14 06:11:00 Ifeoma Mccarthy [facility] LIPASE 2023-08-14 06:08:00 Ifeoma Mccarthy [facility] MAGNESIUM 2023-08-14 06:08:00 [facility] COMP. METABOLIC PANEL ([id number]) 2023-08-14 06:08:00 Ifeoma Mccarthy [facility] CBC WITH DIFF 2023-08-14 06:08:00 Ifeoma Mccarthy [facility] URINALYSIS 2023-08-14 06:08:00 Ifeoma Mccarthy [facility] PATIENT QUESTIONNAIRE 2022-11-22 05:01:00 Doctor Unassigned, [place] [facility] POCT URINALYSIS W/O SPECIFIC GRAVITY 2022-11-22 00:00:00 Lore Castillo [facility] GC & CHLAMYDIA AMPLIFIED ASSAY 2022-09-17 15:16:00 Lisa Jean [facility] GALV ONLY - VAGINAL PATHOGENS BY NUCLEIC ACID TESTING 2022-09-17 15:16:00 Lisa Jean [facility] POCT TEST 2022-09-17 15:01:00 Lisa Jean [facility] URINALYSIS 2022-09-17 15:01:00 Mesfin Jean [facility] URINE CULTURE 2022-09-17 15:01:00 Mesfin Jean [facility] CONSENT/REFUSAL FOR DIAGNOSIS AND TREATMENT 2022-05-12 15:55:21 Doctor Unassigned, [place] [facility] ASSIGNMENT OF BENEFITS 2022-05-12 15:55:04 Docbernard r Unassigned, [place] [facility] PATIENT FINANCIAL POLICY 2022-05-06 18:53:51 Doctor Unassigned, [place] [facility] US HEAD NECK 2022-03-16 17:37:22 Aury Rich Un [facility] POCT MOLECULAR STREP 2022-03-15 16:53:00 Aury Rich [facility] ASSIGNMENT OF BENEFITS 2022-02-26 19:15:42 Fredy macias Unassigned, [place] [facility] Encounters Start Date/Time End Date/Time Encounter Type Admission Type Attending [facility] Facility Care Department Encounter ID Source 2024-10-03 00:00:00 2024-10-03 10:25:07 Letter (Out) Ada Slade [facility] 1..[id number] [facility] 2024-10-03 09:15:00 2024-10-03 10:23:15 Initial Visit Ada Rutledge [facility] [employer] 1..[id number] [facility] 2024-10-03 08:45:00 2024-10-03 09:01:21 Outpatient R [facility] SL[facility] [id number] [facility] 2024-08-27 00:00:00 2024-09-29 18:25:21 Patient Secure Herbert Stevens [facility] 1..840.114 350.1.13.10 4.2.7.2.[id number] [facility] 2024-08-27 10:15:00 2024-08-27 10:40:52 Office Visit R HERBERT LYN [facility] 1..840.114 350.1.13.10 4.2.7.2.[id number] [facility] 2024-07-06 10:30:00 2024-07-06 10:30:00 Outpatient R ALIZA CRUZ VIVIAN [facility] [id number] [facility] 2022-11-28 00:00:00 2024-06-14 21:17:52 Aury Boyd [facility] 1.840.114 350.1.13.10 4.2.7.2.[id number] [facility] 2024-06-08 13:45:00 2024-06-08 14:03:50 Outpatient R HERBERT LYN [facility] [id number] [facility] 2024-06-08 13:45:00 2024-06-08 14:03:50 Office Visit Herbert Lyn [facility] 1..840.114 350.1.13.10 4.2.7.2.[id number] [facility] 2024-06-06 12:30:00 2024-06-06 13:55:25 Outpatient R ARCHANA MICHAELS [facility] [id number] [facility] 2024-06-06 12:30:00 2024-06-06 13:00:00 Office Visit Archana Michaels [facility] 1..840.114 350.1.13.10 4.2.7.2.[id number] [facility] 2024-02-24 00:00:2024-02-24 08:12:29 Telephone Archana Michaels [facility] 1.2840.114 350.1.13.10 4.2.7.2.[id number] [facility] 2023-08-14 00:43:00 2023-08-14 03:21:00 Emergency X FABIO Ifeoma [facility] ERT [id number] [facility] 2023-08-14 00:43:00 2023-08-14 03:21:00 Emergency Ifeoma Mccarthy Teresa [facility] 1.2840.114 350.1.13.10 4.2.7.2.[id number] [facility] 2022-12-31 14:42:00 2022-12-31 14:42:00 Outpatient [facility] [id number] Greyson Maloney 2022-11-22 15:30:00 2022-11-22 16:19:28 Outpatient LORE JORDAN ELISHA [facility] [id number] [facility] 2022-11-22 15:30:00 2022-11-22 16:19:28 Office Visit Lore Castillo [facility] 1.2840.114 350.1.13.10 4.2.7.2.[id number] [facility] 2022-11-22 00:00:00 2022-11-22 00:00:00 Orders Only Doctor Unassigned, [place] [facility] 1.840.114 350.1.13.10 4.2.7.2.[id number] [facility] 2022-11-08 15:30:00 2022-11-08 15:30:00 Outpatient LORE JORDAN ELISHA [facility] [id number] [facility] 2022-10-25 00:00:00 2022-10-25 00:00:00 Aury Boyd [facility] 1.84.114 350.1.13.10 4.2.7.2.[id number] [facility] 2022-10-19 14:13:42 2022-10-19 14:13:42 Outpatient [facility] 828 Greyson Maloney 2022-10-13 09:23:21 2022-10-13 09:23:21 Outpatient [facility] 822 Greyson Maloney 2022-09-21 14:01:31 2022-09-21 14:01:31 Outpatient [facility] [id number] Greyson Maloney 2022-09-17 09:30:00 2022-09-17 10:23:34 [facility] [id number] [facility] 2022-09-17 09:30:00 2022-09-17 10:23:34 Office Visit Pgy2 JessicaJohnathan contreraskhan [facility] 1.840.114 350.1.13.10 4.2.7.2.[id number] [facility] 2022-08-26 13:10:30 2022-08-26 13:10:30 Outpatient [facility] [id number] Greyson Maloney 2022-05-25 00:00:00 2022-05-25 00:00:00 Telephone Nilo Angel [facility] 1.2.840.114 350.1.13.10 4.2.7.2.[id number] [facility] 2022-05-12 10:56:07 2022-05-12 23:59:00 Outpatient R NILO ANGEL [facility] [id number] [facility] 2022-05-12 10:56:07 2022-05-12 23:59:00 Hospital Encounter Nilo Angel [facility] 1.2840.114 350.1.13.10 4.2.7.2.[id number] [facility] 2022-05-06 14:00:00 2022-05-06 14:15:00 Office Visit Nadiya Nilo [facility] 1.2840.114 350.1.13.10 4.2.7.2.[id number] [facility] 2022-05-06 14:00:00 2022-05-06 14:00:00 Outpatient R NILO ANGEL [facility] [id number] [facility] 2022-05-06 00:00:00 2022-05-06 00:00:00 Orders Only Doctor Unassigned, [place] [facility] 1.2840.114 350.1.13.10 4.2.7.2.[id number] [facility] 2022-03-30 14:30:00 2022-03-30 15:01:59 Outpatient R AURY RICH [facility] [id number] [facility] 2022-03-30 14:30:00 2022-03-30 15:01:59 Office Visit Aury Rich [facility] 1.2840.114 350.1.13.10 4.2.7.2.[id number] [facility] 2022-03-29 09:45:00 2022-03-29 09:45:00 Outpatient R PACHECO BALL [facility] [id number] [facility] 2022 00:00:00 2022 00:00:00 Telephone Aury Rich [facility] 1.20.114 350.1.13.10 4.2.7.2.[id number] [facility] 2022-03-16 10:57:16 2022-03-16 23:59:00 Outpatient R AURY RICH [facility] [id number] [facility] 2022-03-16 10:57:16 2022-03-16 23:59:00 Hospital Encounter WilliamCorral , Aury Mendoza [facility] 1.2.840.114 350.1.13.10 4.2.7.2.[id number] [facility] 2022-03-15 10:30:00 2022-03-15 11:27:38 Outpatient R RICHARRAMOSCORRAL AURY [facility] [id number] [facility] 2022-03-15 10:30:00 2022-03-15 11:27:38 Office Visit Aury Rich [facility] 1.2.840.114 350.1.13.10 4.2.7.2.[id number] [facility] 2022-03-01 00:00:00 2022-03-01 00:00:00 Telephone Terry Renee [facility] 1.2.840.114 350.1.13.10 4.2.7.2.[id number] [facility] 2022-02-26 13:20:00 2022-02-26 13:59:40 Outpatient R VÍCTOR, TERRY [facility] [id number] [facility] 2022-02-26 13:20:00 2022-02-26 13:59:40 Office Visit Terry Renee [facility] 1.2.840.114 350.1.13.10 4.2.7.2.[id number] [facility] 2022-02-26 00:00:00 2022-02-26 00:00:00 Orders Only Doctor Unassigned, [place] [facility] 1.2.840.114 350.1.13.10 4.2.7.2.[id number] [facility] 2022-02-22 09:00:00 2022-02-22 09:00:00 Outpatient R OSCAR CURRY [facility] [id number] [facility] 2021-10-13 00:00:00 2021-10-13 00:00:00 Aury Boyd [facility] 1.2.840.114 350.1.13.10 4.2.7.2.[id number] [facility] 2021-04-06 00:00:00 2021-04-06 00:00:00 Aury Boyd [facility] 1.2.840.114 350.1.13.10 4.2.7.2.[id number] [facility] 2021-03-16 00:00:00 2021-03-16 00:00:00 Telephone Archana Michaels [facility] 1.2.840.114 350.1.13.10 4.2.7.2.[id number] [facility] 2021-03-11 13:00:00 2021-03-11 13:34:00 Office Visit Archana Michaels [facility] 1.2.840.114 350.1.13.10 4.2.7.2.[id number] [facility] 2021-03-11 13:00:00 2021-03-11 13:34:00 Outpatient R ARCHANA MICHAELS [facility] [id number] [facility] 2021-03-11 13:00:00 2021-03-11 13:00:00 Outpatient R ARCHANA MICHAELS [facility] [id number] [facility] 2021-03-11 13:00:00 2021-03-11 13:00:00 Outpatient R ARCHANA MICHAELS [facility] [id number] [facility] 2021-02-24 13:30:00 2021-02-24 14:32:53 Outpatient R ARCHANA MICHAELS [facility] [id number] [facility] 2021-02-24 13:30:00 2021-02-24 14:32:53 Office Visit GauarvkerrimoreJahArchana C [facility] 1.2.840.114 350.1.13.10 4.2.7.2.[id number] [facility] 2021-02-24 13:30:00 2021-02-24 13:30:00 Outpatient R ARCHANA MICHAELS [facility] [id number] [facility] 2021-02-24 00:00:00 2021-02-24 00:00:00 Orders Only Doctor Unassigned, [place] [facility] 1.840.114 350.1.13.10 4.2.7.2.[id number] [facility] 2021-02-10 15:15:00 2021-02-10 15:57:55 Office Visit Joyce Gallardo [facility] 1..840.114 350.1.13.10 4.2.7.2.[id number] [facility] 2021-02-10 15:15:00 2021-02-10 15:57:55 Outpatient R JOYCE GALLARDO [facility] [id number] [facility] 2021-02-10 15:15:00 2021-02-10 15:15:00 Outpatient R JOYCE GALLARDO [facility] [id number] [facility] 2021-02-10 15:15:00 2021-02-10 15:15:00 Outpatient R JOYCE GALLARDO [facility] [id number] [facility] 2020-12-24 08:15:00 2020-12-24 08:58:54 Office Visit oJyce Gallardo [facility] 1.2840.114 350.1.13.10 4.2.7.2.[id number] [facility] 2020-12-24 08:00:00 2020-12-24 08:58:54 Outpatient JOYCE CURTIS [facility] [id number] [facility] 2020-12-24 08:00:00 2020-12-24 08:00:00 Outpatient JOYCE CURTIS [facility] [id number] [facility] 2020-12-24 00:00:00 2020-12-24 00:00:00 Orders Only Doctor Unassigned, [place] [facility] 1.840.114 350.1.13.10 4.2.7.2.[id number] [facility] 2020-11-24 00:00:00 2020-11-24 00:00:00 RefAury Orona [facility] 1.840.114 350.1.13.10 4.2.7.2.[id number] [facility] 2020-11-04 00:00:00 2020-11-04 00:00:00 Telephone Aury Rich [facility] 1.840.114 350.1.13.10 4.2.7.2.[id number] [facility] 2020-10-21 00:00:00 2020-10-21 00:00:00 Telephone Aury Rich [facility] 1.2840.114 350.1.13.10 4.2.7.2.[id number] [facility] 2020-10-15 00:00:00 2020-10-15 00:00:00 Refill Aury Rich [facility] 1.2.840.114 350.1.13.10 4.2.7.2.[id number] [facility] 2020-10-03 00:00:00 2020-10-03 00:00:00 Telephone Aury Rich [facility] 1.2.840.114 350.1.13.10 4.2.7.2.[id number] [facility] 2020-09-29 15:30:00 2020-09-29 15:30:00 Outpatient R AURY RICH [facility] [id number] [facility] 2020-09-29 15:05:29 2020-09-29 15:19:40 Office Visit Aury Rich [facility] 1.2.840.114 350.1.13.10 4.2.7.2.[id number] [facility] 2020-06-24 09:42:32 2020-06-24 10:34:40 Office Visit Aury Rich [facility] 1.2.840.114 350.1.13.10 4.2.7.2.[id number] [facility] 2020-06-24 09:50:00 2020-06-24 09:50:00 Outpatient R AURY RICH [facility] [id number] [facility] 2020-06-24 00:00:00 2020-06-24 00:00:00 Letter (Out) Aury Rich [facility] 1.2.840.114 350.1.13.10 4.2.7.2.[id number] [facility] 2020-05-13 00:00:00 2020-05-13 00:00:00 Patient Outreach Raymond Nick [facility] 1.20.114 350.1.13.10 4.2.7.2.[id number] [facility] 2020-02-26 08:12:57 2020-02-26 08:56:52 Office Visit Terry Renee [facility] 1.20.114 350.1.13.10 4.2.7.2.[id number] [facility] 2020-02-26 08:20:00 2020-02-26 08:20:00 Outpatient R TERRY RENEE [facility] [id number] [facility] 2020-01-30 15:32:25 2020-01-30 16:13:42 Office Visit Betancourt [facility] 1.2.114 350.1.13.10 4.2.7.2.[id number] [facility] 2020-01-30 15:40:00 2020-01-30 15:40:00 Outpatient R BETANCOURT [facility] [id number] [facility] 2020-01-30 00:00:00 2020-01-30 00:00:00 Orders Only Doctor Unassigned, [place] [facility] 1.0.114 350.1.13.10 4.2.7.2.[id number] [facility] 2019-07-21 00:00:00 2019-07-21 00:00:00 Orders Only Doctor Unassigned, [place] [facility] 1.2840.114 350.1.13.10 4.2.7.2.[id number] [facility] 2019-07-19 00:00:00 2019-07-19 00:00:00 Telephone Terry Renee [facility] 1.20.114 350.1.13.10 4.2.7.2.[id number] [facility] 2019-05-24 00:00:00 2019-05-24 00:00:00 Refconrado Renee [facility] 1.2.840.114 350.1.13.10 4.2.7.2.[id number] [facility] 2019-04-13 00:00:00 2019-04-13 00:00:00 [facility] 1.2.840.114 350.1.13.10 4.2.7.2.[id number] [facility] 2019-03-13 00:00:00 2019-03-13 00:00[facility] 1.2.840.114 350.1.13.10 4.2.7.2.[id number] [facility] 2018-11-08 00:00:00 2018-11-08 00:00:00 Telephone Aury Rich [facility] 1.2.840.114 350.1.13.10 4.2.7.2.[id number] [facility] Results Test Description Test Time Test Comments Results Result Co mments Source [facility] CenterRUBELLA SCREEN (TIFFANY) [id number] 17:04:16 * Test Item Value Reference Range Interpretation Comme [facility] Rubella screen IgG (test code = 6297454791) Positive Negative CAM (test code = CAM) Positive - Indicat es the patient was exposed to Rubella through infection or vaccination.Negative - Indicates the patient could be susceptible to Rubella infection.Equivocal - A second specimen should be sent. [facility] CenterGALV ONLY - SYPHILIS [id number] 18:07:23* Test Item Value Reference Range Interpretation Comme [facility] Syphilis IgG/IgM (test code = 56467-6) Nonreactive Nonreactive Syphilis Serology Interpretation (test code = 64478-5) No serologic evidence of syphilis. If recent exposure is suspected, retest in 2 to 4 weeks. CAM (test code = CAM) ? [facility] CenterHIV 1/2 AG-AB WITH [id number] 10:09:47* Test Item Value Reference Range Interpretation Comme nts HIV Semi-quantitative (test code = 89365-6) 0.1 Negative CAM (test code = CAM) Non-reactive for HIV-1 antigen and HIV-1/HIV-2 antibodies. ?No laboratory evidence of HIV infection. ?Repeat in 2-4 weeks if acute HIV infection is suspected. [facility] CenterHCV [id number] 09:08:54* Test Item Value Reference Range Interpretation Comme nts HCV Ab (test code = 56400-8) Negative HCV Semi-Quantitative (test code = 05967-7) 0.01 [facility] CenterHEPATITIS B SURFACE [id number] 08:52:07 * Test Item Value Reference Range Interpretation Comme nts HBsAg Semi-Quantitative (mendez t code = 5195-3) 0.12 Negative [facility] CenterCBC WITH [id number] 06:53:58* Test Item Value Reference Range Interpretation Comme nts WBC (test code = 6690-2) 8.23 4.30-11.10 RBC (test code = 789-8) 4.46 3.93-5.25 HGB (test code = 718-7) 13.5 g/dL 11.6-15.0 HCT (test code = 4544-3) 41.2 % 35.7-45.2 MCV (test code = 787-2) 92.4 fL 80.6-95.5 MCH (test code = 785-6) 30.3 pg 25.9-32.8 MCHC (test code = 786-4) 32.8 g/dL 31.6-35.1 RDW-SD (test code = 31522-1) 45 fL 39.0-49.9 RDW-CV (test code = 788-0) 13.2 % 12.0-15.5 PLT (test code = 777-3) 289 166-358 MPV (test code = 47336-7) 11.8 fL 9.5-12.9 NRBC/100 WBC (test code = 5346215514) 0 0.0-10.0 NRBC x10^3 (test code = 0642799155) See_Comment [Automated me ssage] The system which generated this result transmitted reference range: 10*3/?L. The reference range was not used to interpret this result as normal/abnormal. GRAN MAT (NEUT) % (test code = 770-8) 60.6 % IMM GRAN % (test code = 1549849152) 0.2 % LYMPH % (test code = 736-9) 26.4 % MONO % (test code = 5905-5) 8.3 % EOS % (test code = 713-8) 3.8 % BASO % (test code = 706-2) 0.7 % GRAN MAT x10^3(ANC) (test code = 7372872327) 4.99 10*3/uL 1.88-7.09 IMM GRAN x10^3 (test code = 0621915063) 0.00-0.06 LYMPH x10^3 (test code = 731-0) 2.17 10*3/uL 1.32-3.29 MONO x10^3 (test code = 742-7) 0.68 10*3/uL 0.33-0.92 EOS x10^3 (test code = 711-2) 0.31 10*3/uL 0.03-0.39 BASO x10^3 (test code = 704-7) 0.06 10*3/uL 0.01-0.07 [facility] CenterPRENATAL WORKUP, BLOOD [id number] 15:25:00 * Test Item Value Reference Range Interpretation Comme nts ABO & RH (test code = 20) A POSITIVE IAT (test code = 1185) Negative [facility] CenterPOCT Urinalysis w/o Specific [id number] 14:13:00* Test Item Value Reference Range Interpretation Comme nts POCT PH U (test code = 3254) 7 mg/dl 5-8 POCT U LEUK EST (test code = 3263) Trace Negative - Negative POCT U NIT (test code = 3262) Neg Negative - Negati ve POCT U PROT (test code = 3259) Trace Negative - Negat hannah POCT U GLU (test code = 3256) Nml Negative - Negati ve POCT U KETONE (test code = 3258) Neg Negative - Neg ative POCT U BLD (test code = 3257) Neg Negative - Negati ve [facility] CenterPOCT [id number] 14:05:00* Test Item Value Reference Range Interpretation Comme nts POCT PREG (test code = 1605) Positive On board controls acceptable with C Line (test code = 3574) Yes POCT PREG LOT # (test code = 3575) POCT PREG TEST DATE ( test code = 3576) [facility] CenterTHYROID STIMULATING [id number] 04:27:09 * Test Item Value Reference Range Interpretation Comme nts TSH (test code = 3252805768) 1.87 0.45-4.70 Biotin has been reported to cause a negative bias, interpret results relative to patient's use of biotin. Lab Interpretation (test code = 43424-2) Normal [facility] CenterFree [id number] 04:13:28* Test Item Value Reference Range Interpretation Comme nts FREE T4 (test code = 8419349433) 1.12 ng/dL 0.78-2.20 Lab Interpretation (test cod e = 68808-8) Normal [facility] CenterCB WITH [id number] 03:35:19* Test Item Value Reference Range Interpretation Comme nts WBC (test code = 6690-2) 9.31 4.30-11.10 RBC (test code = 789-8) 4.41 3.93-5.25 HGB (test code = 718-7) 13.3 g/dL 11.6-15.0 HCT (test code = 4544-3) 40.5 % 35.7-45.2 MCV (test code = 787-2) 91.8 fL 80.6-95.5 MCH (test code = 785-6) 30.2 pg 25.9-32.8 MCHC (test code = 786-4) 32.8 g/dL 31.6-35.1 RDW-SD (test code = 24044-5) 45.1 fL 39.0-49.9 RDW-CV (test code = 788-0) 13.3 % 12.0-15.5 PLT (test code = 777-3) 270 166-358 MPV (test code = 88958-7) 11.3 fL 9.5-12.9 NRBC/100 WBC (test code = 3822054866) 0 0.0-10.0 NRBC x10^3 (test code = 4812078195) See_Comment [Automated messa ge] The system which generated this result transmitted reference range: 10*3/?L. The reference range was not used to interpret this result as normal/abnormal. GRAN MAT (NEUT) % (test code = 770-8) 51.9 % IMM GRAN % (test code = 0910613329) 0.2 % LYMPH % (test code = 736-9) 32.1 % MONO % (test code = 5905-5) 6.9 % EOS % (test code = 713-8) 8.1 % BASO % (test code = 706-2) 0.8 % GRAN MAT x10^3(ANC) (test code = 7777945087) 4.84 10*3/uL 1.88-7.09 IMM GRAN x10^3 (test code = 0788346460) 0.00-0.06 LYMPH x10^3 (test code = 731-0) 2.99 10*3/uL 1.32-3.29 MONO x10^3 (test code = 742-7) 0.64 10*3/uL 0.33-0.92 EOS x10^3 (test code = 711-2) 0.75 10*3/uL 0.03-0.39 H BASO x10^3 (test code = 704-7) 0.07 10*3/uL 0.01-0.07 Lab Interpretation (test code = 21691-9) [facility]28[facility] 14:59:00* Test Item Value Reference Range Interpretation Comme nts POCT PREG (test code = 1605) Negative On board controls acceptable with C Line (test code = 3574) Yes POCT PREG LOT # (test code = 3575) POCT PREG TEST DATE ( test code = 3576) [facility] (07393)2023-08-14 06:44:53* Test Item Value Reference Range Interpretation Comme nts NA (test code = 0353693476) 141 mmol/L 135-145 K (test code = 3407252656) 3.6 mmol/L 3.5-5.0 CL (test code = 9303219065) 106 mmol/L 98-108 CO2 TOTAL (test code = 2543024873) 25 mmol/L 23-31 AGAP (test code = 5267652468) 10 2-16 BUN (test code = 3718390459) 16 mg/dL 7-23 GLUCOSE (test code = 8717517421) 77 mg/dL 70-110 CREATININE (test code = 2160-0) 0.65 mg/dL 0.50-1.04 TOTAL BILI (test code = 2989884543) 0.5 mg/dL 0.1-1.1 CALCIUM (test code = 1448508014) 9.2 mg/dL 8.6-10.6 T PROTEIN (test code = 3821159124) 7.1 g/dL 6.3-8.2 ALBUMIN (test code = 0847114049) 4.1 g/dL 3.5-5.0 ALK PHOS (test code = 4725449622) 62 U/L 34-122 ALTv (test code = 1742-6) 14 U/L 5-35 AST(SGOT) (test code = 7009434500) 54 U/L 13-40 H eGFR (test code = 13198-2) 129.4 mL/min/1.73m2 CKD-EPI eGFR (2020). Assuming creatinine has been stable day-to-day for at least three months, the eGFR indicates Category G1 (>= 90 mL/min/1.73 m2) Lab Interpretation (test code = 43562-5) Abnormal [facility]24-[facility] 06:44:53* Test Item Value Reference Range Interpretation Comme nts MAGNESIUM (test code = 0514265313) 2.0 mg/dL 1.7-2.4 Lab Interpretation (test cod e = 90550-2) Normal [facility] 06:44:33* Test Item Value Reference Range Interpretation Comme nts LIPASE (test code = 4301704840) 78 U/L 0-220 Lab Interpretation (test cod e = 86932-2) Normal [facility] with [id number] 06:29:15* Test Item Value Reference Range Interpretation [...] 33.5 g/dL 31.6-35.1 RDW-SD (test code = 52305-7) 44.4 fL 39.0-49.9 RDW-CV (test code = 788-0) 13.2 % 12.0-15.5 PLT (test code = 777-3) 283 166-358 MPV (test code = 53704-7) 11.2 fL 9.5-12.9 NRBC/100 WBC (test code = 2403856316) 0.0 0.0-10.0 NRBC x10^3 (test code = 6130286157) See_Comment [Automated messa ge] The system which generated this result transmitted reference range: 10*3/?L. The reference range was not used to interpret this result as normal/abnormal. GRAN MAT (NEUT) % (test code = 770-8) 47.7 % IMM GRAN % (test code = 0428167737) 0.20 % LYMPH % (test code = 736-9) 39.3 % MONO % (test code = 5905-5) 8.3 % EOS % (test code = 713-8) 3.8 % BASO % (test code = 706-2) 0.7 % GRAN MAT x10^3(ANC) (test code = 2038025522) 4.33 10*3/uL 1.88-7.09 IMM GRAN x10^3 (test code = 7834528073) 0.00-0.06 LYMPH x10^3 (test code = 731-0) 3.56 10*3/uL 1.32-3.29 H MONO x10^3 (test code = 742-7) 0.75 10*3/uL 0.33-0.92 EOS x10^3 (test code = 711-2) 0.34 10*3/uL 0.03-0.39 BASO x10^3 (test code = 704-7) 0.06 10*3/uL 0.01-0.07 Lab Interpretation (test code = 46093-6) Abnormal [facility] [id number] 06:11:00* Test Item Value Reference Range Interpretation Comme nts POCT PREG (test code = 1605) Negative On board controls acceptable with C Line (test code = 3574) Yes POCT PREG LOT # (test code = 3575) [id number] POCT PREG TEST DATE ( test code = 3576) 2024-06-24 Lab Interpretation (test cod e = 93504-7) Normal [facility] Center[facility]IT[facility]IN [id number] 06:11:55* Test Item Value Reference Range Interpretation Comme [facility] VITAMIN B-12 (test code = 2840) 745 PG/ML 200-950 UNLESS OTHERWISE INDICATED, ALL TESTING PERFORMED AT [facility] [address] [place] [address] COMMUNITY MENTAL HEALTH WORKER: KETTY AKERS M.D. CLIA NUMBER [id number] [facility] [place]. [id number] VITAMIN D, 25 [id number] 05:46:47* Test Item Value Reference Range Interpretation [...] . . . . NG/ML 30-100 LIPID [id number] 05:42:47* Test Item Value Reference Range Interpretation [...] SPECIMENS. FOR MOREINFORMATION, SEE CLIENT ANNOUNCEMENT AT [email or web address]-[email or web address] RISK RATIO LDL/HDL (test code = 2238) 1.97 RATIO <3.22 COMPREHENSIVE METABOLIC [id number] 05:42:47* Test Item Value Reference Range Interpretation Comme nts GLUCOSE (test code = 2217) 82 MG/DL 70-99 BUN (test code = 2208) 13 MG/DL 6-20 CREATININE (test code = 2214) 0.85 MG/DL 0.50-1.10 eGFR (2020 CKD-EPI) (test code = 15554) 101 ML/MIN/1.73 >60 CALC BUN/CREAT (test code [...] CALC A/G RATIO (test code = 223) 2.2 RATIO 1.0-2.6 BILIRUBIN, TOTAL (test code = 2207) 0.6 MG/DL <=1.2 ALKALINE PHOSPHATASE (test code = 2204) 75 U/L 41-120 AST (test code = 2218) 16 U/L 9-40 ALT (test code = 2219) 14 U/L 5-40 CBC W/AUTO DIFF WITH [id number] 04:51:12* Test Item Value Reference Range Interpretation [...] = 1065) 0.0 /100 WBC'S See_Comment [Automated Modacruza ge] The system which generated this result [...] 0.00-0.10 ABS NUCLEATED RBCS (test code = 14581) 0.00 K/UL 0.00-0.11 HEMOGLOBIN [id number] 03:02:32* Test Item Value Reference Range Interpretation Comme nts HEMOGLOBIN A1c (test code = 18624) 5.1 % 4.2-5.6 POCT URINALYSIS W/O SPECIFIC [id number] 21:00:00* Test Item Value Reference Range Interpretation [...] = 3257) Negative Negative - Negati ve [facility] W/O SPECIFIC [id number] 21:00:00* Test Item Value Reference Range Interpretation [...] = 3257) Negative Negative - Negati ve [facility] CenterTHYROID II PROFILE (TU,T4,FTI,TSH)2022-10-14 05:52:53* Test Item Value Reference Range Interpretation Comme nts T-UPTAKE (test code = 2817) 33.1 % 24.3-39.0 THYROX. BIND. CAPAC. (test code = 80178) 1.0 0.8-1.3 T4 (THYROXINE) (test code = 2819) 9.5 UG/DL 4.5-10.5 CORRECTED T4 (FTI) (test code = 2820) 9.5 UG/DL 4.2-11.6 TSH, THIRD GENERATION (test code = 2821) 0.449 UIU/ML 0.400-4.100 UNLESS OTHERWISE INDICATED, ALL TESTING PERFORMED AT [facility] [address] [place] [address] COMM[employer] HE[employer] WORKER: KETTY AKERS M.D. [place] NUMBER [id number] [facility] [place]. [id number] COMPREHENSIVE METABOLIC [id number] 03:01:46* Test Item Value Reference Range Interpretation Comme nts GLUCOSE (test code = 7) 95 MG/DL 70-99 BUN (test code = 2207) 13 MG/DL 6-20 CREATININE (test code = 2214) 0.89 MG/DL 0.50-1.10 eGFR (2020 CKD-EPI) (test code = 01856) 96 ML/MIN/1.73 >60 CALC BUN/CREAT (test code [...] 7.0 G/DL 6.1-8.3 ALBUMIN (test code = 2201) 4.5 G/DL 3.5-5.2 CALC GLOBULIN (test code = 2240) 2.5 G/DL 2.1-3.7 CALC A/G RATIO (test code = 2234) 1.8 RATIO 1.0-2.6 BILIRUBIN, TOTAL (test code = 7) 0.2 MG/DL See_Comment [Automated me ssage] The system which generated this result transmitted reference range: <=1.2. The reference range was not used to interpret this result as normal/abnormal. ALKALINE PHOSPHATASE (test code = 4) 80 U/L 41-120 AST (test code = 2218) 15 U/L 9-40 ALT (test code = 2218) 16 U/L 5-40 HEPATIC FUNCTION [id number] 03:01:46* Test Item Value Reference Range Interpretation Comme nts PROTEIN, TOTAL (test code = 2228) 7.0 G/DL 6.1-8.3 ALBUMIN (test code = 2200) 4.5 G/DL 3.5-5.2 BILIRUBIN, TOTAL (test code = 2206) 0.2 MG/DL See_Comment [Automated Modacruza ge] The system which generated this result transmitted reference range: <=1.2. The reference range was not used to interpret this result as normal/abnormal. BILIRUBIN, DIRECT (test code = 2021) 0.1 MG/DL 0.0-0.3 ALKALINE PHOSPHATASE (test code = 2203) 80 U/L 41-120 AST (test code = 2217) 15 U/L 9-40 ALT (test code = 2218) 16 U/L 5-40 HEMOGLOBIN [id number] 02:43:44* Test Item Value Reference Range Interpretation Comme nts HEMOGLOBIN A1c (test code = 63190) 5.1 % 4.2-5.6 CBC W/AUTO DIFF WITH [id number] 01:58:08* Test Item Value Reference Range Interpretation [...] 0.00-0.10 ABS NUCLEATED RBCS (test code = 36708) 0.00 K/UL 0.00-0.11 POCT [id number] 15:02:00* Test Item Value Reference Range Interpretation Comme nts POCT PREG (test code = 1605) Negative On board controls acceptable with C Line (test code = 3574) Yes POCT PREG LOT # (test code = 3575) POCT PREG TEST DATE ( test code = 3576) Lab Interpretation (test cod e = 52403-4) Normal [facility] [id number] 15:02:00* Test Item Value Reference Range Interpretation Comme nts POCT PREG (test code = 1605) Negative On board controls acceptable with C Line (test code = 3574) Yes POCT PREG LOT # (test code = 3575) POCT PREG TEST DATE ( test code = 3576) Lab Interpretation (test cod e = 24298-9) Normal [facility] [id number] 15:02:00* Test Item Value Reference Range Interpretation Comme nts POCT PREG (test code = 1605) Negative On board controls acceptable with C Line (test code = 3574) Yes POCT PREG LOT # (test code = 3575) POCT PREG TEST DATE ( test code = 3576) Lab Interpretation (test cod e = 28011-5) Normal [facility] MOLECULAR [id number] 17:01:07* Test Item Value Reference Range Interpretation Comme nts POCT Molecular Strep (test c ode = 93317-7) Negative Negative Lab Interpretation (test cod e = 36114-2) Normal [facility] MOLECULAR [id number] 17:01:07* Test Item Value Reference Range Interpretation Comme nts POCT Molecular Strep (test c ode = 20564-1) Negative Negative Lab Interpretation (test cod e = 59253-4) Normal [facility] MOLECULAR [id number] 17:01:07* Test Item Value Reference Range Interpretation Comme nts POCT Molecular Strep (test c ode = 33350-1) Negative Negative Lab Interpretation (test cod e = 71977-3) Normal [facility] Notes Date/Time Note Provider Source 2024-02-24 08:10:17 Called pt, advised inserted 02/24/2021. Advised will need to be replaced this month. Verbalized understanding. Marianela Genao RN 02/24/24 8:10 AM CLERKS SUPERVISOR Marianela Genao RN [facility] 2024-02-24 07:51:50 Pau Jaimes is a 18 year old female is calling needing to know is it time to replace nexplanon CLERKS SUPERVISOR Bonnie Jimenes [facility] 2023-08-14 03:20:40 Pt given printed and [...] distress, accompanied by friend. Adelaida May RN [facility] 2023-08-14 00:36:43 Pt arrives ambulatory to ED reporting generalized abdominal pain x 2weeks. She says that she has also had SOB and constipation. She was seen at [facility] and they told her that thy could not find anything. She also reports starting her period 2x this month. Ella Gallardo RN [facility] 2022-11-29 11:24:14 Pt needs to see adult medicine.She has aged out of Pediatrics and she agreed at last Wellness visit to transition to adult medicine./acp [facility] 2022-11-29 08:16:40 Images from the original note were not included. Refill requested: STU 03/30/22 Last filled 10/25/22 Name from pharmacy: Cetirizine 10mg 24Hr Tablet Will file in chart as: CETIRIZINE 10 mg tablet Sig: TAKE ONE (1) TABLET(S) BY MOUTH AT BEDTIME. Disp: 30 tablet (Pharmacy requested: 30 Each) Refills: 0 (Pharmacy requested: Not specified) Start: 11/28/2022 Class: eRX For: Allergic rhinitis, unspecified seasonality, unspecified trigger To pharmacy: Sending Erx refill request Last ordered: 1 month ago (10/25/2022) by Aury Rich PA-C Last refill: 10/25/2022 Rx #: [id number] Allergy Failed 11/28/2022 05:43 AM Protocol Details Valid encounter within last 6 months To be filled at: [facility] [place] - [address] [place] [address] Drive AT [place] [address] Mili Suresh MA [facility]
[2024-10-07 21:08] LABS: Sqamous Epithelial <5 /HPF (None Seen); Urine Crystals Unidentified Few /HPF (None Seen); Urine Culture Reflex Order NOT NEEDED; Urine Microscopic Reflex YN ORDER UMIC; Urine WBC Clump Rare /HPF (None Seen); Urine Yeast (Budding) Trace /HPF (None Seen)
[2024-10-07 21:18] LABS: Absolute Lymphocytes (CBC) 2.9 K/uL (0.7-4.9); Hematocrit 40.1 % (36.0-45.0); Hemoglobin 13.4 g/dL (12.0-15.0); MCH 30.0 pg (27.0-35.0); MCHC 33.4 g/dL (32.0-36.0); MCV 89.9 fL (80-100); MPV 9.5 fL (7.6-11.3); Nucleated RBC Absolute Count 0.0 (0-0); Nucleated Red Blood Cells % 0.0 % (0-0); RBC Red Blood Cell Count 4.46 M/uL (3.86-4.86); White Blood Count 10.60 thou/uL (4.3-10.9)
[2024-10-07 21:28] LABS: Anion Gap 6.4 mEq/L (5.0-15.0); BUN Blood Urea Nitrogen 20.0 mg/dL (7-18); Glucose Level 88.0 mg/dL (74-106); HCG, Quantitative 155.0 mIU/mL (1-3); Potassium 3.4 mEq/L (3.5-5.1)
--- NOTE | 2024-10-07 21:46 | RAD REPORT ---
EXAM: Transvaginal OB HISTORY: VAGINAL BLEEDING COMPARISON: None TECHNIQUE: Multiple grayscale and color Doppler images were obtained in a transvaginal pelvic ultraso und. Spectral analysis of the Doppler waveforms of the ovaries were performed. FINDINGS: UTERUS: No gestational sac is identified. The endometrial echo complex measures 14 mm. The uterus fernanda sures 7.1 x 3.4 x 4.4 cm. No free fluid is seen in the pelvis. RIGHT OVARY: Vascular flow present. Right ovarian corpus luteal cyst. Right ovary volume: 7.3 mL. LEFT OVARY: Normal flow without focal mass. Left ovary volume: 2.3 mL. IMPRESSION: No IUP identified. In the setting of a positive hCG level, this would indicate of unknown l ocation. Serial hCG level measurements and short term follow-up is recommended. Bilateral ovarian blood flow.
--- NOTE | 2024-10-07 21:52 | ER ---
Nurse's Notes [facility] Name: Pau Werner Age: 19 yrs Sex: Female : 2005 Arrival Date: 10/07/2024 Time: 20:30 Bed 7 Private MD: Diagnosis: of unknown location, vaginal bleeding, beta-hCG 155 Presentation: 10/07 20:35 Chief complaint: Patient states: SIX WEEK LIGHT VAGINAL BLEEDING FOR THE PAST ha1 TWO DAYS, PELVIC CRAMPING. 20:35 Coronavirus screen: Client denies travel out of the [place] in the last 14 days. Ebola ha1 Screen: No symptoms or risks identified at this time. Initial Sepsis Screen: Does the patient meet any 2 criteria? No. Patient's initial sepsis screen is negative. Does the patient have a suspected source of infection? No. Patient's initial sepsis screen is negative. Risk Assessment: Do you want to hurt yourself or someone else? Patient reports no desire to harm self or others. Onset of symptoms was October 05, 2024. 20:35 Method Of Arrival: Ambulatory ha1 20:35 Acuity: MIKEY 3 ha1 Triage Assessment: 20:41 General: Appears uncomfortable, Behavior is calm, cooperative. Pain: Complains of pain ha1 in pelvis Pain radiates to back Pain currently is 4 out of 10 on a pain scale. Neuro: Level of Consciousness is awake, alert, obeys commands, Oriented to person, place, time, situation. Cardiovascular: Patient's skin is warm and dry. Respiratory: Airway is patent Respiratory effort is even, unlabored, Respiratory pattern is regular, symmetrical. : Reports vaginal bleeding that is light flow. MARKETING ASSOCIATE: 21:37 Verified cp4 Historical: - Allergies: 20:41 No Known Allergies; ha1 - PMHx: 20:41 ADD/ADHD; affective disorder; Anxiety; Bipolar disorder; Depression; Sinus Tachycardia; ha1 VSD as a child; - PSHx: 20:41 Tonsillectomy; ha1 - Immunization history:: Adult Immunizations up to date. - Infectious Disease History:: Denies. - Social history:: Smoking status: Patient/guardian denies using tobacco. Screenin:00 [facility] ED Fall Risk Assessment (Adult) History of falling in the last 3 months, cp4 including since admission No falls in past 3 months (0 pts) Confusion or Disorientation No (0 pts) Intoxicated or Sedated No (0 pts) Impaired Gait No (0 pts) Mobility Assist Device Used No (0 pt) Altered Elimination No (0 pt) Score/Fall Risk Level 0 - 2 = Low Risk Oriented to surroundings, Maintained a safe environment, Assessed \T\ reinforced patient's understanding of fall precautions, Hourly rounding (assess needs \T\ fall precautionary measures) done. Abuse screen: Denies threats or abuse. Denies injuries from another. Nutritional screening: No deficits noted. Tuberculosis screening: No symptoms or risk factors identified. Never had TB. Assessment: 21:00 General: Appears in no apparent distress. comfortable, Behavior is calm, cooperative, cp4 appropriate for age. 21:00 Pain: Complains of pain in back and pelvis Pain does not radiate. Pain currently is 4 cp4 out of 10 on a pain scale. Pain began 2 hours ago. Neuro: Level of Consciousness is awake, alert, obeys commands, Oriented to person, place, time, situation. Cardiovascular: Patient's skin is warm and dry. Respiratory: Airway is patent Respiratory effort is even, unlabored. GI: No signs and/or symptoms were reported involving the gastrointestinal system. : Reports vaginal bleeding that is bright red, light flow. EENT: No signs and/or symptoms were reported regarding the EENT system. Derm: No signs and/or symptoms reported regarding the dermatologic system. Musculoskeletal: No signs and/or symptoms reported regarding the musculoskeletal system. Vital Signs: 20:35 BP 121 / 80; Pulse 85; Resp 18 S; Temp 97.6(O); Pulse Ox 100% on R/A; Weight 68.95 kg; ha1 Height 5 ft. 5 in. ; Pain 4/10; 21:37 BP 104 / 67; Pulse 82; Resp 18; Pulse Ox 100% ; cp4 20:35 Body Mass Index 25.29 (68.95 kg, 165.1 cm) ha1 20:35 Pain Scale: Adult ha1 ED Course: 20:31 Patient arrived in ED. jj6 20:36 Lexus Ortega MD is Attending Physician. sp3 20:39 Radiology exam delayed due to test not completed at this time. aa4 20:41 Triage completed. ha1 20:41 Hillary Light is Primary Nurse. cp4 21:00 Bed in low position. Call light in reach. Side rails up X 1. cp4 21:00 No provider procedures requiring assistance completed. Initial lab(s) drawn, by sd, cp4 sent to lab. Urine collected: clean catch specimen, cloudy. Inserted saline lock: 20 gauge in right antecubital area, using aseptic technique. Blood collected. Flushed with 10 mL NS. 21:40 Transvaginal Ob In Process Unspecified. EDMS 21:59 Provided Education on: vaginal bleeding during . cp4 21:59 intact, bleeding controlled, No redness/swelling at site. Pressure dressing applied. cp4 22:00 Arm band placed on left wrist. Patient placed in waiting room. cp4 Administered Medications: No medications were administered Medication: 21:00 VIS not applicable for this client. cp4 Outcome: 21:52 Discharge ordered by MD. sp3 21:59 Discharged to home ambulatory, cp4 21:59 Condition: stable 21:59 Discharge instructions given to patient, Instructed on discharge instructions, follow up and referral plans. Demonstrated understanding of instructions, follow-up care, 22:00 Patient left the ED. cp4 Signatures: Dispatcher [employer] EDWI Ella Dickson aa4 Lexus Ortega MD MD sp3 Shauna Villalobos6 Angelique Omalley, GURPREET RN ha1 Hillary Light cp4
--- NOTE | 2024-10-07 21:53 | EDPHYS ---
Physician Documentation [facility] Name: Pau Werner Age: 19 yrs Sex: Female : 2005 Arrival Date: 10/07/2024 Time: 20:30 Bed 7 Private MD: ED Physician Lexus Ortega HPI: 10/07 20:58 This 19 yrs old Female presents to ER via Ambulatory with complaints of Vaginal sp3 Bleeding, EST 6 WKS GESTATION, Pelvic Pain. 20:58 19-year-old female history of bipolar disease, ADHD, presents to the ED with chief sp3 complaint vaginal bleeding in the setting of positive test at home. Dates by LMP is approximately 6 weeks. She denies any significant bleeding but states that she has been spotting 2 a light period in terms of flow. She denies any other symptoms including pain, syncope, lightheadedness, or any other signs or symptoms on ROS at this time.. 911 OPERATOR: 21:37 Verified cp4 Historical: - Allergies: 20:41 No Known Allergies; ha1 - PMHx: 20:41 ADD/ADHD; affective disorder; Anxiety; Bipolar disorder; Depression; Sinus Tachycardia; ha1 VSD as a child; - PSHx: 20:41 Tonsillectomy; ha1 - Immunization history:: Adult Immunizations up to date. - Infectious Disease History:: Denies. - Social history:: Smoking status: Patient/guardian denies using tobacco. ROS: 21:06 Constitutional: Negative for fever, chills, and weight loss, Eyes: Negative for injury, sp3 pain, redness, and discharge, ENT: Negative for injury, pain, and discharge, Neck: Negative for injury, pain, and swelling, Cardiovascular: Negative for chest pain, palpitations, and edema, Respiratory: Negative for shortness of breath, cough, wheezing, and pleuritic chest pain, Abdomen/GI: Negative for abdominal pain, nausea, vomiting, diarrhea, and constipation, Back: Negative for injury and pain, MS/Extremity: Negative for injury and deformity, Skin: Negative for injury, rash, and discoloration, Neuro: Negative for headache, weakness, numbness, tingling, and seizure, Psych: Negative for depression, anxiety, suicide ideation, homicidal ideation, and hallucinations, Allergy/Immunology: Negative for hives, rash, and allergies, Endocrine: Negative for neck swelling, polydipsia, polyuria, polyphagia, and marked weight changes, Hematologic/Lymphatic: Negative for swollen nodes, abnormal bleeding, and unusual bruising, 21:06 All other systems are negative, Exam: 21:06 Constitutional: This is a well developed, well nourished patient who is awake, alert, sp3 and in no acute distress. Head/Face: Normocephalic, atraumatic. Eyes: Pupils equal round and reactive to light, extra-ocular motions intact. Lids and lashes normal. Conjunctiva and sclera are non-icteric and not injected. Cornea within normal limits. Periorbital areas with no swelling, redness, or edema. Neck: Trachea midline, no thyromegaly or masses palpated, and no cervical lymphadenopathy. Supple, full range of motion without nuchal rigidity, or vertebral point tenderness. No Meningismus. Chest/axilla: Normal chest wall appearance and motion. Nontender with no deformity. No lesions are appreciated. Cardiovascular: Regular rate and rhythm with a normal S1 and S2. No gallops, murmurs, or rubs. Normal PMI, no JVD. No pulse deficits. Respiratory: Lungs have equal breath sounds bilaterally, clear to auscultation and percussion. No rales, rhonchi or wheezes noted. No increased work of breathing, no retractions or nasal flaring. Abdomen/GI: Soft, non-tender, with normal bowel sounds. No distension or tympany. No guarding or rebound. No evidence of tenderness throughout. Back: No spinal tenderness. No costovertebral tenderness. Full range of motion. Skin: Warm, dry with normal turgor. Normal color with no rashes, no lesions, and no evidence of cellulitis. MS/ Extremity: Pulses equal, no cyanosis. Neurovascular intact. Full, normal range of motion. Neuro: Awake and alert, GCS 15, oriented to person, place, time, and situation. Cranial nerves II-XII grossly intact. Motor strength 5/5 in all extremities. Sensory grossly intact. Cerebellar exam normal. Normal gait. Psych: Awake, alert, with orientation to person, place and time. Behavior, mood, and affect are within normal limits. 21:06 : No active bleeding at this time, Vital Signs: 20:35 BP 121 / 80; Pulse 85; Resp 18 S; Temp 97.6(O); Pulse Ox 100% on R/A; Weight 68.95 kg; ha1 Height 5 ft. 5 in. ; Pain 4/10; 21:37 BP 104 / 67; Pulse 82; Resp 18; Pulse Ox 100% ; cp4 20:35 Body Mass Index 25.29 (68.95 kg, 165.1 cm) ha1 20:35 Pain Scale: Adult ha1 MDM: 20:36 Medical Screening Exam initiated sp3 21:06 Data reviewed: vital signs, nurses notes, lab test result(s), radiologic studies. ED sp3 course: 19-year-old female G1, P0 at 6 weeks with vaginal spotting/bleeding. Differential diagnosis includes normal , threatened , miscarriage in process, and to lesser degree ectopic . We will obtain ultrasound which will likely be normal and beta-hCG quantitative. She will need repeat in 48 hours to determine prognosis. Other routine labs as ordered. Disposition probable discharge with repeat hCG in 48 hours. Patient knows to return here if she has no other means to obtain it.. 21:51 ED course: hCG of 155. Patient will need repeat hCG at 48 hours.. sp3 10/07 20:37 Order name: Abo/rh Typing; Complete Time: 21:29 sp3 10/07 20:37 Order name: Basic Metabolic Panel; Complete Time: 21:29 sp3 10/07 20:37 Order name: CBC with Diff; Complete Time: 21:29 sp3 10/07 20:37 Order name: Test, Urine; Complete Time: 21:29 sp3 10/07 20:37 Order name: Quantitative Hcg; Complete Time: 21:29 sp3 10/07 20:37 Order name: UA Rfx Shahid Cult if indicated; Complete Time: 21:29 sp3 10/07 20:37 Order name: US Transvaginal Ob; Complete Time: 21:50 sp3 10/07 20:37 Order name: IV Saline Lock; Complete Time: 20:59 sp3 10/07 20:37 Order name: Labs collected and sent; Complete Time: 20:59 sp3 10/07 20:37 Order name: NPO; Complete Time: 21:00 sp3 Administered Medications: No medications were administered Disposition Summary: 10/07/24 21:52 Discharge Ordered Notes: You will need repeat blood testing in 48 hours. Location: Home sp3 Condition: Stable sp3 Diagnosis - of unknown location, vaginal bleeding, beta-hCG 155 sp3 Followup: sp3 - With: Private Physician - When: Upon discharge from the Emergency Department - Reason: Continuance of care Discharge Instructions: - Discharge Summary Sheet sp3 - Vaginal Bleeding During , First Trimester sp3 Forms: - Medication Reconciliation Form sp3 - Antibiotic Education sp3 - Prescription Opioid Use sp3 - Patient Portal Instructions sp3 - Leadership Thank You Letter sp3 Signatures: Dispatcher [employer] EDLexus Mattson MD MD sp3 Angelique Omalley, RN RN ha1
[2024-10-08 05:51] VITALS: TEMP 97.6; O2SAT 100
[2024-10-08 06:10] VITALS: BP 104/67
== END 2024-10-07 22:00 | disposition home or self-care (01) ==
LOC: ER 20:30
DX: O26.899 Other specified pregnancy related conditions, unspecified trimester (principal)
CPT/HCPCS: 36415; 76817; 80048; 81001; 81025; 84702; 85025; 86900; 86901; 99283